=== PATIENT | female | born 1990 | race African-American/Black ===

== ENCOUNTER 2024-03-19 09:15 | Emergency (ER) | payer OTHER, SELFPAY ==
[2024-03-19 09:18] VITALS: BP 134/87; PULSE 76; TEMP 36.7; O2SAT 99; BMI 27.1
--- NOTE | 2024-03-19 11:12 | ED_ITS ---
HPI HPI - General Adult General Chief complaint: Head Injury Stated complaint: HEAD INJURY Time Seen by Provider: 03/19/24 10:30 Source: patient Mode of arrival: walk-in Limitations: no limitations History of Present Illness HPI narrative: Patient is a 33-year-old female who is presenting to the ER today with chief complaint of closed head injury last evening. Patient went to [facility] last evening for evaluation. There is CT scanner was not working appropriately, patient was medically cleared and discharged without evidence and education on close head injury. Patient takes no blood thinners. She currently has a lot of pressure to her forehead in the front of her face, no other headache. Patient does have a history of headache and migraines. Patient has no chest pain or marco antonio rtness of breath. No nausea or vomiting. No dizziness, vertigo. No vision or hearing changes. No other acute complaints. Patient does have some mild swelling to the middle of her forehead. Patient stated the swelling was much worse last evening. Patient has religiously been doing ice last evening 20 minutes on, 20 minutes off and also taking Motrin. She has not had any Motrin since 2 AM this morning. Patient does not use any Tylenol. 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 Patient drove the ER today. Patient is here for reevaluation and to see if she needs a CT of the brain or not. No other acute complaints. All systems are negative except as noted/marked. All systems reviewed and otherwise negative. Nurses note and vital signs reviewed and patient is not hypoxic. General: The patient appears well and in no apparent distress. Patient is resting comfortably on cart. Patient is not toxic, lethargic, or listless Skin: Warm, dry, no pallor noted. There is no rash noted. No petechiae, purpura. Head: Normocephalic, atraumatic, patient has mild soft swelling to the middle of her for forehead. Patient states that her forehead and swelling is significantly improved compared to last night. no hard palpable hematoma. Patient has no midline or paracervical tenderness palpation. Full range of motion of cervical spine with no difficulty. Eye: Normal conjunctiva, no drainage, EOMI. PERRL pupils are 4/2, equal, bilateral. No raccoon eyes. Ears, Nose, Mouth, and Throat: oral mucosa is moist. Nares patent. Mouth without vesicles. Cardiovascular: Regular Rate and Rhythm, no murmur, gallop, rub Respiratory: Patient is in no distress, no accessory muscle use, lungs are clear to auscultation, no wheezing, rales or rhonchi Back: non-tender, no CVA tenderness bilaterally to percussion. No CT LS midline pain GI: no tenderness to palpation, no masses appreciated. No rebound, guarding, or rigidity noted. No distention Musculoskeletal: Patient has full range of motion of all of the extremities, no motor, sensory, or focal neurological deficits Neurological: A&O x4, normal speech Psychiatric: Cooperative Related Data Previous Rx's ?Medication ?Instructions ?Recorded ebjjzyupia-lsydrdtflvsuy-dlewzzcb 1 cap PO Q8H PRN pain/headache #7 03/19/24 50 mg-300 mg-40 mg capsule caps (Fioricet) metoclopramide HCl 10 mg tablet 10 mg PO Q6H PRN nausea and 03/19/24 (Reglan) vomiting 3 days #7 tabs Allergies Allergy/AdvReac Type Severity Reaction Status Date / Time No Known Drug Allergies Allergy Verified 03/19/24 09:18 Opioid HPI Opioid Management Most Recent Opioid Data: No Data to Display Exam Constitutional Vital Signs, click to edit/add: Last Vital Signs Temp 98.0 F 03/19/24 09:18 Pulse 76 03/19/24 09:18 Resp 17 03/19/24 09:18 BP 134/87 03/19/24 09:18 Pulse Ox 99 03/19/24 09:18 O2 Del Method Room Air 03/19/24 09:18 Course Vital Signs Vital signs: Vital Signs Temperature 98.0 F 03/19/24 09:18 Pulse Rate 76 03/19/24 09:18 Respiratory Rate 17 03/19/24 09:18 Blood Pressure 134/87 03/19/24 09:18 Pulse Oximetry 99 03/19/24 09:18 Oxygen Delivery Method Room Air 03/19/24 09:18 Temperature 98.0 F 03/19/24 09:18 Pulse Rate 76 03/19/24 09:18 Respiratory Rate 17 03/19/24 09:18 Blood Pressure 134/87 03/19/24 09:18 Pulse Oximetry 99 03/19/24 09:18 Oxygen Delivery Method Room Air 03/19/24 09:18 Medical Decision Making MDM Narrative Medical decision making narrative: Patient is on no blood thinners. Patient's symptoms are pressure 2 or 4 in the front of her face. Patient has no significant signs or symptoms of severe headache, amnesia, intractable nausea vomiting, or any other significant signs of head injury. Education was done on benefit of performing a CT of the brain or not at this time. Shared decision making was done with the patient. Patient agrees that she does not want to have a CT of the brain at this time. Education on close head injury, postconcussion syndrome, and symptoms and what to look out for were discussed with patient at bedside and on discharge paperwork. Patient will alternate Tylenol Motrin. Patient was given a prescription for Fioricet and Reglan to use if needed. Patient was given a work note. Patient was getting signs and symptoms of water return back to the ER for reevaluation. Patient was offered to have a CT of the brain to be safe and for peace of mind, but patient stated that if is not clinically warranted with evidence-based medicine, then she is okay with not performing CT of the brain, she just did not have any education on how long her sinus symptoms would last for no education on close head injury and postconcussion syndrome last night from the ER per her words. Patient thankful for time at bedside. No question of discharge Discharge Plan Discharge Stand Alone Forms: Work/School Release, Portal Instructions Chief Complaint: Head Injury Clinical Impression: Closed head injury, Postconcussion syndrome Patient Disposition: Home, Self-Care Time of Disposition Decision: 10:31 Condition: Fair Prescriptions / Home Meds: New nzmqiwmmft-gfziktjmwflsq-tsmg [Fioricet] 50-300-40 mg capsule 1 cap PO Q8H PRN (Reason: pain/headache) Qty: 7 0RF metoclopramide HCl [Reglan] 10 mg tablet 10 mg PO Q6H PRN (Reason: nausea and vomiting) 3 Days Qty: 7 0RF Print Language: Mozambican Instructions: Head Injury (ED), Post Concussion Syndrome (ED) Additional Instructions: Alternate Tylenol and Motrin every 4 hours as discussed. Continue using ice 20 minutes on, 20 minutes off. Use Fioricet and Reglan if needed. Do not take Fioricet with Tylenol, you could actually take too much Tylenol at the same time. Use Reglan if needed for nausea, vomiting, and headache. Follow-up with PCP for further questions. Referrals: Physician,Non-Staff, MD [Primary Care Provider] - 1 week Discharge Date/Time: 03/19/24 10:50
== END 2024-03-19 10:50 | disposition home or self-care (01) ==
PROVIDERS: Emergency Provider Emergency Medicine
DX: S09.8XXA Other specified injuries of head, initial encounter (principal); F07.81 Postconcussional syndrome; W22.8XXA Striking against or struck by other objects, initial encounter
CPT/HCPCS: 99283

== ENCOUNTER 2024-04-09 12:10 | Outpatient (OUT) | payer OTHER, SELFPAY ==
[2024-04-10 06:11] LABS: HBsAg Screen Negative (Negative)
[2024-04-10 12:09] LABS: HIV Ab/p24 Ag Screen Non Reactive (Non Reactive)
[2024-04-10 13:08] LABS: Rapid Plasma Reagin, Quant Non Reactive titer (NonRea<1:1)
== END 2024-04-09 12:11 | disposition home or self-care (01) ==
LOC: LAB 12:11
PROVIDERS: Visit Provider Obstetrics & Gynecology
DX: Z20.2 Contact with and (suspected) exposure to infections with a predominantly sexual mode of transmission (principal)
CPT/HCPCS: 36415; 86592; 87340; 87389

== ENCOUNTER 2024-05-14 19:05 | Outpatient (REF) | payer OTHER, SELFPAY ==
--- OUTSIDE RECORDS SUMMARY | 2024-05-14 19:10 | XMS_ITS | CCD ---
Author Organization [facility] Care Team Providers Care Inspector Scales Name Role Phone Kaylyn Spring Attending Provider NO FAMILY, PHYSICIAN Primary Care Provider Unava ilMayuri Ulloa Unavailable NO FAMILY, PHYSICIAN Primary Care Provider Unava ilMURIEL Ulloa Attending Provider [facility] Primary Care Unavailable ABRAM ., DR PANIAGUA Attending Unavailable ABRAM ., DR PANIAGUA Consulting Unavailable ABRAM ., DR PANIAGUA Admitting Unavailable Vanesa Bullock CNP Primary Care Provider [phone] NO FAMILY, PHYSICIAN Primary Care Unavailable Mayuri Hanson Attending Unavailable Mayuri Hanson Admitting Unavailable Joel Zapata Attending Unavailab Joel Brambila Admitting Unavailab josselin NO FAMILY, PHYSICIAN Primary Care Unavailable VALENTIN PASCUAL Attending Unavailable ARCELIA VALVERDE Attending Unavailable VALENTIN PASCUAL Attending Unavailable ARCELIA VALVERDE Attending Unavailable SERVICES, [facility] Care Unava SUNNY Malin Attending Unavailable SERVICES, [facility] Primary Care Unava ilSUNNY Bailey Attending Unavailable SUNNY COOK [facility] Care Unava ilKAYYLN Ribeiro Attending Unavailable Allergies Allergy Classification Reported Allergen(s) Allergy Type Date of Onset Reaction(s) Facility (8 sources) Bee sting Allergy to substance 3 Hives / Urticaria [facility] Medications Current Medications Medication Drug Class(es) Dates Sig (Normalized) Sig (Original) busPIRone hydrochloride 5 mg oral tablet (4 sources) Start: 04-23-2024 busPIRone HCl 5 MG Oral Tablet 04/23/2024 Provider: Vanesa Bullock CNP cyclobenzaprine hydrochloride 10 mg oral tablet (6 sources) Muscle Relaxant Start: 05-07-2024 Cyclobenzaprine HCl 10 MG Oral Tablet 05/07/2024 Provider: Shelly Mei CNP Start: 02-14-2024 End: 04-23-2024 Cyclobenzaprine HCl 10 MG Or al Tablet 02/14/2024 - 04/23/2024 Provider: Vanesa Bullock CNP hydrOXYzine pamoate 25 mg oral capsule (2 sources) Antihistamine Start: 05-07-2024 hydrOXYzine Pa moate 25 MG Oral Capsule 05/07/2024 Provider: Shelly Mei CNP Start: 05-07-2024 hydrOXYzine Pa moate 25 MG Oral Capsule 05/07/2024 Provider: Shelly Mei CNP ibuprofen 800 mg oral tablet (6 sources) Nonsteroidal Anti-inflammatory Drug Start: 05-07-2024 Ibuprofen 800 MG Oral Tablet 05/07/2024 Provider: Shelly Mei CNP Start: 02-14-2024 End: 04-23-2024 Ibuprofen 800 MG Oral Tablet 02/14/2024 - 04/23/2024 Provider: Vanesa Bullock CNP levonorgestrel 0.735416 mg/hr intrauterine system (8 sources) Progestin, Progestin-containing Intrauterine Device Start: 05-23-2023 Mirena (52 MG) 20 MCG/DAY Intrauterine Intrauterine device 05/23/2023 Provider: pantoprazole 20 mg delayed release oral tablet (9 sources) Proton Pump Inhibitor Start: 05-07-2024 Pantopra zole Sodium 20 MG Oral Tablet Delayed Release 05/07/2024 Provider: Shelly Mei CNP Start: 05-07-2024 Pantoprazole S odium 20 MG Oral Tablet Delayed Release 05/07/2024 Provider: Shelly Mei CNP Start: 12-18-2023 End: 04-23-2024 Pantoprazole Sodium 40 MG Or al Tablet, enteric coated 12/18/2023 - 04/23/2024 Provider: Vanesa Bullock CNP Wrist Splint/Right XL - (1 source) Start: 01-02-2023 Wrist Splint/R ight XL - as directed Dec, Active Completed/Discontinued Medications Medication Drug Class(es) Dates Sig (Normalized) Sig (Original) 1 ml methylPREDNISolone acetate 80 mg/ml injection (4 sources) Corticosteroid Start: 04-23-2024 DEPO-Medrol 80 MG/ML IJ SUSP 04/23/2024 Vanesa Bullock CNP Comment on above: Patient tolerated th erapy well. No signs or symptoms of adverse reactions. Patient waited in clinic for 15 minutes after administration. predniSONE 20 mg oral tablet (5 sources) Start: 02-14-2024 End: 04-23-2024 predniSONE 20 MG Oral Tablet 02/14/2024 - 04/23/2024 Provider: Vanesa Bullock CNP sucralfate 1000 mg oral tablet (1 source) Aluminum Complex Start: 03-29-2021 take 1 tablet by mouth every eight hours Sucralfate 1 GM 1 tablet on an empty stomach Orally tid for 30 day(s) Mar, Not-Taking Problems Active Problems Problem Classification Problem Date Documented Da te Episodic/Chronic Abdominal pain (1 source) Abdominal pain; Translations: [Unspecified abdominal pain] 05-05-2021 Episodic Anxiety disorders (20 sources) Generalized anxiety disorder; Translations: [Generalized anxiety disorder] Onset: 4 12-18-2023 Chronic Esophageal disorders (12 sources) Gastroesophageal reflux disease without esophagitis; Translations: [Gastro-esophageal reflux disease without esophagitis] Onset: 4 12-19-2023 Chronic Gastritis and duodenitis (17 sources) Chronic gastritis; Translations: [Unspecified chronic gastritis with bleeding] Onset: 3 05-23-2023 Chronic Gastrointestinal hemorrhage (1 source) Hematochezia; Translations: [Melena] 05-05-2021 Episodic Immunizations and screening for infectious disease (5 sources) Encounter for screening for human immunodeficiency virus [HIV]; Translations: [Screening For Hiv] Onset: 4 Episodic Intracranial injury (1 source) Concussion with loss of consciousness of 30 minutes or less, initial encounter; Translations: [Concussion with loss of consciousness of 30 minutes or less, initial encounter] Onset: 4 Episodic Mood disorders (16 sources) Mild recurrent major depression; 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, recurrent, mild] Onset: 3 12-18-2023 Chronic Nonspecific chest pain (2 sources) Chest pain, unspecified; Translations: [Chest pain] Onset: 4 Episodic Other connective tissue disease (1 source) Pain in right thumb; Translations: [Pain in right finger(s)] Episodic Other connective tissue disease (1 source) Pain in right finger(s) Episodic Other gastrointestinal disorders (1 source) Diarrhea; Translations: [Diarrhea, unspecified] 05-05-2021 Episodic Other injuries and conditions due to external causes (1 source) Injury of head Onset: 4 Episodic Other nutritional; endocrine; and metabolic disorders (1 source) Weight loss; Translations: [Abnormal weight loss] 05-05-2021 Episodic Other nutritional; endocrine; and metabolic disorders (20 sources) Finding of body mass index; Translations: [Body mass index (observable entity)] Onset: 3 Episodic Other screening for suspected conditions (not mental disorders or infectious disease) (17 sources) Encounter for screening for malignant neoplasm of cervix; Translations: [Encounter for screening for diabetes mellitus] Onset: 3 Episodic Residual codes; unclassified (4 sources) Body mass index (BMI) pediatric, 5th percentile to less than 85th percentile for age; Translations: [Assessment of Bmi Percentile = 5% To < 85% For Age Z68.52] Onset: 4 Episodic Spondylosis; intervertebral disc disorders; other back problems (5 sources) Disorder of muscle; Translations: [Skeletal muscle structure of back (body structure)] Onset: 4 Episodic Sprains and strains (14 sources) Unspecified sprain of right thumb, initial encounter; Translations: [Low back strain] Onset: 4 Episodic Superficial injury; contusion (1 source) Contusion of other part of head, initial encounter; Translations: [Contusion of other part of head, initial encounter] Onset: 4 Episodic Unclassified (1 source) Pain in right finger(s); Translations: [Pain in right finger(s)] Onset: 3 Unclassified (1 source) Facial Numbness Onset: 4 Unclassified (1 source) Chest Pain; Facial Numbness Onset: 4 Past or Other Problems Problem Classification Problem Date Documented Da te Episodic/Chronic Gastritis and duodenitis (12 sources) Acute gastritis; Translations: [Acute gastritis without bleeding] Onset: 12-19-2023 12-19-2023 Episodic Results Test Name Value Interpretation Reference Range Facility BASIC METABOLIC PANLon 05-04 Anion gap [Moles/Vol] 9 mmol/L Normal 5-15 [facility] Comment on above: Performed By: #### C SUZANNE, BMP, 51112-7, 63141-4, 33539-5 #### [facility] ([id number]) [address] [place] [address] 99713 Calcium [Mass/Vol] 9.3 mg/dL Normal 8.5-10.5 [facility] Comment on above: Performed By: #### C SUZANNE, BMP, 11781-2, 91821-3, 83163-8 #### [facility] ([id number]) [address] [place] [address] 81161 Chloride [Moles/Vol] 105 mmol/L Normal 98-109 [facility] Comment on above: Performed By: #### C SUZANNE, BMP, 95953-0, 49040-0, 92695-7 #### [facility] ([id number]) [address] [place] [address] 13989 CO2 [Moles/Vol] 20 mmol/L Low 22-32 [facility] Comment on above: Performed By: #### C SUZANNE, BMP, 43394-3, 23670-6, 24765-4 #### [facility] ([id number]) [address] [place] [address] 96953 Creatinine [Mass/Vol] 0.76 mg/dL Normal 0.40-1.00 [facility] Comment on above: Result Comment: METH OD TRACEABLE TO IDMS STANDARD Performed By: #### C SUZANNE, BMP, 44343-0, 28109-0, 28005-4 #### [facility] ([id number]) [address] [place] [address] 94035 eGFR (CKD-EPI) NON-RACE DEPENDENT >90 Normal >59 [facility] Comment on above: Result Comment: Reported eGFR is based on the CKD-EPI 2020 equation that does not use a race coefficient. Performed By: #### C SUZANNE, BMP, 83975-8, 62397-7, 07891-7 #### [facility] ([id number]) [address] [place] [address] 50177 Glucose [Mass/Vol] 116 mg/dL High 65-99 [facility] Comment on above: Performed By: #### C SUZANNE, BMP, 86384-8, 04351-9, 99561-8 #### [facility] ([id number]) [address] [place] [address] 69832 Potassium [Moles/Vol] 3.9 mmol/L Normal 3.5-5.0 [facility] Comment on above: Performed By: #### C SUZANNE, BMP, 63390-3, 66322-1, 18093-2 #### [facility] ([id number]) [address] [place] [address] 95825 Sodium [Moles/Vol] 134 mmol/L Normal 134-146 [facility] Comment on above: Performed By: #### C SUZANNE, BMP, 70989-9, 02561-0, 19320-0 #### [facility] ([id number]) [address] [place] [address] 92388 Urea nitrogen [Mass/Vol] 15 mg/dL Normal 5-23 [facility] Comment on above: Performed By: #### C BCA, BMP, 63635-8, 10038-2, 23425-6 #### [facility] ([id number]) [address] [place] [address] 30046 CBC AND AUTO DIFFon 05-04-20 24 ABSOLUTE BASOPHIL 0.0 X10E9/L Normal 0.0-0.2 [facility] Comment on above: Performed By: #### C BCA, BMP, 43247-4, 41503-6, 34459-9 #### [facility] ([id number]) [address] [place] [address] 95621 ABSOLUTE NEUTROPHIL 5.3 X10E9/L Normal 1.5-6.6 [facility] Comment on above: Performed By: #### C SUZANNE, BMP, 45650-0, 91291-4, 92520-4 #### [facility] ([id number]) [address] [place] [address] 43069 Basophils/100 WBC (Bld) 0.3 % Normal [facility] Comment on above: Performed By: #### Cammie PALACIOS, BMP, 80140-8, 55688-7, 17626-9 #### [facility] ([id number]) [address] [place] [address] 11861 Eosinophils (Bld) [#/Vol] 0.1 10*3/uL Normal 0.0-0.4 [facility] Comment on above: Performed By: #### C SUZANNE, BMP, 36120-9, 78091-2, 10698-3 #### [facility] ([id number]) [address] [place] [address] 65626 Eosinophils/100 WBC (Bld) 1.3 % Normal [facility] Comment on above: Performed By: #### Cammie PALACIOS, BMP, 09406-2, 90098-1, 34174-9 #### [facility] ([id number]) [address] [place] [address] 40314 Erythrocyte distribution width (RBC) [Ratio] 13.3 % Normal 11.5-15.0 [facility] Comment on above: Performed By: #### Cammie PALACIOS, BMP, 72345-0, 39746-8, 59364-1 #### [facility] ([id number]) [address] [place] [address] 07896 Hematocrit (Bld) [Volume fraction] 41.6 % Normal 35-47 [facility] Comment on above: Performed By: #### C BCA, BMP, 41081-0, 47640-7, 81122-1 #### [facility] ([id number]) [address] [place] [address] 56282 Hemoglobin (Bld) [Mass/Vol] 13.5 g/dL Normal 11.7-15.5 [facility] Comment on above: Performed By: #### C BCA, BMP, 50388-3, 80111-3, 42833-4 #### [facility] ([id number]) [address] [place] [address] 08235 Lymphocytes (Bld) [#/Vol] 2.2 10*3/uL Normal 1.0-3.5 [facility] Comment on above: Performed By: #### C BCA, BMP, 58771-4, 37082-9, 18648-6 #### [facility] ([id number]) [address] [place] [address] 41915 Lymphocytes/100 WBC (Bld) 27.1 % Normal [facility] Comment on above: Performed By: #### C BCA, BMP, 85909-0, 47478-0, 87846-2 #### [facility] ([id number]) [address] [place] [address] 45869 MCH (RBC) [Entitic mass] 27.0 pg Normal 27-34 [facility] Comment on above: Performed By: #### C BCA, BMP, 53835-3, 32613-7, 11878-0 #### [facility] ([id number]) [address] [place] [address] 59810 MCHC (RBC) [Mass/Vol] 32.5 g/dL Normal 32-36 [facility] Comment on above: Performed By: #### C BCA, BMP, 18876-6, 59722-5, 04423-3 #### [facility] ([id number]) [address] [place] [address] 21260 MCV (RBC) [Entitic vol] 83 fL Normal 80-100 [facility] Comment on above: Performed By: #### C SUZANNE, PARAM, 03151-8, 36378-2, 31522-0 #### [facility] ([id number]) [address] [place] [address] 05108 Monocytes (Bld) [#/Vol] 0.5 10*3/uL Normal 0-0.9 [facility] Comment on above: Performed By: #### C SUZANNE, BMP, 43814-4, 11775-2, 89258-0 #### [facility] ([id number]) [address] [place] [address] 51481 Monocytes/100 WBC (Bld) 6.4 % Normal [facility] Comment on above: Performed By: #### Cammie PALACIOS, BMP, 48185-6, 73406-5, 65887-0 #### [facility] ([id number]) [address] [place] [address] 60393 Neutrophils/100 WBC (Bld) 64.9 % Normal [facility] Comment on above: Performed By: #### Cammie PALACIOS, PARAM, 41168-8, 13353-6, 65585-0 #### [facility] ([id number]) [address] [place] [address] 65846 Platelet mean volume (Bld) [Entitic vol] 8.7 fL Normal 7-12 [facility] Comment on above: Performed By: #### Cammie PALACIOS, BMP, 39426-2, 40933-8, 20406-5 #### [facility] ([id number]) [address] [place] [address] 23453 Platelets (Bld) [#/Vol] 237 10*3/uL Normal 150-450 [facility] Comment on above: Performed By: #### C SUZANNE, BMP, 62261-7, 36889-2, 13575-5 #### [facility] ([id number]) [address] [place] [address] 64903 RBC COUNT 5.00 X10E12/L Normal 3.80-5.20 [facility] Comment on above: Performed By: #### C SUZANNE, BMP, 90509-8, 74303-3, 98490-0 #### [facility] ([id number]) [address] [place] [address] 85201 WBC (Bld) [#/Vol] 8.1 10*3/uL Normal 4.0-11.0 [facility] Comment on above: Performed By: #### C SUZANNE, PARAM, 08952-9, 04198-1, 82408-1 #### [facility] ([id number]) [address] [place] [address] 04826 Fibrin D-dimer DDU (PPP) [Ma ss/Vol]on 05-04-2024 D DIMER <150 Normal <255 [facility] Comment on above: Result Comment: Results <255 ng/mL DDU: The presence of a VTE can safely be excluded with a negative D-Dimer result and Wells score. A negative result doesn't exclude the possibility of DIC. The test be repeated along with other diagnostic tests if the patient's symptoms persist or worsen. [email or web address] Performed By: #### C SUZANNE, BMP, 03095-6, 59235-2, 71283-1 #### [facility] ([id number]) [address] [place] [address] 43668 HCG ( test) Cm Vines (S)on 05-04-2024 SERUM Negative Normal NEG [facility] Comment on above: Performed By: #### C SUZANNE, BMP, 68366-5, 81994-0, 92055-4 #### [facility] ([id number]) [address] [place] [address] 15406 Troponin I.cardiac High sens itivity method [Mass/Vol]on 05-04-2024 TROPONIN I, HIGH SENSITIVITY 2 ng/L Normal <16 [facility] Comment on above: Performed By: #### C SUZANNE, BMP, 13785-9, 91338-6, 24472-7 #### [facility] ([id number]) [address] [place] [address] 11492 XR CHEST 1 VWon 05-04-2024 XR CHEST 1 VW XR CHEST 1 VW CLINICAL INFORMATION: Chest pain and shortness of breath COMPARISON: Chest radiograph dated 04/22/2021. VIEWS: 1. FINDINGS: Cardiac and mediastinal shadows are normal. No infiltrates. No effusions. No pneumothorax. No free air below the diaphragm. IMPRESSION: No acute cardiopulmonary disease. Finalized by Unique Figueroa MD on 05/04/2024 10:21 AM Normal [facility] PAP ACOG PANEL 2: 30 to 65on 02-15-2023 . . Normal [facility] Comment on above: Result Comment: Perf ormed at: WB Performed By: #### [id number] #### [facility] [address] [address] [address] Alli Galvin Age Gdln ACOG Testing 30-65 Normal [facility] Comment on above: Performed By: #### 4 [id number] #### [facility] [address] [address] [address] Alli Galvin DIAGNOSIS: Comment Normal [facility] Comment on above: Result Comment: NEGA TIVE FOR INTRAEPITHELIAL LESION OR MALIGNANCY. Performed at: WB Performed By: #### 4 [id number] #### [facility] [address] [address] [address] Alli Galvin HPV Aptima Negative Normal Negative [facility] Comment on above: Result Comment: This nucleic acid amplification test detects fourteen high-risk HPV types (16,18,31,33,35,39,45,51,52,56,58,59,66,68) without differentiation. Performed at: =G Performed By: #### 4 [id number] #### [facility] [address] [place] [address] Dr. Alli Galvin HPV Genotype Reflex Comment Normal [facility] Comment on above: Result Comment: Crit eria not met, HPV Genotype not performed. Performed at: WB Performed By: #### 4 [id number] #### [facility] [address] [place] [address] Dr. Alli Galvin Methodology: Comment Normal [facility] Comment on above: Result Comment: This liquid based ThinPrep(R) pap test was screened with the use of an image guided system. Performed at: WB Performed By: #### 4 [id number] #### [facility] [address] [place] [address] Dr. Alli Galvin Note: Comment Normal [facility] Comment on above: Result Comment: The Pap smear is a screening test designed to aid in the detection of premalignant and malignant conditions of the uterine cervix. It is not a diagnostic procedure and should not be used as the sole means of detecting cervical cancer. Both false-positive and false-negative reports do occur. . Performed at: WB Performed By: #### 4 [id number] #### [facility] [address] [place] [address] Dr. Alli Galvin Performed by: Comment Normal [facility] Comment on above: Result Comment: Duke Mendoza, [employer] (ASCP) Performed at: WB Performed By: #### 4 [id number] #### [facility] [address] [place] [address] Dr. Alli Galvin Specimen adequacy: Comment Normal [facility] Comment on above: Result Comment: Sati sfactory for evaluation. Endocervical and/or squamous metaplastic cells (endocervical component) are present. Performed at: WB Performed By: #### 4 [id number] #### [facility] [address] [place] [address] Dr. Alli Galvin XR hand RT min 3V*on 023 XR hand RT min 3V* [facility] [address] [place] [address] XRay Report Signed Patient: Mariola Etienne MR#: [id number] 517 : 1990 Acct:[id number] Age/Sex: 32 / F ADM Date: 01/02/23 Loc: XDUCLY Room: Type: [facility] Attending Dr: Mayuri LLAMAS Copies to: MURIEL Pineda Ordering Provider: MURIEL Pineda Date of Service: 01/02/23 XR/XR hand RT min 3V*: Pain of right thumb RIGHT HAND - 3 views REASON FOR EXAM: Pain and decreased range of motion of right hand. No known injury. COMPARISON: None FINDINGS: No focal soft tissue abnormality. No acute bony process is seen. No bony erosions. XR/XR hand RT min 3V* IMPRESSION: NO ACUTE BONY PROCESS. Impression dictated by: Moo Castaneda Jr., DMagdaOMagda01/02/2023 1:44 PM Dictation Location: [facility]--15 Transcribed By: [facility] 01/02/23 1344 Dictated By: Moo Castaneda Jr, DO 01/02/23 1342 Signed By: 01/02/23 1344 Normal [facility] XR hand RT min 3V* [facility] [employer] Other XR hand RT min 3V* [facility] [employer] Other XR hand RT min 3V* [address] [facility] [employer] Other XR hand RT min 3V* [place] [address] [facility] [employer] Other XR hand RT min 3V* XRay Report [facility] [employer] Other XR hand RT min 3V* Signed [facility] [employer] Other XR hand RT min 3V* Patient: Mariola Etienne MR#: [id number] [employer] Other XR hand RT min 3V* 517 [employer] Other XR hand RT min 3V* : 1990 Acct:[id number] [employer] Other XR hand RT min 3V* Age/Sex: 32 / F ADM Date: 01/02/23 [employer] Other XR hand RT min 3V* Loc: XDUCLY Room: Type: [facility] [employer] Other XR hand RT min 3V* Attending Dr: Mayuri LLAMAS [employer] Other XR hand RT min 3V* Copies to: MURIEL Pineda [employer] Other XR hand RT min 3V* Ordering Provider: MURIEL Pineda [employer] Other XR hand RT min 3V* Date of Service: 01/02/23 [employer] Other XR hand RT min 3V* XR/XR hand RT min 3V*: Pain of right thumb [employer] Other XR hand RT min 3V* RIGHT HAND - 3 views [employer] Other XR hand RT min 3V* REASON FOR EXAM: Donal n and decreased range of motion of right hand. No known injury. [employer] Other XR hand RT min 3V* COMPARISON: None [employer] Other XR hand RT min 3V* FINDINGS: [employer] Other XR hand RT min 3V* No focal soft tissue abnormality. No acute bony process is seen. No bony erosions. [employer] Other XR hand RT min 3V* XR/XR hand RT min 3V* [employer] Other XR hand RT min 3V* IMPRESSION: [employer] Other XR hand RT min 3V* NO ACUTE BONY PROCESS. [employer] Other XR hand RT min 3V* Impression dictated by: Moo Castaneda Jr., D.O.01/02/2023 1:44 PM [place] [employer] Other XR hand RT min 3V* Dictation Location: [facility] [place] [employer] Other XR hand RT min 3V* Transcribed By: [facility] 01/02/23 1344 [employer] Other XR hand RT min 3V* Dictated By: Moo Castaneda Jr, DO 01/02/23 1342 [employer] Other XR hand RT min 3V* Signed By: [employer] Other XR hand RT min 3V* 01/02/23 1344 [facility] [employer] Other COVID-19 Positive/Negativeon 04-05-2021 SARS-CoV-2 (COVID-19) N gene JAXON+probe Ql (Resp) Positive Negative [facility] Comment on above: Testing for SARS-CoV -2 by RT-PCRThis test was developed and its performance characteristics determined by [employer] and validated at the [facility]. This test has not been FDA cleared or approved. This test has been authorized by FDA under an Emergency Use Authorization (EUA). This test has been validated in accordance with the FDA's Guidance Document (Policy for Diagnostics Testing in Laboratories Certified to Perform High Complexity Testing under CLIA prior to Emergency Use Authorization for Coronavirus Disease-2019 during the Public Health Emergency) issued on January 09, 2020. This test is only authorized for the duration of time the declaration that circumstances exist justifying the authorization of the emergency use of in vitro diagnostic tests for detection of SARS-CoV-2 virus and/or diagnosis of COVID-19 infection under section 564(b)(1) of the Act, 21 U.S.C. 360bbb-3(b)(1), unless the authorization is terminated or revoked sooner. Vital Signs Date Time Vital Sign Value Performing Clinician Facility 05-07-2024 08:31-0400 Body height 170.18 cm Vanesa Bullock CNP Work Phone: [facility] Work Phone: 05-07-2024 08:31-0400 Body mass index (BMI) [Ratio] 27.5 kg/m2 Vanesa Bullock CNP Work Phone: [facility] Work Phone: 05-07-2024 08:31-0400 Body surface area Derived from formula 1.9 m2 Vanesa Bullock CNP Work Phone: [facility] Work Phone: 05-07-2024 08:31-0400 Body temperature 98.1 [degF] Vanesa Bullock CNP Work Phone: [facility] Work Phone: 05-07-2024 08:31-0400 Body weight 79.74 kg Vanesa Bullock CNP Work Phone: [facility] Work Phone: 05-07-2024 08:31-0400 Diastolic blood pressure 79 mm[Hg] Vanesa Bullock CNP Work Phone: [facility] Work Phone: 05-07-2024 08:31-0400 Heart rate 69 /min Vanesa Bullock CNP Work Phone: [facility] Work Phone: 05-07-2024 08:31-0400 SaO2% (BldA) [Mass fraction] 98 % Vanesa Bullock CNP Work Phone: [facility] Work Phone: 05-07-2024 08:31-0400 Systolic blood pressure 113 mm[Hg] Vanesa Bullock CNP Work Phone: [facility] Work Phone: 04-23-2024 11:09-0400 Body height 170.18 cm Vanesa Bullock CNP Work Phone: [facility] Work Phone: 04-23-2024 11:09-0400 Body mass index (BMI) [Ratio] 27.5 kg/m2 Vanesacharlie Bullock LAB RN Work Phone: [facility] Work Phone: 04-23-2024 11:09-0400 Body surface area Derived from formula 1.9 m2 Vanesa Kobe LAB RN Work Phone: [facility] Work Phone: 04-23-2024 11:09-0400 Body weight 79.65 kg Vanesa Kobe LAB RN Work Phone: [facility] Work Phone: 04-23-2024 11:09-0400 Diastolic blood pressure 74 mm[Hg] Vanesa Bullock LAB RN Work Phone: [facility] Work Phone: 04-23-2024 11:09-0400 Heart rate 73 /min Vanesa Bullock CNP Work Phone: [facility] Work Phone: 04-23-2024 11:09-0400 SaO2% (BldA) [Mass fraction] 95 % Vanesa Bullock LAB RN Work Phone: [facility] Work Phone: 04-23-2024 11:09-0400 Systolic blood pressure 111 mm[Hg] Vanesa Bullock LAB RN Work Phone: [facility] Work Phone: 02-14-2024 08:44-0400 Body height 170.18 cm Vanesa Bullock CNP Work Phone: [facility] Work Phone: 02-14-2024 08:44-0400 Body mass index (BMI) [Ratio] 26.1 kg/m2 Vanesa Bullock CNP Work Phone: [facility] Work Phone: 02-14-2024 08:44-0400 Body surface area Derived from formula 1.9 m2 Vanesa Bullock CNP Work Phone: [facility] Work Phone: 02-14-2024 08:44-0400 Body weight 75.57 kg Vanesa Bullock CNP Work Phone: [facility] Work Phone: 02-14-2024 08:44-0400 Diastolic blood pressure 77 mm[Hg] Vanesa Bullock CNP Work Phone: [facility] Work Phone: 02-14-2024 08:44-0400 Heart rate 77 /min Vanesa Bullock CNP Work Phone: [facility] Work Phone: 02-14-2024 08:44-0400 SaO2% (BldA) [Mass fraction] 97 % Vanesa Bullock CNP Work Phone: [facility] Work Phone: 02-14-2024 08:44-0400 Systolic blood pressure 112 mm[Hg] Vanesa Bullock CNP Work Phone: [facility] Work Phone: 12-18-2023 14:51-0400 Body height 170.18 cm Vaensa Bullock CNP Work Phone: [facility] Work Phone: 12-18-2023 14:51-0400 Body mass index (BMI) [Ratio] 26.2 kg/m2 Vanesa Bullock CNP Work Phone: [facility] Work Phone: 12-18-2023 14:51-0400 Body surface area Derived from formula 1.9 m2 Vanesa Bullock CNP Work Phone: [facility] Work Phone: 12-18-2023 14:51-0400 Body weight 75.93 kg Vanesa Bullock CNP Work Phone: [facility] Work Phone: 12-18-2023 14:51-0400 Diastolic blood pressure 85 mm[Hg] Vanesa Bullock CNP Work Phone: [facility] Work Phone: 12-18-2023 14:51-0400 Heart rate 71 /min Vanesa Bullock CNP Work Phone: [facility] Work Phone: 12-18-2023 14:51-0400 SaO2% (BldA) [Mass fraction] 98.9 % Vanesa Bullock CNP Work Phone: [facility] Work Phone: 12-18-2023 14:51-0400 Systolic blood pressure 132 mm[Hg] Vanesa Bullock CNP Work Phone: [facility] Work Phone: 05-23-2023 09:10-0400 Body height 170.18 cm Vanesa Bullock CNP Work Phone: [facility] Work Phone: 05-23-2023 09:10-0400 Body mass index (BMI) [Ratio] 25.2 kg/m2 Vanesa Bullock CNP Work Phone: [facility] Work Phone: 05-23-2023 09:10-0400 Body surface area Derived from formula 1.8 m2 Vanesa Bullock CNP Work Phone: [facility] Work Phone: 05-23-2023 09:10-0400 Body weight 73.03 kg Vanesa Bullock CNP Work Phone: [facility] Work Phone: 05-23-2023 09:10-0400 Diastolic blood pressure 71 mm[Hg] Vanesa Bullock CNP Work Phone: [facility] Work Phone: 05-23-2023 09:10-0400 Heart rate 66 /min Vanesa Bullock CNP Work Phone: [facility] Work Phone: 05-23-2023 09:10-0400 SaO2% (BldA) [Mass fraction] 98 % Vanesa Bullock CNP Work Phone: [facility] Work Phone: 05-23-2023 09:10-0400 Systolic blood pressure 110 mm[Hg] Vanesa Bullock CNP Work Phone: [facility] Work Phone: 01-02-2023 14:10-0400 Body height 170.18 cm Mayuri Margie Other [facility] Other 01-02-2023 14:10-0400 Body mass index (BMI) [Ratio] 26.03 kg/m2 Mayuri Margie Other [facility] Other 01-02-2023 14:10-0400 Body temperature 97.3 [degF] Mayuri Margie Other [facility] Other 01-02-2023 14:10-0400 Body weight 75.39 kg Mayuri Margie Other [facility] Other 01-02-2023 14:10-0400 Respiratory rate 18 /min Mayuri Margie Other [facility] Other 01-02-2023 14:10-7010 SaO2% (BldA) [Mass fraction] 99 % Mayuri Hanson Other [facility] Other Encounters Encounter Date Encounter Type Care Provider Facility Start: 05-07-2024 End: 05-07-2024 ambulatory Shelly Mei LAB RN Work Phone: [facility] Work Phone: Start: 05-07-2024 End: 05-07-2024 FQHC visit, estab pt Maira Munson [employer] SOFTWARE ENGINEER Work Phone: [facility] Work Phone: Start: 05-04-2024 End: 05-05-2024 Emergency department patient visit [facility] Start: 04-23-2024 End: 04-23-2024 FQHC visit, estab pt Maira Munson [employer] SOFTWARE ENGINEER Work Phone: [facility] Work Phone: Start: 04-23-2024 End: 04-23-2024 ambulatory Vanesa Bullock LAB RN Work Phone: [facility] Work Phone: Start: 04-09-2024 End: 04-09-2024 ambulatory ARCELIA ABRAM Not Available Start: 03-18-2024 End: 03-18-2024 Emergency department patient visit [facility] Start: 03-14-2024 End: 03-14-2024 ambulatory VALENTIN PASCUAL Not Available Start: 02-14-2024 End: 02-14-2024 ambulatory ARCELIA ABRAM Not Available Start: 02-14-2024 End: 02-14-2024 ambulatory Vanesa Bullock LAB RN Work Phone: [facility] Work Phone: Start: 01-11-2024 End: 01-11-2024 ambulatory VALENTIN SAMARA Not Available Start: 12-18-2023 End: 12-18-2023 FQHC visit, estab pt Vanesa Bullock LAB RN Work Phone: [facility] Work Phone: Start: 08-10-2023 End: 05-23-2023 General Vanesa Bullock LAB RN Work Phone: [facility] Work Phone: Start: 07-26-2023 ambulatory Joel Nguyen acility:[facility] Start: 05-23-2023 End: 05-23-2023 FQHC visit new patient Vanesa Bullock LAB RN Work Phone: [facility] Work Phone: Start: 02-08-2023 End: 02-08-2023 ambulatory [facility] Facility: Start: 01-02-2023 Office outpatient vi sit 15 minutes Mayuri Hanson [facility] Start: 01-02-2023 End: 01-02-2023 ambulatory PHYSICIAN NO [facility] Work Phone: Start: 01-02-2023 End: 01-02-2023 Patient encounter procedure PHYSICIAN NO [facility] Work Phone: Start: 04-05-2021 End: 04-05-2021 Patient encounter procedure Kaylyn Spring Work Phone: -Pre-Surgical Testing Procedures Date Procedure Procedure Detail Performing Clinician Start: 05-07-2024 Current tobacco non-user cad cap copd pv dm Maira Munson [employer] SOFTWARE ENGINE[employer] Work Phone: Start: 05-07-2024 Most recent diastolic blood pressure < 80 mm hg Shelly Mei LAB RN Work Phone: Start: 05-07-2024 Most recent systolic blood pressure <130 mm hg Shelly Mei LAB RN Work Phone: Start: 05-07-2024 Psychotherapy w/patient 30 minutes Maira Munson [employer] SOFTWARE ENGINE[employer] Work Phone: Start: 05-07-2024 Screening for disorder Visit For: Screening For Disorder Maira Munson [employer] Work Phone: Start: 04-23-2024 Behav assmt w/score & docd/stand instrument Maira Munson [employer] ENG[employer] Work Phone: Start: 04-23-2024 Body mass index documented Vanesa Boogiesolitario antonio LAB RN Work Phone: Start: 04-23-2024 Current tobacco non-user cad cap copd pv dm Vanesa Bullock LAB RN Work Phone: Start: 04-23-2024 Depression screening Visit For: Screening Exam Depression Maira Munson [facility] Work Phone: Start: 04-23-2024 Methylprednisolone 80 MG inj Vanesa zuluaga LAB RN Work Phone: Start: 04-23-2024 Most recent diastolic blood pressure < 80 mm hg Vanesa Bullock LAB RN Work Phone: Start: 04-23-2024 Most recent systolic blood pressure <130 mm hg Vanesa Bullock LAB RN Work Phone: Start: 04-23-2024 Screening for disorder Visit For: Screening For Disorder Maira Munson [facility] Work Phone: Start: 04-23-2024 Therapeutic prophylactic/dx injection subq/im Vanesa Bullock LAB RN Work Phone: Start: 02-14-2024 Body mass index documented Vanesa antonio LAB RN Work Phone: Start: 02-14-2024 Current tobacco non-user cad cap copd pv dm Vanesa Bullock LAB RN Work Phone: Start: 02-14-2024 Hepatitis c antibody Vanesa Bullock LAB RN Work Phone: Start: 02-14-2024 Most recent diastolic blood pressure < 80 mm hg Vanesa Bullock LAB RN Work Phone: Start: 02-14-2024 Most recent systolic blood pressure <130 mm hg Vanesa Bullock LAB RN Work Phone: Start: 12-18-2023 Current tobacco non-user cad cap copd pv dm Vanesa Bullock LAB RN Work Phone: Start: 12-18-2023 Most recent diastolic blood pressure 80-89 mm hg Vanesa Bullock LAB RN Work Phone: Start: 12-18-2023 Most recent systolic blood press 130-139mm hg Vanesa Bullock LAB RN Work Phone: Start: 12-18-2023 Psychotherapy w/patient 30 minutes Radha BRAYWS Work Phone: Start: 05-23-2023 Cholecystectomy Vanesa Bullock LAB RN Work Phone: Start: 05-23-2023 Hemoglobin glycosylated a1c Vanesa Alvarenga nce LAB RN Work Phone: Start: 05-23-2023 Laparoscopic cholecystectomy Vanesa Boogie ence LAB RN Work Phone: Start: 05-23-2023 Most recent diastolic blood pressure < 80 mm hg Vanesa Bullock LAB RN Work Phone: Start: 05-23-2023 Most recent hemoglobin a1c level < 7.0% Vanesa Bullock LAB RN Work Phone: Start: 05-23-2023 Most recent systolic blood pressure <130 mm hg Vanesa Bullock LAB RN Work Phone: Start: 05-23-2023 Pt-focused hlth risk assmt score doc stnd instrm Vanesa Bullock LAB RN Work Phone: Start: 01-02-2023 Plain X-ray of right hand PHYSICIAN RAYNA DIANE Plan of Treatment Date Care Activity Detail Author Start: 06-06-2024 [facility] Start: 05-27-2024 FQHC visit, estab pt Medical Daija matthews Patient [facility] Work Phone: Start: 05-07-2024 End: 05-07-2024 Patient education based on identified need [facility] Start: 04-23-2024 End: 04-23-2024 Patient education based on identified need [facility] Start: 03-01-2024 FQHC visit, estab pt He [facility] Work Phone: Start: 02-14-2024 End: 02-14-2024 Patient education based on identified need [facility] Start: 12-22-2023 FQHC visit, estab pt Medical Establi shed Patient Health [facility] Work Phone: Start: 12-18-2023 End: 12-18-2023 Patient education based on identified need [facility] Start: 05-23-2023 Gastroenterology [facility] Work Phone: Comment on above: Note: Please make a referral to: Start: 05-23-2023 End: 05-23-2023 Patient education based on identified need [facility] Immunizations Immunization Date Immunization Notes Care Provider Fa cilialbin 05-11-2021 hepatitis B vaccine, adult dosage Vanesa Kobe LAB RN Work Phone: Health [facility] 2020 hepatitis B vaccine, adult dosage Vanesa Kobe LAB RN Work Phone: [facility] 04-24-2020 hepatitis B vaccine, pediatric or pediatric/adolescent dosage Vanesa Kobe LAB RN Work Phone: [facility] 03-20-2000 measles, mumps and rubella virus vaccine Vanesa Kobe LAB RN Work Phone: Health [facility] 06-28-1994 diphtheria, tetanus toxoids and pertussis vaccine Vanesa Kobe LAB RN Work Phone: [facility] 06-28-1994 measles, mumps and rubella virus vaccine Vanesa Kobe LAB RN Work Phone: [facility] 06-28-1994 trivalent poliovirus vaccine, live, oral Vanesa Kobe LAB RN Work Phone: [facility] 1990 diphtheria, tetanus toxoids and pertussis vaccine Vanesa Kobe LAB RN Work Phone: [facility] 1990 diphtheria, tetanus toxoids and pertussis vaccine Vanesa Kobe LAB RN Work Phone: [facility] 1990 trivalent poliovirus vaccine, live, oral Vanesa Kobe LAB RN Work Phone: [facility] 1990 diphtheria, tetanus toxoids and pertussis vaccine Vanesa Kobe LAB RN Work Phone: [facility] 1990 trivalent poliovirus vaccine, live, oral Vanesa Bullock LAB RN Work Phone: [facility] Payers Date Payer Category Payer Self-pay [id number] 1990 Unknown [id number] 2.16.84 [id number] 1990 Unknown [id number] 2.16.84 [id number] 1990 Unknown [id number] 2.16.84 [id number] 1990 Unknown [id number] 2.16.84 [id number] 1990 Unknown [id number] 2.16.84 [id number] 1990 Unknown [id number] 2.16.8 [id number] 1990 Unknown [id number] 2.16.8 [id number] 1990 Unknown [id number] 2.16.8 [id number] 1959 Medicaid [id number] Unknown [id number] Unknown [employer] [id number] Unknown [id number] 2.16.8 [id number] Unknown [id number] 2.16.8 [id number] Social History Date Type Detail Facility Tobacco smoking status NHIS Unknown if ever smoked [facility] Start: 1990 Sex Assigned At Female [facility] Sex Assigned At Sex Assigned At [facility] Other Assertion Social drinker (finding) [facility] Assertion Sexually active (finding) [facility] Assertion [facility] Assertion Gender identity finding (finding) [facility] Assertion Finding of sexua l orientation (finding) [facility] Tobacco smoking status Unknown if ever smoked [facility] Work Phone: Assertion Lives alone (finding) [facility] Assertion Full-time employ ment (finding) [facility] Assertion Emotional stress (finding) [facility] Assertion Lives with famil y (finding) [facility] Assertion Patient has move d away (finding) [facility] NEGATED: Highlighted row Assertion Exposure to pollution (event) [facility] NEGATED: Highlighted row Assertion [facility] NEGATED: Highlighted row Assertion Current drinker of alcohol (finding) [facility] NEGATED: Highlighted row Assertion Misuses drugs (finding) [facility] NEGATED: Highlighted row Assertion Sexually active (finding) [facility] Mental Status Date Assessment Result Facility Cognitive function Oriented to t sandrine, place, and person Oriented to person, time and place (finding) [facility] Work Phone: Clinical Notes 06-09-2019 to 05-07-2024 Note Date & Type Note Facility 05-07-2024 Evaluation note Includes: Assessments for all patient encounters Findings Generalized anxiety disorder BH Establis hed Patient with Maira Munson [facility] 05/07/2024 Last Documented On 4 10:55AM ; Health [facility] Mild recurrent major depression BH Estab lished Patient with Maira Munson [facility] 05/07/2024 Last Documented On 4 10:55AM ; [facility] Visit for: screening for disorder BH Est ablished Patient with Maira Munson [facility] 05/07/2024 Last Documented On 4 10:55AM ; [facility] [Body mass index [BMI] 27.0- 27.9, adult] assessment of body mass index Open Access - Established with hSelly Mei [facility] 05/07/2024 Last Documented On 4 1:57PM ; [facility] Panic disorder without agoraphobia BH Es tablished Patient with Maira Munson [facility] 04/23/2024 Last Documented On 4 7:39PM ; [facility] Visit for: screening for depression BH E stablished Patient with Maira Munson [facility] 04/23/2024 Last Documented On 4 7:39PM ; [facility] Visit for: screening for disorder BH Est ablished Patient with Maira Munson [facility] 04/23/2024 Last Documented On 4 7:39PM ; [facility] [Z68.27 - Body mass index [B HI] 27.0-27.9, adult] assessment of body mass index Open Access - Established with Vanesa Bullock [facility] 04/23/2024 Last Documented On 4 8:19AM ; [facility] Assessment of BMI Percentile = 5% to < 85% for age Z68.52 Open Access - Established with Vanesa Bullock [facility] 04/23/2024 Last Documented On 4 8:19AM ; [facility] Generalized anxiety disorder Open Access - Established with Vanesa Bullock [facility] 04/23/2024 Last Documented On 4 8:19AM ; [facility] Lumbar sprain Open Access - Established with A cora Bullock [facility] 04/23/2024 Last Documented On 4 8:19AM ; [facility] Thoracic sprain Open Access - Established with A cora Bullock [facility] 04/23/2024 Last Documented On 4 8:19AM ; [facility] [Z68.26 - Body mass index [B HI] 26.0-26.9, adult] assessment of body mass index Open Access - Established with Vanesa Bullock [facility] 02/14/2024 Last Documented On 4 4:26PM ; [facility] Lower back sprain Open Access - Established with Vanesa Bullock LAB RN 02/14/2024 Last Documented On 4 4:26PM ; [facility] Muscle spasm of back Open Access - Established w ith Vanesa Bullock [facility] 02/14/2024 Last Documented On 4 4:26PM ; [facility] Screening for HIV Open Access - Established with Vanesa Bullock LAB RN 02/14/2024 Last Documented On 4 4:26PM ; [facility] Visit for: screening for dig estive system disorders Open Access - Established with Vanesa Bullock [facility] 02/14/2024 Last Documented On 4 4:26PM ; [facility] Generalized anxiety disorder BH Establis hed Patient with Radha Fan [facility] 12/18/2023 Last Documented On 4 4:35PM ; [facility] Mild recurrent major depress ion per patient reported history Established Patient with Radha aFn [facility] 12/18/2023 Last Documented On 4 4:35PM ; [facility] [Z68.26 - Body mass index [B HI] 26.0-26.9, adult] assessment of body mass index Medical Established Patient with Vanesa Bullock [facility] 12/18/2023 Last Documented On 4 12:19PM ; [facility] Acute gastritis without hemorrhage Medic al Established Patient with Vanesa Bullock [facility] 12/18/2023 Last Documented On 4 12:19PM ; [facility] Esophageal reflux without esophagitis Me dical Established Patient with Vanesa Bullock [facility] 12/18/2023 Last Documented On 4 12:19PM ; [facility] Generalized anxiety disorder Medical Est ablished Patient with Vanesa Bullock [facility] 12/18/2023 Last Documented On 4 12:19PM ; [facility] [Z68.25 - Body mass index [B HI] 25.0-25.9, adult] assessment of body mass index Medical New Patient with Vanesa Bullock LAB RN 05/23/2023 Last Documented On 3 8:59AM ; [facility] Chronic gastritis Medical New Patient with Brendan Bullock LAB RN 05/23/2023 Last Documented On 3 8:59AM ; [facility] Diabetes Risk Test Score was one score 05/23/2023 Medical New Patient with Vanesa Bullock LAB RN 05/23/2023 Last Documented On 3 8:59AM ; [facility] Work Phone: [phone]) 788-105207-30-2024 Instructions Includes: Instructions for all patient encounters Education and Decision Aids were provided during visit for: ~*[facility] offered active and sup portive listening, normalized emotions and feelings, and processed ~current stressors Last Documented On 4 10:55AM ; [facility] Discussed nutritional needs teach healthy choices including fruits and vegetables Last Documented On 4 8:41AM ; [facility] Patient education about a pr oper diet Last Documented On 4 8:41AM ; [facility] Discussed concerns about exe rcise : promote physical activity ~ ~Will start hydroxyzine for anxiety ~ ~Will refill ibuprofen and cyclobenzaprine for back pain ~ ~Due to cardiac symptoms will do cardiac testing ~ ~ ~Has a hisotry of GERD will restart pantoprazole ~ ~Follow up with PCP in 4 weeks Last Documented On 4 1:57PM ; [facility] Not requesting contraception Last Documented On 4 8:41AM ; [facility] ~*P offered active and sup portive listening, normalized emotions and feelings, and processed ~current stressors. ~*Utilize healthy coping skills and positive supports in patient's life. ~ Last Documented On 4 7:38PM ; [facility] Discussed nutritional needs teach healthy choices including fruits and vegetables Last Documented On 4 11:13AM ; [facility] Patient education about a pr oper diet Last Documented On 4 11:13AM ; [facility] Discussed concerns about exe rcise : promote physical activity Last Documented On 4 11:13AM ; [facility] Discussed nutritional needs teach healthy choices including fruits and vegetables Last Documented On 4 8:48AM ; [facility] Patient education about a pr oper diet Last Documented On 4 8:48AM ; [facility] Discussed concerns about exe rcise : promote physical activity Last Documented On 4 8:48AM ; [facility] offered active and suppo rtive listening, normalized emotions and feelings, processed current stressors and explored coping and stress reducing skills. ~P discussed coping skills to manage increased anxiety including mindfulnes, grounding and breathing techniques. ~P discussed options for finding in-person and telehealth providers for therapy. ~[facility] encouraged patient to continue to follow-up with addressing physical health concerns Last Documented On 4 4:35PM ; [facility] Discussed nutritional needs teach healthy choices including fruits and vegetables Last Documented On 4 2:55PM ; [facility] Patient education about a pr oper diet Last Documented On 4 2:55PM ; [facility] Discussed concerns about exe rcise : promote physical activity Last Documented On 4 2:55PM ; [facility] Discussed nutritional needs teach healthy choices including fruits and vegetables Last Documented On 3 9:14AM ; [facility] Patient education about a pr oper diet Last Documented On 3 9:14AM ; [facility] Discussed concerns about exe rcise : promote physical activity Last Documented On 3 9:14AM ; [facility] Work Phone: 1(109) 906-993607-30-2024 Progress note* Progress note Date Encounter Last Documented by 05/07/2024 [facility] Patient Last docu mented on 05/07/2024; 10:55 AM, Maira KRUEGER; [facility] Active Problems & Conditions - K21.9 - Esophageal Reflux Without Esophagitis - K29.00 - Gastritis Acute Without Hemorrhage - K29.51 - Gastritis Chronic - F41.1 - Generalized Anxiety Disorder - F33.0 - Major Depression Recurrent Mild Subjective [facility] met with patient to follow up on ER report. Patient was Dx with a panic attack. She wants to make sure it was not a stroke. Patient shared that strokes are common in her family and wanted to make sure she didnt have a stroke. Patient had been given buspar at last appointment for anxiety but stopped taking it because it made her stomach feel weird . Patient did report that in the last month she had to move in with her sisters family because the home she was renting was sold. Patient is having a difficult time adjusting and has been under more stress. Patient was willing to try a different medicaiton to help with anxiety. Chief Complaint The Chief Complaint is:: ER follow up for chest pains. History of Present Illness Mariola Etienne is a 33 year old female. - No Irritability. - Anxiety - Energy level is good - No depression Current Medication - busPIRone HCl 5 MG Oral Tablet Take 1 tablet by mouth 2 times per day, 30 days, 0 refills - hydrOXYzine Pamoate 25 MG Oral Capsule Take one tablet three times a day as needed for anxiety, 30 days, 0 refills - Mirena (52 MG) 20 MCG/DAY Intrauterine Intrauterine device 0 days, 0 refills - Pantoprazole Sodium 20 MG Oral Tablet Delayed Release Take one tablet daily, 30 days, 1 refills Past Medical/Surgical History Reported: No Safety Measures. Medical: No medical history or no significant history and no previous hospitalizations. : Not planning a in the next year. Surgical: - Cholecystectomy - Laparoscopic cholecystectomy Social History Environmental Exposure: No secondhand cigarette smoke exposure. Personal: Recent emotional stress recent relocation. Behavioral: Not a current tobacco user. Tobacco use: Not using electronic cigarettes/vaping. Alcohol: Not using alcohol. Drug Use: Using marijuana. Does not misuse drugs and not using drugs. Housing And Economic Circumstances: Lives with relatives and housing stress. 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 Sexual: Sexual orientation Straight (not lesbian or cardona) and gender identity Female. Allergies - Bee sting Reaction: Hives / Urticaria Family History No significant medical history Physical Findings General Appearance: - Normal Appearance. Neurological: - Cognitive Functions was Normal. - Estimated intelligence was normal. - Oriented to time, place, and person. - No hallucinations. - Judgement was not impaired. Speech: - Is Normal. - No articulation abnormalities. Psychiatric: - Mood was anxious. - Attitude Open. Appearance: - Normal. Demonstrated Behavior: - Motor Activity Normal Activity. - Eye Contact Appropriate. Affect: - Anxious. - Congruent with the mood. Thought Processes: - Not impaired. Thought Content: - Revealed no impairment. - Insight was intact. - No delusions. - No suicidal ideation. - No Passive thoughts of . - No suicidal plans. - No suicidal intent. - No homicidal ideations. - No homicidal plans. - No homicidal intent. Past Medical: - No repetitive self injurious behavior. Assessment - Visit for: screening for disorder [Z13.89 - Encounter for screening for other disorder] - Mild recurrent major depression [F33.0 - Major depressive disorder, recurrent, mild] - Generalized anxiety disorder [F41.1 - Generalized anxiety disorder] Therapy - Brief solution-focused. - Adherent with medications. - Visit 30 Minutes. - Plan - Generalized anxiety disorder hydrOXYzine Pamoate 25 MG capsule Take one tablet three times a day as needed for anxiety, 30 days, 0 refills and Collaborated with patient and provider: Counseling/Education *[facility] offered active and supportive listening, normalized emotions and feelings, and processed current stressors. Plan *Continue to take medication(s) as prescribed. *[facility] to follow-up with patient at next visit as scheduled. *Patient to follow up as needed/scheduled. Care Team - Vanesa Bullock CNP Health Reminders - Assess Tobacco Use satisfied 05/07/2024. [facility]07-16-2024 Evaluation note Includes: Assessments for all patient encounters Findings Encounter Date Panic disorder without agoraphobia BH Es tablished Patient with Maira Munson [facility] 04/23/2024 Last Documented On 4 7:39PM ; [facility] Visit for: screening for depression BH E stablished Patient with Maira Munson [facility] 04/23/2024 Last Documented On 4 7:39PM ; [facility] Visit for: screening for disorder BH Est ablished Patient with Maira Munson [facility] 04/23/2024 Last Documented On 4 7:39PM ; [facility] [Z68.27 - Body mass index [B HI] 27.0-27.9, adult] assessment of body mass index Open Access - Established with Vanesa Bullock CNP 04/23/2024 Last Documented On 4 1:03PM ; [facility] Assessment of BMI Percentile = 5% to < 85% for age Z68.52 Open Access - Established with Vanesa Bullock LAB RN 04/23/2024 Last Documented On 4 1:03PM ; [facility] Generalized anxiety disorder Open Access - Established with Vanesa Bullock LAB RN 04/23/2024 Last Documented On 4 1:03PM ; [facility] Lumbar sprain Open Access - Established with A cora Bullock LAB RN 04/23/2024 Last Documented On 4 1:03PM ; [facility] Thoracic sprain Open Access - Established with A cora Bullock [facility] 04/23/2024 Last Documented On 4 1:03PM ; [facility] [Z68.26 - Body mass index [B HI] 26.0-26.9, adult] assessment of body mass index Open Access - Established with Vanesa Bullock [facility] 02/14/2024 Last Documented On 4 4:26PM ; [facility] Lower back sprain Open Access - Established with Vanesa Bullock [facility] 02/14/2024 Last Documented On 4 4:26PM ; [facility] Muscle spasm of back Open Access - Established w ith Vanesa Bullock [facility] 02/14/2024 Last Documented On 4 4:26PM ; [facility] Screening for HIV Open Access - Established with Vanesa Bullock [facility] 02/14/2024 Last Documented On 4 4:26PM ; [facility] Visit for: screening for dig estive system disorders Open Access - Established with Vanesa Bullock LAB RN 02/14/2024 Last Documented On 4 4:26PM ; [facility] Generalized anxiety disorder BH Establis hed Patient with Radha Short [facility] 12/18/2023 Last Documented On 4 4:35PM ; [facility] Mild recurrent major depress ion per patient reported history Established Patient with Radha Short [facility] 12/18/2023 Last Documented On 4 4:35PM ; [facility] [Z68.26 - Body mass index [B HI] 26.0-26.9, adult] assessment of body mass index Medical Established Patient with Vanesa Bullock LAB RN 12/18/2023 Last Documented On 4 12:19PM ; [facility] Acute gastritis without hemorrhage Medic al Established Patient with Vanesa Bullock [facility] 12/18/2023 Last Documented On 4 12:19PM ; [facility] Esophageal reflux without esophagitis Me dical Established Patient with Vanesa Bullock LAB RN 12/18/2023 Last Documented On 4 12:19PM ; [facility] Generalized anxiety disorder Medical Est ablished Patient with Vanesa Bullock [facility] 12/18/2023 Last Documented On 4 12:19PM ; [facility] [Z68.25 - Body mass index [B HI] 25.0-25.9, adult] assessment of body mass index Medical New Patient with Vanesa Bullock [facility] 05/23/2023 Last Documented On 3 8:59AM ; [facility] Chronic gastritis Medical New Patient with Brendan Bullock [facility] 05/23/2023 Last Documented On 3 8:59AM ; [facility] Diabetes Risk Test Score was one score 05/23/2023 Medical New Patient with Vanesa Bullock [facility] 05/23/2023 Last Documented On 3 8:59AM ; [facility] Work Phone: 1(294) 166-234607-16-2024 Evaluation note Includes: Assessments for all patient encounters Findings Encounter Date Panic disorder without agoraphobia BH Es tablished Patient with Maira Munson [facility] 04/23/2024 Last Documented On 4 7:39PM ; [facility] Visit for: screening for depression BH E stablished Patient with Maira Munson [employer] 04/23/2024 Last Documented On 4 7:39PM ; [facility] Visit for: screening for disorder BH Est ablished Patient with Maira Munson [employer] 04/23/2024 Last Documented On 4 7:39PM ; [facility] [Z68.27 - Body mass index [B HI] 27.0-27.9, adult] assessment of body mass index Open Access - Established with Vanesa Bullock [facility] 04/23/2024 Last Documented On 4 8:19AM ; [facility] Assessment of BMI Percentile = 5% to < 85% for age Z68.52 Open Access - Established with Vanesacharlie Bullock CNP 04/23/2024 Last Documented On 4 8:19AM ; [facility] Generalized anxiety disorder Open Access - Established with Vanesa Bullock LAB RN 04/23/2024 Last Documented On 4 8:19AM ; [facility] Lumbar sprain Open Access - Established with A rachanamarija Kobe LAB RN 04/23/2024 Last Documented On 4 8:19AM ; [facility] Thoracic sprain Open Access - Established with A rachanamarija Kobe [facility] 04/23/2024 Last Documented On 4 8:19AM ; [facility] [Z68.26 - Body mass index [B HI] 26.0-26.9, adult] assessment of body mass index Open Access - Established with Vanesa Bullock LAB RN 02/14/2024 Last Documented On 4 4:26PM ; [facility] Lower back sprain Open Access - Established with Vanesa Bullock [facility] 02/14/2024 Last Documented On 4 4:26PM ; [facility] Muscle spasm of back Open Access - Established w ith Vanesa Bullock [facility] 02/14/2024 Last Documented On 4 4:26PM ; [facility] Screening for HIV Open Access - Established with Vanesa Bullock [facility] 02/14/2024 Last Documented On 4 4:26PM ; [facility] Visit for: screening for dig estive system disorders Open Access - Established with Vanesa Bullock [facility] 02/14/2024 Last Documented On 4 4:26PM ; [facility] Generalized anxiety disorder BH Establis hed Patient with Radha Short [facility] 12/18/2023 Last Documented On 4 4:35PM ; [facility] Mild recurrent major depress ion per patient reported history BH Established Patient with Radha Short [facility] 12/18/2023 Last Documented On 4 4:35PM ; [facility] [Z68.26 - Body mass index [B HI] 26.0-26.9, adult] assessment of body mass index Medical Established Patient with Vanesa Bullock LAB RN 12/18/2023 Last Documented On 4 12:19PM ; [facility] Acute gastritis without hemorrhage Medic al Established Patient with Vanesa Bullock LAB RN 12/18/2023 Last Documented On 4 12:19PM ; [facility] Esophageal reflux without esophagitis Me dical Established Patient with Vanesa Bullock LAB RN 12/18/2023 Last Documented On 4 12:19PM ; [facility] Generalized anxiety disorder Medical Est ablished Patient with Vanesa Bullock LAB RN 12/18/2023 Last Documented On 4 12:19PM ; [facility] [Z68.25 - Body mass index [B HI] 25.0-25.9, adult] assessment of body mass index Medical New Patient with Vanesa Bullock LAB RN 05/23/2023 Last Documented On 3 8:59AM ; [facility] Chronic gastritis Medical New Patient with Brendan Bullock LAB RN 05/23/2023 Last Documented On 3 8:59AM ; [facility] Diabetes Risk Test Score was one score 05/23/2023 Medical New Patient with Vanesa Bullock LAB RN 05/23/2023 Last Documented On 3 8:59AM ; [facility] Work Phone: 1(312) 741-939407-16-2024 History general Narrative - Reported Includes: Medical History in patient's chart Description Last Updated No Safety Measures 04/23/2024 Last Documented On 4 7:39PM ; [facility] No previous hospitalizations 02/14/2024 Last Documented On 4 4:26PM ; [facility] No medical history or no significant his tory 05/23/2023 Last Documented On 3 8:59AM ; [facility] Not planning to have a baby in the next 12 months 05/23/2023 Last Documented On 3 8:59AM ; [facility] Work Phone: 1([phone]) 658-393207-16-2024 History general Narrative - Reported Includes: Medical History in patient's chart Description Last Updated No Safety Measures 04/23/2024 Last Documented On 4 7:39PM ; [facility] No previous hospitalizations 02/14/2024 Last Documented On 4 4:26PM ; [facility] No medical history or no significant his tory 05/23/2023 Last Documented On 3 8:59AM ; [facility] Not planning to have a baby in the next 12 months 05/23/2023 Last Documented On 3 8:59AM ; [facility] Work Phone: 1([phone]) 389-383107-16-2024 History general Narrative - Reported Includes: Medical History in patient's chart Description Last Updated No Safety Measures 04/23/2024 Last Documented On 4 7:39PM ; [facility] No previous hospitalizations 02/14/2024 Last Documented On 4 4:26PM ; [facility] No medical history or no significant his tory 05/23/2023 Last Documented On 3 8:59AM ; [facility] Not planning to have a baby in the next 12 months 05/23/2023 Last Documented On 3 8:59AM ; [facility] Work Phone: [phone]) 390-257907-16-2024 History general Narrative - Reported Includes: Medical History in patient's chart Description Last Updated No Safety Measures 04/23/2024 Last Documented On 4 7:39PM ; [facility] No previous hospitalizations 02/14/2024 Last Documented On 4 4:26PM ; [facility] No medical history or no significant his tory 05/23/2023 Last Documented On 3 8:59AM ; [facility] Not planning to have a baby in the next 12 months 05/23/2023 Last Documented On 3 8:59AM ; [facility] Work Phone: [phone]) 677-147707-16-2024 Progress note* Progress note Date Encounter Last Documented by 04/23/2024 Established Patient Last docu mented on 04/23/2024; 7:39 PM, Maira YINW; [facility] Active Problems & Conditions - K21.9 - Esophageal Reflux Without Esophagitis - K29.00 - Gastritis Acute Without Hemorrhage - K29.51 - Gastritis Chronic - F41.1 - Generalized Anxiety Disorder - F33.0 - Major Depression Recurrent Mild Subjective [facility] met with patient in regards to GAD7 score of 11. Patient reports that she will experience panic attacks sometimes a couple times a week. She reports feeling anxious, sweaty, and cant breathe. Patient would like to try a medication to help with these attacks and anxiety. Patient has been hesitant in the passed in fear of getting addicted. Patient was open to buspar daily. Chief Complaint The Chief Complaint is:: Severe back pain. History of Present Illness Mariola Etienne is a 33 year old female. - Normal appetite - Irritability - Anxiety - Energy level is fair - No depression - No sleep disturbances Current Medication - busPIRone HCl 5 MG Oral Tablet Take 1 tablet by mouth 2 times per day, 30 days, 0 refills - Mirena (52 MG) 20 MCG/DAY Intrauterine Intrauterine device 0 days, 0 refills Past Medical/Surgical History Reported: No Safety Measures. Medical: No medical history or no significant history and no previous hospitalizations. : Not planning a in the next year. Surgical: - Cholecystectomy - Laparoscopic cholecystectomy Social History Environmental Exposure: No secondhand cigarette smoke exposure. Tobacco use: Not using electronic cigarettes/vaping. Alcohol: A social drinker. Drug Use: Using marijuana. Not using drugs. 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 Sexual: Sexual orientation Straight (not lesbian or cardona) and gender identity Female. Allergies - Bee sting Reaction: Hives / Urticaria Family History No significant medical history Physical Findings General Appearance: - Normal Appearance. Neurological: - Cognitive Functions was Normal. - Estimated intelligence was normal. - Oriented to time, place, and person. - No hallucinations. - Judgement was not impaired. Speech: - Is Normal. - No articulation abnormalities. Psychiatric: - Mood is Euthymic. - Attitude Open. Appearance: - Normal. Demonstrated Behavior: - Motor Activity Normal Activity. - Eye Contact Appropriate. Affect: - Congruent with the mood. Thought Processes: - Not impaired. Thought Content: - Revealed no impairment. - Insight was intact. - No delusions. - No suicidal ideation. - No Passive thoughts of . - No suicidal plans. - No suicidal intent. - No homicidal ideations. - No homicidal plans. - No homicidal intent. Past Medical: - No repetitive self injurious behavior. Assessment - Visit for: screening for depression [Z13.31 - Encounter for screening for depression] - Visit for: screening for disorder [Z13.89 - Encounter for screening for other disorder] - Panic disorder without agoraphobia [F41.0 - Panic disorder [episodic paroxysmal anxiety]] Therapy - Developmental/Behavioral Screening & Testing - PHQ9 and Developmental/Behavioral Screening & Testing - GAD7. - Brief solution-focused. - Adherent with medications. - Visit 30 Minutes. - Plan - Generalized anxiety disorder busPIRone HCl 5 MG tablet Take 1 tablet by mouth 2 times per day, 30 days, 0 refills and Collaborated with patient and provider: Counseling/Education *[facility] offered active and supportive listening, normalized emotions and feelings, and processed current stressors. *Utilize healthy coping skills and positive supports in patient's life. . Plan *Begin taking medication (s) as prescribed. Patient is agreeable *Utilize positive coping skills like discussed. *[facility] to follow-up with patient at next visit as scheduled. *Patient to follow up as needed/scheduled. . Care Team - Vanesa Bullock CNP Health Reminders - Assess Tobacco Use satisfied 04/23/2024. - MAITE-2 satisfied 04/23/2024. - PHQ9 / PHQA satisfied 04/23/2024. User Defined 1 MAITE-2 score was four 04/23/2024, MAITE-7 score was eleven [MAITE-7] Feeling nervous, anxious or on edge? + 1 pt : Several days, [MAITE-7] Feeling nervous, anxious or on edge? + 1 pt : Several days, [MAITE-7] Not being able to stop or control worrying? + 3 pt : Nearly every day, [MAITE-7] Not being able to stop or control worrying? + 3 pt : Nearly every day, [MAITE-7] Worrying too much about different things? + 3 pt : Nearly every day, [MAITE-7] Trouble relaxing? + 1 pt : Several days, [MAITE-7] Being so restless that it's hard to sit still? + 0 pt : Not at all, [MAITE-7] Becoming easily annoyed or irritable? + 3 pt : Nearly every day, [MAITE-7] Feeling afraid as if something awful might happen? + 0 pt : Not at all, Patient Health Questionnaire 9-Item total score was one 04/23/2024, [PHQ-9-1] Little interest or pleasure in doing things? + 0 pt : Not at all, [PHQ-9-2] Feeling down, depressed, or hopeless? + 1 pt : Several days, [PHQ-9-3] Trouble falling or staying asleep or sleeping too much? + 0 pt : Not at all, [PHQ-9-4] Feeling tired or having little energy? + 0 pt : Not at all, [PHQ-9-5] Poor appetite or overeating? + 0 pt : Not at all, [PHQ-9-6] Feeling bad about yourself-or that you are a failure + 0 pt : Not at all, [PHQ-9-7] Trouble concentrating on things such as reading the newspaper + 0 pt : Not at all, [PHQ-9-8] Moving or speaking so slowly that other people have noticed. + 0 pt : Not at all, and [PHQ-9-9] Thoughts that you would be better off or hurting yourself? + 0 pt : Not at all. [facility]07-16-2024 Progress note* Progress note Date Encounter Last Documented by 04/23/2024 Open Access - Established Last d ocumented on 04/24/2024; 8:19 AM, Vanesa Bullock CNP; [facility] Active Problems & Conditions - K21.9 - Esophageal Reflux Without Esophagitis - K29.00 - Gastritis Acute Without Hemorrhage - K29.51 - Gastritis Chronic - F41.1 - Generalized Anxiety Disorder - F33.0 - Major Depression Recurrent Mild Chief Complaint The Chief Complaint is: Patient here for severe back pain. When she breathes in it is sharp upper pain and when she is sitting it is lower pain. Feels like her back is on fire. Has been taking ibuprofen 800mg and states that her tolerance to the medication isn't helping the pain. Reason For Visit Visit for: back pain. Referred Here Not referred by urgent care clinic and not the emergency room. No prior encounters. - Data to be reviewed: no clinical lab tests History of Present Illness - Allergy list reviewed - Reviewed Medications - Medication list reviewed - test - would not like a test Patient reports she has been having increased back pain. Patient reports shooting pain with bending over to her lower/middle back, pain with inhalation to her upper back. Patient denies any recent illnesses. Patient denies any recent injury to her back. Patient has still been taking the ibuprofen and felt this was not longer helping so she stopped taking it. Patient reports last dose about a week or 2 ago. Patient has used heat for the pain as well as ice. Patient reports she has been using her seat warmers in her car to help relieve the back pain after working. Patient reports pain has been worse the past 3 days. Denies numbness or tingling to lower extremities, loss of bowel or bladder control, denies weakness to extremities Current Medication - Mirena (52 MG) 20 MCG/DAY Intrauterine Intrauterine device 0 days, 0 refills Past Medical/Surgical History Reported: Medical: No medical history or no significant history and no previous hospitalizations. : Not planning a in the next year. Surgical: - Cholecystectomy - Laparoscopic cholecystectomy Social History Environmental Exposure: No secondhand cigarette smoke exposure. Behavioral: Not a current tobacco user. Tobacco use: Not using electronic cigarettes/vaping. Alcohol: A social drinker. Drug Use: Using marijuana. Sexual: Sexually active, sexual orientation Straight (not lesbian or cardona), gender identity Female, and control is being practiced IUD. Allergies - Bee sting Reaction: Hives / Urticaria Family History No significant medical history Review Of Systems Systemic: No systemic symptoms. Head: No head symptoms. Otolaryngeal: No ear symptoms, no nasal symptoms, and no throat symptoms. Cardiovascular: No chest pain or discomfort. Pulmonary: Pulmonary symptoms see HPI. Gastrointestinal: No gastrointestinal symptoms. Genitourinary: No genitourinary symptoms. Musculoskeletal: Musculoskeletal symptoms see HPI. Neurological: No neurological symptoms. Psychological: No psychological symptoms. Skin: No skin symptoms. Physical Findings - Vitals taken 04/23/2024 11:09 am BP-Sitting R111/74 mmHg Pulse Rate-Dwzylgo53 bpm Jqqxgf99 in Qixgtj959 lbs 9.6 oz Body Mass Index27.5 kg/m2 Body Surface Area1.9 m2 Oxygen Bysvdvfavb97 % Vital Signs: - Systolic blood pressure < 130 mmHg. - Diastolic Blood Pressure < 80 mmHg. General Appearance: - Awake. - Alert. - In no acute distress. Eyes: General/bilateral: Pupils: - PERRLA. Lungs: - Respiration rhythm and depth was normal. - Clear to auscultation. Cardiovascular: Heart Rate And Rhythm: - Normal. Heart Sounds: - Normal. Abdomen: Auscultation: - Bowel sounds were normal. Musculoskeletal System: Cervical Spine: General/bilateral: - Cervical spine showed no abnormalities. Thoracic Spine: General/bilateral: - Thoracic spine showed abnormalities patient has increasing tenderness starting at the mid thorasic level and progressing to the lower lumbar. Tenderness was so severe this Provider was unable to preform more thorough exam. Thoracolumbar Spine: General/bilateral: - Thoracolumbar spine showed abnormalities. Lumbar / Lumbosacral Spine: General/bilateral: - Lumbar/lumbosacral spine exhibited abnormalities. Neurological: - Oriented to time, place, and person. Psychiatric: - Expression of emotions normal. Skin: - General appearance was normal. Tests Laboratory-based Chemistry: Other Laboratory Tests: Screening for sexually transmitted infections was not performed Recently had testing done 04/09/24. Assessment - Z68.27 - Body mass index [BMI] 27.0-27.9, adult - Z68.52 - Body mass index [BMI] pediatric, 5th percentile to less than 85th percentile for age - S23.8XXD - Sprain of other specified parts of thorax, subsequent encounter - S33.8XXD - Sprain of other parts of lumbar spine and pelvis, subsequent encounter - F41.1 - Generalized anxiety disorder Therapy - Other Administered 1 mL of DEPO-Medrol 80 MG/ML on 04/23/24 11:00a, Patient tolerated therapy well. No signs or symptoms of adverse reactions. Patient waited in clinic for 15 minutes after administration. Counseling/Education - Discussed nutritional needs teach healthy choices including fruits and vegetables - Patient education about a proper diet - Discussed concerns about exercise: promote physical activity Plan StartCited- Generalized anxiety disorder busPIRone HCl 5 MG tablet Take 1 tablet by mouth 2 times per day, 30 days, 0 refills EndCited StartCited- Sprain of oth parts of lumbar spine and pelvis, subs encntr In House Medications/Inject/Aerosol Codes: 32794 Therapeutic Prophy or Diag Injection, EACH In House Medications/Meds: Methylprednisolone Acetate 80mg/ml (depo-medrol) EndCited Patient is agreeable to Depomedrol injection to help with the severity of the pain. Patient advised to follow up with Ortho as soon as possible, will give her the number to call [facility]. Also discussed [facility] walk-in clinic as an option for her due to severity of symptoms. Patient to be off work for a few days to rest her back. Patient to start Buspar for the anxiety. Follow up in 2 weeks. Care Team - Vanesa Bullock CNP Health Reminders - Assess BMI satisfied 04/23/2024. - Assess Tobacco Use satisfied 04/23/2024. - Follow Up Plan BMI Management satisfied 04/23/2024. [facility]05-08-2024 Evaluation note Includes: Assessments for all patient encounters Findings Encounter Date [Z68.26 - Body mass index [B HI] 26.0-26.9, adult] assessment of body mass index Open Access - Established with Vanesa Bullock CNP 02/14/2024 Last Documented On 4 4:26PM ; [facility] Lower back sprain Open Access - Established with Vanesa Bullock CNP 02/14/2024 Last Documented On 4 4:26PM ; [facility] Muscle spasm of back Open Access - Established w kayla Bullock CNP 02/14/2024 Last Documented On 4 4:26PM ; [facility] Screening for HIV Open Access - Established with Vanesa Bullock CNP 02/14/2024 Last Documented On 4 4:26PM ; [facility] Visit for: screening for dig estive system disorders Open Access - Established with Vanesa Bullock CNP 02/14/2024 Last Documented On 4 4:26PM ; [facility] Generalized anxiety disorder BH Establis hed Patient with Radha Fan LISWS 12/18/2023 Last Documented On 4 4:35PM ; [facility] Mild recurrent major depress ion per patient reported history Established Patient with Radha Short LISWS 12/18/2023 Last Documented On 4 4:35PM ; [facility] [Z68.26 - Body mass index [B HI] 26.0-26.9, adult] assessment of body mass index Medical Established Patient with Vanesa Bullock LAB RN 12/18/2023 Last Documented On 4 12:19PM ; [facility] Acute gastritis without hemorrhage Medic al Established Patient with Vanesa Bullock LAB RN 12/18/2023 Last Documented On 4 12:19PM ; [facility] Esophageal reflux without esophagitis Me dical Established Patient with Vanesa Bullock LAB RN 12/18/2023 Last Documented On 4 12:19PM ; [facility] Generalized anxiety disorder Medical Est ablished Patient with Vanesa Bullock LAB RN 12/18/2023 Last Documented On 4 12:19PM ; [facility] [Z68.25 - Body mass index [B HI] 25.0-25.9, adult] assessment of body mass index Medical New Patient with Vanesa Bullock LAB RN 05/23/2023 Last Documented On 3 8:59AM ; [facility] Chronic gastritis Medical New Patient with Brendan Bullock LAB RN 05/23/2023 Last Documented On 3 8:59AM ; [facility] Diabetes Risk Test Score was one score 05/23/2023 Medical New Patient with Vanesa Bullock LAB RN 05/23/2023 Last Documented On 3 8:59AM ; [facility] Work Phone: 1(232) 541-658405-08-2024 History general Narrative - Reported Includes: Medical History in patient's chart Description Last Updated No previous hospitalizations 02/14/2024 Last Documented On 4 4:26PM ; [facility] No medical history or no significant his tory 05/23/2023 Last Documented On 3 8:59AM ; [facility] Not planning to have a baby in the next 12 months 05/23/2023 Last Documented On 3 8:59AM ; [facility] Work Phone: 1(115) 697-370105-08-2024 Progress note* Progress note Date Encounter Last Documented by 02/14/2024 Open Access - Established Last d ocumented on 02/15/2024; 4:26 PM, Vanesa Bullock LAB RN; [facility] Active Problems & Conditions - K21.9 - Esophageal Reflux Without Esophagitis - K29.00 - Gastritis Acute Without Hemorrhage - K29.51 - Gastritis Chronic - F41.1 - Generalized Anxiety Disorder - F33.0 - Major Depression Recurrent Mild Chief Complaint The Chief Complaint is: Patient here for possible inflammation in her lower back. When she places her hand on her back it feels warm. Has not had this happen before. Cannot get comfortable in any position. Thinks it may be a posture related issue from her work. Takes ibuprofen but does not help. Reason For Visit Visit for: back pain. Referred Here Not referred by urgent care clinic and not the emergency room. No prior encounters. - Data to be reviewed: no clinical lab tests History of Present Illness - Allergy list reviewed - Reviewed Medications - Medication list reviewed - test - would not like a test Patient reports she has been having lower back pain for the past month to month and a half that has been worsening over the past week. Patient reports she has increased pain when bending over. She reports she has been having difficulty picking items up off the floor. Patient has been having a hard time getting in a comfortable position when sitting or laying, she does get some relief with standing. 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 As a DA she is either in a bent over position or standing depending on the case she is working on. Patient has been using ibuprofen OTC, about 800mg but has not been using this consistently. She has also found some relief with applying heat to her lower back however reports pain returns when heat is removed. Denies pain radiation to legs or neuropathy to feet Current Medication - Mirena (52 MG) 20 MCG/DAY Intrauterine Intrauterine device 0 days, 0 refills - Pantoprazole Sodium 40 MG Oral Tablet, enteric coated Tablet Delayed Release Take 1 tablet by mouth daily on an empty stomach, 30 days, 0 refills Past Medical/Surgical History Reported: Medical: No medical history or no significant history and no previous hospitalizations. : Not planning a in the next year. Surgical: - Cholecystectomy - Laparoscopic cholecystectomy Social History Environmental Exposure: No secondhand cigarette smoke exposure. Behavioral: Not a current tobacco user. Tobacco use: Not using electronic cigarettes/vaping. Alcohol: Not using alcohol. Drug Use: Using marijuana. Sexual: Sexually active, sexual orientation Straight (not lesbian or cardona), and gender identity Female. Allergies - Bee sting Reaction: Hives / Urticaria Family History No significant medical history Review Of Systems Systemic: No systemic symptoms. Head: No head symptoms. Otolaryngeal: No ear symptoms, no nasal symptoms, and no throat symptoms. Cardiovascular: No cardiovascular symptoms. Pulmonary: No pulmonary symptoms. Gastrointestinal: No gastrointestinal symptoms. Genitourinary: No genitourinary symptoms. Musculoskeletal: Musculoskeletal symptoms see HPI. Neurological: No neurological symptoms. Psychological: No psychological symptoms. Skin: No skin symptoms. Physical Findings - Vitals taken 02/14/2024 08:44 am BP-Sitting R112/77 mmHg Pulse Rate-Dwzxrdr57 bpm Qctnxx47 in Phojnr731 lbs 9.6 oz Body Mass Index26.1 kg/m2 Body Surface Area1.9 m2 Oxygen Ewoajyvhim39 % Vital Signs: - Systolic blood pressure < 130 mmHg. - Diastolic Blood Pressure < 80 mmHg. General Appearance: - Awake. - Alert. - In no acute distress. Eyes: General/bilateral: Pupils: - PERRLA. Lungs: - Respiration rhythm and depth was normal. - Clear to auscultation. Cardiovascular: Heart Rate And Rhythm: - Normal. Heart Sounds: - Normal. Abdomen: Auscultation: - Bowel sounds were normal. Musculoskeletal System: Thoracolumbar Spine: General/bilateral: - Thoracolumbar spine showed abnormalities. - Thoracolumbar spine demonstrated tenderness on palpation. - Thoracolumbar spine demonstrated full range of motion. Lumbar / Lumbosacral Spine: General/bilateral: - Lumbar/lumbosacral spine exhibited abnormalities. - Lumbosacral spine exhibited muscle spasms. - Lumbosacral spine pain was elicited by motion. Neurological: - Oriented to time, place, and person. Psychiatric: - Expression of emotions finding was normal. Skin: - General appearance was normal. Tests Laboratory-based Chemistry: Immunology Studies: HIV test was negative. Other Laboratory Tests: Screening for sexually transmitted infections was not performed. Microbiology: Microbiology Antibody Identification: In House Screen Hep C was negative 02/14/2024. Assessment - Z11.4 - Encounter for screening for human immunodeficiency virus [HIV] - Z13.818 - Encounter for screening for other digestive system disorders - Z68.26 - Body mass index [BMI] 26.0-26.9, adult - S33.8XXA - Sprain of other parts of lumbar spine and pelvis, initial encounter - M62.830 - Muscle spasm of back Therapy - Patient refused flu vaccine. Discussed benefits of flu vaccine with Patient. Vaccinations - Did not receive dose of Reported: Patient has not received the Covid Vaccine Counseling/Education - Discussed nutritional needs teach healthy choices including fruits and vegetables - Patient education about a proper diet - Discussed concerns about exercise: promote physical activity Plan StartCited- Muscle spasm of back Cyclobenzaprine HCl 10 MG tablet Take 1 tablet by mouth as needed for muscle spasm., 10 days, 0 refills EndCited StartCited- Sprain of oth parts of lumbar spine and pelvis, init encntr predniSONE 20 MG tablet Take 1 tablet by mouth 2 times per day, 5 days, 0 refills Ibuprofen 800 MG tablet Take 1 tablet by mouth every 8 hours as needed for back pain, 10 days, 0 refills EndCited Take medications to help with inflammation and muscle spasm Will give note to be off of work for a few days to rest the back. Patient advised to stretch daily, increasing range of motion as she is able. Dsiscussed using seats with lumbar support when available and stretch at work when she can. Follow up in 2 weeks, may consider referal to chiropractor or physical therapy at time. Notes - Patient is not interested in the COVID-19 vaccination at this time. Care Team - Vanesa Bullock CNP Health Reminders - Assess BMI satisfied 02/14/2024. - Assess Tobacco Use satisfied 02/14/2024. - Follow Up Plan BMI Management satisfied 02/14/2024. - HIV Screen satisfied 02/14/2024. [facility]05-08-2024 Instructions Includes: Instructions for all patient encounters Education and Decision Aids were provided during visit for: Discussed nutritional needs teach healthy choices including fruits and vegetables Last Documented On 4 8:48AM ; [facility] Patient education about a pr oper diet Last Documented On 4 8:48AM ; [facility] Discussed concerns about exe rcise : promote physical activity Last Documented On 4 8:48AM ; [facility] offered active and suppo rtive listening, normalized emotions and feelings, processed current stressors and explored coping and stress reducing skills. [facility] discussed coping skills to manage increased anxiety including mindfulnes, grounding and breathing techniques. [facility] discussed options for finding in-person and telehealth providers for therapy. [facility] encouraged patient to continue to follow-up with addressing physical health concerns Last Documented On 4 4:35PM ; [facility] Discussed nutritional needs teach healthy choices including fruits and vegetables Last Documented On 4 2:55PM ; [facility] Patient education about a pr oper diet Last Documented On 4 2:55PM ; [facility] Discussed concerns about exe rcise : promote physical activity Last Documented On 4 2:55PM ; [facility] Discussed nutritional needs teach healthy choices including fruits and vegetables Last Documented On 3 9:14AM ; [facility] Patient education about a pr oper diet Last Documented On 3 9:14AM ; [facility] Discussed concerns about exe rcise : promote physical activity Last Documented On 3 9:14AM ; [facility] Work Phone: 1(146) 963-170403-11-2024 Evaluation note Includes: Assessments for all patient encounters Findings Encounter Date Generalized anxiety disorder Establis hed Patient with Radha Short LISWS 12/18/2023 Last Documented On 4 4:35PM ; [facility] Mild recurrent major depress ion per patient reported history BH Established Patient with Radha Short LISWS 12/18/2023 Last Documented On 4 4:35PM ; [facility] [Z68.26 - Body mass index [B HI] 26.0-26.9, adult] assessment of body mass index Medical Established Patient with Vanesa Bullock LAB RN 12/18/2023 Last Documented On 4 4:18PM ; [facility] Chronic gastritis Medical Established Patient wi th Vanesa Bullock LAB RN 12/18/2023 Last Documented On 4 4:18PM ; [facility] Generalized anxiety disorder Medical Est ablished Patient with Vanesa Bullock LAB RN 12/18/2023 Last Documented On 4 4:18PM ; [facility] [Z68.25 - Body mass index [B HI] 25.0-25.9, adult] assessment of body mass index Medical New Patient with Vanesa Bullock LAB RN 05/23/2023 Last Documented On 3 8:59AM ; [facility] Chronic gastritis Medical New Patient with Brendan Bullock LAB RN 05/23/2023 Last Documented On 3 8:59AM ; [facility] Diabetes Risk Test Score was one score 05/23/2023 Medical New Patient with Vanesa Bullock LAB RN 05/23/2023 Last Documented On 3 8:59AM ; [facility] Work Phone: 1(840) 686-178303-11-2024 Evaluation note Includes: Assessments for all patient encounters Findings Encounter Date Generalized anxiety disorder Establis hed Patient with Radha Short LISWS 12/18/2023 Last Documented On 4 4:35PM ; [facility] Mild recurrent major depress ion per patient reported history Established Patient with Radha Short LISWS 12/18/2023 Last Documented On 4 4:35PM ; [facility] [Z68.26 - Body mass index [B HI] 26.0-26.9, adult] assessment of body mass index Medical Established Patient with Vanesa Bullock LAB RN 12/18/2023 Last Documented On 4 12:19PM ; [facility] Acute gastritis without hemorrhage Medic al Established Patient with Vanesa Bullock LAB RN 12/18/2023 Last Documented On 4 12:19PM ; [facility] Esophageal reflux without esophagitis Me dical Established Patient with Vanesa Bullock LAB RN 12/18/2023 Last Documented On 4 12:19PM ; [facility] Generalized anxiety disorder Medical Est ablished Patient with Vanesa Bullock [facility] 12/18/2023 Last Documented On 4 12:19PM ; [facility] [Z68.25 - Body mass index [B HI] 25.0-25.9, adult] assessment of body mass index Medical New Patient with Vanesa Bullock LAB RN 05/23/2023 Last Documented On 3 8:59AM ; [facility] Chronic gastritis Medical New Patient with Brendan Bullock [facility] 05/23/2023 Last Documented On 3 8:59AM ; [facility] Diabetes Risk Test Score was one score 05/23/2023 Medical New Patient with Vanesa Bullock [facility] 05/23/2023 Last Documented On 3 8:59AM ; [facility] Work Phone: 1(522) 191-259303-11-2024 Progress note* Progress note Date Encounter Last Documented by 12/18/2023 Established Patient Last docu mented on 12/18/2023; 4:35 PM, Radha GAONA; [facility] Active Problems & Conditions - K29.51 - Gastritis Chronic - F41.1 - Generalized Anxiety Disorder - F33.0 - Major Depression Recurrent Mild Chief Complaint The Chief Complaint is: Shayla met with patient to follow-up regarding mood and PHQ score of 11 and MAITE score of 14. Patient reports that she was diagnosed with depression and anxiety last year and was being seen at [facility]. Patient reports that she was seeing a counselor but did not feel that she was getting a lot out of it and then got busy, so quit going. Patient reports that she continues to experience low moods, decrease energy, poor sleep and feeling like a failure. Patient reports anxiety daily and especially in social situations such as going to the grocery store or trying to spend time with friends in public. Patient reports that she did try medications in the past and when they did not help, stopped them. Patient reports increased stress due to her physical health. Patient denies thoughts of harm toward self or others. History of Present Illness Mariola Etienne is a 33 year old female. - Appetite not normal - Irritability - Anxiety with persistent worry - With anticipation of misfortune to self or others - About medical condition - Feelings of panic - Depression - Sleep disturbances - Loss of interest in activities - Energy level is poor - Fear of loss of control - Feeling guilty - Easily distracted - Racing thoughts - No social isolation - No impulsive behavior Current Medication - Mirena (52 MG) 20 MCG/DAY Intrauterine Intrauterine device 0 days, 0 refills - Pantoprazole Sodium 40 MG Oral Tablet, enteric coated Take 1 tablet by mouth daily on an empty stomach, 30 days, 0 refills Social History Environmental Exposure: No secondhand cigarette smoke exposure. Personal: Recent emotional stress. Behavioral: Not a current tobacco user. Alcohol: A social drinker. Drug Use: Using marijuana from a dispensary. Housing And Economic Circumstances: Lives alone. 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 Physical Findings General Appearance: - Normal Appearance. Neurological: - Estimated intelligence was normal. - Oriented to time, place, and person. - No hallucinations. - Judgement was not impaired. Speech: - Is Normal. Psychiatric: - Mood was anxious. - Mood was concerned. - Attitude Open. Demonstrated Behavior: - Motor Activity Normal Activity. - Eye Contact Appropriate. Affect: - Congruent with the mood. Thought Content: - Insight was intact. - No delusions. - No suicidal ideation. - No Passive thoughts of . - No suicidal plans. - No suicidal intent. - No homicidal ideations. - No homicidal plans. - No homicidal intent. Past Medical: - No repetitive self injurious behavior. Assessment - F33.0 - Major depressive disorder, recurrent, mild per patient reported history - F41.1 - Generalized anxiety disorder Therapy - Brief solution-focused therapy. - Plan - do not modify medication at this time as patient would like to try therapy first. Patient to contact the office should she wish to further discuss medication. Collaborated with patient and provider: Counseling/Education [facility] offered active and supportive listening, normalized emotions and feelings, processed current stressors and explored coping and stress reducing skills. [facility] discussed coping skills to manage increased anxiety including mindfulnes, grounding and breathing techniques. [facility] discussed options for finding in-person and telehealth providers for therapy. [facility] encouraged patient to continue to follow-up with addressing physical health concerns. Plan Patient to implement coping skills and positive supports as discussed. [facility] to follow-up with patient as needed. Health Reminders - Assess Tobacco Use satisfied 12/18/2023. - MAITE-2 satisfied 12/18/2023. - PHQ9 / PHQA satisfied 12/18/2023. User Defined 1 Not afraid of someone you have a relationship with No. Has lack of transportation kept patient from medical appointments or from getting medications: No and lack of transportation has kept patient from beneficial non-medical activities: No. Do you feel stress - tense, restless, nervous, or anxious, or unable to sleep at night because your mind is troubled all the time - these days? Somewhat and Does patient feel physically and emotionally safe where he/she lives: Yes. Is patient is worried about losing housing: No. What is the highest grade or level of school you have completed or the highest degree you have received? High school diploma or GED. In the past year, patient or family members in household were unable to get needed clothing: No, unable to get needed child care attendant school: No, unable to get other needs No, unable to get needed phone: No, unable to get needed utilities: No, unable to get needed Medicine or Health Care: No, and In the past year, patient or family members in household were unable to get needed food: No. How often does patient see or talk to people that that he/she cares about and feels close to: 5 or more times a week. MAITE-2 score was four 12/18/2023, MAITE-7 score was 14 [MAITE-7] Feeling nervous, anxious or on edge? + 3 pt : Nearly every day, [MAITE-7] Feeling nervous, anxious or on edge? + 3 pt : Nearly every day, [MAITE-7] Not being able to stop or control worrying? + 1 pt : Several days, [MAITE-7] Not being able to stop or control worrying? + 1 pt : Several days, [MAITE-7] Worrying too much about different things? + 2 pt : More than half the days, [MAITE-7] Trouble relaxing? + 2 pt : More than half the days, [MAITE-7] Being so restless that it's hard to sit still? + 1 pt : Several days, [MAITE-7] Becoming easily annoyed or irritable? + 3 pt : Nearly every day, [MAITE-7] Feeling afraid as if something awful might happen? + 2 pt : More than half the days, Patient Health Questionnaire 9-Item total score was eleven 12/18/2023 If you checked off problems, how difficult is it for you to do your work? + : Somewhat difficult, [PHQ-9-1] Little interest or pleasure in doing things? + 3 pt : Nearly every day, [PHQ-9-2] Feeling down, depressed, or hopeless? + 1 pt : Several days, [PHQ-9-3] Trouble falling or staying asleep or sleeping too much? + 2 pt : More than half the days, [PHQ-9-4] Feeling tired or having little energy? + 1 pt : Several days, [PHQ-9-5] Poor appetite or overeating? + 1 pt : Several days, [PHQ-9-6] Feeling bad about yourself-or that you are a failure + 2 pt : More than half the days, [PHQ-9-7] Trouble concentrating on things such as reading the newspaper + 1 pt : Several days, [PHQ-9-8] Moving or speaking so slowly that other people have noticed. + 0 pt : Not at all, [PHQ-9-9] Thoughts that you would be better off or hurting yourself? + 0 pt : Not at all, and MAITE If you checked off problems, how difficult is it for you to do your work, take care of things, or get along? Very difficult. [facility]03-11-2024 Progress note* Progress note Date Encounter Last Documented by 12/18/2023 Medical Established Patient Last documented on 12/19/2023; 12:19 PM, Vanesa Bullock LAB RN; [facility] Active Problems & Conditions - K21.9 - Esophageal Reflux Without Esophagitis - K29.00 - Gastritis Acute Without Hemorrhage - K29.51 - Gastritis Chronic - F41.1 - Generalized Anxiety Disorder - F33.0 - Major Depression Recurrent Mild Chief Complaint The Chief Complaint is: Patient here with complaints of not being able to eat. States she is hungry, but vomits with every bite. Also here for getting SOB during fit testing at work. Reason For Visit Visit for: unable to eat and shortness of breath. Referred Here No prior encounters. History of Present Illness - Allergy list reviewed - Reviewed Medications - Medication list reviewed Patient reports that she has not followed up with GI since she last had testing completed. Patient is unsure what testing was done, just that she was put to sleep and had biopsy completed. Reports she has not followed up with GI since then. Patient is currently reporting that she has been having increased nausea that is now making it difficult for her to be able to eat. Reports that her last full meal was . Patient reports her BM has been consistent since cholecystectomy, more loose than previously but consistent. Patient denies vomiting, states she stops eating before she gets that far. Patient is also concerned about recent FIT testing at work. The person doing the fitting reported noticing some shortness of breath when testing masks and advised the patient follow up with PCP. Patient denies history of asthma or COPD. Reports some anxiety to BH provider does not feel that she needs medications for this. Patient is very frustrated with continuing symptoms. Has not call GI to schedule follow up after testing. Would like to be tested for Crohn's Disease. Patient Denies diarrhea, excessive cramping, mucous or blood in her stool. Denies history of IBD in her family Current Medication - Mirena (52 MG) 20 MCG/DAY Intrauterine Intrauterine device 0 days, 0 refills Past Medical/Surgical History Reported: Medical: No medical history or no significant history. : Not planning a in the next year. Surgical: - Cholecystectomy - Laparoscopic cholecystectomy Social History Environmental Exposure: No secondhand cigarette smoke exposure. Behavioral: Not a current tobacco user. Tobacco use: Not using electronic cigarettes/vaping. Alcohol: A social drinker. Drug Use: Using marijuana. Sexual: Sexually active, sexual orientation Straight (not lesbian or cardona), and gender identity Female. Allergies - Bee sting Reaction: Hives / Urticaria Family History No significant medical history Review Of Systems Systemic: No systemic symptoms. Head: No head symptoms. Otolaryngeal: No ear symptoms, no nasal symptoms, and no throat symptoms. Cardiovascular: No chest pain or discomfort. Pulmonary: No pulmonary symptoms. Gastrointestinal: Appetite, change in amount of food/fluids consumed, and nausea. No vomiting, no bloating, no flatus, no pain when defecating, and no bright red blood per rectum. No rectal pain. Genitourinary: No genitourinary symptoms. Musculoskeletal: No musculoskeletal symptoms. Neurological: No neurological symptoms. Psychological: No psychological symptoms. Skin: No skin symptoms. Physical Findings - Vitals taken 12/18/2023 02:51 pm BP-Sitting L132/85 mmHg Pulse Rate-Wygaxvz23 bpm Hqylme19 in Npaizt627 lbs 6.4 oz Body Mass Index26.2 kg/m2 Body Surface Area1.9 m2 Oxygen Nysaqngrun71.9 % Vital Signs: - Systolic blood pressure 130 - 139 mmHg. - Diastolic blood pressure 80-89 mmHg. General Appearance: - Awake. - Alert. - In no acute distress. Eyes: General/bilateral: Pupils: - PERRLA. Pharynx: Oropharynx: - Normal. Lungs: - Respiration rhythm and depth was normal. - Clear to auscultation. Cardiovascular: Heart Rate And Rhythm: - Normal. Heart Sounds: - Normal. Abdomen: Auscultation: - Bowel sounds were normal. Palpation: - Abdominal non-tender. Musculoskeletal System: General/bilateral: - Normal movement of all extremities. Neurological: - Oriented to time, place, and person. Psychiatric: - Expression of emotions finding was normal. Skin: - General appearance was normal. Assessment - Z68.26 - Body mass index [BMI] 26.0-26.9, adult - K21.9 - Gastro-esophageal reflux disease without esophagitis - K29.00 - Acute gastritis without bleeding - F41.1 - Generalized anxiety disorder Therapy - Patient refused flu vaccine. Discussed benefits of flu vaccine with Patient. Vaccinations - Did not receive dose of Reported: Patient has not received the Covid Vaccine Counseling/Education - Discussed nutritional needs teach healthy choices including fruits and vegetables - Patient education about a proper diet - Discussed concerns about exercise: promote physical activity Plan StartCited- Unspecified chronic gastritis with bleeding Pantoprazole Sodium 40 MG tablet Take 1 tablet by mouth daily on an empty stomach, 30 days, 0 refills EndCited Will start the patient on Protonix for the symptoms while awaiting records request from GI. Patient advised to call and schedule follow up with GI, as she may need further testing. GI would also be the provider to better evaluate for diagnosis of Crohn's. Patient to schedule for [facility] to evaluate the shortness of breath. Advised that this provider would not be able to provide note to employer that would her exempt the patient from the need to wear appropriate PPE. Notes - Patient is not interested in the COVID-19 vaccination at this time. Health Reminders - Assess BMI satisfied 12/18/2023. - Assess Tobacco Use satisfied 12/18/2023. - Follow Up Plan BMI Management satisfied 12/18/2023. [facility]08-15-2023 Evaluation note Includes: Assessments for all patient encounters Findings Encounter Date [Z68.25 - Body mass index [B HI] 25.0-25.9, adult] assessment of body mass index Medical New Patient with Vanesa Bullock [facility] 05/23/2023 Last Documented On 3 8:59AM ; [facility] Chronic gastritis Medical New Patient with Brendan Bullock [facility] 05/23/2023 Last Documented On 3 8:59AM ; [facility] Diabetes Risk Test Score was one score 05/23/2023 Medical New Patient with Vanesa Bullock [facility] 05/23/2023 Last Documented On 3 8:59AM ; [facility] Work Phone: [phone]) 270-118008-15-2023 History general Narrative - Reported Includes: Medical History in patient's chart Description Last Updated No medical history or no significant his tory 05/23/2023 Last Documented On 3 8:59AM ; [facility] Not planning to have a baby in the next 12 months 05/23/2023 Last Documented On 3 8:59AM ; [facility] Work Phone: [phone]) 679-330808-15-2023 History general Narrative - Reported Includes: Medical History in patient's chart Description Last Updated No medical history or no significant his tory 05/23/2023 Last Documented On 3 8:59AM ; [facility] Not planning to have a baby in the next 12 months 05/23/2023 Last Documented On 3 8:59AM ; [facility] Work Phone: [phone]) 206-252108-15-2023 History general Narrative - Reported Includes: Medical History in patient's chart Description Last Updated No medical history or no significant his tory 05/23/2023 Last Documented On 3 8:59AM ; [facility] Not planning to have a baby in the next 12 months 05/23/2023 Last Documented On 3 8:59AM ; [facility] Work Phone: [phone]) 509-989708-15-2023 Progress note* Progress note Date Encounter Last Documented by 05/23/2023 Medical New Patient Last esther duenas on 05/24/2023; 8:59 AM, Vanesa Bullock CNP; [facility] Active Problems & Conditions - K29.51 - Gastritis Chronic Chief Complaint The Chief Complaint is: Pt here for chronic abd pain. Reason For Visit Visit for: to establish care. Referred Here No prior encounters. History of Present Illness - Allergy list reviewed - Reviewed Medications - Medication list reviewed Patient is here [facility] and for complaint of chronic abdominal pain. Patient reports that she had her Gallbladder removed in 2019. Shortly after the surgery she started to have abdominal pain after eating. Patient describes the pain as labor pains and reports that the pain is in the epigastric area. Reports that the pain leaves her doubled over and can come out of nowhere. States the pain is stabbing nature and lasts for about 2-3 minute increments for an hour or two. Patient reports that she has been to mutiple different providers and testing. Patient reports that he has been to GI who diagnosed her with chronic gastritis. Patient reports that she has been on multiple medications and states that nothing has been working for her. States that her weight goes up and down between 140 and 160. Patient reports that she has tried to suffer through the pain but this is becoming more difficult. Patient reports that she was seeing GI at [facility] in [place]. Patient has not been there in the past year- states that she stopped going due to frustration with the testing process and little relief. Patient reports that she was negative for Crohns, describes colonoscopy and EGD. Patient reports that she has tried just eating bland foods and looking up foods that would be good to eat after gallbaldder removal and reports that none of those diets have helped. Reports pain comes and goes, sometimes even when she has not eaten. Patient reports that BM has been normal and occur once every 2 days. Reports increased gas production. Denies distension. Patient reports that she does see mucous and occasionally dark red blood in her stool. Denies seeing anything that looks like coffee grounds. Patient is agreeable to see another GI provider Current Medication - Mirena (52 MG) 20 MCG/DAY Intrauterine Intrauterine device 0 days, 0 refills Past Medical/Surgical History Reported: Medical: No medical history or no significant history. : Not planning to have a baby in the next 12 months. Surgical: - Cholecystectomy - Laparoscopic cholecystectomy Social History Environmental Exposure: No secondhand cigarette smoke exposure. Behavioral: Not a current tobacco user. Alcohol: A social drinker. Drug Use: Using marijuana. Sexual: Sexually active, sexual orientation Straight (not lesbian or cardona), and gender identity Female. Allergies - Bee sting Reaction: Hives / Urticaria Family History No significant medical history Review Of Systems Systemic: No systemic symptoms. Head: No headache. Otolaryngeal: No ear symptoms, no nasal symptoms, and no throat symptoms. Cardiovascular: No cardiovascular symptoms. Pulmonary: No pulmonary symptoms. Gastrointestinal: No gastrointestinal symptoms. Genitourinary: No genitourinary symptoms. Musculoskeletal: No musculoskeletal symptoms. Neurological: No neurological symptoms. Psychological: No psychological symptoms. Skin: No skin symptoms. Physical Findings - Vitals taken 05/23/2023 09:10 am BP-Sitting R110/71 mmHg Pulse Rate-Ktuvksk05 bpm Axmyox35 in Eiowfn056 lbs Body Mass Index25.2 kg/m2 Body Surface Area1.8 m2 Oxygen Elkandkepu36 % Vital Signs: - Systolic blood pressure < 130 mmHg. - Diastolic Blood Pressure < 80 mmHg. General Appearance: - Awake. - Alert. - In no acute distress. Eyes: General/bilateral: Pupils: - PERRLA. Ears: General/bilateral: Tympanic Membrane: - Examined. - Not bulging. - No retraction of tympanic membrane. - Not erythematous. - Not opacified. Right Ear: - Examined. Left Ear: - Examined. Nose: General/bilateral: Discharge: - No nasal discharge. Pharynx: Oropharynx: - Normal. Lungs: - Respiration rhythm and depth was normal. - Clear to auscultation. Cardiovascular: Heart Rate And Rhythm: - Normal. Heart Sounds: - Normal. Abdomen: Auscultation: - Bowel sounds were normal. Musculoskeletal System: General/bilateral: - Normal movement of all extremities. Neurological: - Oriented to time, place, and person. Psychiatric: - Expression of emotions finding was normal. Skin: - General appearance was normal. Tests Blood Analysis: Hemoglobin Studies: ValueDate Blood hemoglobin A1c 5.3%05/23/2023 Hemoglobin A1c level < 7.0%. Assessment - Z68.25 - Body mass index [BMI] 25.0-25.9, adult - Z13.1 - Encounter for screening for diabetes mellitus - K29.51 - Unspecified chronic gastritis with bleeding Therapy - Patient refused flu vaccine. Discussed benefits of flu vaccine with Patient. - SBIRT Full Screen Neg. - Referral to mental health team. Vaccinations - DTP Dose #1 Status: Prev Hist Date: 1990 - DTP Dose #2 Status: Prev Hist Date: 1990 - DTP Dose #3 Status: Prev Hist Date: 1990 - DTP Dose #4 Status: Prev Hist Date: 06/28/1994 - Hep B, adolescent or pediatric (Engerix-B) Dose #1 Status: Prev Hist Date: 04/24/2020 - HEPB Adult (Engerix-B) Dose #1 Status: Prev Hist Date: 2020 - HEPB Adult (Engerix-B) Dose #2 Status: Prev Hist Date: 05/11/2021 - MMR (MMR-II) Dose #1 Status: Prev Hist Date: 06/28/1994 - MMR (MMR-II) Dose #2 Status: Prev Hist Date: 03/20/2000 - OPV Dose #1 Status: Prev Hist Date: 1990 - OPV Dose #2 Status: Prev Hist Date: 1990 - OPV Dose #3 Status: Prev Hist Date: 06/28/1994 - Did not receive dose of Reported: Patient has not received the Covid Vaccine Counseling/Education - Patient has declined HIV testing did not want to be poked again at this visit. Is willing to complete at next visit - Patient verbalizes/demonstrates understanding of informed discussion/counseling - Discussed nutritional needs teach healthy choices including fruits and vegetables - Patient education about a proper diet - Discussed concerns about exercise: promote physical activity Plan StartCited- Unspecified chronic gastritis with bleeding Referrals: Gastroenterology Instructions: Please make a referral to: EndCited Refer to GI- Will try [facility] provider if they round in [place], if no Provider there will send to Tesha James. Patient to follow up after following with GI or sooner if needed. Notes - Patient is not interested in the COVID-19 vaccination at this time. Health Reminders - Assess BMI satisfied 05/23/2023. - Assess Tobacco Use satisfied 05/23/2023. - Diabetes Risk Screening Needed satisfied 05/23/2023. - Follow Up Plan BMI Management satisfied 05/23/2023. - PHQ9 / PHQA satisfied 05/23/2023. - SBIRT satisfied 05/23/2023. User Defined 1 She has not had 4 or more drinks in a day within the past year. No (0 points) [Pre-DM]: Patient has not been diagnosed with gestational diabetes or given to a baby weighing 9 pounds or more, No (0 points) [Pre-DM]: No, mother, father, sister, or brother does not have DM, No (0 points) [Pre-DM]: No, patient has not been diagnosed with high blood pressure, and Yes (0 point) [Pre-DM]: Yes, physically active. No misuse of prescription only drugs. Woman (0 Points) [Pre-DM], Little interest or pleasure in doing things in the last 2 weeks? 0 pt Not at all, Feeling down, depressed, or hopeless in the last 2 weeks? 0 pt Not at all, and [PHQ-2] Patient Health Questionnaire 2 item total score: 0 pts (Scale: 0-6) PHQ2. PHQ-9: total score was ten 05/23/2023 If you checked off problems, how difficult is it for you to do your work? + : Not difficult at all, [PHQ-9-1] Little interest or pleasure in doing things? + 2 pt : More than half the days, [PHQ-9-2] Feeling down, depressed, or hopeless? + 0 pt : Not at all, [PHQ-9-3] Trouble falling or staying asleep or sleeping too much? + 2 pt : More than half the days, [PHQ-9-4] Feeling tired or having little energy? + 2 pt : More than half the days, [PHQ-9-5] Poor appetite or overeating? + 2 pt : More than half the days, [PHQ-9-6] Feeling bad about yourself-or that you are a failure + 0 pt : Not at all, [PHQ-9-7] Trouble concentrating on things such as reading the newspaper + 0 pt : Not at all, [PHQ-9-8] Moving or speaking so slowly that other people have noticed. + 2 pt : More than half the days, [PHQ-9-9] Thoughts that you would be better off or hurting yourself? + 0 pt : Not at all, and Less than 40 years (0 points) [Pre-DM]. [facility]08-15-2023 Reason for referral (narrative)* Date Encounter Description Provider Reason for Referral 05/23/23 Medical New Patient Vanesa Bullock NATHALIE hunter To Mental Health Team [facility] Work Phone: [phone]) 538-141808-15-2023 Reason for referral (narrative)* Date Encounter Description Provider Reason for Referral 05/07/24 Open Access - Established Shelly Mcguire External referral/Resources provided - Gave resources for housing/ provided contact info. ~ 05/23/23 Medical New Patient Vanesa Bullock LAB RN R kodial To Mental Health Team [facility] Work Phone: 1(754) 819-644008-15-2023 Instructions Includes: Instructions for all patient encounters Education and Decision Aids were provided during visit for: Discussed nutritional needs teach healthy choices including fruits and vegetables Last Documented On 3 9:14AM ; [facility] Patient education about a pr oper diet Last Documented On 3 9:14AM ; [facility] Discussed concerns about exe rcise : promote physical activity Last Documented On 3 9:14AM ; [facility] Work Phone: [phone]) [phone] Evaluation note* Encounter Date Diagnosis Assessment Notes Treatment Notes Treatment Clinical Notes Dec, Pain of right thumb (ICD-10 - M79.644) Dec, Sprain of right thumb, unspecified site of digit, initial encounter (ICD-10 - S63.601A) Finger sprain material was printed Drink plenty fluids, get plenty of rest. Take ibuprofen, 600 mg by mouth with food up to 3 times a day for pain and swelling. Wear the splint is much as possible for the next 5 to 7 days. Ice and elevate your hand 2-3 times a day. Follow-up with your family physician if no improvement in 5 to 7 days. [facility] 09-01-2019 History general Narrative - Reported* Type Description Date Surgical History cholecystectomy 06/2019 Hospitalization History childbirth x2 [facility] Other Evaluation noteNo assessment information available [facility] Includes: Assessments for all patient encounters Findings Encounter Date Generalized anxiety disorder BH Established Marga ent with Maira Munson [employer] 05/07/2024 Last Documented On 4 10:55AM ; [facility] Mild recurrent major depression BH Estab lished Patient with Mairasumeet Munson [employer] 05/07/2024 Last Documented On 4 10:55AM ; [facility] Visit for: screening for disorder BH Est ablished Patient with Mairasumeet Munson [employer] 05/07/2024 Last Documented On 4 10:55AM ; [facility] [Body mass index [BMI] 27.0- 27.9, adult] assessment of body mass index Open Access - Established with Shelly Mei [facility] 05/07/2024 Last Documented On 4 9:39AM ; [facility] Panic disorder without agoraphobia BH Es tablished Patient with Maira Munson [facility] 04/23/2024 Last Documented On 4 7:39PM ; [facility] Visit for: screening for depression BH E stablished Patient with Maira Munson [facility] 04/23/2024 Last Documented On 4 7:39PM ; [facility] Visit for: screening for disorder BH Est ablished Patient with Maira Munson [facility] 04/23/2024 Last Documented On 4 7:39PM ; [facility] [Z68.27 - Body mass index [B HI] 27.0-27.9, adult] assessment of body mass index Open Access - Established with Vanesa Bullock [facility] 04/23/2024 Last Documented On 4 8:19AM ; [facility] Assessment of BMI Percentile = 5% to < 85% for age Z68.52 Open Access - Established with Vanesa Bullock [facility] 04/23/2024 Last Documented On 4 8:19AM ; [facility] Generalized anxiety disorder Open Access - Established with Vanesa Bullock [facility] 04/23/2024 Last Documented On 4 8:19AM ; [facility] Lumbar sprain Open Access - Established with A cora Bullock [facility] 04/23/2024 Last Documented On 4 8:19AM ; [facility] Thoracic sprain Open Access - Established with A cora Bullock [facility] 04/23/2024 Last Documented On 4 8:19AM ; [facility] [Z68.26 - Body mass index [B HI] 26.0-26.9, adult] assessment of body mass index Open Access - Established with Vanesa Bullock [facility] 02/14/2024 Last Documented On 4 4:26PM ; [facility] Lower back sprain Open Access - Established with Vanesa Bullock [facility] 02/14/2024 Last Documented On 4 4:26PM ; [facility] Muscle spasm of back Open Access - Established w ith Vanesa Bullock [facility] 02/14/2024 Last Documented On 4 4:26PM ; [facility] Screening for HIV Open Access - Established with Vanesa Bullock [facility] 02/14/2024 Last Documented On 4 4:26PM ; [facility] Visit for: screening for dig estive system disorders Open Access - Established with Vanesa Bullock [facility] 02/14/2024 Last Documented On 4 4:26PM ; [facility] Generalized anxiety disorder BH Establis hed Patient with Radha Fan [facility] 12/18/2023 Last Documented On 4 4:35PM ; [facility] Mild recurrent major depress ion per patient reported history Established Patient with Radha Fan [facility] 12/18/2023 Last Documented On 4 4:35PM ; [facility] [Z68.26 - Body mass index [B HI] 26.0-26.9, adult] assessment of body mass index Medical Established Patient with Vanesa Bullock [facility] 12/18/2023 Last Documented On 4 12:19PM ; [facility] Acute gastritis without hemorrhage Medic al Established Patient with Vanesa Bullock [facility] 12/18/2023 Last Documented On 4 12:19PM ; [facility] Esophageal reflux without esophagitis Me dical Established Patient with Vanesa Bullock [facility] 12/18/2023 Last Documented On 4 12:19PM ; [facility] Generalized anxiety disorder Medical Est ablished Patient with Vanesa Bullock [facility] 12/18/2023 Last Documented On 4 12:19PM ; [facility] [Z68.25 - Body mass index [B HI] 25.0-25.9, adult] assessment of body mass index Medical New Patient with Vanesa Bullock LAB RN 05/23/2023 Last Documented On 3 8:59AM ; [facility] Chronic gastritis Medical New Patient with Brendan Bullock [facility] 05/23/2023 Last Documented On 3 8:59AM ; [facility] Diabetes Risk Test Score was one score 05/23/2023 Medical New Patient with Vanesa Bullock LAB RN 05/23/2023 Last Documented On 3 8:59AM ; [facility] Work Phone: History of Present illness Narrative History of Present Illness not supported for this document type No History of Present Illness RecordedHealth [facility] Work Phone: Instructions Includes: Instructions for all patient encounters Education and Decision Aids were provided during visit for: BHP offered active and suppo rtive listening, normalized emotions and feelings, processed current stressors and explored coping and stress reducing skills. ~BHP discussed coping skills to manage increased anxiety including mindfulnes, grounding and breathing techniques. ~P discussed options for finding in-person and telehealth providers for therapy. ~P encouraged patient to continue to follow-up with addressing physical health concerns Last Documented On 4 4:35PM ; [facility] Discussed nutritional needs teach healthy choices including fruits and vegetables Last Documented On 4 2:55PM ; [facility] Patient education about a pr oper diet Last Documented On 4 2:55PM ; [facility] Discussed concerns about exe rcise : promote physical activity Last Documented On 4 2:55PM ; [facility] Discussed nutritional needs teach healthy choices including fruits and vegetables Last Documented On 3 9:14AM ; [facility] Patient education about a pr oper diet Last Documented On 3 9:14AM ; [facility] Discussed concerns about exe rcise : promote physical activity Last Documented On 3 9:14AM ; [facility] Work Phone: Instructions Includes: Instructions for all patient encounters Education and Decision Aids were provided during visit for: BHP offered active and suppo rtive listening, normalized emotions and feelings, processed current stressors and explored coping and stress reducing skills. ~BHP discussed coping skills to manage increased anxiety including mindfulnes, grounding and breathing techniques. ~BHP discussed options for finding in-person and telehealth providers for therapy. ~BHP encouraged patient to continue to follow-up with addressing physical health concerns Last Documented On 4 4:35PM ; [facility] Discussed nutritional needs teach healthy choices including fruits and vegetables Last Documented On 4 2:55PM ; [facility] Patient education about a pr oper diet Last Documented On 4 2:55PM ; [facility] Discussed concerns about exe rcise : promote physical activity Last Documented On 4 2:55PM ; [facility] Discussed nutritional needs teach healthy choices including fruits and vegetables Last Documented On 3 9:14AM ; [facility] Patient education about a pr oper diet Last Documented On 3 9:14AM ; [facility] Discussed concerns about exe rcise : promote physical activity Last Documented On 3 9:14AM ; [facility] Work Phone: Instructions Includes: Instructions for all patient encounters Education and Decision Aids were provided during visit for: ~*BHP offered active and sup portive listening, normalized emotions and feelings, and processed ~current stressors. ~*Utilize healthy coping skills and positive supports in patient's life. ~ Last Documented On 4 7:38PM ; [facility] Discussed nutritional needs teach healthy choices including fruits and vegetables Last Documented On 4 11:13AM ; [facility] Patient education about a pr oper diet Last Documented On 4 11:13AM ; [facility] Discussed concerns about exe rcise : promote physical activity Last Documented On 4 11:13AM ; [facility] Discussed nutritional needs teach healthy choices including fruits and vegetables Last Documented On 4 8:48AM ; [facility] Patient education about a pr oper diet Last Documented On 4 8:48AM ; [facility] Discussed concerns about exe rcise : promote physical activity Last Documented On 4 8:48AM ; [facility] BHP offered active and suppo rtive listening, normalized emotions and feelings, processed current stressors and explored coping and stress reducing skills. ~BHP discussed coping skills to manage increased anxiety including mindfulnes, grounding and breathing techniques. ~[facility] discussed options for finding in-person and telehealth providers for therapy. ~[facility] encouraged patient to continue to follow-up with addressing physical health concerns Last Documented On 4 4:35PM ; [facility] Discussed nutritional needs teach healthy choices including fruits and vegetables Last Documented On 4 2:55PM ; [facility] Patient education about a pr oper diet Last Documented On 4 2:55PM ; [facility] Discussed concerns about exe rcise : promote physical activity Last Documented On 4 2:55PM ; [facility] Discussed nutritional needs teach healthy choices including fruits and vegetables Last Documented On 3 9:14AM ; [facility] Patient education about a pr oper diet Last Documented On 3 9:14AM ; [facility] Discussed concerns about exe rcise : promote physical activity Last Documented On 3 9:14AM ; [facility] Work Phone: Instructions Includes: Instructions for all patient encounters Education and Decision Aids were provided during visit for: ~*BHP offered active and sup portive listening, normalized emotions and feelings, and processed ~current stressors. ~*Utilize healthy coping skills and positive supports in patient's life. ~ Last Documented On 4 7:38PM ; [facility] Discussed nutritional needs teach healthy choices including fruits and vegetables Last Documented On 4 11:13AM ; [facility] Patient education about a pr oper diet Last Documented On 4 11:13AM ; [facility] Discussed concerns about exe rcise : promote physical activity Last Documented On 4 11:13AM ; [facility] Discussed nutritional needs teach healthy choices including fruits and vegetables Last Documented On 4 8:48AM ; [facility] Patient education about a pr oper diet Last Documented On 4 8:48AM ; [facility] Discussed concerns about exe rcise : promote physical activity Last Documented On 4 8:48AM ; [facility] and suppo rtive listening, normalized emotions and feelings, processed current stressors and explored coping and stress reducing skills. ~P discussed coping skills to manage increased anxiety including mindfulnes, grounding and breathing techniques. ~P discussed options for finding in-person and telehealth providers for therapy. ~[facility] encouraged patient to continue to follow-up with addressing physical health concerns Last Documented On 4 4:35PM ; [facility] Discussed nutritional needs teach healthy choices including fruits and vegetables Last Documented On 4 2:55PM ; [facility] Patient education about a pr oper diet Last Documented On 4 2:55PM ; [facility] Discussed concerns about exe rcise : promote physical activity Last Documented On 4 2:55PM ; [facility] Discussed nutritional needs teach healthy choices including fruits and vegetables Last Documented On 3 9:14AM ; [facility] Patient education about a pr oper diet Last Documented On 3 9:14AM ; [facility] Discussed concerns about exe rcise : promote physical activity Last Documented On 3 9:14AM ; [facility] Work Phone: Instructions Includes: Instructions for all patient encounters Education and Decision Aids were provided during visit for: ~*[facility] offered active and sup portive listening, normalized emotions and feelings, and processed ~current stressors Last Documented On 4 10:55AM ; [facility] Discussed nutritional needs teach healthy choices including fruits and vegetables Last Documented On 4 8:41AM ; [facility] Patient education about a pr oper diet Last Documented On 4 8:41AM ; [facility] Discussed concerns about exe rcise : promote physical activity Last Documented On 4 8:41AM ; [facility] Not requesting contraception Last Documented On 4 8:41AM ; [facility] ~*[facility] offered active and sup portive listening, normalized emotions and feelings, and processed ~current stressors. ~*Utilize healthy coping skills and positive supports in patient's life. ~ Last Documented On 4 7:38PM ; [facility] Discussed nutritional needs teach healthy choices including fruits and vegetables Last Documented On 4 11:13AM ; [facility] Patient education about a pr oper diet Last Documented On 4 11:13AM ; [facility] Discussed concerns about exe rcise : promote physical activity Last Documented On 4 11:13AM ; [facility] Discussed nutritional needs teach healthy choices including fruits and vegetables Last Documented On 4 8:48AM ; [facility] Patient education about a pr oper diet Last Documented On 4 8:48AM ; [facility] Discussed concerns about exe rcise : promote physical activity Last Documented On 4 8:48AM ; [facility] active and suppo rtive listening, normalized emotions and feelings, processed current stressors and explored coping and stress reducing skills. ~[facility] discussed coping skills to manage increased anxiety including mindfulnes, grounding and breathing techniques. ~[facility] discussed options for finding in-person and telehealth providers for therapy. ~[facility] encouraged patient to continue to follow-up with addressing physical health concerns Last Documented On 4 4:35PM ; [facility] Discussed nutritional needs teach healthy choices including fruits and vegetables Last Documented On 4 2:55PM ; [facility] Patient education about a pr oper diet Last Documented On 4 2:55PM ; [facility] Discussed concerns about exe rcise : promote physical activity Last Documented On 4 2:55PM ; [facility] Discussed nutritional needs teach healthy choices including fruits and vegetables Last Documented On 3 9:14AM ; [facility] Patient education about a pr oper diet Last Documented On 3 9:14AM ; [facility] Discussed concerns about exe rcise : promote physical activity Last Documented On 3 9:14AM ; [facility] Work Phone: Patient problem outcome Narrative Includes: Evaluations & Outcomes for active Goals No [facility] Work [facility]: Progress note* Progress note Date Encounter Last Documented by 05/07/2024 Open Access - Established Last d ocumented on 05/07/2024; 1:57 PM, Shelly Mei CNP; Health [facility] Active Problems & Conditions - K21.9 - Esophageal Reflux Without Esophagitis - K29.00 - Gastritis Acute Without Hemorrhage - K29.51 - Gastritis Chronic - F41.1 - Generalized Anxiety Disorder - F33.0 - Major Depression Recurrent Mild Chief Complaint The Chief Complaint is: Hospital f/u, current chest pains. Referred Here Not referred by urgent care clinic. Referred by emergency room. No prior encounters. - Data to be reviewed: clinical lab tests History of Present Illness Mariola Etienne is a 33 year old female. - Allergy list reviewed - Reviewed Medications no longer taking buspirone - Date of last menstruation 02/2024 2 months ago, spotting. Pt. has IUD - test - would not like a test Patient present for ER follow up Was diagnosed with a panic attack Patient is concerned with chest pressure and heart palpitations States that she could not tolerate buspirone due to GI upset Has tried to eat before taking buspirone and still did not tolerate it Does state that she recently moved in with her sister and has had some increase in stress Still experiencing back pain, is following up with [facility] Current Medication - busPIRone HCl 5 MG Oral Tablet Take 1 tablet by mouth 2 times per day, 30 days, 0 refills - Mirena (52 MG) 20 MCG/DAY Intrauterine Intrauterine device 0 days, 0 refills Past Medical/Surgical History Reported: No Safety Measures. Medical: No medical history or no significant history and no previous hospitalizations. : Not planning a in the next year. Surgical: - Cholecystectomy - Laparoscopic cholecystectomy Social History Environmental Exposure: No secondhand cigarette smoke exposure. Behavioral: Not a current tobacco user. Alcohol: Not using alcohol. Drug Use: Using marijuana. Sexual: Not sexually active. Sexual orientation Straight (not lesbian or cardona) and gender identity Female. Allergies - Bee sting Reaction: Hives / Urticaria Family History No significant medical history Review Of Systems Systemic: No systemic symptoms. Head: No head symptoms. Otolaryngeal: No ear symptoms, no nasal symptoms, and no throat symptoms. Cardiovascular: No chest pain or discomfort. Pulmonary: No pulmonary symptoms. Gastrointestinal: No gastrointestinal symptoms. Genitourinary: No genitourinary symptoms. Musculoskeletal: Musculoskeletal symptoms see HPI. Neurological: No neurological symptoms. Psychological: Psychological symptoms. Skin: No skin symptoms. Physical Findings - Vitals taken 05/07/2024 08:31 am BP-Sitting L113/79 mmHg BP Cuff SizeRegular Pulse Rate-Rkoabgh92 bpm Temp-Oral98.1 F Mrrptw36 in Qxjygp071 lbs 12.8 oz Body Mass Index27.5 kg/m2 Body Surface Area1.9 m2 Oxygen Harabjseak75 % Vital Signs: - Systolic blood pressure < 130 mmHg. - Diastolic Blood Pressure < 80 mmHg. General Appearance: - Awake. - Alert. - In no acute distress. Lungs: - Respiration rhythm and depth was normal. - Clear to auscultation. Cardiovascular: Heart Rate And Rhythm: - Normal. Heart Sounds: - Normal. Abdomen: Auscultation: - Bowel sounds were normal. Musculoskeletal System: Cervical Spine: General/bilateral: - Cervical spine showed no abnormalities. Neurological: - Oriented to time, place, and person. Psychiatric: - Expression of emotions normal. Skin: - General appearance was normal. Tests Laboratory-based Chemistry: Other Laboratory Tests: Screening for sexually transmitted infections was not performed. Laboratory Studies: Electrocardiogram: An ECG was performed and tracing given to provider. Assessment - Body mass index [Body mass index [BMI] 27.0-27.9, adult] Therapy - SBIRT Full Screen Neg. Counseling/Education - Would like to stop using current contraception pt. is getting IUD out 05/14/24 - Discussed nutritional needs teach healthy choices including fruits and vegetables - Patient education about a proper diet - Not requesting contraception - Discussed concerns about exercise: promote physical activity Will start hydroxyzine for anxiety Will refill ibuprofen and cyclobenzaprine for back pain Due to cardiac symptoms will do cardiac testing Has a hisotry of GERD will restart pantoprazole Follow up with PCP in 4 weeks Plan StartCited- Chest pain, unspecified Ibuprofen 800 MG tablet TAKE ONE TABLET EVERY 8 HOURS NEEDED FOR PAIN DO NOT MIX WITH ANY NSAIDS, 15 days, 0 refills Cyclobenzaprine HCl 10 MG tablet Take one tablet three times a day as needed for pain, 15 days, 0 refills EndCited StartCited- Generalized anxiety disorder hydrOXYzine Pamoate 25 MG capsule Take one tablet three times a day as needed for anxiety, 30 days, 0 refills EndCited StartCited- Palpitations Outside Diagn Tests: Other Diagnostic Test: Instructions: CARNATION AMBULATORY MONITOR 7 DAYS Outside Diagn Tests/Ultrasound: US Echo 2D (47325) EndCited StartCited- Unspecified chronic gastritis with bleeding Pantoprazole Sodium 20 MG tablet Take one tablet daily, 30 days, 1 refills EndCited - External referral/Resources provided Gave resources for housing/ provided contact info. Care Team - Vanesa Bullock CNP User Defined 1 Has not worked without getting the payment you thought you would, has not felt pressured to do something against will to keep job, have not felt threatened in a relationship, has not been put down, humilitated, or someone has tried to control them, has not been hit, kicked, punched, or sexually forced to do something, or hurt, and not afraid of someone you have a relationship with. Domestic Violence/ Human Trafficking Screening was completed. Not planning a in the next year. She has not had 4 or more drinks in a day within the past year., no misuse of prescription only drugs, and not illicit. [facility] - Reported Review of Systems not supported for this document type No Review of [facility] Work Phone: Chief Complaint and Reason for Visit Chief Complaint Abdominal Pain, Weig ht Loss, Diarrhea, Rectal Blee Chief Complaint M79.317 Advance Directives Includes: Current Advance Directives No Advance Directives Recorded Advance Directive Response Recorded Date/ Time Advance Directives No April 05 2:01pm Advance Directive Response Recorded Date/ Time Advance Directives No April 05 1:59pm Summary Purpose Family History Description Last Updated No significant medical history 3 Last Documented On 3 8:59AM ; [facility] No Family History Records Found Physical Exam Physical Exam not supported for this document type No Physical Exam Recorded Physical Exam not supported for this document type No Physical Exam Recorded Physical Exam not supported for this document type No Physical Exam Recorded Physical Exam not supported for this document type No Physical Exam Recorded Physical Exam not supported for this document type No Physical Exam Recorded Physical Exam not supported for this document type No Physical Exam Recorded Physical Exam not supported for this document type No Physical Exam Recorded Physical Exam not supported for this document type No Physical Exam Recorded Additional Source Comments Goals (unrecognized section and content) Goals may be documented in a n alternate sectionNo InformationGoals may be documented in an alternate section Includes: Active GoalsNo Active Goals Recorded Includes: Active GoalsNo Active Goals Recorded Includes: Active GoalsNo Active Goals Recorded Includes: Active GoalsNo Active Goals Recorded Includes: Active GoalsNo Active Goals Recorded Includes: Active GoalsNo Active Goals Recorded Includes: Active GoalsNo Active Goals Recorded Includes: Active GoalsNo Active Goals Recorded REASON FOR VISIT (unrecogniz ed section and content) RIGHT THUMB [employer]URT Care Teams (unrecognized sec tion and content) Team Status: Active Member Role Status Dates PHYSICIAN NO FAMILY Primary Care Provider Active Team Status: Inactive Member Role Status Dates 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 NO FAMILY Primary Care Provider Active MURIEL Rothman Attending Provider Active INFORMATION SOURCE (unrecogn ized section and content) DATE CREATED AUTHOR 02/15/2023 [facility] DATE CREATED AUTHOR AUTHOR'S ORGANIZ ATION 10/16/2023 [facility] DATE CREATED AUTHOR AUTHOR'S ORGANIZ ATION 04/10/2024 [facility] EPIC DATE CREATED AUTHOR AUTHOR'S ORGANIZ ATION 05/05/2024 [facility] FOR RECORDS PERTAINING TO PATIENTS WHO ARE OR HAVE BEEN ENROLLED IN A CHEMICAL DEPENDENCY/SUBSTANCEABUSE PROGRAM, SOME INFORMATION MAY BE OMITTED. This clinical summary was aggregated from multiple sources. Caution should be exercised in using it in the provision of clinical care. This summary normalizes information from multiple sources, and as a consequence, information in this document may materially change the coding, format and clinical context of patient data. In addition, data may be omitted in some cases. CLINICAL DECISIONS SHOULD BE BASED ON THE PRIMARY CLINICAL RECORDS. [employer]formedDNA [facility]. provides no warranty or guarantee of the accuracy or completeness of information in this document.
== END 2024-05-14 19:06 | disposition home or self-care (01) ==
LOC: LAB 19:05
PROVIDERS: Visit Provider Obstetrics & Gynecology
DX: Z01.419 Encounter for gynecological examination (general) (routine) without abnormal findings (principal)
CPT/HCPCS: 87624; 88175

== ENCOUNTER 2024-07-25 08:10 | Outpatient (OUT) | payer OTHER, SELFPAY ==
--- NOTE | 2024-07-25 08:11 | US_ITS ---
[address] [address] Patient Name: OSEI WASHINGTON MRN: [id number] date: 1990 Sex: F Assigned Patient Location: [facility] Current Patient Location: Accession/Order Number: [id number] Exam Date: 07/25/2024 08:12 Report Date: 07/29/2024 07:16 At the request of: ARCELIA VALVERDE Procedure: US pelvis transvaginal EXAMINATION: US pelvis transvaginal HISTORY: BLEEDING WITH MIRENA COMPARISON: No relevant comparison available. FINDINGS: Transvaginal images The uterus is normal in size, contour and echotexture measuring 7.9 x 4.0 x 5.6 cm. Linear hyperechogenicity within the endometrial cavity with acoustic shadowing, positioned IUD The endometrium measures 2 mm, thin The right ovary is normal measuring 2.7 x 1.8 x 2.6 cm. Normal color Doppler flow The left ovary is normal measuring 3.8 x 1.7 x 2.1 cm. Normal color Doppler flow No free fluid US/US pelvis transvaginal IMPRESSION: IUD in normal position Thin endometrium Electronically authenticated by: KAYLYN ESTRADA Date: 07/29/2024 07:16
--- OUTSIDE RECORDS SUMMARY | 2024-07-25 08:14 | XMS_ITS | CCD ---
Author Organization [facility] Care Team Providers Care Doctor Chiropractic Name Role Phone Clementine Kaylyn Soriano Attending Provider NO FAMILY, PHYSICIAN Primary Care Provider Unava ilable Mayuri Hanson Unavailable NO FAMILY, PHYSICIAN Primary Care Provider Unava ilMURIEL Ulloa Attending Provider [facility] Primary Care Unavailable ABRAM ., DR PANIAGUA Attending Unavailable ABRAM ., DR PANIAGUA Consulting Unavailable ABRAM ., DR PANIAGUA Admitting Unavailable Vanesa Bullock CNP Primary Care Provider NO FAMILY, PHYSICIAN Primary Care Unavailable Mayuri Hanson Attending Unavailable Mayuri Hanson Admitting Unavailable Joel Zapata Attending Unavailab Joel Brambila Admitting Unavailab josselin NO FAMILY, PHYSICIAN Primary Care Unavailable SERVICES, [facility] Primary Care Unava ilable SUNNY COOK Attending Unavailable SERVICES, [facility] Primary Care Unava ilable SUNNY COOK Attending Unavailable SUNNY COOK Referring Unavailable SERVICES, [facility] Primary Care Unava ilable KAYLYN GALVAN Attending Unavailable VALENTIN PASCUAL Attending Unavailable ARCELIA VALVERDE Attending Unavailable VALENTIN PASCUAL Attending Unavailable ARCELIA VALVERDE Attending Unavailable ARCELIA VALVERDE Attending Unavailable Allergies Allergy Classification Reported Allergen(s) Allergy Type Date of Onset Reaction(s) Facility (8 sources) Bee sting Allergy to substance 3 Hives / Urticaria [facility] Medications Current Medications Medication Drug Class(es) Dates [...] - 04/23/2024 Provider: Vanesa Bullock CNP levonorgestrel 0.447472 mg/hr intrauterine system (8 sources) Progestin, Progestin-containing [...] Anion gap [Moles/Vol] 9 mmol/L Normal 5-15 [facility] Comment on above: Performed By: #### C BCA, BMP, 87642-8, 36867-2, 27611-1 #### [facility] ([id number]) [address] [place] [address] 15142 Calcium [Mass/Vol] 9.3 mg/dL Normal 8.5-10.5 [facility] Comment on above: Performed By: #### C BCA, BMP, 86492-8, 77217-8, 97692-6 #### [facility] ([id number]) [address] [place] [address] 99411 Chloride [Moles/Vol] 105 mmol/L Normal 98-109 [facility] Comment on above: Performed By: #### C BCA, BMP, 42821-2, 28544-6, 31617-5 #### [facility] ([id number]) [address] [place] [address] 42211 CO2 [Moles/Vol] 20 mmol/L Low 22-32 [facility] Comment on above: Performed By: #### C BCA, BMP, 80788-6, 19734-5, 27729-6 #### [facility] ([id number]) [address] [place] [address] 29462 Creatinine [Mass/Vol] 0.76 mg/dL Normal 0.40-1.00 [facility] Comment on above: Result Comment: METH OD TRACEABLE TO IDMS STANDARD Performed By: #### C BCA, BMP, 66392-5, 62109-6, 07751-0 #### [facility] ([id number]) [address] [place] [address] 06581 eGFR (CKD-EPI) NON-RACE DEPENDENT >90 Normal >59 [facility] Comment on above: Result Comment: Reported eGFR is based on the CKD-EPI 2020 equation that does not use a race coefficient. Performed By: #### C SUZANNE, BMP, 20864-3, 45340-2, 22233-8 #### [facility] ([id number]) [address] [place] [address] 53630 Glucose [Mass/Vol] 116 mg/dL High 65-99 [facility] Comment on above: Performed By: #### C SUZANNE, BMP, 28906-9, 52974-4, 35105-9 #### [facility] ([id number]) [address] [place] [address] 55106 Potassium [Moles/Vol] 3.9 mmol/L Normal 3.5-5.0 [facility] Comment on above: Performed By: #### C SUZANNE, BMP, 32119-8, 75044-1, 92461-0 #### [facility] ([id number]) [address] [place] [address] 76169 Sodium [Moles/Vol] 134 mmol/L Normal 134-146 [facility] Comment on above: Performed By: #### C SUZANNE, BMP, 10309-6, 77752-7, 27774-9 #### [facility] ([id number]) [address] [place] [address] 29973 Urea nitrogen [Mass/Vol] 15 mg/dL Normal 5-23 [facility] Comment on above: Performed By: #### C SUZANNE, BMP, 56454-2, 59510-9, 72269-9 #### [facility] ([id number]) [address] [place] [address] 00416 CBC AND AUTO DIFFon 05-04-20 24 ABSOLUTE BASOPHIL 0.0 X10E9/L Normal 0.0-0.2 [facility] Comment on above: Performed By: #### C BCA, BMP, 40838-1, 24355-3, 16127-1 #### [facility] ([id number]) [address] [place] [address] 39742 ABSOLUTE NEUTROPHIL 5.3 X10E9/L Normal 1.5-6.6 [facility] Comment on above: Performed By: #### C BCA, BMP, 80749-9, 61916-7, 76688-3 #### [facility] ([id number]) [address] [place] [address] 08930 Basophils/100 WBC (Bld) 0.3 % Normal [facility] Comment on above: Performed By: #### C BCA, BMP, 40576-8, 14141-5, 49796-7 #### [facility] ([id number]) [address] [place] [address] 06527 Eosinophils (Bld) [#/Vol] 0.1 10*3/uL Normal 0.0-0.4 [facility] Comment on above: Performed By: #### C BCA, BMP, 10565-5, 34490-5, 31045-2 #### [facility] ([id number]) [address] [place] [address] 39314 Eosinophils/100 WBC (Bld) 1.3 % Normal [facility] Comment on above: Performed By: #### C BCA, BMP, 44131-5, 31035-9, 81472-1 #### [facility] ([id number]) [address] [place] [address] 90284 Erythrocyte distribution width (RBC) [Ratio] 13.3 % Normal 11.5-15.0 [facility] Comment on above: Performed By: #### C BCA, BMP, 31921-4, 11028-1, 09532-3 #### [facility] ([id number]) [address] [place] [address] 91681 Hematocrit (Bld) [Volume fraction] 41.6 % Normal 35-47 [facility] Comment on above: Performed By: #### C SUZANNE, BMP, 93415-2, 66493-1, 77975-5 #### [facility] ([id number]) [address] [place] [address] 06740 Hemoglobin (Bld) [Mass/Vol] 13.5 g/dL Normal 11.7-15.5 [facility] Comment on above: Performed By: #### C SUZANNE, BMP, 13760-3, 63221-0, 64468-8 #### [facility] ([id number]) [address] [place] [address] 96071 Lymphocytes (Bld) [#/Vol] 2.2 10*3/uL Normal 1.0-3.5 [facility] Comment on above: Performed By: #### C SUZANNE, BMP, 30727-1, 88058-8, 40246-4 #### [facility] ([id number]) [address] [place] [address] 40502 Lymphocytes/100 WBC (Bld) 27.1 % Normal [facility] Comment on above: Performed By: #### Cammie PALACIOS, BMP, 52940-4, 00927-0, 17556-3 #### [facility] ([id number]) [address] [place] [address] 15381 MCH (RBC) [Entitic mass] 27.0 pg Normal 27-34 [facility] Comment on above: Performed By: #### C SUZANNE, BMP, 23347-0, 57009-9, 55247-5 #### [facility] ([id number]) [address] [place] [address] 15604 MCHC (RBC) [Mass/Vol] 32.5 g/dL Normal 32-36 [facility] Comment on above: Performed By: #### C BCA, BMP, 36787-7, 30454-2, 81993-4 #### [facility] ([id number]) [address] [place] [address] 27529 MCV (RBC) [Entitic vol] 83 fL Normal 80-100 [facility] Comment on above: Performed By: #### C BCA, BMP, 51823-6, 56335-7, 34112-5 #### [facility] ([id number]) [address] [place] [address] 13866 Monocytes (Bld) [#/Vol] 0.5 10*3/uL Normal 0-0.9 [facility] Comment on above: Performed By: #### C BCA, BMP, 69491-2, 45839-9, 25313-3 #### [facility] ([id number]) [address] [place] [address] 57640 Monocytes/100 WBC (Bld) 6.4 % Normal [facility] Comment on above: Performed By: #### C SUZANNE, BMP, 81120-6, 92622-2, 15378-2 #### [facility] ([id number]) [address] [place] [address] 82299 Neutrophils/100 WBC (Bld) 64.9 % Normal [facility] Comment on above: Performed By: #### C BCA, BMP, 07093-8, 64392-7, 75093-3 #### [facility] ([id number]) [address] [place] [address] 14339 Platelet mean volume (Bld) [Entitic vol] 8.7 fL Normal 7-12 [facility] Comment on above: Performed By: #### C BCA, BMP, 09278-0, 05683-9, 71250-5 #### [facility] ([id number]) [address] [place] [address] 78705 Platelets (Bld) [#/Vol] 237 10*3/uL Normal 150-450 [facility] Comment on above: Performed By: #### C PARAM PALACIOS, 65216-9, 41631-8, 35743-9 #### [facility] ([id number]) [address] [place] [address] 20225 RBC COUNT 5.00 X10E12/L Normal 3.80-5.20 [facility] Comment on above: Performed By: #### C SUZANNE, PARAM, 48119-2, 39288-4, 46110-9 #### [facility] ([id number]) [address] [place] [address] 15724 WBC (Bld) [#/Vol] 8.1 10*3/uL Normal 4.0-11.0 [facility] Comment on above: Performed By: #### C PARAM PALACIOS, 25777-9, 23809-8, 72762-5 #### [facility] ([id number]) [address] [place] [address] 06205 Fibrin D-dimer DDU (PPP) [Ma ss/Vol]on 05-04-2024 D DIMER <150 Normal <255 [facility] Comment on above: Result Comment: Results <255 ng/mL DDU: The presence of a VTE can safely be excluded with a negative D-Dimer result and Wells score. A negative result doesn't exclude the possibility of DIC. The test be repeated along with other diagnostic tests if the patient's symptoms persist or worsen. [email or web address] Performed By: #### C SUZANNE, BMP, 39024-3, 41818-9, 70834-6 #### [facility] ([id number]) [address] [place] [address] 90218 HCG ( test) IA.rapi d Ql (S)on 05-04-2024 SERUM Negative Normal NEG [facility] Comment on above: Performed By: #### C BCA, BMP, 12368-2, 73215-2, 78075-8 #### [facility] ([id number]) [address] [place] [address] 13993 Troponin I.cardiac High sens itivity method [Mass/Vol]on 05-04-2024 TROPONIN I, HIGH SENSITIVITY 2 ng/L Normal <16 [facility] Comment on above: Performed By: #### C BCA, BMP, 71577-4, 03565-1, 64058-6 #### [facility] ([id number]) [address] [place] [address] 77297 XR CHEST 1 VWon 05-04-2024 XR CHEST 1 VW XR CHEST 1 VW CLINICAL INFORMATION: Chest pain and shortness of breath COMPARISON: Chest radiograph dated 04/22/2021. VIEWS: 1. FINDINGS: Cardiac and mediastinal shadows are normal. No infiltrates. No effusions. No pneumothorax. No free air below the diaphragm. IMPRESSION: No acute cardiopulmonary disease. Finalized by Unique Figueroa MD on 05/04/2024 10:21 AM Normal [facility] PAP ACOG PANEL 2: 30 to 65on 02-15-2023 . . Normal [facility] Comment on above: Result Comment: Perf ormed at: WB Performed By: #### [id number] #### [facility] [address] [place] [address] Dr. Alli Galvin Age Gdln ACOG Testing 30-65 Normal [facility] Comment on above: Performed By: #### 4 [id number] #### [facility] [address] [address] [address] Alli Galvin DIAGNOSIS: Comment Normal [facility] Comment on above: Result Comment: NEGA TIVE FOR INTRAEPITHELIAL LESION OR MALIGNANCY. Performed at: WB Performed By: #### 4 [id number] #### [facility] [address] [address] [address] Alli Galvin HPV Aptima Negative Normal Negative [facility] Comment on above: Result Comment: This nucleic acid amplification test detects fourteen high-risk HPV types (16,18,31,33,35,39,45,51,52,56,58,59,66,68) without differentiation. Performed at: =G Performed By: #### 4 [id number] #### [facility] [address] [place] [address] Dr. Alli Galvin HPV Genotype Reflex Comment Normal [facility] Comment on above: Result Comment: Crit eria not met, HPV Genotype not performed. Performed at: WB Performed By: #### 4 [id number] #### [facility] [address] [place] [address] Dr. Alli Galvin Methodology: Comment Normal [facility] Comment on above: Result Comment: This liquid based ThinPrep(R) pap test was screened with the use of an image guided system. Performed at: WB Performed By: #### 4 [id number] #### [facility] [address] [place] [address] Dr. Alli Galvin Note: Comment Normal [facility] Comment on above: Result Comment: The Pap smear is a screening test designed to aid in the detection of premalignant and malignant conditions of the uterine cervix. It is not a diagnostic procedure and should not be used as the sole means of detecting cervical cancer. Both false-positive and false-negative reports do occur. . Performed at: WB Performed By: #### 4 [id number] #### [facility] [address] [place] [address] Dr. Alli Galvin Performed by: Comment Normal [facility] Comment on above: Result Comment: Duke Mendoza, Software Technician (ASCP) Performed at: WB Performed By: #### 4 [id number] #### [facility] [address] [place] [address] Dr. Alli Galvin Specimen adequacy: Comment Normal [facility] Comment on above: Result Comment: Sati sfactory for evaluation. Endocervical and/or squamous metaplastic cells (endocervical component) are present. Performed at: WB Performed By: #### 4 [id number] #### [facility] [address] [address] [address] Alli Galvin XR hand RT min 3V*on 023 XR hand RT min 3V* [facility] [address] [id number] XRay Report Signed Patient: Mariola [place] MR#: [id number] : 1990 Acct:[id number] Age/Sex: 32 / F ADM Date: 01/02/23 Loc: XDUCLY Room: Type: [facility] Attending Dr: Mayuri LLAMAS Copies to: [...] Castaneda Jr., DMagdaOMagda01/02/2023 1:44 PM Dictation Location: [place] [address] Transcribed By: [facility] 01/02/23 1344 Dictated By: Moo Castaneda Jr, DO 01/02/23 1342 Signed By: 01/02/23 1344 Normal [facility] XR hand RT min 3V* [facility] [employer] Other XR hand RT min 3V* [facility] [employer] Other XR hand RT min 3V* [address] [place] [address] [employer] Other XR hand RT min 3V* [place] [id number] [facility] [employer] Other XR hand RT min 3V* XRay Report [facility] [employer] Other XR hand RT min 3V* Signed [employer] Other XR hand RT min 3V* Patient: Mariola [place] MR#: [id number] [employer] Other XR hand RT min 3V* 517 [employer] Other XR hand RT min 3V* : 1990 Acct:[id number] [employer] Other XR hand RT min 3V* Age/Sex: 32 / F ADM Date: 01/02/23 [employer] Other XR hand RT min 3V* Loc: XDUCLY Room: Type: [facility] [employer] Other XR hand RT min 3V* Attending Dr: Mayuri LLAMAS [employer] Other XR hand RT min 3V* Copies to: MURIEL Pineda [employer] Other XR hand RT min 3V* Ordering Provider: MURIEL Pineda [employer] Other XR hand RT min 3V* Date of Service: 01/02/23 [employer] Other XR hand RT min 3V* XR/XR hand RT min 3V*: Pain of right thumb [employer] Other XR hand RT min 3V* RIGHT HAND - 3 views [employer] Other XR hand RT min 3V* REASON FOR EXAM: Donal n and decreased range of motion of right hand. No known injury. [employer] Other XR hand RT min 3V* COMPARISON: None [employer] Other XR hand RT min 3V* FINDINGS: [employer] Other XR hand RT min 3V* No focal soft tissue abnormality. No acute bony process is seen. No bony erosions. [employer] Other XR hand RT min 3V* XR/XR hand RT min 3V* [employer] Other XR hand RT min 3V* IMPRESSION: [employer] Other XR hand RT min 3V* NO ACUTE BONY PROCESS. [employer] Other XR hand RT min 3V* Impression dictated by: Moo Castaneda Jr., DMagdaOMagda01/02/2023 1:44 PM [employer] Other XR hand RT min 3V* Dictation Location: [facility] [employer] Other XR hand RT min 3V* Transcribed By: PWS 01/02/23 [employer] Other XR hand RT min 3V* Dictated By: Moo Castaneda Jr, DO 01/02/23 [employer] [facility] Other XR hand RT min 3V* Signed By: [employer] Other XR hand RT min 3V* 01/02/[address] [place] [address] [facility] Other COVID-19 Positive/Negativeon 04-05-2021 SARS-CoV-2 (COVID-19) N gene JAXON+probe Ql (Resp) Positive Negative [facility] Comment on above: Testing for SARS-CoV -2 by RT-PCRThis test was developed and its performance characteristics determined by [employer] and validated at the [facility]. This test has not been FDA cleared [...] 170.18 cm Vanesa Bullock CNP Work Phone: [facility] Work Phone: 05-07-2024 08:31-0400 Body mass index (BMI) [Ratio] 27.5 kg/m2 Vanesa Bullock CNP Work Phone: [facility] Work Phone: 05-07-2024 08:31-0400 Body surface area Derived from formula 1.9 m2 Vanesa Bullock CNP Work Phone: [facility] Work Phone: 05-07-2024 08:31-0400 Body temperature 98.1 [degF] Vanesa Bullock CNP Work Phone: [facility] Work Phone: 05-07-2024 08:31-0400 Body weight 79.74 kg Vanesa Bullock CNP Work Phone: [facility] Work Phone: 05-07-2024 08:31-0400 Diastolic blood pressure 79 mm[Hg] Vanesa Bullock CNP Work Phone: [facility] Work Phone: 05-07-2024 08:31-0400 Heart rate 69 /min Vanesa Bullock CNP Work Phone: [facility] Work Phone: 05-07-2024 08:31-0400 SaO2% (BldA) [Mass fraction] 98 % Vanesa Bullock CNP Work Phone: [facility] Work Phone: 05-07-2024 08:31-0400 Systolic blood pressure 113 mm[Hg] Vanesa Bullock CNP Work Phone: [facility] Work Phone: 04-23-2024 11:09-0400 Body height 170.18 cm Vanesa Bullock CNP Work Phone: [facility] Work Phone: 04-23-2024 11:09-0400 Body mass index (BMI) [Ratio] 27.5 kg/m2 Vanesa Bullock CNP Work Phone: [facility] Work Phone: 04-23-2024 11:09-0400 Body surface area Derived from formula 1.9 m2 Vanesa Bullock CNP Work Phone: [facility] Work Phone: 04-23-2024 11:09-0400 Body weight 79.65 kg Vanesa Bullock CNP Work Phone: [facility] Work Phone: 04-23-2024 11:09-0400 Diastolic blood pressure 74 mm[Hg] Vanesa Bullock CNP Work Phone: [facility] Work Phone: 04-23-2024 11:09-0400 Heart rate 73 /min Vanesa Bullock CNP Work Phone: [facility] Work Phone: 04-23-2024 11:09-0400 SaO2% (BldA) [Mass fraction] 95 % Vanesa Bullock CNP Work Phone: [facility] Work Phone: 04-23-2024 11:09-0400 Systolic blood pressure 111 mm[Hg] Vanesa Bullock EMPLOYMENT LAW ATTORNEY Work Phone: [facility] Work Phone: 02-14-2024 08:44-0400 Body height 170.18 cm Vanesa Bullock CNP Work Phone: [facility] Work Phone: 02-14-2024 08:44-0400 Body mass index (BMI) [Ratio] 26.1 kg/m2 Vanesa Bullock [employer]PLOYMENT LAW ATTORNEY Work Phone: [facility] Work Phone: 02-14-2024 08:44-0400 Body surface area Derived from formula 1.9 m2 Vanesa Bullock CNP Work Phone: [facility] Work Phone: 02-14-2024 08:44-0400 Body weight 75.57 kg Vanesa Bullock CNP Work Phone: [facility] Work Phone: 02-14-2024 08:44-0400 Diastolic blood pressure 77 mm[Hg] Vanesa Blulock EMPLOYMENT LAW ATTORNEY Work Phone: [facility] Work Phone: 02-14-2024 08:44-0400 Heart rate 77 /min Vanesa Bullock CNP Work Phone: [facility] Work Phone: 02-14-2024 08:44-0400 SaO2% (BldA) [Mass fraction] 97 % Vanesa Bullock CNP Work Phone: [facility] Work Phone: 02-14-2024 08:44-0400 Systolic blood pressure 112 mm[Hg] Vanesa Bullock EMPLOYMENT LAW ATTORNEY Work Phone: [facility] Work Phone: 12-18-2023 14:51-0400 Body height 170.18 cm Vanesa Bullock EMPLOYMENT LAW ATTORNEY Work Phone: [facility] Work Phone: 12-18-2023 14:51-0400 Body mass index (BMI) [Ratio] 26.2 kg/m2 Vanesa Bullock CNP Work Phone: [facility] Work Phone: 12-18-2023 14:51-0400 Body surface area Derived from formula 1.9 m2 Vanesa Bullock CNP Work Phone: [facility] Work Phone: 12-18-2023 14:51-0400 Body weight 75.93 kg Vanesa Bullock CNP Work Phone: [facility] Work Phone: 12-18-2023 14:51-0400 Diastolic blood pressure 85 mm[Hg] Vanesa Bullock CNP Work Phone: [facility] Work Phone: 12-18-2023 14:51-0400 Heart rate 71 /min Vanesa Bullock CNP Work Phone: [facility] Work Phone: 12-18-2023 14:51-0400 SaO2% (BldA) [Mass fraction] 98.9 % Vanesa Bullock CNP Work Phone: [facility] Work Phone: 12-18-2023 14:51-0400 Systolic blood pressure 132 mm[Hg] Vanesa Bullock CNP Work Phone: [facility] Work Phone: 05-23-2023 09:10-0400 Body height 170.18 cm Vanesa Bullock CNP Work Phone: [facility] Work Phone: 05-23-2023 09:10-0400 Body mass index (BMI) [Ratio] 25.2 kg/m2 Vanesa Bullock CNP Work Phone: [facility] Work Phone: 05-23-2023 09:10-0400 Body surface area Derived from formula 1.8 m2 Vanesa Bullock CNP Work Phone: [facility] Work Phone: 05-23-2023 09:10-0400 Body weight 73.03 kg Vanesa Bullock EMPLOYMENT LAW ATTORNEY Work Phone: [facility] Work Phone: 05-23-2023 09:10-0400 Diastolic blood pressure 71 mm[Hg] Vanesa Bullock EMPLOYMENT LAW ATTORNEY Work Phone: [facility] Work Phone: 05-23-2023 09:10-0400 Heart rate 66 /min Vanesa Bullock EMPLOYMENT LAW ATTORNEY Work Phone: [facility] Work Phone: 05-23-2023 09:10-0400 SaO2% (BldA) [Mass fraction] 98 % Vanesa Bullock EMPLOYMENT LAW ATTORNEY Work Phone: [facility] Work Phone: 05-23-2023 09:10-0400 Systolic blood pressure 110 mm[Hg] Vanesa Bullock EMPLOYMENT LAW ATTORNEY Work Phone: [facility] Work Phone: 01-02-2023 14:10-0400 Body height 170.18 cm Mayuri Margie Other [employer] Other 01-02-2023 14:10-0400 Body mass index (BMI) [Ratio] 26.03 kg/m2 Mayuri Hanson Other [employer] Other 01-02-2023 14:10-0400 Body temperature 97.3 [degF] Mayuri Hanson Other [employer] Other 01-02-2023 14:10-0400 Body weight 75.39 kg Mayuri Hanson Other [employer] Other 01-02-2023 14:10-0400 Respiratory rate 18 /min Mayuri Magañamond Other [employer] Other 01-02-2023 14:10-0400 SaO2% (BldA) [Mass fraction] 99 % Mayuri Hanson Other [employer] Other Encounters Encounter Date Encounter Type Care Provider Facility Start: 05-14-2024 End: 05-14-2024 ambulatory ARCELIA ABRAM Not Available Start: 05-07-2024 End: 05-07-2024 ambulatory Shelly Mei [employer]PLOYMENT LAW ATTORNEY Work Phone: [facility] Work Phone: Start: 05-07-2024 End: 05-07-2024 [facility] visit, estab pt Maira Munson [employer] Work Phone: [facility] Work Phone: Start: 05-04-2024 End: 05-05-2024 Emergency department patient visit [facility] Start: 04-23-2024 End: 04-23-2024 [facility] visit, estab pt Maira Munson [employer] Work Phone: [facility] Work Phone: Start: 04-23-2024 End: 04-23-2024 ambulatory Vanesa Bullock [employer]PLOYMENT LAW ATTORNEY Work Phone: [facility] Work Phone: Start: 04-09-2024 End: 04-09-2024 ambulatory ARCELIA ABRAM Not Available Start: 03-18-2024 End: 03-18-2024 Emergency department patient visit [facility] Start: 03-14-2024 End: 03-14-2024 ambulatory VALENTIN PASCUAL Not Available Start: 02-14-2024 End: 02-14-2024 ambulatory ARCELIA ABRAM Not Available Start: 02-14-2024 End: 02-14-2024 ambulatory Vanesa Bullock [employer] Work Phone: [facility] Work Phone: Start: 01-11-2024 End: 01-11-2024 ambulatory VALENTIN PASCUAL Not Available Start: 12-18-2023 End: 12-18-2023 FQHC visit, estab pt Vanesa Bullock [employer] Work Phone: [facility] Work Phone: Start: 08-10-2023 End: 05-23-2023 General Vanesa Bullock [employer] Work Phone: [facility] Work Phone: Start: 07-26-2023 ambulatory Joel Nguyen acility:[facility] Start: 05-23-2023 End: 05-23-2023 FQ visit new patient Vanesa Bullock [employer] Work Phone: [facility] Work Phone: Start: 02-08-2023 End: 02-08-2023 ambulatory [facility] Facility: Start: 01-02-2023 Office outpatient vi sit 15 minutes Mayuri Hanson [facility] Start: 01-02-2023 End: 01-02-2023 ambulatory PHYSICIAN NO [facility] Work Phone: Start: 01-02-2023 End: 01-02-2023 Patient encounter procedure PHYSICIAN NO [facility] Work Phone: Start: 04-05-2021 End: 04-05-2021 Patient encounter procedure Kaylyn Spring Work Phone: -Pre-Surgical Testing Procedures Date Procedure Procedure Detail Performing Clinician Start: 05-07-2024 Current tobacco non-user cad cap copd pv dm Maira Munson [employer] Work Phone: Start: 05-07-2024 Most recent diastolic blood pressure < 80 mm hg Shelly Mei [employer] Work Phone: Start: 05-07-2024 Most recent systolic blood pressure <130 mm hg Shelly Mei [employer] Work Phone: Start: 05-07-2024 Psychotherapy w/patient 30 minutes Maira Munson [employer] Work Phone: Start: 05-07-2024 Screening for disorder Visit For: Screening For Disorder Maira Munson [employer] Work Phone: Start: 04-23-2024 Behav assmt w/score & docd/stand instrument Maira Munson [facility] Work Phone: Start: 04-23-2024 Body mass index documented Vanesa Bessy antonio [employer] Work Phone: Start: 04-23-2024 Current tobacco non-user cad cap copd pv dm Vanesa Bullock [employer] Work Phone: Start: 04-23-2024 Depression screening Visit For: Screening Exam Depression Maira Munson [employer] Work Phone: Start: 04-23-2024 Methylprednisolone 80 MG inj Vanesa zuluaga [employer] Work Phone: Start: 04-23-2024 Most recent diastolic blood pressure < 80 mm hg Vanesa Bullock [employer] Work Phone: Start: 04-23-2024 Most recent systolic blood pressure <130 mm hg Vanesa Bullock [employer] Work Phone: Start: 04-23-2024 Screening for disorder Visit For: Screening For Disorder Maira Munson [facility] Work Phone: Start: 04-23-2024 Therapeutic prophylactic/dx injection subq/im Vanesa Bullock [employer] Work Phone: Start: 02-14-2024 Body mass index documented Vanesa antonio [employer] Work Phone: Start: 02-14-2024 Current tobacco non-user cad cap copd pv dm Vanesa Bullock [employer] Work Phone: Start: 02-14-2024 Hepatitis c antibody Vanesa Bullock [employer] Work Phone: Start: 02-14-2024 Most recent diastolic blood pressure < 80 mm hg Vanesa Bullock [employer] Work Phone: Start: 02-14-2024 Most recent systolic blood pressure <130 mm hg Vanesa Bullock [employer] Work Phone: Start: 12-18-2023 Current tobacco non-user cad cap copd pv dm Vanesa Bullock [employer] Work Phone: Start: 12-18-2023 Most recent diastolic blood pressure 80-89 mm hg Vanesa Bullock [employer] Work Phone: Start: 12-18-2023 Most recent systolic blood press 130-139mm hg Vanesa Bullock [employer] Work Phone: Start: 12-18-2023 Psychotherapy w/patient 30 minutes Radha GAONA Work Phone: Start: 05-23-2023 Cholecystectomy Vanesa Bullock [employer] Work Phone: Start: 05-23-2023 Hemoglobin glycosylated a1c Vanesa Boogiefady nce [employer] Work Phone: Start: 05-23-2023 Laparoscopic cholecystectomy Vanesa Boogie thie [employer] Work Phone: Start: 05-23-2023 Most recent diastolic blood pressure < 80 mm hg Vanesa Bullock [employer] Work Phone: Start: 05-23-2023 Most recent hemoglobin a1c level < 7.0% Vanesa Bullock [employer] Work Phone: Start: 05-23-2023 Most recent systolic blood pressure <130 mm hg Vanesa Bullock [employer] Work Phone: Start: 05-23-2023 Pt-focused hlth risk assmt score doc stnd instrm Vanesa Bullock [employer] Work Phone: Start: 01-02-2023 Plain X-ray of right hand PHYSICIAN RAYNA DIANE Plan of Treatment Date Care Activity Detail Author Start: 06-06-2024 [facility] Start: 05-27-2024 FQHC visit, estab pt Medical Daija matthews Patient [facility] Work Phone: Start: 05-07-2024 End: 05-07-2024 Patient education based on identified need [facility] Start: 04-23-2024 End: 04-23-2024 Patient education based on identified need [facility] Start: 03-01-2024 FQHC visit, estab pt [facility] Work Phone: Start: 02-14-2024 End: 02-14-2024 Patient education based on identified need [facility] Start: 12-22-2023 FQHC visit, estab pt Medical Establi shed Patient [facility] Work Phone: Start: 12-18-2023 End: 12-18-2023 Patient education based on identified need [facility] Start: 05-23-2023 Gastroenterology [facility] Work Phone: Comment on above: Note: Please make a referral to: Start: 05-23-2023 End: 05-23-2023 Patient education based on identified need [facility] Immunizations Immunization Date Immunization Notes Care Provider Catherine mireles 05-11-2021 hepatitis B vaccine, adult dosage Vanesa Kobe [employer] Work Phone: [facility] 2020 hepatitis B vaccine, adult dosage Vanesa Kobe [employer] Work Phone: [facility] 04-24-2020 hepatitis B vaccine, pediatric or pediatric/adolescent dosage Vanesa Kobe [employer] Work Phone: [facility] 03-20-2000 measles, mumps and rubella virus vaccine Vanesa Kobe [employer] Work Phone: [facility] 06-28-1994 diphtheria, tetanus toxoids and pertussis vaccine Vanesa Kobe [employer] Work Phone: [facility] 06-28-1994 measles, mumps and rubella virus vaccine Vanesa Kobe [employer] Work Phone: [facility] 06-28-1994 trivalent poliovirus vaccine, live, oral Vanesa Kobe [employer] Work Phone: [facility] 1990 diphtheria, tetanus toxoids and pertussis vaccine Vanesa Kobe [employer] Work Phone: [facility] 1990 diphtheria, tetanus toxoids and pertussis vaccine Vanesa Kobe [employer] Work Phone: [facility] 1990 trivalent poliovirus vaccine, live, oral Vanesa Kobe [employer] Work Phone: [facility] 1990 diphtheria, tetanus toxoids and pertussis vaccine Vanesa Bullock [employer] Work Phone: [facility] 1990 trivalent poliovirus vaccine, live, oral Vanesa Bullock [employer] Work Phone: [facility] Payers Date Payer Category Payer Self-pay [id number] 1990 Unknown [id number] 2.16.84 [id number] 1990 Unknown [id number] 2.16.8 [id number] 1990 Unknown [id number] 2.16.8 [id number] 1990 Unknown [id number] 2.16.8 [id number] 1990 Unknown [id number] 2.16.84 [id number] 1990 Unknown [id number] 2.16.84 [id number] 1990 Unknown [id number] 2.16.84 [id number] 1990 Unknown [id number] 2.16.84 [id number] 1990 Unknown [id number] 2.16.84 [id number] 1959 Medicaid [id number] Unknown [id number] Unknown [id number] Unknown [employer] [id number] Unknown [id number] 2.16.8 [id number] Unknown [id number] 2.16.8 [id number] Social History Date Type Detail Facility Tobacco smoking status NHIS Unknown if ever smoked [facility] Start: 1990 Sex Assigned At Female [facility] Sex Assigned At Sex Assigned At [place] Other Assertion Social drinker (finding) [facility] Assertion Sexually active (finding) [facility] Assertion [facility] Assertion Gender identity finding (finding) [facility] Assertion Finding of sexua l orientation (finding) [facility] Tobacco smoking status Unknown if ever smoked [facility] Work Phone: Assertion Lives alone (finding) [facility] Assertion Full-time employ ment (finding) [facility] Assertion Emotional stress (finding) [facility] Assertion Lives with famil y (finding) [facility] Assertion Patient has move d away (finding) [facility] NEGATED: Highlighted row Assertion Exposure to pollution (event) [facility] NEGATED: Highlighted row Assertion [facility] NEGATED: Highlighted row Assertion Current drinker of alcohol (finding) [facility] NEGATED: Highlighted row Assertion Misuses drugs (finding) [facility] NEGATED: Highlighted row Assertion Sexually active (finding) [facility] Mental Status Date Assessment Result Facility Cognitive function Oriented to t sandrine, place, and person Oriented to person, time and place (finding) [facility] Work Phone: Clinical Notes 06-09-2019 to 05-07-2024 Note Date & Type Note Facility 05-07-2024 Evaluation note Includes: Assessments for all patient encounters Findings Generalized anxiety disorder BH Establis hed Patient with Maira KRUEGER 05/07/2024 Last Documented On 10:55AM ; [facility] Mild recurrent major depression BH Estab lished Patient with Maira Munson [employer] 05/07/2024 Last Documented On 4 10:55AM ; [facility] Visit for: screening for disorder BH Est ablished Patient with Maira Munson [employer] 05/07/2024 Last Documented On 4 10:55AM ; [facility] [Body mass index [BMI] 27.0- 27.9, adult] assessment of body mass index Open Access - Established with Shelly Mei [facility] 05/07/2024 Last Documented On 4 1:57PM ; [facility] Panic disorder without agoraphobia BH Es tablished Patient with Maira Munson [facility] 04/23/2024 Last Documented On 4 7:39PM ; [facility] Visit for: screening for depression BH E stablished Patient with Maira Munson [employer] 04/23/2024 Last Documented On 4 7:39PM ; [facility] Visit for: screening for disorder BH Est ablished Patient with Maira Munosn [employer] 04/23/2024 Last Documented On 4 7:39PM ; [facility] [Z68.27 - Body mass index [B MO] 27.0-27.9, adult] assessment of body mass index Open Access - Established with Vanesa Bullock [facility] 04/23/2024 Last Documented On 4 8:19AM ; [facility] Assessment of BMI Percentile = 5% to < 85% for age Z68.52 Open Access - Established with Vanesa Bullock [facility] 04/23/2024 Last Documented On 4 8:19AM ; [facility] Generalized anxiety disorder Open Access - Established with Vanesa Bullock [facility] 04/23/2024 Last Documented On 4 8:19AM ; [facility] Lumbar sprain Open Access - Established with A cora Bullock [employer] 04/23/2024 Last Documented On 4 8:19AM ; [facility] Thoracic sprain Open Access - Established with A cora Bullock [facility] 04/23/2024 Last Documented On 4 8:19AM ; [facility] [Z68.26 - Body mass index [B MO] 26.0-26.9, adult] assessment of body mass index Open Access - Established with Vanesa Bullock [facility] 02/14/2024 Last Documented On 4 4:26PM ; [facility] Lower back sprain Open Access - Established with Vanesa Kobe [facility] 02/14/2024 Last Documented On 4 4:26PM ; [facility] Muscle spasm of back Open Access - Established w ith Vanesa Kobe [facility] 02/14/2024 Last Documented On 4 4:26PM ; [facility] Screening for HIV Open Access - Established with Vanesa Kobe [facility] 02/14/2024 Last Documented On 4 4:26PM ; [facility] Visit for: screening for dig estive system disorders Open Access - Established with Vanesa Kobe [facility] 02/14/2024 Last Documented On 4 4:26PM ; [facility] Generalized anxiety disorder BH Establis hed Patient with Radha BRAY 12/18/2023 Last Documented On 4 4:35PM ; [facility] Mild recurrent major depress ion per patient reported history Established Patient with Radha Short LISWS 12/18/2023 Last Documented On 4 4:35PM ; [facility] [Z68.26 - Body mass index [B MO] 26.0-26.9, adult] assessment of body mass index Medical Established Patient with Vanesa Bullock [facility] 12/18/2023 Last Documented On 4 12:19PM ; [facility] Acute gastritis without hemorrhage Medic al Established Patient with Vanesa Bullock [facility] 12/18/2023 Last Documented On 4 12:19PM ; [facility] Esophageal reflux without esophagitis Me dical Established Patient with Vanesa Bullock [facility] 12/18/2023 Last Documented On 4 12:19PM ; [facility] Generalized anxiety disorder Medical Est ablished Patient with Vanesa Bullock [facility] 12/18/2023 Last Documented On 4 12:19PM ; [facility] [Z68.25 - Body mass index [B MO] 25.0-25.9, adult] assessment of body mass index Medical New Patient with Vanesa Bullock [employer] 05/23/2023 Last Documented On 3 8:59AM ; [facility] Chronic gastritis Medical New Patient with Brendan Bullock [employer] 05/23/2023 Last Documented On 3 8:59AM ; [facility] Diabetes Risk Test Score was one score 05/23/2023 Medical New Patient with Vanesa Bullock [employer] 05/23/2023 Last Documented On 3 8:59AM ; [facility] Work Phone: 1(616) 200-299707-30-2024 Instructions Includes: Instructions for all patient encounters Education and Decision Aids were provided during visit for: ~*P offered active and sup portive listening, normalized emotions and feelings, and processed ~current stressors Last Documented On 4 10:55AM ; [facility] Discussed nutritional needs teach healthy choices including fruits and vegetables Last Documented On 4 8:41AM ; [facility] Patient education about a pr oper diet Last Documented On 4 8:41AM ; [facility] Discussed concerns about exe rcise : promote physical activity ~ ~Will start hydroxyzine for anxiety ~ ~Will refill ibuprofen and cyclobenzaprine for back pain ~ ~Due to cardiac symptoms will do cardiac testing ~ ~ ~Has a hisotry of GERD will restart pantoprazole ~ ~Follow up with PCP in 4 weeks Last Documented On 4 1:57PM ; [facility] Not requesting contraception Last Documented On 4 8:41AM ; [facility] ~*P offered active and sup portive listening, normalized emotions and feelings, and processed ~current stressors. ~*Utilize healthy coping skills and positive supports in patient's life. ~ Last Documented On 4 7:38PM ; [facility] Discussed nutritional needs teach healthy choices including fruits and vegetables Last Documented On 4 11:13AM ; [facility] Patient education about a pr oper diet Last Documented On 4 11:13AM ; [facility] Discussed concerns about exe rcise : promote physical activity Last Documented On 4 11:13AM ; [facility] Discussed nutritional needs teach healthy choices including fruits and vegetables Last Documented On 4 8:48AM ; [facility] Patient education about a pr oper diet Last Documented On 4 8:48AM ; [facility] Discussed concerns about exe rcise : promote physical activity Last Documented On 4 8:48AM ; [facility] offered active and suppo rtive listening, normalized emotions and feelings, processed current stressors and explored coping and stress reducing skills. ~[facility] discussed coping skills to manage increased anxiety including mindfulnes, grounding and breathing techniques. ~[facility] discussed options for finding in-person and telehealth providers for therapy. ~[facility] encouraged patient to continue to follow-up with addressing physical health concerns Last Documented On 4 4:35PM ; [facility] Discussed nutritional needs teach healthy choices including fruits and vegetables Last Documented On 4 2:55PM ; [facility] Patient education about a pr oper diet Last Documented On 4 2:55PM ; [facility] Discussed concerns about exe rcise : promote physical activity Last Documented On 4 2:55PM ; [facility] Discussed nutritional needs teach healthy choices including fruits and vegetables Last Documented On 3 9:14AM ; [facility] Patient education about a pr oper diet Last Documented On 3 9:14AM ; [facility] Discussed concerns about exe rcise : promote physical activity Last Documented On 3 9:14AM ; [facility] Work Phone: 1(153) 685-690407-30-2024 Progress note* Progress note Date Encounter Last Documented by 05/07/2024 [facility] Patient Last docu mented on 05/07/2024; 10:55 AM, Maira KRUEGER; [facility] Active Problems & Conditions - K21.9 - Esophageal Reflux Without Esophagitis - K29.00 - Gastritis Acute Without Hemorrhage - K29.51 - Gastritis Chronic - F41.1 - Generalized Anxiety Disorder - F33.0 - Major Depression Recurrent Mild Subjective [facility] met with patient to follow [...] chest pains. History of Present Illness Mariola Washington is a 33 year old female. - [...] with relatives and housing stress. 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 Sexual: Sexual orientation Straight (not lesbian or [...] Reminders - Assess Tobacco Use satisfied 05/07/2024. [facility]07-16-2024 Evaluation note Includes: Assessments for all patient encounters Findings Encounter Date Panic disorder without agoraphobia BH Es tablished Patient with Maira Munson [facility] 04/23/2024 Last Documented On 4 7:39PM ; [facility] Visit for: screening for depression BH E stablished Patient with Maira Munson [facility] 04/23/2024 Last Documented On 4 7:39PM ; [facility] Visit for: screening for disorder BH Est ablished Patient with Maira Munson [facility] 04/23/2024 Last Documented On 4 7:39PM ; [facility] [Z68.27 - Body mass index [B MO] 27.0-27.9, adult] assessment of body mass index Open Access - Established with Vanesa Bullock [employer] 04/23/2024 Last Documented On 4 1:03PM ; [facility] Assessment of BMI Percentile = 5% to < 85% for age Z68.52 Open Access - Established with Vanesa Bullock [employer] 04/23/2024 Last Documented On 4 1:03PM ; [facility] Generalized anxiety disorder Open Access - Established with Vanesa Bullock [employer] 04/23/2024 Last Documented On 4 1:03PM ; [facility] Lumbar sprain Open Access - Established with A cora Bullock [facility] 04/23/2024 Last Documented On 4 1:03PM ; [facility] Thoracic sprain Open Access - Established with A cora Bullock [facility] 04/23/2024 Last Documented On 4 1:03PM ; [facility] [Z68.26 - Body mass index [B MO] 26.0-26.9, adult] assessment of body mass index Open Access - Established with Vanesa Bullock [facility] 02/14/2024 Last Documented On 4 4:26PM ; [facility] Lower back sprain Open Access - Established with Vanesa Bullock [facility] 02/14/2024 Last Documented On 4 4:26PM ; [facility] Muscle spasm of back Open Access - Established w ith Vanesa Bullock [facility] 02/14/2024 Last Documented On 4 4:26PM ; [facility] Screening for HIV Open Access - Established with Vanesa Bullock [employer] 02/14/2024 Last Documented On 4 4:26PM ; [facility] Visit for: screening for dig estive system disorders Open Access - Established with Vanesa Bullock [employer] 02/14/2024 Last Documented On 4 4:26PM ; [facility] Generalized anxiety disorder Establis hed Patient with Radha Short LIS[facility] 12/18/2023 Last Documented On 4 4:35PM ; [facility] Mild recurrent major depress ion per patient reported history BH Established Patient with Radha Fan [facility]IS[facility] 12/18/2023 Last Documented On 4 4:35PM ; [facility] [Z68.26 - Body mass index [B MO] 26.0-26.9, adult] assessment of body mass index Medical Established Patient with Vanesa Bullock [employer] 12/18/2023 Last Documented On 4 12:19PM ; [facility] Acute gastritis without hemorrhage Medic al Established Patient with Vanesa Bullock [facility] 12/18/2023 Last Documented On 4 12:19PM ; [facility] Esophageal reflux without esophagitis Me dical Established Patient with Vanesa Bullock [facility] 12/18/2023 Last Documented On 4 12:19PM ; [facility] Generalized anxiety disorder Medical Est ablished Patient with Vanesa Bullock [facility] 12/18/2023 Last Documented On 4 12:19PM ; [facility] [Z68.25 - Body mass index [B MO] 25.0-25.9, adult] assessment of body mass index Medical New Patient with Vanesa Bullock [facility] 05/23/2023 Last Documented On 3 8:59AM ; [facility] Chronic gastritis Medical New Patient with Brendan Bullock [facility] 05/23/2023 Last Documented On 3 8:59AM ; [facility] Diabetes Risk Test Score was one score 05/23/2023 Medical New Patient with Vanesa Bullock [facility] 05/23/2023 Last Documented On 3 8:59AM ; [facility] Work Phone: 1(601) 142-354307-16-2024 Evaluation note Includes: Assessments for all patient encounters Findings Encounter Date Panic disorder without agoraphobia BH Es tablished Patient with Maira Munson [facility] 04/23/2024 Last Documented On 4 7:39PM ; [facility] Visit for: screening for depression BH E stablished Patient with Maira Munson [employer] 04/23/2024 Last Documented On 4 7:39PM ; [facility] Visit for: screening for disorder BH Est ablished Patient with Maira Munson [employer] 04/23/2024 Last Documented On 4 7:39PM ; [facility] [Z68.27 - Body mass index [B MO] 27.0-27.9, adult] assessment of body mass index Open Access - Established with Vanesa Bullock CNP 04/23/2024 Last Documented On 4 8:19AM ; [facility] Assessment of BMI Percentile = 5% to < 85% for age Z68.52 Open Access - Established with Vanesa Bullock CNP 04/23/2024 Last Documented On 4 8:19AM ; [facility] Generalized anxiety disorder Open Access - Established with Vanesa Bullock CNP 04/23/2024 Last Documented On 4 8:19AM ; [facility] Lumbar sprain Open Access - Established with A cora Bullock CNP 04/23/2024 Last Documented On 4 8:19AM ; [facility] Thoracic sprain Open Access - Established with A cora Bullock CNP 04/23/2024 Last Documented On 4 8:19AM ; [facility] [Z68.26 - Body mass index [B MO] 26.0-26.9, adult] assessment of body mass index Open Access - Established with Vanesa Bullock CNP 02/14/2024 Last Documented On 4 4:26PM ; [facility] Lower back sprain Open Access - Established with Vanesa Bullock CNP 02/14/2024 Last Documented On 4 4:26PM ; [facility] Muscle spasm of back Open Access - Established w ith Vanesa Bullock [facility] 02/14/2024 Last Documented On 4 4:26PM ; [facility] Screening for HIV Open Access - Established with Vanesa Bullock CNP 02/14/2024 Last Documented On 4 4:26PM ; [facility] Visit for: screening for dig estive system disorders Open Access - Established with Vanesa Bullock CNP 02/14/2024 Last Documented On 4 4:26PM ; [facility] Generalized anxiety disorder Establis hed Patient with Radha GAONA 12/18/2023 Last Documented On 4 4:35PM ; [facility] Mild recurrent major depress ion per patient reported history BH Established Patient with Radha Fan LISWS 12/18/2023 Last Documented On 4 4:35PM ; [facility] [Z68.26 - Body mass index [B MO] 26.0-26.9, adult] assessment of body mass index Medical Established Patient with Vanesa Bullock [employer] 12/18/2023 Last Documented On 4 12:19PM ; [facility] Acute gastritis without hemorrhage Medic al Established Patient with Vanesa Bullock [employer] LAW ATTOR[employer] 12/18/2023 Last Documented On 4 12:19PM ; [facility] Esophageal reflux without esophagitis Me dical Established Patient with Vanesa Bullock [employer]OY[employer] LAW ATTORNEY 12/18/2023 Last Documented On 4 12:19PM ; [facility] Generalized anxiety disorder Medical Est ablished Patient with Vanesa Bullock [employer] LAW ATTOR[employer] 12/18/2023 Last Documented On 4 12:19PM ; [facility] [Z68.25 - Body mass index [B MO] 25.0-25.9, adult] assessment of body mass index Medical New Patient with Vanesa Bullock [employer] 05/23/2023 Last Documented On 3 8:59AM ; [facility] Chronic gastritis Medical New Patient with Brendan Bullock [employer]PLOY[employer] LAW [employer]OR[employer] 05/23/2023 Last Documented On 3 8:59AM ; [facility] Diabetes Risk Test Score was one score 05/23/2023 Medical New Patient with Vanesa Bullock [employer]OY[employer] LAW [employer] 05/23/2023 Last Documented On 3 8:59AM ; [facility] Work Phone: 1([phone]) 494-410607-16-2024 History general Narrative - Reported Includes: Medical History in patient's chart Description Last Updated No Safety Measures 04/23/2024 Last Documented On 4 7:39PM ; [facility] No previous hospitalizations 02/14/2024 Last Documented On 4 4:26PM ; [facility] No medical history or no significant his tory 05/23/2023 Last Documented On 3 8:59AM ; [facility] Not planning to have a baby in the next 12 months 05/23/2023 Last Documented On 3 8:59AM ; [facility] Work Phone: 1(325) 243-426707-16-2024 History general Narrative - Reported Includes: Medical History in patient's chart Description Last Updated No Safety Measures 04/23/2024 Last Documented On 4 7:39PM ; [facility] No previous hospitalizations 02/14/2024 Last Documented On 4 4:26PM ; [facility] No medical history or no significant his tory 05/23/2023 Last Documented On 3 8:59AM ; [facility] Not planning to have a baby in the next 12 months 05/23/2023 Last Documented On 3 8:59AM ; [facility] Work Phone: 1(211) 423-776707-16-2024 History general Narrative - Reported Includes: Medical History in patient's chart Description Last Updated No Safety Measures 04/23/2024 Last Documented On 4 7:39PM ; [facility] No previous hospitalizations 02/14/2024 Last Documented On 4 4:26PM ; [facility] No medical history or no significant his tory 05/23/2023 Last Documented On 3 8:59AM ; [facility] Not planning to have a baby in the next 12 months 05/23/2023 Last Documented On 3 8:59AM ; [facility] Work Phone: 1([phone] 154-272007-16-2024 History general Narrative - Reported Includes: Medical History in patient's chart Description Last Updated No Safety Measures 04/23/2024 Last Documented On 4 7:39PM ; [facility] No previous hospitalizations 02/14/2024 Last Documented On 4 4:26PM ; [facility] No medical history or no significant his tory 05/23/2023 Last Documented On 3 8:59AM ; [facility] Not planning to have a baby in the next 12 months 05/23/2023 Last Documented On 3 8:59AM ; [facility] Work Phone: [phone]) 677-320507-16-2024 Progress note* Progress note Date Encounter Last Documented by 04/23/2024 [facility] Patient Last docu mented on 04/23/2024; 7:39 PM, Maira YINW; [facility] Active Problems & Conditions - K21.9 - Esophageal Reflux Without Esophagitis - K29.00 - Gastritis Acute Without Hemorrhage - K29.51 - Gastritis Chronic - F41.1 - Generalized Anxiety Disorder - F33.0 - Major Depression Recurrent Mild Subjective [facility] met with patient in regards [...] of getting addicted. Patient was open to [employer] daily. Chief Complaint The Chief Complaint is:: Severe back pain. History of Present Illness Mariola Washington is a 33 year old female. - [...] Using marijuana. Not using drugs. 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 Sexual: Sexual orientation Straight (not lesbian or [...] + 3 pt : Nearly every day, [MIATE-7] Worrying too much about different things? + [...] + 0 pt : Not at all. [facility]07-16-2024 Progress note* Progress note Date Encounter Last Documented by 04/23/2024 Open Access - Established Last d ocumented on 04/24/2024; 8:19 AM, Vanesa Bullock CNP; [facility] Active Problems & Conditions - K21.9 [...] 04/23/2024 11:09 am BP-Sitting R111/74 mmHg Pulse Rate-Reugkdi43 bpm Uzwced90 in Zbdrpe092 lbs 9.6 oz Body Mass Index27.5 kg/m2 Body Surface Area1.9 m2 Oxygen Cncdjlijzp33 % Vital Signs: - Systolic blood pressure [...] pelvis, subs encntr In House Medications/Inject/Aerosol Codes: 67340 Therapeutic Prophy or Diag Injection, EACH In House Medications/Meds: Methylprednisolone Acetate 80mg/ml (depo-medrol) EndCited Patient is agreeable to Depomedrol injection to help with the severity of the pain. Patient advised to follow up with Ortho as soon as possible, will give her the number to call [facility]. Also discussed [facility] walk-in [facility] as an option for her [...] Follow Up Plan BMI Management satisfied 04/23/2024. [facility]05-08-2024 Evaluation note Includes: Assessments for all patient encounters Findings Encounter Date [Z68.26 - Body mass index [B MO] 26.0-26.9, adult] assessment of body mass index Open Access - Established with Vanesa Bullock CNP 02/14/2024 Last Documented On 4 4:26PM ; [facility] Lower back sprain Open Access - Established with Vanesa Bullock CNP 02/14/2024 Last Documented On 4 4:26PM ; [facility] Muscle spasm of back Open Access - Established w ith Vanesa Bullock [facility] 02/14/2024 Last Documented On 4 4:26PM ; [facility] Screening for HIV Open Access - Established with Vanesa Bullock [employer]OYMENT LAW [employer] 02/14/2024 Last Documented On 4 4:26PM ; [facility] Visit for: screening for dig estive system disorders Open Access - Established with Vanesa Bullock [employer]PLOYMENT LAW ATTORNEY 02/14/2024 Last Documented On 4 4:26PM ; [facility] Generalized anxiety disorder BH Establis hed Patient with Radha Fan LISWS 12/18/2023 Last Documented On 4 4:35PM ; [facility] Mild recurrent major depress ion per patient reported history Established Patient with Radha Short LISWS 12/18/2023 Last Documented On 4 4:35PM ; [facility] [Z68.26 - Body mass index [B MO] 26.0-26.9, adult] assessment of body mass index Medical Established Patient with Vanesa Bullock [employer] LAW [employer] 12/18/2023 Last Documented On 4 12:19PM ; [facility] Acute gastritis without hemorrhage Medic al Established Patient with Vanesa Bullock [employer]PLOY[employer] LAW [employer] 12/18/2023 Last Documented On 4 12:19PM ; [facility] Esophageal reflux without esophagitis Me dical Established Patient with Vanesa Bullock [employer]PL[employer] LAW [employer] 12/18/2023 Last Documented On 4 12:19PM ; [facility] Generalized anxiety disorder Medical Est ablished Patient with Vanesa Bullock [facility] 12/18/2023 Last Documented On 4 12:19PM ; [facility] [Z68.25 - Body mass index [B MO] 25.0-25.9, adult] assessment of body mass index Medical New Patient with Vanesa Bullock [employer] 05/23/2023 Last Documented On 3 8:59AM ; [facility] Chronic gastritis Medical New Patient with Brendan Bullock [employer]PLOYMENT LAW ATTOR[employer] 05/23/2023 Last Documented On 3 8:59AM ; [facility] Diabetes Risk Test Score was one score 05/23/2023 Medical New Patient with Vanesa Bullock [facility] 05/23/2023 Last Documented On 3 8:59AM ; [facility] Work Phone: 1([phone]) 821-343905-08-2024 History general Narrative - Reported Includes: Medical History in patient's chart Description Last Updated No previous hospitalizations 02/14/2024 Last Documented On 4 4:26PM ; [facility] No medical history or no significant his tory 05/23/2023 Last Documented On 3 8:59AM ; [facility] Not planning to have a baby in the next 12 months 05/23/2023 Last Documented On 3 8:59AM ; [facility] Work Phone: 1([phone]) 641-497305-08-2024 Progress note* Progress note Date Encounter Last Documented by 02/14/2024 Open Access - Established Last d ocumented on 02/15/2024; 4:26 PM, Vanesa Bullock CNP; [facility] Active Problems & Conditions - K21.9 [...] Patient reports 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 As a DA she [...] 02/14/2024 08:44 am BP-Sitting R112/77 mmHg Pulse Rate-Aqaunhc03 bpm Jbferm93 in Qtahpy895 lbs 9.6 oz Body Mass Index26.1 kg/m2 Body Surface Area1.9 m2 Oxygen Emtqkkjdzc75 % Vital Signs: - Systolic blood pressure [...] satisfied 02/14/2024. - HIV Screen satisfied 02/14/2024. [facility]05-08-2024 Instructions Includes: Instructions for all patient encounters Education and Decision Aids were provided during visit for: Discussed nutritional needs teach healthy choices including fruits and vegetables Last Documented On 4 8:48AM ; [facility] Patient education about a pr oper diet Last Documented On 4 8:48AM ; [facility] Discussed concerns about exe rcise : promote physical activity Last Documented On 4 8:48AM ; [facility] offered active and suppo rtive listening, normalized emotions and feelings, processed current stressors and explored coping and stress reducing skills. ~[facility] discussed coping skills to manage increased anxiety including mindfulnes, grounding and breathing techniques. ~[facility] discussed options for finding in-person and telehealth providers for therapy. ~[facility] encouraged patient to continue to follow-up with addressing physical health concerns Last Documented On 4 4:35PM ; [facility] Discussed nutritional needs teach healthy choices including fruits and vegetables Last Documented On 4 2:55PM ; [facility] Patient education about a pr oper diet Last Documented On 4 2:55PM ; [facility] Discussed concerns about exe rcise : promote physical activity Last Documented On 4 2:55PM ; [facility] Discussed nutritional needs teach healthy choices including fruits and vegetables Last Documented On 3 9:14AM ; [facility] Patient education about a pr oper diet Last Documented On 3 9:14AM ; [facility] Discussed concerns about exe rcise : promote physical activity Last Documented On 3 9:14AM ; [facility] Work Phone: 1(353) 650-462103-11-2024 Evaluation note Includes: Assessments for all patient encounters Findings Encounter Date Generalized anxiety disorder BH Establis hed Patient with Radha Short LISWS 12/18/2023 Last Documented On 4 4:35PM ; [facility] Mild recurrent major depress ion per patient reported history BH Established Patient with Radha Short LISWS 12/18/2023 Last Documented On 4 4:35PM ; [facility] [Z68.26 - Body mass index [B MO] 26.0-26.9, adult] assessment of body mass index Medical Established Patient with Vanesa Bullock [employer]OY[employer] LAW [employer] 12/18/2023 Last Documented On 4 4:18PM ; [facility] Chronic gastritis Medical Established Patient wi th Vanesa Bullock [employer]PLOYMENT LAW ATTORNEY 12/18/2023 Last Documented On 4 4:18PM ; [facility] Generalized anxiety disorder Medical Est ablished Patient with Vanesa Bullock [employer]PLOYMENT LAW ATTORNEY 12/18/2023 Last Documented On 4 4:18PM ; [facility] [Z68.25 - Body mass index [B MO] 25.0-25.9, adult] assessment of body mass index Medical New Patient with Vanesa Bullock [employer] LAW [employer] 05/23/2023 Last Documented On 3 8:59AM ; [facility] Chronic gastritis Medical New Patient with Brendan Bullock [employer]PLOYMENT LAW ATTOR[employer] 05/23/2023 Last Documented On 3 8:59AM ; [facility] Diabetes Risk Test Score was one score 05/23/2023 Medical New Patient with Vanesa Bullock [employer]PL[employer] LAW ATT[employer] 05/23/2023 Last Documented On 3 8:59AM ; [facility] Work Phone: [phone]) 887-407003-11-2024 Evaluation note Includes: Assessments for all patient encounters Findings Encounter Date Generalized anxiety disorder BH Establis hed Patient with Radha Short LISWS 12/18/2023 Last Documented On 4 4:35PM ; [facility] Mild recurrent major depress ion per patient reported history Established Patient with Radha Mita GAONA 12/18/2023 Last Documented On 4 4:35PM ; [facility] [Z68.26 - Body mass index [B MO] 26.0-26.9, adult] assessment of body mass index Medical Established Patient with Vanesa Bullock [employer] 12/18/2023 Last Documented On 4 12:19PM ; [facility] Acute gastritis without hemorrhage Medic al Established Patient with Vanesa Bullock [employer]PLOYMENT LAW ATT[employer] 12/18/2023 Last Documented On 4 12:19PM ; [facility] Esophageal reflux without esophagitis Me dical Established Patient with Vanesa Bullock [facility] 12/18/2023 Last Documented On 4 12:19PM ; [facility] Generalized anxiety disorder Medical Est ablished Patient with Vanesa Bullock [employer] LAW [employer] 12/18/2023 Last Documented On 4 12:19PM ; [facility] [Z68.25 - Body mass index [B MO] 25.0-25.9, adult] assessment of body mass index Medical New Patient with Vanesa Bullock [employer]PL[employer]MENT LAW ATT[employer] 05/23/2023 Last Documented On 3 8:59AM ; [facility] Chronic gastritis Medical New Patient with Brendan Bullock [employer]PL[employer]MENT LAW ATT[employer] 05/23/2023 Last Documented On 3 8:59AM ; [facility] Diabetes Risk Test Score was one score 05/23/2023 Medical New Patient with Vanesa Bullock [facility] 05/23/2023 Last Documented On 3 8:59AM ; [facility] Work Phone: 1(454) 861-763503-11-2024 Progress note* Progress note Date Encounter Last Documented by 12/18/2023 Established Patient Last docu mented on 12/18/2023; 4:35 PM, Radha GAONA; [facility] Active Problems & Conditions - K29.51 - Gastritis Chronic - F41.1 - Generalized Anxiety Disorder - F33.0 - Major Depression Recurrent Mild Chief Complaint The Chief Complaint is: [facility] met with patient to follow-up regarding mood and PHQ score of 11 and MAITE score of 14. Patient reports that she was diagnosed with depression and anxiety last year and was being seen at [facility]. Patient reports that she was seeing a [...] or others. History of Present Illness Mariola Washington is a 33 year old female. - [...] And Economic Circumstances: Lives alone. 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 Physical Findings General Appearance: - Normal Appearance. [...] anxiety including mindfulnes, grounding and breathing techniques. P discussed options for finding in-person and telehealth [...] needed clothing: No, unable to get needed exceptional children teacher assistant: No, unable to get other needs No, [...] of things, or get along? Very difficult. [facility]03-11-2024 Progress note* Progress note Date Encounter Last Documented by 12/18/2023 Medical Established Patient Last documented on 12/19/2023; 12:19 PM, Vanesa Bullock EMPLOYMENT LAW ATTORNEY; [facility] Active Problems & Conditions - K21.9 [...] 12/18/2023 02:51 pm BP-Sitting L132/85 mmHg Pulse Rate-Oxxfjft88 bpm Ukbrmw97 in Rauwjz029 lbs 6.4 oz Body Mass Index26.2 kg/m2 Body Surface Area1.9 m2 Oxygen Whyujrpjmm57.9 % Vital Signs: - Systolic blood pressure [...] Follow Up Plan BMI Management satisfied 12/18/2023. [facility]08-15-2023 Evaluation note Includes: Assessments for all patient encounters Findings Encounter Date [Z68.25 - Body mass index [B MO] 25.0-25.9, adult] assessment of body mass index Medical New Patient with Vanesa Bullock NATHALIE 05/23/2023 Last Documented On 3 8:59AM ; [facility] Chronic gastritis Medical New Patient with Brendan Bullock [employer]PLOYMENT LAW ATT[employer] 05/23/2023 Last Documented On 3 8:59AM ; [facility] Diabetes Risk Test Score was one score 05/23/2023 Medical New Patient with Vanesa Bullock [employer]PLOYMENT LAW ATTORNEY 05/23/2023 Last Documented On 3 8:59AM ; [facility] Work Phone: 1(212) 150-621108-15-2023 History general Narrative - Reported Includes: Medical History in patient's chart Description Last Updated No medical history or no significant his tory 05/23/2023 Last Documented On 3 8:59AM ; [facility] Not planning to have a baby in the next 12 months 05/23/2023 Last Documented On 3 8:59AM ; [facility] Work Phone: 1([phone]) 362-223908-15-2023 History general Narrative - Reported Includes: Medical History in patient's chart Description Last Updated No medical history or no significant his tory 05/23/2023 Last Documented On 3 8:59AM ; [facility] Not planning to have a baby in the next 12 months 05/23/2023 Last Documented On 3 8:59AM ; [facility] Work Phone: 1([phone]) 299-453208-15-2023 History general Narrative - Reported Includes: Medical History in patient's chart Description Last Updated No medical history or no significant his tory 05/23/2023 Last Documented On 3 8:59AM ; [facility] Not planning to have a baby in the next 12 months 05/23/2023 Last Documented On 3 8:59AM ; [facility] Work Phone: 1([phone]) 118-267308-15-2023 Progress note* Progress note Date Encounter Last Documented by 05/23/2023 Medical New Patient Last esther duenas on 05/24/2023; 8:59 AM, Vanesa Bullock CNP; [facility] Active Problems & Conditions - K29.51 - Gastritis Chronic Chief Complaint The Chief Complaint is: Pt here for chronic abd pain. Reason For Visit Visit for: to establish care. Referred Here No prior encounters. History of Present Illness - Allergy list reviewed - Reviewed Medications - Medication list reviewed [facility]. [...] reports that she was seeing GI at [facility] in [place]. Patient has not been there in the [...] 05/23/2023 09:10 am BP-Sitting R110/71 mmHg Pulse Rate-Hjiwiat61 bpm Tcjtxz08 in Lfyaqw026 lbs Body Mass Index25.2 kg/m2 Body Surface Area1.8 m2 Oxygen Rdcnftwvxc21 % Vital Signs: - Systolic blood pressure [...] try [facility] provider if they round in [place], if no Provider there will send to [...] Less than 40 years (0 points) [Pre-DM]. [facility]08-15-2023 Reason for referral (narrative)* Date Encounter Description Provider Reason for Referral 05/23/23 Medical New Patient Vanesa Bullock CNP R eferral To Mental Health Team [facility] Work Phone: 1([phone]) [phone] Reason for referral (narrative)* Date Encounter Description Provider Reason for Referral 05/07/24 Open Access - Established Shelly GARNETT P External referral/Resources provided - Gave resources for housing/ provided contact info. ~ 05/23/23 Medical New Patient Vanesa Bullock CNP R eferral To Mental Health Team [facility] Work Phone: 1(280) 270-211108-15-2023 Instructions Includes: Instructions for all patient encounters Education and Decision Aids were provided during visit for: Discussed nutritional needs teach healthy choices including fruits and vegetables Last Documented On 3 9:14AM ; [facility] Patient education about a pr oper diet Last Documented On 3 9:14AM ; [facility] Discussed concerns about exe rcise : promote physical activity Last Documented On 3 9:14AM ; [facility] Work Phone: 1(760) 983-710003-27-2023 Evaluation note* Encounter Date Diagnosis Assessment Notes [...] no improvement in 5 to 7 days. [facility] 09-01-2019 History general Narrative - Reported* Type Description Date Surgical History cholecystectomy 06/2019 Hospitalization History childbirth x2 [facility] Evaluation noteNo assessment information available [facility] In[facility]: Assessments for all patient encounters Findings Encounter Date Generalized anxiety disorder BH Established Marga ent with Maira KRUEGER 05/07/2024 Last Documented On 4 10:55AM ; [facility] Mild recurrent major depression BH Estab lished Patient with Maira Munson [employer] LATHE [employer]ER 05/07/2024 Last Documented On 4 10:55AM ; [facility] Visit for: screening for disorder BH Est ablished Patient with Maira Munson [employer] LATHE T[employer]ER 05/07/2024 Last Documented On 4 10:55AM ; [facility] [Body mass index [BMI] 27.0- 27.9, adult] assessment of body mass index Open Access - Established with Shelly Mei [facility] 05/07/2024 Last Documented On 4 9:39AM ; [facility] Panic disorder without agoraphobia BH Es tablished Patient with Maira Munson [employer] LATHE T[employer]ER 04/23/2024 Last Documented On 4 7:39PM ; [facility] Visit for: screening for depression BH E stablished Patient with Maira Munson [employer] LATHE T[employer]ER 04/23/2024 Last Documented On 4 7:39PM ; [facility] Visit for: screening for disorder BH Est ablished Patient with Maira Munson [employer] LAT[employer]ER 04/23/2024 Last Documented On 4 7:39PM ; [facility] [Z68.27 - Body mass index [B MO] 27.0-27.9, adult] assessment of body mass index Open Access - Established with Vanesa Bullock EMPLOYMENT LAW ATTORNEY 04/23/2024 Last Documented On 4 8:19AM ; [facility] Assessment of BMI Percentile = 5% to < 85% for age Z68.52 Open Access - Established with Vanesa Bullock [employer] 04/23/2024 Last Documented On 4 8:19AM ; [facility] Generalized anxiety disorder Open Access - Established with Vanesa Bullock [employer] 04/23/2024 Last Documented On 4 8:19AM ; [facility] Lumbar sprain Open Access - Established with A cora Bullock [employer] 04/23/2024 Last Documented On 4 8:19AM ; [facility] Thoracic sprain Open Access - Established with A cora Bullock [employer] 04/23/2024 Last Documented On 4 8:19AM ; [facility] [Z68.26 - Body mass index [B MO] 26.0-26.9, adult] assessment of body mass index Open Access - Established with Vanesa Kobe [facility] 02/14/2024 Last Documented On 4 4:26PM ; [facility] Lower back sprain Open Access - Established with Vanesa Bullock [facility] 02/14/2024 Last Documented On 4 4:26PM ; [facility] Muscle spasm of back Open Access - Established w ith Vanesacharlie Bullock [facility] 02/14/2024 Last Documented On 4 4:26PM ; [facility] Screening for HIV Open Access - Established with Vanesa Bullock [facility] 02/14/2024 Last Documented On 4 4:26PM ; [facility] Visit for: screening for dig estive system disorders Open Access - Established with Vanesacharlie Bullock [facility] 02/14/2024 Last Documented On 4 4:26PM ; [facility] Generalized anxiety disorder BH Establis hed Patient with Radha Fan ASA 12/18/2023 Last Documented On 4 4:35PM ; [facility] Mild recurrent major depress ion per patient reported history Established Patient with Radha Fan ASAWS 12/18/2023 Last Documented On 4 4:35PM ; [facility] [Z68.26 - Body mass index [B MO] 26.0-26.9, adult] assessment of body mass index Medical Established Patient with Vanesa Kobe [facility] 12/18/2023 Last Documented On 4 12:19PM ; [facility] Acute gastritis without hemorrhage Medic al Established Patient with Vanesa Kobe [facility] 12/18/2023 Last Documented On 4 12:19PM ; [facility] Esophageal reflux without esophagitis Me dical Established Patient with Vanesa Kobe [facility] 12/18/2023 Last Documented On 4 12:19PM ; [facility] Generalized anxiety disorder Medical Est ablished Patient with Vanesacharlie Bullock [facility] 12/18/2023 Last Documented On 4 12:19PM ; [facility] [Z68.25 - Body mass index [B MO] 25.0-25.9, adult] assessment of body mass index Medical New Patient with Vanesa Bullock [employer] 05/23/2023 Last Documented On 3 8:59AM ; [facility] Chronic gastritis Medical New Patient with Brendan Bullock [employer] 05/23/2023 Last Documented On 3 8:59AM ; [facility] Diabetes Risk Test Score was one score 05/23/2023 Medical New Patient with Vanesa Bullock [employer] 05/23/2023 Last Documented On 3 8:59AM ; [facility] Work Phone: History of Present illness Narrative History of Present Illness not supported for this document type No [facility] of [facility] Work Phone: Instructions Includes: Instructions for all patient encounters Education and Decision Aids were provided during visit for: [facility] offered active and suppo rtive listening, normalized emotions and feelings, processed current stressors and explored coping and stress reducing skills. ~P discussed coping skills to manage increased anxiety including mindfulnes, grounding and breathing techniques. ~[facility] discussed options for finding in-person and telehealth providers for therapy. ~[facility] encouraged patient to continue to follow-up with addressing physical health concerns Last Documented On 4 4:35PM ; [facility] Discussed nutritional needs teach healthy choices including fruits and vegetables Last Documented On 4 2:55PM ; [facility] Patient education about a pr oper diet Last Documented On 4 2:55PM ; [facility] Discussed concerns about exe rcise : promote physical activity Last Documented On 4 2:55PM ; [facility] Discussed nutritional needs teach healthy choices including fruits and vegetables Last Documented On 3 9:14AM ; [facility] Patient education about a pr oper diet Last Documented On 3 9:14AM ; [facility] Discussed concerns about exe rcise : promote physical activity Last Documented On 3 9:14AM ; [facility] Work Phone: Instructions Includes: Instructions for all [...] finding in-person and telehealth providers for therapy. ~[facility] encouraged patient to continue to follow-up with addressing physical health concerns Last Documented On 4 4:35PM ; [facility] Discussed nutritional needs teach healthy choices including fruits and vegetables Last Documented On 4 2:55PM ; [facility] Patient education about a pr oper diet Last Documented On 4 2:55PM ; [facility] Discussed concerns about exe rcise : promote physical activity Last Documented On 4 2:55PM ; [facility] Discussed nutritional needs teach healthy choices including fruits and vegetables Last Documented On 3 9:14AM ; [facility] Patient education about a pr oper diet Last Documented On 3 9:14AM ; [facility] Discussed concerns about exe rcise : promote physical activity Last Documented On 3 9:14AM ; [facility] Work Phone: Instructions Includes: Instructions for all patient encounters Education and Decision Aids were provided during visit for: ~*P offered active and sup portive listening, normalized emotions and feelings, and processed ~current stressors. ~*Utilize healthy coping skills and positive supports in patient's life. ~ Last Documented On 4 7:38PM ; [facility] Discussed nutritional needs teach healthy choices including fruits and vegetables Last Documented On 4 11:13AM ; [facility] Patient education about a pr oper diet Last Documented On 4 11:13AM ; [facility] Discussed concerns about exe rcise : promote physical activity Last Documented On 4 11:13AM ; [facility] Discussed nutritional needs teach healthy choices including fruits and vegetables Last Documented On 4 8:48AM ; [facility] Patient education about a pr oper diet Last Documented On 4 8:48AM ; [facility] Discussed concerns about exe rcise : promote physical activity Last Documented On 4 8:48AM ; [facility] offered active and suppo rtive listening, normalized emotions and feelings, processed current stressors and explored coping and stress reducing skills. ~[facility] discussed coping skills to manage increased anxiety including mindfulnes, grounding and breathing techniques. ~[facility] discussed options for finding in-person and telehealth providers for therapy. ~[facility] encouraged patient to continue to follow-up with addressing physical health concerns Last Documented On 4 4:35PM ; [facility] Discussed nutritional needs teach healthy choices including fruits and vegetables Last Documented On 4 2:55PM ; [facility] Patient education about a pr oper diet Last Documented On 4 2:55PM ; [facility] Discussed concerns about exe rcise : promote physical activity Last Documented On 4 2:55PM ; [facility] Discussed nutritional needs teach healthy choices including fruits and vegetables Last Documented On 3 9:14AM ; [facility] Patient education about a pr oper diet Last Documented On 3 9:14AM ; [facility] Discussed concerns about exe rcise : promote physical activity Last Documented On 3 9:14AM ; [facility] Work Phone: Instructions Includes: Instructions for all patient encounters Education and Decision Aids were provided during visit for: ~*P offered active and sup portive listening, normalized emotions and feelings, and processed ~current stressors. ~*Utilize healthy coping skills and positive supports in patient's life. ~ Last Documented On 4 7:38PM ; [facility] Discussed nutritional needs teach healthy choices including fruits and vegetables Last Documented On 4 11:13AM ; [facility] Patient education about a pr oper diet Last Documented On 4 11:13AM ; [facility] Discussed concerns about exe rcise : promote physical activity Last Documented On 4 11:13AM ; [facility] Discussed nutritional needs teach healthy choices including fruits and vegetables Last Documented On 4 8:48AM ; [facility] Patient education about a pr oper diet Last Documented On 4 8:48AM ; [facility] Discussed concerns about exe rcise : promote physical activity Last Documented On 4 8:48AM ; [facility] offered active and suppo rtive listening, normalized emotions and feelings, processed current stressors and explored coping and stress reducing skills. ~P discussed coping skills to manage increased anxiety including mindfulnes, grounding and breathing techniques. ~[facility] discussed options for finding in-person and telehealth providers for therapy. ~[facility] encouraged patient to continue to follow-up with addressing physical health concerns Last Documented On 4 4:35PM ; [facility] Discussed nutritional needs teach healthy choices including fruits and vegetables Last Documented On 4 2:55PM ; [facility] Patient education about a pr oper diet Last Documented On 4 2:55PM ; [facility] Discussed concerns about exe rcise : promote physical activity Last Documented On 4 2:55PM ; [facility] Discussed nutritional needs teach healthy choices including fruits and vegetables Last Documented On 3 9:14AM ; [facility] Patient education about a pr oper diet Last Documented On 3 9:14AM ; [facility] Discussed concerns about exe rcise : promote physical activity Last Documented On 3 9:14AM ; [facility] Work Phone: Instructions Includes: Instructions for all patient encounters Education and Decision Aids were provided during visit for: ~*[facility] offered active and sup portive listening, normalized emotions and feelings, and processed ~current stressors Last Documented On 4 10:55AM ; [facility] Discussed nutritional needs teach healthy choices including fruits and vegetables Last Documented On 4 8:41AM ; [facility] Patient education about a pr oper diet Last Documented On 4 8:41AM ; [facility] Discussed concerns about exe rcise : promote physical activity Last Documented On 4 8:41AM ; [facility] Not requesting contraception Last Documented On 4 8:41AM ; [facility] ~*P offered active and sup portive listening, normalized emotions and feelings, and processed ~current stressors. ~*Utilize healthy coping skills and positive supports in patient's life. ~ Last Documented On 4 7:38PM ; [facility] Discussed nutritional needs teach healthy choices including fruits and vegetables Last Documented On 4 11:13AM ; [facility] Patient education about a pr oper diet Last Documented On 4 11:13AM ; [facility] Discussed concerns about exe rcise : promote physical activity Last Documented On 4 11:13AM ; [facility] Discussed nutritional needs teach healthy choices including fruits and vegetables Last Documented On 4 8:48AM ; [facility] Patient education about a pr oper diet Last Documented On 4 8:48AM ; [facility] Discussed concerns about exe rcise : promote physical activity Last Documented On 4 8:48AM ; [facility] active and suppo rtive listening, normalized emotions and feelings, processed current stressors and explored coping and stress reducing skills. ~P discussed coping skills to manage increased anxiety including mindfulnes, grounding and breathing techniques. ~P discussed options for finding in-person and telehealth providers for therapy. ~[facility] encouraged patient to continue to follow-up with addressing physical health concerns Last Documented On 4 4:35PM ; [facility] Discussed nutritional needs teach healthy choices including fruits and vegetables Last Documented On 4 2:55PM ; [facility] Patient education about a pr oper diet Last Documented On 4 2:55PM ; [facility] Discussed concerns about exe rcise : promote physical activity Last Documented On 4 2:55PM ; [facility] Discussed nutritional needs teach healthy choices including fruits and vegetables Last Documented On 3 9:14AM ; [facility] Patient education about a pr oper diet Last Documented On 3 9:14AM ; [facility] Discussed concerns about exe rcise : promote physical activity Last Documented On 3 9:14AM ; [facility] Work Phone: Patient problem outcome Narrative Includes: Evaluations & Outcomes for active Goals No [facility]ed[facility] Work Phone: Progress note* Progress note Date Encounter Last Documented by 05/07/2024 Open Access - Established Last d ocumented on 05/07/2024; 1:57 PM, Shelly Mei CNP; [facility] Active Problems & Conditions - K21.9 [...] lab tests History of Present Illness Mariola Washington is a 33 year old female. - [...] BP-Sitting L113/79 mmHg BP Cuff SizeRegular Pulse Rate-Clksgzv08 bpm Temp-Oral98.1 F Xsxxfq91 in Bbkhnu142 lbs 12.8 oz Body Mass Index27.5 kg/m2 Body Surface Area1.9 m2 Oxygen Fuwjzpebrm17 % Vital Signs: - Systolic blood pressure [...] DAYS Outside Diagn Tests/Ultrasound: US Echo 2D (09470) EndCited StartCited- Unspecified chronic gastritis with bleeding [...] of prescription only drugs, and not illicit. [facility] N[facility]ative - Reported Review of Systems not supported for this document type No Review of Systems RecordedHealth [facility] Work Phone: Chief Complaint and Reason for Visit Chief Complaint Abdominal Pain, Weig ht Loss, Diarrhea, Rectal Blee Chief Complaint M79.644 Advance Directives No Advanced Directives Records Found Advance Directive Response Recorded Date/ Time Advance Directives No April 05 2:01pm Advance Directive Response Recorded Date/ Time Advance Directives No April 05 1:59pm Summary Purpose Family History Description Last Updated No significant medical history 3 Last Documented On 3 8:59AM ; [facility] No Family History Records Found Physical Exam [...] and content) DATE CREATED AUTHOR 02/15/2023 [facility] DATE CREATED AUTHOR AUTHOR'S ORGANIZ ATION 10/16/2023 [facility] DATE CREATED AUTHOR AUTHOR'S ORGANIZ ATION 05/05/2024 [facility] DATE CREATED AUTHOR AUTHOR'S ORGANIZ ATION 05/16/2024 [facility] EPIC FOR RECORDS PERTAINING TO PATIENTS WHO ARE [...] BE BASED ON THE PRIMARY CLINICAL RECORDS. [facility] [employer] [facility] provides no warranty or guarantee of the accuracy or completeness of information in this document.
== END 2024-07-25 08:11 | disposition home or self-care (01) ==
LOC: NOMS 08:10
PROVIDERS: Visit Provider Obstetrics & Gynecology
DX: N92.1 Excessive and frequent menstruation with irregular cycle (principal); Z97.5 Presence of (intrauterine) contraceptive device
CPT/HCPCS: 76830

== ENCOUNTER 2025-07-20 11:51 | Emergency (ER) | payer OTHER, SELFPAY ==
--- OUTSIDE RECORDS SUMMARY | 2024-04-30 10:00 | XMS_ITS ---
Author Organization [facility] Address [address] [place] [address] Care Team Providers Care Flight Deck Officer Name Role Phone Zelalem Vargas [phone] REASON FOR VISIT LUMBAR PAIN Encounters Encounter Location Date Provider Diagnosis [facility] Office [address] [place] [address] [place] [address], [place] [id number] 04/30/2024 Zelalem Vargas Plan Of Treatment No Information Progress Notes * HAMZAH WASHINGTONADOB:[birth year] (35 yo F)Acc No.[id number]:04/30/2024 Patient: OSEI CHAPMAN Provider: Shayla Vargas MD :1990 A ge:33 Y S ex:Female Date:04/30/2024 Address:[address], [id number] Subjective: * Chief Complaints: * 1 . LUMBAR PAIN. * Medical History: Objective: * Vitals: Assessment: Plan: * Treatment: Forms: * Images: * Electronic signature of Mo Vargas MD on 07/20/2025 at 12:41 PM EDT Sign off status: Pending * Provider: Shayla Vargas MD Date: 0 04/30/2024 Generated for Marge reich/Iram/Shobhaitting on: 1 12:41 PM EDT
--- OUTSIDE RECORDS SUMMARY | 2024-05-09 05:00 | XMS_ITS ---
Author Organization [facility] Address [address] [place] [address] Care Team Providers Care Mobile Pet Groomer Name Role Phone Mo Vargasmanjeet Macedo [phone] Results Component Value Reference Range Notes [facility] LUMBAR [id number] Reviewed date:05/17/2024 09:01:14 AM Interpretation: Performing Lab: Notes/Report: REASON FOR VISIT Lumbar pain NO FILMS Encounters Encounter Location Date Provider Diagnosis [facility] Office [address] [facility] [address] [address] 05/09/2024 Zelalem Vargas Plan Of Treatment No Information Progress Notes * HAMZAH WASHINGTONADOB:[birth year] (35 yo F)Acc No.[id number]:05/09/2024 Patient: OSEI CHAPMAN Provider: Shayla Vargas MD :1990 A ge:33 Y S ex:Female Date:05/09/2024 Address: [address], [id number] Subjective: * Chief Complaints: * 1 . Lumbar pain NO FILMS. * Medical History: Objective: * Vitals: Assessment: Plan: * Treatment: * Procedure Codes: 7 2100 X-ray Lumbar Spine, 2 view Forms: * Images: * Electronic signature of Mo Vargas MD on 07/20/2025 at 12:42 PM EDT Sign off status: Pending * Provider: Shayla Vargas MD Date: 0 05/09/2024 Generated for Printi ng/Faxing/eTransmitting on: 1 12:42 PM EDT
[2025-07-20] VITALS (14 sets, daily range): BP systolic 117–145; BP diastolic 74–105; PULSE 77–98; TEMP 36.4; O2SAT 98–99; BMI 27.1
--- NOTE | 2025-07-20 12:12 | CT_ITS ---
[facility] [place] [id number] Patient Name: OSEI WASHINGTON MRN: [id number] date: 1990 Sex: F Assigned Patient Location: ER Current Patient Location: ER Accession/Order Number: [id number] Exam Date: 07/20/2025 12:45 Report Date: 07/20/2025 13:31 At the request of: MARLENA OGDEN MD Procedure: CT abdomen pelvis w con CT ABDOMEN AND PELVIS WITH INTRAVENOUS CONTRAST: CLINICAL HISTORY: Upper abdominal pain COMPARISON: None TECHNIQUE: Spiral images were obtained through the abdomen and pelvis following the administration of intravenous contrast. This CT exam was performed using one or more following dose reduction techniques: Automated exposure control, adjustment of the mA and/or kV according to patient size, or use of iterative reconstruction technique. FINDINGS: Lung Bases: [Lung bases are clear.] Organs:Liver, spleen, adrenals, kidneys, ureters or upper gallbladder is absent.[ GI: Mild retained stool throughout the colon. No bowel obstruction. Appendix unremarkable. Mural thickening of the colon could relate to under distention[ Pelvis:[IUD within the uterus. Adnexal follicles. No suspicious adnexal mass. Bladder wall thickening likely related to under distention.] Peritoneum/Retroperitoneum:No free air or free fluid. No adenopathy.[ Abd wall/Bones:No suspicious osseous lesion.[ CT/CT abdomen pelvis w con IMPRESSION: No definite acute inflammatory process or bowel obstruction. Wall thickening of the colon favor under distention, colitis could have a similar appearance appropriate clinical setting. Impression dictated by: Steven Rankin M.D. 07/20/2025 1:31 PM Dictation Location: [place] [id number] Electronically authenticated by: [id number] Y Date: 07/20/2025 13:31
[2025-07-20 12:18] LABS: Glucose Urine UA NEGATIVE (NEGATIVE)
[2025-07-20 12:18] LABS: Hematocrit 41.8 % (36.0-48.0); Hemoglobin 13.5 g/dL (12.0-16.0); Immature Granulocytes Abs Auto 0.02 10^3/uL (0.00-0.03); Immature Granulocytes Pct Auto 0.3 % (0.0-0.5); Lymphocytes Absolute Auto 1.1 10^3/uL (1.2-3.8); Mean Corpuscular HGB Conc 32.3 g/dL (29.9-35.2); Mean Corpuscular Hemoglobin 27.1 pg (26.7-34.0); Mean Corpuscular Volume 83.9 fL (81.0-99.0); Platelet Count 223 10^3/uL (150-450); Red Blood Count 4.98 10^6/uL (4.20-5.40); White Blood Count 7.9 10^3/uL (4.0-11.0)
[2025-07-20 12:25] LABS: Crystals Seen? None Seen #/HPF (None Seen)
[2025-07-20 12:26] LABS: Cast Seen? NONE SEEN #/LPF (NONE SEEN)
--- NOTE | 2025-07-20 12:30 | ED_ITS ---
HPI HPI - General Adult General Chief complaint: Abdominal Pain Stated complaint: ABDOMINAL PAIN Time Seen by Provider: 07/20/25 11:53 Source: patient Mode of arrival: ambulance History of Present Illness HPI narrative: 35-year-old female presenting for abdominal pain. It is been across her upper abdomen. Began this morning about the time she woke several hours ago and it became severe and she started to have a panic attack. It is much better now, and essentially gone. She has been having issues like this for a few years. About 5 years ago she had her gallbladder taken out thinking that these pain to go away but they did not. She has had extensive workup including endoscopy and biopsies and no cause was found. No trauma or fever or hematemesis. Related Data Home Medications ?Medication ?Instructions ?Recorded ?Confirmed No Known Home Medications 07/20/2507/09 Allergies Allergy/AdvReac Type Severity Reaction Status Date / Time No Known Drug Allergies Allergy Verified 03/19/24 09:18 Review of Systems ROS Narrative A ten point review of systems is negative except as noted above. PFSH PFSH Social History Little interest or pleasure in doing things: not at all Feeling down, depressed, or hopeless: not at all Exam Narrative Exam Narrative: Nurses note and vital signs reviewed and patient is not hypoxic. General:The patient appears in no acute distress. Skin:Warm, dry, no pallor noted.There is no rash noted. Head:Normocephalic, atraumatic Eye: Normal conjunctiva, no drainage Ears, Nose, Mouth, and Throat: oral mucosa is moist. Nares patent. Cardiovascular:Regular Rate and Rhythm Respiratory:Patient is in no distress, no accessory muscle use, lungs are clear to auscultation, no wheezing, rales or rhonchi Back:non-tender GI: Soft and nontender. No masses or distention. Musculoskeletal: The patient has no evidence of calf tenderness, no pitting edema, symmetrical pulses noted bilaterally Neurological:A&O, normal speech Psychiatric:Cooperative Constitutional Vital Signs, click to edit/add: Last Vital Signs Temp 97.6 F 07/20/25 11:54 Pulse 95 H 07/20/25 12:57 Resp 14 07/20/25 12:57 BP 145/86 H 07/20/25 12:57 Pulse Ox 99 07/20/25 11:57 O2 Del Method Room Air 07/20/25 11:54 Course Vital Signs Vital signs: Vital Signs Temperature 97.6 F 07/20/25 11:54 Pulse Rate 81 07/20/25 11:54 Respiratory Rate 18 07/20/25 11:54 Blood Pressure 129/105 H 07/20/25 11:54 Pulse Oximetry 98 07/20/25 11:54 Oxygen Delivery Method Room Air 07/20/25 11:54 Temperature 97.6 F 07/20/25 11:54 Pulse Rate 95 H 07/20/25 12:57 Respiratory Rate 14 07/20/25 12:57 Blood Pressure 145/86 H 07/20/25 12:57 Pulse Oximetry 99 07/20/25 11:57 Oxygen Delivery Method Room Air 07/20/25 11:54 Medical Decision Making MDM Narrative Medical decision making narrative: Her workup including CT of the abdomen is negative and her symptoms have not recurred. Should be discharged home and is requesting follow-up with [facility]. Treatment diagnosis and follow-up were discussed with the patient. Differential Diagnosis Differential Diagnosis: Nonspecific abdominal pain, constipation, pancreatitis, hepatitis Lab Data Lab results reviewed: Yes I reviewed the patient's lab results Labs: Lab Results 07/20/25 07/20/25 Range/Units 12:00 12:05 WBC 7.9 (4.0-11.0) 10^3/uL RBC 4.98 (4.20-5.40) 10^6/uL Hgb 13.5 (12.0-16.0) g/dL Hct 41.8 (36.0-48.0) % MCV 83.9 (81.0-99.0) fL MCH 27.1 (26.7-34.0) pg MCHC 32.3 (29.9-35.2) g/dL RDW 13.3 (11.0-15.0) % Plt Count 223 (150-450) 10^3/uL MPV 10.9 (9.5-13.5) fL Neut % (Auto) 80.5 H (43.0-75.0) % Lymph % (Auto) 13.3 L (20.5-60.0) % [place] % (Auto) 4.4 (1.7-12.0) % Eos % (Auto) 0.9 (0.9-7.0) % Baso % (Auto) 0.6 (0.2-2.0) % Neut # (Auto) 6.4 (1.4-6.5) 10^3/uL Lymph # (Auto) 1.1 L (1.2-3.8) 10^3/uL B[place] # (Auto) 0.4 (0.3-0.8) 10^3/uL Eos # (Auto) 0.1 (0.0-0.7) 10^3/uL Baso # (Auto) 0.1 (0.0-0.1) 10^3/uL Abs Immat Gran (auto) 0.02 (0.00-0.03) 10^3/uL Imm/Tot Granulo (auto) 0.3 (0.0-0.5) % Sodium 143 (136-145) mmol/L Potassium 3.9 (3.5-5.1) mmol/L Chloride 106 (98-107) mmol/L Carbon Dioxide 27.0 (21.0-32.0) mmol/L Anion Gap 13.9 BUN 7.0 (7.0-18.0) mg/dL Creatinine 0.62 (0.55-1.02) mg/dL Est GFR ( Amer) >60 (>=60 mL/min/1.73m^2) Est GFR (Non-Af Amer) >60 (>=60 mL/min/1.73m^2) BUN/Creatinine Ratio 11.3 Glucose 98 (74-106) mg/dL Calcium 9.0 (8.5-10.1) mg/dL Total Bilirubin 0.9 (0.2-1.0) mg/dL Direct Bilirubin 0.2 (0.0-0.2) mg/dL AST 16 (15-37) U/L ALT 16 (14-59) U/L Alkaline Phosphatase 93 (46-116) U/L Total Protein 7.7 (6.4-8.2) g/dL Albumin 3.9 (3.4-5.0) g/dL Globulin 3.8 g/dL Albumin/Globulin Ratio 1.0 Amylase 48 (25-115) U/L Lipase 20.0 (16.0-77.0) U/L Serum HCG, Qual Negative (NEGATIVE) Urine Color Lt. yellow (YELLOW) Urine Clarity Clear (CLEAR) Urine pH 8.5 (5.0-9.0) Ur Specific [place] 1.015 (1.005-1.025) Urine Protein Negative (NEG/TRACE) mg/dL Urine Glucose (UA) Negative (NEGATIVE) mg/dL Urine Ketones Negative (NEGATIVE) mg/dL Urine Occult Blood Negative (NEGATIVE) Urine Nitrite Negative (NEGATIVE) Urine Bilirubin Negative (NEGATIVE) Urine Urobilinogen 0.2 (0.2-1.0) EU/dL Ur Leukocyte Esterase Negative (NEGATIVE) Urine RBC 0-2 (0-2) #/HPF Urine WBC 0-2 A (NONE SEEN) #/HPF Ur Squamous Epith Cells Few A (NONE/RARE) #/LPF Urine Crystals None seen (None Seen) #/HPF Urine Bacteria Trace A (NONE SEEN) #/HPF Urine Casts None seen (NONE SEEN) #/LPF Urine Mucus None seen (NONE SEEN) Imaging Data CT scan - abdomen: Radiologist's impression: ITS Impressions Abdomen/Pelvis CT 07/20/25 12:12 IMPRESSION: No definite acute inflammatory process or bowel obstruction. Wall thickening of the colon favor under distention, colitis could have a similar appearance appropriate clinical setting. Impression dictated by: Steven Rankin M.D. 07/20/2025 1:31 PM Dictation Location[facility] Electronically authenticated by: [id number] Y Date: 07/20/2025 13:31 ECG Data Attestation: I personally reviewed and interpreted this ECG as follows: (EKG on my interpretation shows sinus rhythm with a rate of 103 and no acute change.) Discharge Plan Discharge Chief Complaint: Abdominal Pain Clinical Impression: Abdominal pain Patient Disposition: Home, Self-Care Time of Disposition Decision: 13:39 Condition: Good Mode of Transportation: Private Vehicle Prescriptions / Home Meds: No Action No Known Home Medications Print Language: Romansh Instructions: Abdominal Pain (ED) Referrals: CHADD MOHAMUD [Physician, Gastroenterology] - 1 week Physician,Non-Staff, MD [Primary Care Provider] - 1 week
--- NOTE | 2025-07-20 12:31 | ECG_ITS ---
[facility] Test Date: 2025-07-20 Pat Name: OSEI WASHINGTON Department: Room: - Gender: Female [employer]: : 1990 Requested By: [id number] Order Number: [id number] Reading MD: KYLE EDMOND M.D. Measurements Intervals [place] Rate: 103 P: 103 PA: 190 QRS: 82 QRSD: 82 T: 150 QT: 320 QTc: 379 Interpretive Statements 1120 Sinus tachycardia 4068 Nonspecific [place] abnormality abnormal ECG No previous ECG available for comparison Electronically Signed On 07-20-2025 14:30:03 EDT by KYLE EDMOND M.D.
[2025-07-20 12:32] LABS: Alanine Aminotransferase 16 U/L (14-59); Albumin Globulin Ratio 1.0; Albumin Level 3.9 g/dL (3.4-5.0); Alkaline Phosphatase 93 U/L (46-116); Amylase 48 U/L (25-115); Anion Gap 13.9; Aspartate Amino Transferase 16 U/L (15-37); Blood Urea Nitrogen 7.0 mg/dL (7.0-18.0); Calcium 9.0 mg/dL (8.5-10.1); Carbon Dioxide 27.0 mmol/L (21.0-32.0); Chloride 106 mmol/L (98-107); Estimated GFR (African America >60 (>=60 mL/min/1.73m^2); Estimated GFR (Non-African Ame >60 (>=60 mL/min/1.73m^2); Globulin 3.8 g/dL; Glucose 98 mg/dL (74-106); Lipase 20.0 U/L (16.0-77.0); Potassium 3.9 mmol/L (3.5-5.1); Sodium 143 mmol/L (136-145); Total Protein 7.7 g/dL (6.4-8.2)
--- OUTSIDE RECORDS SUMMARY | 2025-07-20 12:41 | XMS_ITS | CCD ---
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 Name Role Phone Kaylyn Spring Attending Provider NO FAMILY, PHYSICIAN Primary Care Provider Unava ilable Mayuri Hanson Unavailable NO FAMILY, PHYSICIAN Primary Care Provider Unava MURIEL Johnson Attending Provider [facility] Primary Care Unavailable REED ., DR PANIAGUA Attending Unavailable REED ., DR PANIAGUA Consulting Unavailable REED ., DR PANIAGUA Admitting Unavailable Vanesa Bullock CNP Primary Care Provider NO FAMILY, PHYSICIAN Primary Care Unavailable Mayuri Hanson Attending Unavailable Mayuri Hanson Admitting Unavailable Joel Zapata Attending Unavailab Joel Brambila Admitting Unavailab josselin NO FAMILY, PHYSICIAN Primary Care Unavailable SERVICES, [facility] Primary Care Unava ilSUNNY Bailey Attending Unavailable SERVICES, [facility] Primary Care Unava ilable SUNNY COOK Attending Unavailable SUNNY COOK Referring Unavailable SERVICES, [facility] Primary Care Unava ilable KAYLYN GALVAN Attending Unavailable Kobe ZELAYA Vanesa Unavailable Arcelia Mcbride DO Unavailable Vanesa Bullock CNP Unavailable [phone] Shelly Mei CNP Unavailable ARCELIA MCBRIDE Attending Unavailable CALLIE PASCUAL Attending Unavailable ARCELIA MCBRIDE Attending Unavailable CALLIE PASCUAL Attending Unavailable Allergies Allergy Classification Reported Allergen(s) Allergy Type Date of Onset Reaction(s) Facility (16 sources) Bee sting Allergy to substance 3 Hives / Urticaria [facility] Medications Current Medications Medication Drug Class(es) Dates Sig (Normalized) Sig (Original) fluconazole 150 mg oral tablet (4 sources) Azole Antifungal Start: 04-21-2025 End: 04-21-2025 take 1 tablet by mouth once, then take 1 tablet by mouth once fluconazole (Diflucan) 150 MG tablet Indications: Yeast infection Take 1 tablet (150 mg) by mouth 1 (one) time for 1 dose This is a 1 time dose, take single tablet by mouth. 1 tablet 1 04/21/2025 04/21/2025 Active Start: 04-16-2025 End: 04-25-2025 Diflucan 150 MG Oral Tablet 04/16/2025 - 04/25/2025 Provider: Shelly Mei CNP levonorgestrel 0.251720 mg/hr intrauterine system (19 sources) Progestin, Progestin-containing Intrauterine Device Start: 05-23-2023 Mirena (52 MG) 20 MCG/DAY Intrauterine Intrauterine device 05/23/2023 Provider: Levonorgestrel ( Mirena, 52 MG,) 20 MCG/DAY intrauterine device 52 mg by Intrauterine route Daily Active metroNIDAZOLE 500 mg oral tablet (12 sources) Nitroimidazole Antimicrobial Start: 04-21-2025 End: 04-28-2025 take 1 tablet by mouth in the morning metroNIDAZOLE (Flagyl) 500 MG tablet Indications: Vaginal dryness Take 1 tablet (500 mg) by mouth in the morning and 1 tablet (500 mg) before bedtime. Do all this for 7 days. Do not drink alcohol while taking this medication. 14 tablet 04/21/2025 04/28/2025 Active Start: 04-14-2025 End: 04-25-2025 metroNIDAZOLE 0.75% Vaginal Gel 04/14/2025 - 04/25/2025 Provider: Shelly Mei CNP Start: 04-09-2025 End: 04-21-2025 metroNIDAZOLE (Nuvessa) 1.3 % gel Indications: Vaginal dryness Insert 1 Insert into the vagina 1 time for 1 dose 5 g 04/14/2025 04/21/2025 Discontinued terbinafine 250 mg oral tablet (1 source) Allylamine Antifungal Start: 04-25-2025 Terbinaf ine HCl 250 MG Oral Tablet 04/25/2025 Provider: Shelly Mei CNP Wrist Splint/Right XL - (1 source) Start: 01-02-2023 Wrist Splint/R ight XL - as directed Dec, Active Completed/Discontinued Medications Medication Drug Class(es) Dates Sig (Normalized) Sig (Original) amoxicillin 500 mg oral tablet (7 sources) Penicillin-class Antibacterial Start: 09-12-2024 End: 04-14-2025 Amoxicillin 500 MG Oral Tablet 09/12/2024 - 04/14/2025 Provider: Shelly Mei CNP busPIRone hydrochloride 5 mg oral tablet (12 sources) Start: 04-23-2024 End: 09-12-2024 busPIRone HCl 5 MG Oral Tablet 04/23/2024 - 09/12/2024 Provider: Vanesa Bullock CNP cyclobenzaprine hydrochloride 10 mg oral tablet (20 sources) Muscle Relaxant Start: 05-07-2024 End: 09-12-2024 Cyclobenzaprine HCl 10 MG Oral Tablet 05/07/2024 - 09/12/2024 Provider: Shelly Mei CNP Start: 02-14-2024 End: 04-23-2024 Cyclobenzaprine HCl 10 MG Or al Tablet 02/14/2024 - 04/23/2024 Provider: Vanesa Bullock CNP hydrOXYzine pamoate 25 mg oral capsule (12 sources) Antihistamine Start: 05-07-2024 End: 09-12-2024 hydrOXYzine Pamoate 25 MG Oral Capsule 05/07/2024 - 09/12/2024 Provider: Shelly Mei CNP ibuprofen 800 mg oral tablet (20 sources) Nonsteroidal Anti-inflammatory Drug Start: 02-14-2024 End: 04-14-2025 Ibuprofen 800 MG Oral Tablet 05/07/2024 - 09/12/2024 Provider: Shelly Mei CNP 1 ml methylPREDNISolone acetate 80 mg/ml injection (12 sources) Corticosteroid Start: 04-23-2024 DEPO-Medrol 80 MG/ML IJ SUSP 04/23/2024 Vanesa Bullock CNP Comment on above: Patient tolerated th erapy well. No signs or symptoms of adverse reactions. Patient waited in clinic for 15 minutes after administration. pantoprazole 20 mg delayed release oral tablet (20 sources) Proton Pump Inhibitor Start: 05-07-2024 End: 09-12-2024 Pantoprazole Sodium 20 MG Oral Tablet Delayed Release 05/07/2024 - 09/12/2024 Provider: Shelly Mei CNP Start: 12-18-2023 End: 04-23-2024 Pantoprazole Sodium 40 MG Or al Tablet, enteric coated 12/18/2023 - 04/23/2024 Provider: Vanesa Bullock CNP predniSONE 20 mg oral tablet (20 sources) Start: 09-12-2024 End: 04-14-2025 predniSONE 20 MG Oral Tablet 09/12/2024 - 04/14/2025 Provider: Shelly Mei CNP Start: 02-14-2024 End: 04-23-2024 predniSONE 20 MG [...] [Generalized anxiety disorder] Onset: 4 12-18-2023 Chronic Contraceptive and procreative management (2 sources) Intrauterine contraceptive device in situ; Translations: [Encounter for routine checking of intrauterine contraceptive device] 07-24-2024 Episodic Esophageal disorders (20 sources) Gastroesophageal reflux disease without esophagitis; Translations: [Gastro-esophageal reflux disease without esophagitis] Onset: 4 12-19-2023 Chronic Gastritis and duodenitis (20 sources) Chronic gastritis; Translations: [Unspecified chronic gastritis with bleeding] Onset: 3 05-23-2023 Chronic Gastrointestinal hemorrhage (1 source) Hematochezia; Translations: [Melena] 05-05-2021 Episodic Inflammatory diseases of female pelvic organs (4 sources) Vaginitis; Translations: [Vaginitis and vulvovaginitis, unspecified] Onset: 5 Episodic Intracranial injury (1 source) Concussion with loss of consciousness of 30 minutes or less, initial encounter; Translations: [Concussion with loss of consciousness of 30 minutes or less, initial encounter] Onset: 4 Episodic Menstrual disorders (2 sources) Break-through bleeding; Translations: [Excessive and frequent menstruation with irregular cycle] 07-24-2024 Chronic Mood disorders (20 sources) Mild recurrent major depression; 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, recurrent, mild] Onset: 3 12-18-2023 Chronic Mycoses (3 sources) Mycosis; Translations: [Candidiasis, unspecified] Onset: 5 04-21-2025 Episodic Nonspecific chest pain (2 sources) Chest pain, unspecified; Translations: [Chest pain] Onset: 4 Episodic Other connective tissue disease (1 source) Pain in right thumb; Translations: [Pain in right finger(s)] Episodic Other connective tissue disease (1 source) Pain in right finger(s) Episodic Other female genital disorders (4 sources) Vaginal dryness; Translations: [Other specified noninflammatory disorders of vagina] 03-18-2025 Episodic Other gastrointestinal disorders (1 source) Diarrhea; [...] conditions (not mental disorders or infectious disease) (20 sources) Encounter for screening for malignant neoplasm of cervix; Translations: [Encounter for screening for diabetes mellitus] Onset: 3 Episodic Superficial injury; contusion (1 source) Contusion [...] Other Problems Problem Classification Problem Date Documented Date Episodic/Chronic Gastritis and duodenitis (20 sources) Acute gastritis; Translations: [Acute gastritis without bleeding] Onset: 12-19-2023 12-19-2023 Episodic Immunizations and screening for infectious disease (9 sources) Encounter for screening for human immunodeficiency virus [HIV]; Translations: [Screening For Hiv] Onset: 02-14-2024 Episodic Other upper respiratory infections (10 sources) Acute sinusitis; Translations: [Acute sinusitis, unspecified] Onset: 09-12-2024 09-12-2024 Episodic Residual codes; unclassified (11 sources) Body mass index (BMI) pediatric, 5th percentile to less than 85th percentile for age; Translations: [Assessment of Bmi Percentile = 5% To < 85% For Age Z68.52] Onset: 04-23-2024 Episodic Spondylosis; intervertebral disc disorders; other back problems (9 sources) Disorder of muscle; Translations: [Skeletal muscle structure of back (body structure)] Onset: 02-14-2024 Episodic Sprains and strains (20 sources) Unspecified sprain of right thumb, initial encounter; Translations: [Low back strain] Onset: 02-14-2024 Episodic Results Test Name Value Interpretation Reference Range Facility Laboratory - Microbiology an d Antimicrobial susceptibilityon 04-14-2025 A. vaginae DNA JAXON+probe Ql (Vag fld) Low - 0 Score [facility] Bacteria identified Cx Nom (U) Final report [facility] Bacteria identified Cx Nom (U) Comment [facility] Comment on above: Note: Mixed urogenit al flora10,000-25,000 colony forming units per mL Bacterial vaginosis associated bacterium 2 DNA JAXON+probe Ql (Vag fld) Low - 0 Score [facility] C. albicans DNA JAXON+probe Ql (Vag fld) Positive Abnormal (Negative ) [facility] C. glabrata DNA JAXON+probe Ql (Vag fld) Negative (Negative ) [facility] C. trachomatis DNA JAXON+probe Ql (Vag fld) Negative (Negative ) [facility] Megasphaera sp type 1 DNA JAXON+probe Ql (Vag fld) Low - 0 Score [facility] Comment on above: Note: .Calculate tot al score by adding the 3 individual bacterialvaginosis (BV) marker scores together. Total score isinterpreted as follows:Total score 0-1: Indicates the absence of BV.Total score 2: Indeterminate for BV. Additional clinical data should be evaluated to establish a diagnosis.Total score 3-6: Indicates the presence of BV. N. gonorrhoeae DNA JAXON+probe Ql (Vag fld) Negative (Negative ) [facility] T. vaginalis DNA JAXON+probe Ql (Vag fld) Negative (Negative ) [facility] No Panel Informationon 04-14 Reported Physicians See Note [facility] Comment on above: Note: Reported Physi cians:Ordering: Shelly Mei RECURRENT VAGINITIS (HTRX)on 03-20-2025 ATOPOBIUM VAGINAE 19.489 Abnormal [facility] ATOPOBIUM VAGINAE Detected Abnormal Loc[facility] within [facility] althcare BVAB 2,3 (BACTERIAL VAGINOSIS ASSOCIATED BACTERIA 2, 3); MOBILUNCUS SPP 0 [facility] BVAB 2,3 (BACTERIAL VAGINOSIS ASSOCIATED BACTERIA 2, 3); MOBILUNCUS SPP Not detected [facility] JENNIFER ALBICANS, PARAPSILOSIS, TROPICALIS 0 [facility] JENNIFER ALBICANS, PARAPSILOSIS, TROPICALIS Not detected [facility] JENNIFER GLABRATA 0 [facility] JENNIFER GLABRATA Not detected [facility] ealthcare JENNIFER KRUSEI [address] [facility] hcare JENNIFER KRUSEI Not detected [facility] CHLAMYDIA TRACHOMATIS 0 [facility] CHLAMYDIA TRACHOMATIS Not detected [facility] ERMB, C; MEFA 18.714 Abnormal [facility] care ERMB, C; MEFA Detected Abnormal [facility] care GARDNERELLA VAGINALIS 19.155 Abnormal [facility] GARDNERELLA VAGINALIS Detected Abnormal [facility] Interpretation and review of laboratory results Abnormal [facility] MEGASPHAERA (TYPES 1, 2) 17.215 Abnormal [facility] MEGASPHAERA (TYPES 1, 2) Detected Abnormal [facility] MYCOPLASMA GENITALIUM 0 [facility] MYCOPLASMA GENITALIUM Not detected [facility] NEISSERIA GONORRHOEAE 0 [facility] NEISSERIA GONORRHOEAE Not detected [facility] TET B, TET M 15.83 [facility]normal [facility] TET B, TET M Detected Abnormal [facility] are TRICHOMONAS VAGINALIS 0 [facility] TRICHOMONAS VAGINALIS Not detected [facility] Urinalysis macro (dipstick) panel (U)on 03-18-2025 Bilirubin, UA Negative Negative - 4(70) +++ mg/dL [facility] Blood, UA Negative Negative - 50 Reynaldo/mcL [facility] Clarity, UA Clear [facility] re Color, UA Yellow [facility] Glucose, UA Negative Negative - 1999(110) ++++ mg/dL [facility] Interpretation and review of laboratory results Abnormal [facility] Ketones, UA Positive Negative - 160(16) ++++ mg/dL [facility] Leukocytes, UA Negative Negative - 500+++ Melody/mcL [facility] Nitrite, UA Negative Negative - Positive [facility] pH, UA 7.5 5 - 9 [facility] e Protein, UA Trace Negative - 1999(20) ++++ mg/dL [facility] Spec Grav, UA 1.025 1 - 1.03 [facility] Urobilinogen, UA 0.2 0.2 - 12 mg/dL [facility] Cytology Cervical or vaginal smear or scraping studyOrdered By: Sue Mcfarlane on 05-14-2024 [facility] BASIC METABOLIC PANLon 05-04 Anion gap [Moles/Vol] 9 mmol/L Normal 5-15 [facility] Comment on above: Performed By: #### C SUZANNE, BMP, 05373-0, 40373-7, 55409-9 #### [facility] ([id number]) [address] [place] [address] 79139 Calcium [Mass/Vol] 9.3 mg/dL Normal 8.5-10.5 [facility] Comment on above: Performed By: #### C BCA, BMP, 16790-6, 68111-4, 09916-6 #### [facility] ([id number]) [address] [place] [address] 34184 Chloride [Moles/Vol] 105 mmol/L Normal 98-109 [facility] Comment on above: Performed By: #### C BCA, BMP, 03677-8, 46636-0, 20760-8 #### [facility] ([id number]) [address] [place] [address] [place] [address] CO2 [Moles/Vol] 20 mmol/L Low 22-32 [facility] Comment on above: Performed By: #### C SUZANNE, PARAM, 39843-9, 37350-3, 79555-4 #### [facility] ([id number]) [address] [place] [address] 33336 Creatinine [Mass/Vol] 0.76 mg/dL Normal 0.40-1.00 [facility] Comment on above: Result Comment: METH OD TRACEABLE TO IDMS STANDARD Performed By: #### C PARAM PALACIOS, 83657-2, 64319-6, 83249-4 #### [facility] ([id number]) [address] [place] [address] 05234 eGFR (CKD-EPI) NON-RACE DEPENDENT >90 Normal >59 [facility] Comment on above: Result Comment: Reported eGFR is based on the CKD-EPI 2020 equation that does not use a race coefficient. Performed By: #### C SUZANNE, PARAM, 24300-6, 58451-2, 59078-9 #### [facility] ([id number]) [address] [place] [address] 82542 Glucose [Mass/Vol] 116 mg/dL High 65-99 [facility] Comment on above: Performed By: #### C SUZANNE, PARAM, 75778-2, 96567-4, 15024-4 #### [facility] ([id number]) [address] [place] [address] 67207 Potassium [Moles/Vol] 3.9 mmol/L Normal 3.5-5.0 [facility] Comment on above: Performed By: #### C SUZANNE, BMP, 83200-5, 41248-6, 36066-5 #### [facility] ([id number]) [address] [place] [address] 81431 Sodium [Moles/Vol] 134 mmol/L Normal 134-146 [facility] Comment on above: Performed By: #### C BCA, BMP, 89980-2, 12559-5, 76197-6 #### [facility] ([id number]) [address] [place] [address] 88690 Urea nitrogen [Mass/Vol] 15 mg/dL Normal 5-23 [facility] Comment on above: Performed By: #### C BCA, BMP, 58421-1, 23945-8, 14559-2 #### [facility] ([id number]) [address] [place] [address] 11343 CBC AND AUTO DIFFon 05-04-20 24 ABSOLUTE BASOPHIL 0.0 X10E9/L Normal 0.0-0.2 [facility] Comment on above: Performed By: #### C BCA, BMP, 98164-5, 09114-8, 45675-4 #### [facility] ([id number]) [address] [place] [address] 55810 ABSOLUTE NEUTROPHIL 5.3 X10E9/L Normal 1.5-6.6 [facility] Comment on above: Performed By: #### C SUZANNE, BMP, 23406-6, 24369-6, 25633-3 #### [facility] ([id number]) [address] [place] [address] 65693 Basophils/100 WBC (Bld) 0.3 % Normal [facility] Comment on above: Performed By: #### C BCA, BMP, 82079-0, 56541-0, 26241-9 #### [facility] ([id number]) [address] [place] [address] 16935 Eosinophils (Bld) [#/Vol] 0.1 10*3/uL Normal 0.0-0.4 [facility] Comment on above: Performed By: #### C BCA, BMP, 32436-6, 48003-3, 69014-7 #### [facility] ([id number]) [address] [place] [address] 98743 Eosinophils/100 WBC (Bld) 1.3 % Normal [facility] Comment on above: Performed By: #### C SUZANNE, PARAM, 61996-5, 21268-0, 28728-8 #### [facility] ([id number]) [address] [place] [address] 08766 Erythrocyte distribution width (RBC) [Ratio] 13.3 % Normal 11.5-15.0 [facility] Comment on above: Performed By: #### C SUZANNE, PARAM, 26266-5, 28263-1, 04459-5 #### [facility] ([id number]) [address] [place] [address] 66564 Hematocrit (Bld) [Volume fraction] 41.6 % Normal 35-47 [facility] Comment on above: Performed By: #### C SUZANNE, PARAM, 41375-6, 28717-5, 64424-7 #### [facility] ([id number]) [address] [place] [address] 05394 Hemoglobin (Bld) [Mass/Vol] 13.5 g/dL Normal 11.7-15.5 [facility] Comment on above: Performed By: #### C SUZANNE, PARAM, 17104-4, 79333-1, 79607-5 #### [facility] ([id number]) [address] [place] [address] 47488 Lymphocytes (Bld) [#/Vol] 2.2 10*3/uL Normal 1.0-3.5 [facility] Comment on above: Performed By: #### C SUZANNE, BMP, 99628-3, 40617-1, 58285-3 #### [facility] ([id number]) [address] [place] [address] Lymphocytes/100 WBC (Bld) 27.1 % Normal [facility] Comment on above: Performed By: #### C SUZANNE, BMP, 48530-7, 08545-1, 88915-7 #### [facility] ([id number]) [address] [place] [address] 55807 MCH (RBC) [Entitic mass] 27.0 pg Normal 27-34 [facility] Comment on above: Performed By: #### C BCA, BMP, 39594-8, 96878-6, 24624-6 #### [facility] ([id number]) [address] [place] [address] 34859 MCHC (RBC) [Mass/Vol] 32.5 g/dL Normal 32-36 [facility] Comment on above: Performed By: #### Cammie PALACIOS, BMP, 79778-2, 40940-9, 63778-0 #### [facility] ([id number]) [address] [place] [address] 11946 MCV (RBC) [Entitic vol] 83 fL Normal 80-100 [facility] Comment on above: Performed By: #### C SUZANNE, BMP, 50377-4, 02660-6, 06320-4 #### [facility] ([id number]) [address] [place] [address] 51186 Monocytes (Bld) [#/Vol] 0.5 10*3/uL Normal 0-0.9 [facility] Comment on above: Performed By: #### C BCA, BMP, 49176-5, 34901-0, 52328-1 #### [facility] ([id number]) [address] [place] [address] 17289 Monocytes/100 WBC (Bld) 6.4 % Normal [facility] Comment on above: Performed By: #### Cammie BCA, BMP, 74525-6, 99366-0, 28121-7 #### [facility] ([id number]) [address] [place] [address] 42589 Neutrophils/100 WBC (Bld) 64.9 % Normal [facility] Comment on above: Performed By: #### C SUZANNE, BMP, 70602-9, 99601-1, 05293-0 #### [facility] ([id number]) [address] [place] [address] 72164 Platelet mean volume (Bld) [Entitic vol] 8.7 fL Normal 7-12 [facility] Comment on above: Performed By: #### C SUZANNE, BMP, 17206-8, 04231-3, 34350-4 #### [facility] ([id number]) [address] [place] [address] 70100 Platelets (Bld) [#/Vol] 237 10*3/uL Normal 150-450 [facility] Comment on above: Performed By: #### C SUZANNE, BMP, 48266-9, 06593-1, 32570-2 #### [facility] ([id number]) [address] [place] [address] 34095 RBC COUNT 5.00 X10E12/L Normal 3.80-5.20 [facility] Comment on above: Performed By: #### C SUZANNE, BMP, 92230-7, 60208-4, 61056-0 #### [facility] ([id number]) [address] [place] [address] 01020 WBC (Bld) [#/Vol] 8.1 10*3/uL Normal 4.0-11.0 [facility] Comment on above: Performed By: #### C SUZANNE, BMP, 82410-5, 29379-1, 87863-6 #### [facility] ([id number]) [address] [place] [address] 06583 Fibrin D-dimer DDU (PPP) [Ma ss/Vol]on 05-04-2024 D DIMER <150 Normal <255 [facility] Comment on above: Result Comment: Results <255 ng/mL DDU: The presence of a VTE can safely be excluded with a negative D-Dimer result and Wells score. A negative result doesn't exclude the possibility of DIC. The test be repeated along with other diagnostic tests if the patient's symptoms persist or worsen. [email or web address] Performed By: #### C BCA, BMP, 56802-7, 41998-5, 42526-5 #### [facility] ([id number]) [address] [place] [address] 63051 HCG ( test) IA.rapi d Ql (S)on 05-04-2024 SERUM Negative Normal NEG [facility] Comment on above: Performed By: #### C BCA, BMP, 29137-7, 39133-6, 41020-8 #### [facility] ([id number]) [address] [place] [address] 55577 Troponin I.cardiac High sens itivity method [Mass/Vol]on 05-04-2024 TROPONIN I, HIGH SENSITIVITY 2 ng/L Normal <16 [facility] Comment on above: Performed By: #### C BCA, BMP, 86341-3, 66334-5, 32012-4 #### [facility] ([id number]) [address] [place] [address] 70132 XR CHEST 1 VWon 05-04-2024 XR CHEST 1 VW XR CHEST 1 VW CLINICAL INFORMATION: Chest pain and shortness of breath COMPARISON: Chest radiograph dated 04/22/2021. VIEWS: 1. FINDINGS: Cardiac and mediastinal shadows are normal. No infiltrates. No effusions. No pneumothorax. No free air below the diaphragm. IMPRESSION: No acute cardiopulmonary disease. Finalized by Unique Figueroa MD on 05/04/2024 10:21 AM Normal [facility] PAP ACOG PANEL 2: 30 to 65on 02-15-2023 . . Normal [facility] Comment on above: Result Comment: Perf ormed at: WB Performed By: #### [id number] #### Laboratory [address] [address] [address] Alli Galvin Age Gdln ACOG Testing 30-65 Normal [facility] Comment on above: Performed By: #### [id number] #### Laboratory [address] [address] [address] Alli Galvin DIAGNOSIS: Comment Normal [facility] Comment on above: Result Comment: NEGA TIVE FOR INTRAEPITHELIAL LESION OR MALIGNANCY. Performed at: WB Performed By: #### [id number] #### Laboratory [address] [address] [address] Alli Galvin HPV Aptima Negative Normal Negative [facility] Comment on above: Result Comment: This nucleic acid amplification test detects fourteen high-risk HPV types (16,18,31,33,35,39,45,51,52,56,58,59,66,68) without differentiation. Performed at: =G Performed By: #### [id number] #### Laboratory [address] [address] [address] Alli Galvin HPV Genotype Reflex Comment Normal [facility] Comment on above: Result Comment: Crit eria not met, HPV Genotype not performed. Performed at: WB Performed By: #### [id number] #### Laboratory [address] [address] [address] Alli Galvin Methodology: Comment Normal [facility] Comment on above: Result Comment: This liquid based ThinPrep(R) pap test was screened with the use of an image guided system. Performed at: [facility] Performed By: #### [id number] #### Laboratory [address] [place] [address] Dr. Alli Galvin Note: Comment Normal [facility] Comment on above: Result Comment: The Pap smear is a screening test designed to aid in the detection of premalignant and malignant conditions of the uterine cervix. It is not a diagnostic procedure and should not be used as the sole means of detecting cervical cancer. Both false-positive and false-negative reports do occur. . Performed at: [facility] Performed By: #### [id number] #### Laboratory [address] [address] [address] Alli Galvin Performed by: Comment Normal [facility] Comment on above: Result Comment: Duke Mendoza, Industrial Gas Fitter (ASCP) Performed at: [facility] Performed By: #### [id number] #### Laboratory [address] [address] [address] Alli Galvin Specimen adequacy: Comment Normal [facility] Comment on above: Result Comment: Sati sfactory for evaluation. Endocervical and/or squamous metaplastic cells (endocervical component) are present. Performed at: [facility] Performed By: #### [id number] #### Laboratory [address] [place] [address] Dr. Alli Galvin XR hand RT min 3V*on 023 XR hand RT min 3V* [facility] [address] [place] [address] XRay Report Signed Patient: Mariola Etienne MR#: [id number] : 1990 Acct:[id number] Age/Sex: 32 / F ADM Date: 01/02/23 Loc: [facility] Room: Type: [facility] Attending Dr: Mayuri LLAMAS Copies to: [...] PROCESS. Impression dictated by: Moo Castaneda Jr., D.OMagda01/02/2023 1:44 PM Dictation Location: RADIO-PC-15 Transcribed By: JORGE 01/02/23 1344 Dictated By: Moo Castaneda Jr, 01/02/23 1342 Signed By: 01/02/23 1344 Normal [facility] XR hand RT min 3V* [facility] [employer] Other XR hand RT min 3V* [facility] Other XR hand RT min 3V* [address] [facility] Other XR hand RT min 3V* [place] [address] [facility] Other XR hand RT min 3V* XRay Report [facility] Other XR hand RT min 3V* Signed [facility] Other XR hand RT min 3V* Patient: Mairola Etienne MR#: [id number] [facility] Other XR hand RT min 3V* 517 [facility] Other XR hand RT min 3V* : 1990 Acct:[id number] [facility] Other XR hand RT min 3V* Age/Sex: 32 / F ADM Date: 01/02/23 [facility] Other XR hand RT min 3V* Loc: [facility] Room: Type: REG CLI [facility] Other XR hand RT min 3V* Attending Dr: Mayuri LLAMAS [facility] Other XR hand RT min 3V* Copies to: MURIEL Pineda [facility] Other XR hand RT min 3V* Ordering Provider: MURIEL Pineda [facility] Other XR hand RT min 3V* Date of Service: 01/02/23 [facility] Other XR hand RT min 3V* XR/XR hand RT min 3V*: Pain of right thumb [facility] Other XR hand RT min 3V* RIGHT HAND - 3 views [facility] Other XR hand RT min 3V* REASON FOR EXAM: Donal n and decreased range of motion of right hand. No known injury. [facility] Other XR hand RT min 3V* COMPARISON: None [facility] Other XR hand RT min 3V* FINDINGS: [facility] Other XR hand RT min 3V* No focal soft tissue abnormality. No acute bony process is seen. No bony erosions. [facility] Other XR hand RT min 3V* XR/XR hand RT min 3V* [facility] Other XR hand RT min 3V* IMPRESSION: [facility] Other XR hand RT min 3V* NO ACUTE BONY PROCESS. [facility] Other XR hand RT min 3V* Impression dictated by: Moo Castaneda Jr., D.O.01/02/2023 1:44 PM [facility] Other XR hand RT min 3V* Dictation Location: [facility]--15 [facility] Other XR hand RT min 3V* Transcribed By: PWS 01/02/23 1344 [facility] Other XR hand RT min 3V* Dictated By: Moo Castaneda Jr, DO 01/02/23 1342 [facility] Other XR hand RT min 3V* Signed By: [facility] Other XR hand RT min 3V* 01/02/23 1344 Nor [facility] Other COVID-19 Positive/Negativeon 04-05-2021 SARS-CoV-2 (COVID-19) N gene JAXON+probe Ql (Resp) Positive Negative [facility] Comment on above: Testing for SARS-CoV -2 by RT-PCRThis test was developed and its performance characteristics determined by [employer] and validated at the [facility]. This test has not been FDA [...] Time Vital Sign Value Performing Clinician Facility 04-25-2025 09:08-0400 Body height 170.18 cm Vanesa Bullock [facility] Work Phone: [facility] Work Phone: 04-25-2025 09:08-0400 Body mass index (BMI) [Ratio] 26.9 kg/m2 Vanesa Bullock [facility] Work Phone: [facility] Work Phone: 04-25-2025 09:08-0400 Body surface area Derived from formula 1.9 m2 Vanesa Bullock [facility] Work Phone: [facility] Work Phone: 04-25-2025 09:08-0400 Body temperature 98.3 [degF] Vanesa Bullock [facility] Work Phone: [facility] Work Phone: 04-25-2025 09:08-0400 Body weight 78.02 kg Vanesa Bullock [employer]URING EXEC[employer] Work Phone: [facility] Work Phone: 04-25-2025 09:08-0400 Diastolic blood pressure 77 mm[Hg] Vanesa Bullock MANUFACTURING EXECUTIVE Work Phone: [facility] Work Phone: 04-25-2025 09:08-0400 Heart rate 58 /min Vanesa Bullock [employer]UFACTURING EXECUTIVE Work Phone: [facility] Work Phone: 04-25-2025 09:08-0400 Respiratory rate 18 /min Vanesa Bullock MANUFACTURING EXECUTIVE Work Phone: [facility] Work Phone: 04-25-2025 09:08-0400 SaO2% (BldA) [Mass fraction] 98 % Vanesa Bullock MANUFACTURING EXECUTIVE Work Phone: [facility] Work Phone: 04-25-2025 09:08-0400 Systolic blood pressure 122 mm[Hg] Vanesa Bullock MANUFACTURING EXECUTIVE Work Phone: [facility] Work Phone: 04-21-2025 15:52-0400 Body height 170.2 cm Arcelia Reed DO Work Phone: [facility] 04-21-2025 15:52-0400 Body mass index (BMI) [Ratio] 26.98 kg/m2 Arcelia Reed DO Work Phone: [facility] 04-21-2025 15:52-0400 Body weight 78.13 kg Arcelia Reed DO Work Phone: [facility] 04-21-2025 15:52-0400 Diastolic blood pressure 80 mm[Hg] Arcelia Reed DO Work Phone: [facility] 04-21-2025 15:52-0400 Systolic blood pressure 112 mm[Hg] Arcelia Reed DO Work Phone: [facility] 04-14-2025 08:52-0400 Body height 170.18 cm Vanesa Bullock CNP Work Phone: [facility] Work Phone: 04-14-2025 08:52-0400 Body mass index (BMI) [Ratio] 26.8 kg/m2 Vanesa Bullock MANUFACTURING EXECUTIVE Work Phone: [facility] Work Phone: 04-14-2025 08:52-0400 Body surface area Derived from formula 1.9 m2 Vanesa Kobe MANUFACTURING EXECUTIVE Work Phone: [facility] Work Phone: 04-14-2025 08:52-0400 Body temperature 98 [degF] Vanesa Bullock CNP Work Phone: [facility] Work Phone: 04-14-2025 08:52-0400 Body weight 77.75 kg Vanesa Bullock CNP Work Phone: [facility] Work Phone: 04-14-2025 08:52-0400 Diastolic blood pressure 76 mm[Hg] Vanesa Bullock CNP Work Phone: [facility] Work Phone: 04-14-2025 08:52-0400 Heart rate 78 /min Vanesa Kobe MANUFACTURING EXECUTIVE Work Phone: [facility] Work Phone: 04-14-2025 08:52-0400 Inhaled oxygen concentration 21 % Vanesa Bullock MANUFACTURING EXECUTIVE Work Phone: [facility] Work Phone: 04-14-2025 08:52-0400 Inhaled oxygen flow rate 0 L/min Vanesa Bullock MANUFACTURING EXECUTIVE Work Phone: [facility] Work Phone: 04-14-2025 08:52-0400 Respiratory rate 18 /min Vanesa Bullock CNP Work Phone: [facility] Work Phone: 04-14-2025 08:52-0400 SaO2% (BldA) [Mass fraction] 97 % Vanesa Bullock CNP Work Phone: [facility] Work Phone: 04-14-2025 08:52-0400 Systolic blood pressure 113 mm[Hg] Vanesa Bullock MANUFACTURING EXECUTIVE Work Phone: [facility] Work Phone: 09-12-2024 15:32-0500 Diastolic blood pressure 80 mm[Hg] Vanesa Bullock CNP Work Phone: [facility] Work Phone: 09-12-2024 15:32-0500 Systolic blood pressure 128 mm[Hg] Vanesa Bullock CNP Work Phone: [facility] Work Phone: 09-12-2024 15:29-0500 Body height 170.18 cm Vanesa Bullock CNP Work Phone: [facility] Work Phone: 09-12-2024 15:29-0500 Body mass index (BMI) [Ratio] 27.2 kg/m2 Vanesa Bullock CNP Work Phone: [facility] Work Phone: 09-12-2024 15:29-0500 Body surface area Derived from formula 1.9 m2 Vanesa Bullock CNP Work Phone: [facility] Work Phone: 09-12-2024 15:29-0500 Body temperature 97.8 [degF] Vanesa Bullock CNP Work Phone: [facility] Work Phone: 09-12-2024 15:29-0500 Body weight 78.65 kg Vanesa Bullock CNP Work Phone: [facility] Work Phone: 09-12-2024 15:29-0500 Diastolic blood pressure 82 mm[Hg] Vanesa Bullock MANUFACTURING EXECUTIVE Work Phone: [facility] Work Phone: 09-12-2024 15:29-0500 Heart rate 89 /min Vanesa Bullock MANUFACTURING EXECUTIVE Work Phone: [facility] Work Phone: 09-12-2024 15:29-0500 Respiratory rate 18 /min Vanesa Bullock MANUFACTURING EXECUTIVE Work Phone: [facility] Work Phone: 09-12-2024 15:29-0500 SaO2% (BldA) [Mass fraction] 98 % Vanesa Bullock MANUFACTURING EXECUTIVE Work Phone: [facility] Work Phone: 09-12-2024 15:29-0500 Systolic blood pressure 136 mm[Hg] Vanesa Bullock MANUFACTURING EXECUTIVE Work Phone: [facility] Work Phone: 07-24-2024 15:07-0400 Body mass index (BMI) [Ratio] 26.44 kg/m2 Callie SNELL Work Phone: [facility] 07-24-2024 15:07-0400 Body weight 76.57 kg Callie SNELL Work Phone: [facility] 07-24-2024 15:07-0400 Diastolic blood pressure 70 mm[Hg] Callie SNELL Work Phone: [facility] 07-24-2024 15:07-0400 Systolic blood pressure 110 mm[Hg] Callie SNELL Work Phone: [facility] 05-07-2024 08:31-0400 Body height 170.18 cm Vanesa Bullock MANUFACTURING EXECUTIVE Work Phone: [facility] Work Phone: 05-07-2024 08:31-0400 Body mass index (BMI) [Ratio] 27.5 kg/m2 Vanesa Bullock CNP Work Phone: [facility] Work Phone: 05-07-2024 08:31-0400 Body surface area Derived from formula 1.9 m2 Vanesa Bullock CNP Work Phone: [facility] Work Phone: 05-07-2024 08:31-0400 Body temperature 98.1 [degF] Vanesa Bullock CNP Work Phone: [facility] Work Phone: 05-07-2024 08:31-0400 Body weight 79.74 kg Vanesa Bullock CNP Work Phone: [facility] Work Phone: 05-07-2024 08:31-0400 Diastolic blood pressure 79 mm[Hg] Vanesa Bullock CNP Work Phone: [facility] Work Phone: 05-07-2024 08:31-0400 Heart rate 69 /min Vanesa Bullock CNP Work Phone: [facility] Work Phone: 05-07-2024 08:31-0400 SaO2% (BldA) [Mass fraction] 98 % Vanesa Bullock CNP Work Phone: [facility] Work Phone: 05-07-2024 08:31-0400 Systolic blood pressure 113 mm[Hg] Vanesa Bullock CNP Work Phone: [facility] Work Phone: 04-23-2024 11:09-0400 Body height 170.18 cm Vanesa Bullock CNP Work Phone: [facility] Work Phone: 04-23-2024 11:09-0400 Body mass index (BMI) [Ratio] 27.5 kg/m2 Vanesa Bullock CNP Work Phone: [facility] Work Phone: 04-23-2024 11:09-0400 Body surface area Derived from formula 1.9 m2 Vanesa Bullock CNP Work Phone: [facility] Work Phone: 04-23-2024 11:09-0400 Body weight 79.65 kg Vanesa Bullock CNP Work Phone: [facility] Work Phone: 04-23-2024 11:09-0400 Diastolic blood pressure 74 mm[Hg] Vanesa Bullock CNP Work Phone: [facility] Work Phone: 04-23-2024 11:09-0400 Heart rate 73 /min Vanesa Bullock CNP Work Phone: [facility] Work Phone: 04-23-2024 11:09-0400 SaO2% (BldA) [Mass fraction] 95 % Vanesa Bullock CNP Work Phone: [facility] Work Phone: 04-23-2024 11:09-0400 Systolic blood pressure 111 mm[Hg] Vanesa Bullock CNP Work Phone: [facility] Work Phone: 02-14-2024 08:44-0400 Body height 170.18 cm Vanesa Bullock CNP Work Phone: [facility] Work Phone: 02-14-2024 08:44-0400 Body mass index (BMI) [Ratio] 26.1 kg/m2 Vanesa Bullock CNP Work Phone: [facility] Work Phone: 02-14-2024 08:44-0400 Body surface area Derived from formula 1.9 m2 Vanesa Bullock CNP Work Phone: [facility] Work Phone: 02-14-2024 08:44-0400 Body weight 75.57 kg Vanesa Bullock CNP Work Phone: [facility] Work Phone: 02-14-2024 08:44-0400 Diastolic blood pressure 77 mm[Hg] Vanesa Bullock CNP Work Phone: [facility] Work Phone: 02-14-2024 08:44-0400 Heart rate 77 /min Vanesa Bullock CNP Work Phone: [facility] Work Phone: 02-14-2024 08:44-0400 SaO2% (BldA) [Mass fraction] 97 % Vanesa Bullock CNP Work Phone: [facility] Work Phone: 02-14-2024 08:44-0400 Systolic blood pressure 112 mm[Hg] Vanesa Bullock CNP Work Phone: [facility] Work Phone: 12-18-2023 14:51-0400 Body height 170.18 cm Vanesa Bullock CNP Work Phone: [facility] Work Phone: 12-18-2023 14:51-0400 Body mass index (BMI) [Ratio] 26.2 kg/m2 Vanesa Bullock CNP Work Phone: [facility] Work Phone: 12-18-2023 14:51-0400 Body surface area Derived from formula 1.9 m2 Vanesa Bullock CNP Work Phone: [facility] Work Phone: 12-18-2023 14:51-0400 Body weight 75.93 kg Vanesa Bullock CNP Work Phone: [facility] Work Phone: 12-18-2023 14:51-0400 Diastolic blood pressure 85 mm[Hg] Vanesa Bullock MANUFACTURING EXECUTIVE Work Phone: [facility] Work Phone: 12-18-2023 14:51-0400 Heart rate 71 /min Vanesa Bullock CNP Work Phone: [facility] Work Phone: 12-18-2023 14:51-0400 SaO2% (BldA) [Mass fraction] 98.9 % Vanesa Bullock MANUFACTURING EXECUTIVE Work Phone: [facility] Work Phone: 12-18-2023 14:51-0400 Systolic blood pressure 132 mm[Hg] Vanesa uBllock MANUFACTURING EXECUTIVE Work Phone: [facility] Work Phone: 05-23-2023 09:10-0400 Body height 170.18 cm Vanesa Bullock CNP Work Phone: [facility] Work Phone: 05-23-2023 09:10-0400 Body mass index (BMI) [Ratio] 25.2 kg/m2 Vanesa Bullock CNP Work Phone: [facility] Work Phone: 05-23-2023 09:10-0400 Body surface area Derived from formula 1.8 m2 Vanesa Bullock CNP Work Phone: [facility] Work Phone: 05-23-2023 09:10-0400 Body weight 73.03 kg Vanesa Bullock CNP Work Phone: [facility] Work Phone: 05-23-2023 09:10-0400 Diastolic blood pressure 71 mm[Hg] Vanesa Bullock MANUFACTURING EXECUTIVE Work Phone: [facility] Work Phone: 05-23-2023 09:10-0400 Heart rate 66 /min Vanesa Bullock CNP Work Phone: [facility] Work Phone: 05-23-2023 09:10-0400 SaO2% (BldA) [Mass fraction] 98 % Vanesa Bullock CNP Work Phone: [facility] Work Phone: 05-23-2023 09:10-0400 Systolic blood pressure 110 mm[Hg] Vanesa Bullock CNP Work Phone: [facility] Work Phone: 01-02-2023 14:10-0400 Body height 170.18 cm Mayuri Margie Other [facility] Other 01-02-2023 14:10-0400 Body mass index (BMI) [Ratio] 26.03 kg/m2 Mayuri Margie Other [facility] Other 01-02-2023 14:10-0400 Body temperature 97.3 [degF] Mayuri Margie Other [facility] Other 01-02-2023 14:10-0400 Body weight 75.39 kg Mayuri Margie Other [facility] Other 01-02-2023 14:10-0400 Respiratory rate 18 /min Mayuri Margie Other [facility] Other 01-02-2023 14:10-0400 SaO2% (BldA) [Mass fraction] 99 % Mayuri Margie Other [facility] Other Encounters Encounter Date Encounter Type Care Provider Facility Start: 04-25-2025 End: 04-25-2025 ambulatory Shelly Mei MANUFACTURING EXECUTIVE Work Phone: [facility] Work Phone: Start: 04-21-2025 End: 04-21-2025 Office outpatient visit 15 minutes Arcelia Reed DO Work Phone: [facility] Comment on above: Yeast infection (Bernie cardona Dx); Vaginal dryness Start: 04-21-2025 End: 04-21-2025 ambulatory ARCELIA REED Not Available Start: 04-21-2025 End: 04-21-2025 Bamboo flowsheet Arcelia Reed DO Work Phone: [facility] Start: 04-21-2025 End: 04-21-2025 Bamboo flowsheet Arcelia Reed DO Work Phone: [facility] Start: 04-14-2025 End: 04-14-2025 [facility] visit, estab pt Maira Munson NURSING TECH Work Phone: [facility] Work Phone: Start: 04-14-2025 End: 04-14-2025 Patient encounter procedure Shelly Guzmaner MANUFACTURING EXECUTIVE Work Phone: [facility] Work Phone: Start: 04-14-2025 End: 04-14-2025 [facility] visit, estab pt Maira Munson NURSING TECH Work Phone: [facility] Work Phone: Start: 03-18-2025 End: 03-18-2025 Bamboo flowsheet Callie SNELL Work Phone: [facility] Start: 03-18-2025 End: 03-20-2025 Bamboo flowsheet Callie SNELL Work Phone: [facility] Start: 03-18-2025 End: 03-20-2025 External Result Encounter Callie SNELL Work Phone: [facility] External Department Unsolicited Start: 03-18-2025 End: 03-18-2025 Office outpatient visit 15 minutes Callie SNELL Work Phone: [facility] Comment on above: Vaginal dryness Start: 03-18-2025 End: 03-18-2025 ambulatory CALLIE PASCUAL Not Available Start: 09-12-2024 End: 09-12-2024 [facility] visit, estab pt Maira Munson NURSING TECH Work Phone: [facility] Work Phone: Start: 09-12-2024 End: 05-07-2024 [facility] visit, estab pt Maira Munson NURSING TECH Work Phone: [facility] Work Phone: Start: 09-12-2024 End: 09-12-2024 ambulatory Shelly Mei MANUFACTURING EXECUTIVE Work Phone: [facility] Work Phone: Start: 07-24-2024 End: 07-24-2024 Office outpatient visit 15 minutes Callie SNELL Work Phone: [facility] Comment on above: Encounter for routin e checking of intrauterine contraceptive device (IUD); Breakthrough bleeding with IUD Start: 07-24-2024 End: 07-24-2024 ambulatory CALLIE PASCUAL Not Available Start: 05-14-2024 End: 05-14-2024 ambulatory ARCELIA MCBRIDE Not Available Start: 05-07-2024 End: 05-07-2024 ambulatory Shelly Mei MANUFACTURING EXECUTIVE Work Phone: [facility] Work Phone: Start: 05-07-2024 End: 05-07-2024 [facility]QHC visit, estab pt Maira Munson NURSING TECH Work Phone: [facility] Work Phone: Start: 05-04-2024 End: 05-05-2024 Emergency department patient visit [facility] Start: 04-23-2024 End: 04-23-2024 FQ visit, estab pt Maira Munson NURSING TECH Work Phone: [facility] Work Phone: Start: 04-23-2024 End: 04-23-2024 ambulatory Vanesa Bullokc MANUFACTURING EXECUTIVE Work Phone: [facility] Work Phone: Start: 03-18-2024 End: 03-18-2024 Emergency department patient visit [facility] Start: 02-14-2024 End: 02-14-2024 ambulatory Vanesa Bullock MANUFACTURING EXECUTIVE Work Phone: [facility] Work Phone: Start: 12-18-2023 End: 12-18-2023 [facility]QHC visit, estab pt Vanesa Bullock MANUFACTURING EXECUTIVE Work Phone: [facility] Work Phone: Start: 08-10-2023 End: 05-23-2023 General Vanesa Bullock MANUFACTURING EXECUTIVE Work Phone: [facility] Work Phone: Start: 07-26-2023 ambulatory Joel Nguyen acility:[facility] Start: 05-23-2023 End: 05-23-2023 [facility] visit new patient Vanesa Bullock MANUFACTURING EXECUTIVE Work Phone: [facility] Work Phone: Start: 02-08-2023 End: 02-08-2023 ambulatory [facility] Facility: Start: 01-02-2023 Office outpatient vi sit 15 minutes Mayuri Hanson [facility] Start: 01-02-2023 End: 01-02-2023 ambulatory PHYSICIAN NO [facility] Work Phone: Start: 01-02-2023 End: 01-02-2023 Patient encounter procedure PHYSICIAN NO [facility] Work Phone: Start: 04-05-2021 End: 04-05-2021 Patient encounter procedure Kaylyn Spring Work Phone: -Pre-Surgical Testing Procedures Date Procedure Procedure Detail Performing Clinician Start: 04-25-2025 Current tobacco non-user cad cap copd pv dm Shelly Mei CNP Work Phone: Start: 04-25-2025 Most recent diastolic blood pressure < 80 mm hg Shelly Mei CNP Work Phone: Start: 04-25-2025 Most recent systolic blood pressure <130 mm hg Shelly Mei CNP Work Phone: Start: 04-14-2025 Current tobacco non-user cad cap copd pv dm Shelly Mei CNP Work Phone: Start: 04-14-2025 Hemoglobin glycosylated a1c Shelly Mei CNP Work Phone: Start: 04-14-2025 Most recent diastolic blood pressure < 80 mm hg Shelly Mei CNP Work Phone: Start: 04-14-2025 Most recent hemoglobin a1c level < 7.0% Shelly Mei CNP Work Phone: Start: 04-14-2025 Most recent systolic blood pressure <130 mm hg Shelly Mei CNP Work Phone: Start: 04-14-2025 Psychotherapy w/patient 30 minutes Maira Munson NURSING TECH Work Phone: Start: 04-14-2025 Screening for disorder Visit For: Screening For Disorder Maira YINW Work Phone: Start: 03-18-2025 RECURRENT VAGINITIS (HTRX) Callie SNELL Work Phone: Start: 03-18-2025 Urnls dip stick/tablet rgnt non-auto w/o micrscp Callie SNELL Work Phone: Start: 09-12-2024 Behav assmt w/score & docd/stand instrument Maira YINW Work Phone: Start: 09-12-2024 Current tobacco non-user cad cap copd pv dm Shelly Mei CNP Work Phone: Start: 09-12-2024 Most recent diastolic blood pressure 80-89 mm hg Shelly Mei CNP Work Phone: Start: 09-12-2024 Most recent systolic blood press 130-139mm hg Shelly Mei MANUFACTURING EXECUTIVE Work Phone: Start: 09-12-2024 Screening for disorder Visit For: Screening For Disorder Maira Munson [facility] Work Phone: Start: 05-14-2024 Microscopic observation [Identifier] in Cervix by Cyto stain Arceliaalma Mcbride Work Phone: Start: 05-14-2024 Cytp cerv/vag auto thin layer prep mnl screen Callie SNELL Work Phone: Start: 05-07-2024 Current tobacco non-user cad cap copd pv dm Maira Munson NURSING TECH Work Phone: Start: 05-07-2024 Most recent diastolic blood pressure < 80 mm hg Shlely Mei MANUFACTURING EXECUTIVE Work Phone: Start: 05-07-2024 Most recent systolic blood pressure <130 mm hg Shelly Mei MANUFACTURING EXECUTIVE Work Phone: Start: 05-07-2024 Psychotherapy w/patient 30 minutes Maira Munson NURSING TECH Work Phone: Start: 05-07-2024 Screening for disorder Visit For: Screening For Disorder Maira Munson [facility] Work Phone: Start: 04-23-2024 Behav assmt w/score & docd/stand instrument Maira Munson [facility] Work Phone: Start: 04-23-2024 Body mass index documented Vanesa antonio MANUFACTURING EXECUTIVE Work Phone: Start: 04-23-2024 Current tobacco non-user cad cap copd pv dm Vanesa Bullock MANUFACTURING EXECUTIVE Work Phone: Start: 04-23-2024 Depression screening Visit For: Screening Exam Depression Maira Munson NURSING TECH Work Phone: Start: 04-23-2024 Methylprednisolone 80 MG inj Vanesa zuluaga MANUFACTURING EXECUTIVE Work Phone: Start: 04-23-2024 Most recent diastolic blood pressure < 80 mm hg Vanesa Bullock MANUFACTURING EXECUTIVE Work Phone: Start: 04-23-2024 Most recent systolic blood pressure <130 mm hg Vanesa Bullock MANUFACTURING EXECUTIVE Work Phone: Start: 04-23-2024 Screening for disorder Visit For: Screening For Disorder Maira YINW Work Phone: Start: 04-23-2024 Therapeutic prophylactic/dx injection subq/im Vanesa Bullock [employer]UFA[employer]URING EXECUTIVE Work Phone: Start: 02-14-2024 Body mass index documented Vanesa antonio MANUFACTURING EXECUTIVE Work Phone: Start: 02-14-2024 Current tobacco non-user cad cap copd pv dm Vanesa Bullock MANUFACTURING EXECUTIVE Work Phone: Start: 02-14-2024 Hepatitis c antibody Vanesa Bullock MANUFACTURING EXECUTIVE Work Phone: Start: 02-14-2024 Most recent diastolic blood pressure < 80 mm hg Vanesa Bullock MANUFACTURING EXECUTIVE Work Phone: Start: 02-14-2024 Most recent systolic blood pressure <130 mm hg Vanesa Bullock MANUFACTURING EXECUTIVE Work Phone: Start: 12-18-2023 Current tobacco non-user cad cap copd pv dm Vanesa Bullock MANUFACTURING EXECUTIVE Work Phone: Start: 12-18-2023 Most recent diastolic blood pressure 80-89 mm hg Vanesa Bullock MANUFACTURING EXECUTIVE Work Phone: Start: 12-18-2023 Most recent systolic blood press 130-139mm hg Vanesa Bullock MANUFACTURING EXECUTIVE Work Phone: Start: 12-18-2023 Psychotherapy w/patient 30 minutes Radha GAONA Work Phone: Start: 05-23-2023 Cholecystectomy Vanesa Bullock MANUFACTURING EXECUTIVE Work Phone: Start: 05-23-2023 Hemoglobin glycosylated a1c Vanesa Alvarenga nce MANUFACTURING EXECUTIVE Work Phone: Start: 05-23-2023 Laparoscopic cholecystectomy Vanesa zuluaga MANUFACTURING EXECUTIVE Work Phone: Start: 05-23-2023 Most recent diastolic blood pressure < 80 mm hg Vanesa Bullock MANUFACTURING EXECUTIVE Work Phone: Start: 05-23-2023 Most recent hemoglobin a1c level < 7.0% Vanesa Bullock MANUFACTURING EXECUTIVE Work Phone: Start: 05-23-2023 Most recent systolic blood pressure <130 mm hg Vanesa Bullock MANUFACTURING EXECUTIVE Work Phone: Start: 05-23-2023 Pt-focused hlth risk assmt score doc stnd instrm Vanesa Bullock MANUFACTURING EXECUTIVE Work Phone: Start: 02-08-2023 Microscopic observation [Identifier] in Cervix by Cyto stain Callie SNELL Work Phone: Start: 01-02-2023 Plain X-ray of right hand PHYSICIAN RAYNA DIANE Plan of Treatment Date Care Activity Detail Author Start: 05-14-2029 Screening for malignant neoplasm of cervix [facility] Start: 02-08-2026 Screening for malignant neoplasm of cervix [facility] Start: 06-09-2025 Influenza vaccination [facility] Start: 05-21-2025 End: 05-21-2025 Patient encounter procedure 05/21/2025 4:00 PM EDT Office Visit [facility] [address] [place] [id number] Arcelia Mcbride, DO [address] [place], [place] [id number] [facility] Start: 04-25-2025 CBC W Auto Differential panel - Blood [facility] Start: 04-25-2025 End: 04-25-2025 Patient education based on identified need [facility] Start: 04-21-2025 End: 04-21-2025 Patient encounter procedure 04/21/2025 3:50 PM EDT Office Visit [facility] [address] [place] [phone] Arcelia Mcbride, [address] [place], [place] [id number] Vaginal dryness [facility] Comment on above: Vaginal dryness Start: 04-14-2025 Bacteria identified in Urine by Culture [facility] Start: 04-14-2025 End: 04-14-2025 Patient education based on identified need [facility] Start: 03-18-2025 End: 03-18-2025 Patient encounter procedure 03/18/2025 11:20 AM EDT Office Visit [facility] [address] [place] [phone] Callie Pascual PA [address] [facility] [place] [address] Arrived [facility] Comment on above: Arrived Start: 09-12-2024 End: 09-12-2024 Patient education based on identified need [facility] Start: 07-24-2024 End: 07-24-2025 US Pelvis transvaginal US pelvis transvaginal Imaging Routine Breakthrough bleeding with IUD Expected: 07/24/2024 (Approximate), Expires: 07/24/2025 [facility] Work Phone: Comment on above: Expected: 07/24/2024 (Approximate), Expires: 07/24/2025 Start: 06-09-2024 Influenza vaccination Influenza Vacc ine (#1) [facility] Start: 06-06-2024 [facility] Start: 05-27-2024 FQHC visit, estab pt Medical E stablished Patient [facility] Work Phone: Start: 05-07-2024 End: 05-07-2024 Patient education based on identified need [facility] Start: 04-23-2024 End: 04-23-2024 Patient education based on identified need [facility] Start: 03-01-2024 FQHC visit, estab pt He alth [facility] Work Phone: Start: 02-14-2024 End: 02-14-2024 Patient education based on identified need [facility] Start: 12-22-2023 FQHC visit, estab pt Medical E stablished Patient [facility] Work Phone: Start: 12-18-2023 End: 12-18-2023 Patient education based on identified need [facility] Start: 05-23-2023 Gastroenterology [facility] Work Phone: Comment on above: Note: Please make a referral to: Start: 05-23-2023 End: 05-23-2023 Patient education based on identified need [facility] Start: 2020 Screening for malignant neoplasm of cervix HPV/Cotest [facility] CHLAMYDIA TRACHOMATI S (GENITO/STI) CHLAMYDIA TRACHOMATIS (GENITO/STI) Lab Routine Vaginal dryness Ordered: 03/18/2025 [facility] Comment on above: Ordered: 03/18/2025 Neisseria gonorrhoea e DNA [Presence] in Unspecified specimen by JAXON with probe detection Neisseria gonorrhea DNA probe, direct Lab Routine Vaginal dryness Ordered: 03/18/2025 [facility] Comment on above: Ordered: 03/18/2025 SURESWAB(R) ADVANCED VAGINITIS PLUS, TMA SURESWAB(R) ADVANCED VAGINITIS PLUS, TMA Pathology and Cytology Routine Vaginal dryness Ordered: 03/18/2025 [facility] Work Phone: Comment on above: Ordered: 03/18/2025 Immunizations Immunization Date Immunization Notes Care Provider Catherine [facility] 05-11-2021 hepatitis B vaccine, adult dosage Vanesa Bullock MANUFACTURING EXECUTIVE Work Phone: [facility] 2020 hepatitis B vaccine, adult dosage Vanesa Bullock MANUFACTURING EXECUTIVE Work Phone: [facility] 04-24-2020 hepatitis B vaccine, pediatric or pediatric/adolescent dosage Vanesa Bullock MANUFACTURING EXECUTIVE Work Phone: [facility] 03-20-2000 measles, mumps and rubella virus vaccine Vanesa Bullock MANUFACTURING EXECUTIVE Work Phone: [facility] 06-28-1994 diphtheria, tetanus toxoids and pertussis vaccine Vanesa Bullock MANUFACTURING EXECUTIVE Work Phone: [facility] 06-28-1994 measles, mumps and rubella virus vaccine Vanesa Bullock MANUFACTURING EXECUTIVE Work Phone: [facility] 06-28-1994 trivalent poliovirus vaccine, live, oral Vanesa Bullock MANUFACTURING EXECUTIVE Work Phone: [facility] 1990 diphtheria, tetanus toxoids and pertussis vaccine Vanesa Bullock MANUFACTURING EXECUTIVE Work Phone: [facility] 1990 diphtheria, tetanus toxoids and pertussis vaccine Vanesa Bullock MANUFACTURING EXECUTIVE Work Phone: [facility] 1990 trivalent poliovirus vaccine, live, oral Vanesa Bullock MANUFACTURING EXECUTIVE Work Phone: [facility] 1990 diphtheria, tetanus toxoids and pertussis vaccine Vanesa Bullock MANUFACTURING EXECUTIVE Work Phone: [facility] 1990 trivalent poliovirus vaccine, live, oral Vanesa Bullock MANUFACTURING EXECUTIVE Work Phone: [facility] Payers Date Payer Category Payer Private Health Insurance [facility] [employer] [id number] 2023 Self-pay [id number] 1990 Unknown [id number] 1990 Unknown [id number] 1286 1990 Unknown [id number] 1990 Unknown [id number] 1286 1990 Unknown [id number] 1259 1990 Unknown [id number] 1259 1990 Unknown [id number] 1259 1990 Unknown [id number] 1259 1959 Medicaid [id number] Unknown [id number] Unknown [id number] Unknown [employer] [id number] Unknown [id number] Unknown [id number] Social History Date Type Detail Facility Tobacco smoking status NHIS Unknown if ever smoked [facility] Start: 1990 Sex Assigned At Female [facility] Start: 05-14-2024 Sex Assigned At [facility] [employer] Other Assertion Social drinker (finding) [facility] Assertion Sexually active (finding) [facility] Assertion [facility] Assertion Gender identity finding (finding) [facility] [place] Finding of sexua l orientation (finding) [facility] Tobacco smoking status Unknown if ever smoked [facility] Work Phone: Assertion Lives alone (finding) [facility] Assertion Full-time employ ment (finding) [facility] Assertion Emotional stress (finding) [facility] Assertion Lives with famil y (finding) [facility] Assertion Patient has move d away (finding) [facility] Start: 05-14-2024 Tobacco smoking status NHIS Never smoked tobacco [facility] Start: 05-14-2024 Tobacco use and exposure Smokeless tobacco non-user [facility] Start: 07-24-2024 Alcoholic beverage intake Lifetime non-drinker (finding) [facility] Start: 05-14-2024 History of Social function [facility] Start: 1990 Sex assigned at Not on file [facility] NEGATED: Highlighted row Assertion Exposure to pollution (event) [facility] NEGATED: Highlighted row Assertion [facility] NEGATED: Highlighted row Assertion Current drinker of alcohol (finding) [facility] NEGATED: Highlighted row Assertion Misuses drugs (finding) [facility] NEGATED: Highlighted row Assertion Sexually active (finding) [facility] NEGATED: Highlighted row Assertion Finding relating to drug misuse behavior (finding) [facility] NEGATED: Highlighted row Assertion Emotional stress (finding) [facility] Mental Status Date Assessment Result Facility Cognitive function Oriented to t sandrine, place, and person Oriented to person, time and place (finding) [facility] Work Phone: Clinical Notes 06-09-2019 to 04-25-2025 Note Date & Type Note Facility 04-25-2025 Evaluation note Includes: Assessments for all patient encounters Findings [Body mass index [BMI] 26.0-26.9, adult] assessment of body mass index [facility] with Shelly Mei MANUFACTURING EXECUTIVE 04/25/2025 Last Documented On 5 2:12PM ; [facility] Generalized anxiety disorder BH Established Marga ent with Maira Munson [facility] 04/14/2025 Last Documented On 5 3:32PM ; [facility] Mild recurrent major depression BH Estab lished Patient with Maira Munson [facility] 04/14/2025 Last Documented On 5 3:32PM ; [facility] Visit for: screening for disorder BH Est ablished Patient with Maira Munson [facility] 04/14/2025 Last Documented On 5 3:32PM ; [facility] [Acute vaginitis] vaginitis Medical Esta blished Patient with Shelly Mei MANUFACTURING EXECUTIVE 04/14/2025 Last Documented On 5 12:19PM ; [facility] [Body mass index [BMI] 26.0- 26.9, adult] assessment of body mass index Medical Established Patient with Shelly Hamida MANUFACTURING EXECUTIVE 04/14/2025 Last Documented On 5 12:19PM ; [facility] Diabetes Risk Test Score was two score 04/14/2025 Medical Established Patient with Shelly Hamida MANUFACTURING EXECUTIVE 04/14/2025 Last Documented On 5 12:19PM ; [facility] Generalized anxiety disorder BH Established Marga ent with Maira Munson NURSING TECH 09/12/2024 Last Documented On 4 9:15AM ; [facility] Mild recurrent major depression BH Estab lished Patient with Maira Munson NURSING TECH 09/12/2024 Last Documented On 4 9:15AM ; [facility] Visit for: screening for disorder BH Est ablished Patient with Maira Munson NURSING TECH 09/12/2024 Last Documented On 4 9:15AM ; [facility] [Body mass index [BMI] 27.0- 27.9, adult] assessment of body mass index Open Access - Established with Shelly Hamida MANUFACTURING EXECUTIVE 09/12/2024 Last Documented On 4 3:50PM ; [facility] Acute sinusitis Open Access - Established with Cammie Mei MANUFACTURING EXECUTIVE 09/12/2024 Last Documented On 4 3:50PM ; [facility] Generalized anxiety disorder BH Established Marga ent with Maira Munson NURSING TECH 05/07/2024 Last Documented On 4 10:55AM ; [facility] Mild recurrent major depression BH Estab lished Patient with Maira Munson NURSING TECH 05/07/2024 Last Documented On 4 10:55AM ; [facility] Visit for: screening for disorder BH Est ablished Patient with Maira Munson NURSING TECH 05/07/2024 Last Documented On 4 10:55AM ; [facility] [Body mass index [BMI] 27.0- 27.9, adult] assessment of body mass index Open Access - Established with Shelly Hamida MANUFACTURING EXECUTIVE 05/07/2024 Last Documented On 4 1:57PM ; [facility] Panic disorder without agoraphobia BH Es tablished Patient with Maira Munson NURSING TECH 04/23/2024 Last Documented On 4 7:39PM ; [facility] Visit for: screening for depression BH E stablished Patient with Maira Munson NURSING TECH 04/23/2024 Last Documented On 4 7:39PM ; [facility] Visit for: screening for disorder BH Est ablished Patient with Maira Munson NURSING TECH 04/23/2024 Last Documented On 4 7:39PM ; [facility] [Z68.27 - Body mass index [B NH] 27.0-27.9, adult] assessment of body mass index Open Access - Established with Vanesa Bullock MANUFACTURING EXECUTIVE 04/23/2024 Last Documented On 4 8:19AM ; [facility] Assessment of BMI Percentile = 5% to < 85% for age Z68.52 Open Access - Established with Vanesa Bullock MANUFACTURING EXECUTIVE 04/23/2024 Last Documented On 4 8:19AM ; [facility] Generalized anxiety disorder Open Access - Established with Vanesa Bullock [facility] 04/23/2024 Last Documented On 4 8:19AM ; [facility] Lumbar sprain Open Access - Established with A cora Bullock MANUFACTURING EXECUTIVE 04/23/2024 Last Documented On 4 8:19AM ; [facility] Thoracic sprain Open Access - Established with A cora Bullock MANUFACTURING EXECUTIVE 04/23/2024 Last Documented On 4 8:19AM ; [facility] [Z68.26 - Body mass index [B NH] 26.0-26.9, adult] assessment of body mass index Open Access - Established with Vanesa Bullock MANUFACTURING EXECUTIVE 02/14/2024 Last Documented On 4 4:26PM ; [facility] Lower back sprain Open Access - Established with Vanesa Bullock CNP 02/14/2024 Last Documented On 4 4:26PM ; [facility] Muscle spasm of back Open Access - Established w ith Vanesa Bullock MANUFACTURING EXECUTIVE 02/14/2024 Last Documented On 4 4:26PM ; [facility] Screening for HIV Open Access - Established with Vanesa Bullock MANUFACTURING EXECUTIVE 02/14/2024 Last Documented On 4 4:26PM ; [facility] Visit for: screening for dig estive system disorders Open Access - Established with Vanesa Bullock MANUFACTURING EXECUTIVE 02/14/2024 Last Documented On 4 4:26PM ; [facility] Generalized anxiety disorder BH Establis hed Patient with Ardha Short 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 12/18/2023 Last Documented On 4 4:35PM ; [facility] Mild recurrent major depress ion per patient reported history BH Established Patient with Radha Short [employer]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[employer] 12/18/2023 Last Documented On 4 4:35PM ; [facility] [Z68.26 - Body mass index [B NH] 26.0-26.9, adult] assessment of body mass index Medical Established Patient with Vanesa Bullock MANUFACTURING EXECUTIVE 12/18/2023 Last Documented On 4 12:19PM ; [facility] Acute gastritis without hemorrhage Medic al Established Patient with aVnesa Bullock MANUFACTURING EXECUTIVE 12/18/2023 Last Documented On 4 12:19PM ; [facility] Esophageal reflux without esophagitis Me dical Established Patient with Vanesa Bullock MANUFACTURING EXECUTIVE 12/18/2023 Last Documented On 4 12:19PM ; [facility] Generalized anxiety disorder Medical Est ablished Patient with Vanesa Bullock [facility] 12/18/2023 Last Documented On 4 12:19PM ; [facility] [Z68.25 - Body mass index [B NH] 25.0-25.9, adult] assessment of body mass index Medical New Patient with Vanesa Bullock MANUFACTURING EXECUTIVE 05/23/2023 Last Documented On 3 8:59AM ; [facility] Chronic gastritis Medical New Patient with Brendan Bullock MANUFACTURING EXECUTIVE 05/23/2023 Last Documented On 3 8:59AM ; [facility] Diabetes Risk Test Score was one score 05/23/2023 Medical New Patient with Vanesa Bullock MANUFACTURING EXECUTIVE 05/23/2023 Last Documented On 3 8:59AM ; [facility] Work Phone: [phone]) 816-853007-18-2025 Progress note* Progress note Date Encounter Last Documented by 04/25/2025 [facility] Last documented on 04/25/2025; 2:12 PM, Shelly Mei CNP; [facility] Active Problems & Conditions - B35.1 - Dermatophytosis Onychomycosis Toenails - K21.9 - Esophageal Reflux Without Esophagitis - K29.00 - Gastritis Acute Without Hemorrhage - K29.51 - Gastritis Chronic - F41.1 - Generalized Anxiety Disorder - F33.0 - Major Depression Recurrent Mild Chief Complaint The Chief Complaint is: Pt here for toenail fungus bilateral. Pt just saw SENIOR MECHANICAL TECHNICIAN, Dr. Reed [place], seeing him again on 05/06. Referred Here No prior encounters. - Data to be reviewed: no clinical lab tests History of Present Illness Mariola Etienne is a 34 year old female. - Allergy list reviewed - Reviewed Medications - test - would not like a test Patient presents for follow up Reports that vaginal symptoms are getting better and she seen OBGYN Would like treatment for toenail fungus Current Medication - Mirena (52 MG) 20 MCG/DAY Intrauterine Intrauterine device 0 days, 0 refills Past Medical/Surgical History Reported: No Safety Measures. Medical: No medical history or no significant history, no previous hospitalizations, and no Previous hospitalizations or recent ER visits. : Not planning a in the next year. Surgical: - Cholecystectomy - Laparoscopic cholecystectomy Social History Environmental Exposure: No secondhand cigarette smoke exposure. Behavioral: Not a current tobacco/nicotine user. Alcohol: A social drinker. Drug Use: Using marijuana. Sexual: Sexually active. Allergies - Bee sting Reaction: Hives / Urticaria - NO KNOWN DRUG ALLERGIES - NO KNOWN FOOD ALLERGIES Family History No significant medical history Review Of Systems Head: No head symptoms. Otolaryngeal: No nose and sinus finding. Cardiovascular: No cardiovascular symptoms. Gastrointestinal: No gastrointestinal symptoms. Genitourinary: No genitourinary symptoms. Musculoskeletal: No musculoskeletal symptoms. Neurological: No neurological symptoms. Psychological: No psychological symptoms. Skin: No skin symptoms. Physical Findings - Vitals taken 04/25/2025 09:08 am BP-Sitting L122/77 mmHg BP Cuff SizeRegular Pulse Rate-Dnarqpy68 bpm Respiration Rate18 per min Temp-Oral98.3 F Kgdwbb74 in Yxzwzt547 lbs Body Mass Index26.9 kg/m2 Body Surface Area1.9 m2 Oxygen Ijbueggouz55 % Vital Signs: - Systolic blood pressure < 130 mmHg. - Diastolic Blood Pressure < 80 mmHg. General Appearance: - Awake. - Alert. - Well developed. Lungs: - Respiration rhythm and depth was normal. Musculoskeletal System: General/bilateral: - Normal movement of all extremities. Neurological: - Oriented to time, place, and person. Psychiatric: - Expression of emotions normal. Nails: - Normal thickened yellowish bilateral toe nails. Tests Laboratory-based Chemistry: Other Laboratory Tests: Screening for sexually transmitted infections was not performed. Assessment - Body mass index [Body mass index [BMI] 26.0-26.9, adult] Therapy - Patient refused flu vaccine. Discussed benefits of flu vaccine with Patient. Counseling/Education - Discussed nutritional needs teach healthy choices including fruits and vegetables - Patient education about a proper diet - Discussed concerns about exercise: promote physical activity Plan StartCited- Encounter for general adult medical exam w abnormal findings Lab: CBC With Differential/Platelet Lab: TSH+Free T4 Lab: Lipid Panel With LDL/HDL Ratio Lab: Comp. Metabolic Panel (14) EndCited StartCited- Tinea unguium Terbinafine HCl 250 MG tablet Take one tablet daily, 30 days, 2 refills EndCited Care Team - Vanesa Bullock CNP User Defined 1 Not planning a in the next year. [facility]07-18-2025 Instructions Includes: Instructions for all patient encounters Education and Decision Aids were provided during visit for: Discussed nutritional needs teach healthy choices including fruits and vegetables Last Documented On 5 9:12AM ; [facility] Patient education about a pr oper diet Last Documented On 5 9:12AM ; [facility] Discussed concerns about exe rcise : promote physical activity Last Documented On 5 9:12AM ; [facility] ~*[facility] offered active and sup portive listening, normalized emotions and feelings, and processed ~current stressors. ~*Discussed healthy coping skills and positive supports in patient's life Last Documented On 5 3:32PM ; [facility] Discussed nutritional needs teach healthy choices including fruits and vegetables Last Documented On 5 8:57AM ; [facility] Patient education about a pr oper diet Last Documented On 5 8:57AM ; [facility] Discussed concerns about exe rcise : promote physical activity ~ ~Follow up next week for exam if symptoms still present after treatment Last Documented On 5 12:18PM ; [facility] Referred Patient to a Diabet es Self-Management Program Last Documented On 5 9:20AM ; [facility] ~*[facility] offered active and sup portive listening, normalized emotions and feelings, and processed ~current stressors. ~*Educated patient on the benefit of counseling and provided patient with a list of resources Last Documented On 4 12:14PM ; [facility] Discussed nutritional needs teach healthy choices including fruits and vegetables Last Documented On 4 3:32PM ; [facility] Patient education about a pr oper diet Last Documented On 4 3:32PM ; [facility] Discussed concerns about exe rcise : promote physical activity ~ ~Increase fluids and rest Last Documented On 4 3:50PM ; [facility] Not requesting contraception Last Documented On 4 3:32PM ; [facility] ~*[facility] offered active and sup portive listening, normalized emotions and feelings, and processed ~current stressors Last Documented On 4 10:55AM ; [facility] Discussed nutritional needs teach healthy choices including fruits and vegetables Last Documented On 4 8:41AM ; [facility] Patient education about a pr oper diet Last Documented On 4 8:41AM ; [facility] Discussed concerns about exe rcise : promote physical activity ~ ~Will start hydroxyzine for anxiety ~ ~Will refill ibuprofen and cyclobenzaprine for back pain ~ ~Due to cardiac symptoms will do cardiac testing ~ ~ ~Has a hisotry of GERD will restart pantoprazole ~ ~Follow up with PCP in 4 weeks Last Documented On 4 1:57PM ; [facility] Not requesting contraception Last Documented On 4 8:41AM ; [facility] ~*[facility] offered active and sup portive listening, normalized emotions and feelings, and processed ~current stressors. ~*Utilize healthy coping skills and positive supports in patient's life. ~ Last Documented On 4 7:38PM ; [facility] Discussed nutritional needs teach healthy choices including fruits and vegetables Last Documented On 4 11:13AM ; [facility] Patient education about a pr oper diet Last Documented On 4 11:13AM ; [facility] Discussed concerns about exe rcise : promote physical activity Last Documented On 4 11:13AM ; [facility] Discussed nutritional needs teach healthy choices including fruits and vegetables Last Documented On 4 8:48AM ; [facility] Patient education about a pr oper diet Last Documented On 4 8:48AM ; [facility] Discussed concerns about exe rcise : promote physical activity Last Documented On 4 8:48AM ; [facility] offered active and suppo rtive listening, normalized emotions and feelings, processed current stressors and explored coping and stress reducing skills. ~P discussed coping skills to manage increased anxiety including mindfulnes, grounding and breathing techniques. ~P discussed options for finding in-person and telehealth providers for therapy. ~[facility] encouraged patient to continue to follow-up with addressing physical health concerns Last Documented On 4 4:35PM ; [facility] Discussed nutritional needs teach healthy choices including fruits and vegetables Last Documented On 4 2:55PM ; [facility] Patient education about a pr oper diet Last Documented On 4 2:55PM ; [facility] Discussed concerns about exe rcise : promote physical activity Last Documented On 4 2:55PM ; [facility] Discussed nutritional needs teach healthy choices including fruits and vegetables Last Documented On 3 9:14AM ; [facility] Patient education about a pr oper diet Last Documented On 3 9:14AM ; [facility] Discussed concerns about exe rcise : promote physical activity Last Documented On 3 9:14AM ; [facility] Work Phone: 1(762) 116-816307-14-2025 History of Present illness Narrative* ALIS Gorman - 04/21/2025 3:50 PM EDT Reason for Appointment: Patient ID: Mariola Etienne is a 34 y.o. female who presents for Vaginal Dryness Patient presents today for Acute Visit. MEDICATIONS Current Outpatient Medications Medication Instructions fluconazole (DIFLUCAN) 150 mg, Oral, Once, This is a 1 time dose, take single tablet by mouth. metroNIDAZOLE (FLAGYL) 500 mg, Oral, 2 times daily, Do not drink alcohol while taking this medication Mirena (52 MG) 52 mg, Daily ALLERGIES No Known Allergies PROBLEMS Active Ambulatory Problems Diagnosis Date Noted No Active Ambulatory Problems Resolved Ambulatory Problems Diagnosis Date Noted No Resolved Ambulatory Problems Past Medical History: Diagnosis Date Bacterial vaginosis 01/11/24 Chlamydia 01/11/24 HISTORY PAST MEDICAL HISTORY SOCIAL HISTORY Past Medical History: Diagnosis Date Bacterial vaginosis 01/11/24 Chlamydia 01/11/24 Social History Tobacco Use Smoking status: Never Smokeless tobacco: Never Substance Use Topics Alcohol use: Never Drug use: Never FAMILY HISTORY No family history on file. SURGICAL HISTORY Past Surgical History: Procedure Laterality Date CHOLECYSTECTOMY 2019 REVIEW OF SYSTEMS Review of Systems: Review of Systems Constitutional: Negative. HENT: Negative. Eyes: Negative. Respiratory: Negative. Cardiovascular: Negative. Gastrointestinal: Negative. Genitourinary: Negative. Musculoskeletal: Negative. Skin: Negative. Neurological: Negative. All other systems reviewed and are negative. Hematological: Negative. Endocrine: Negative. Allergic/Immunologic: Negative. OBJECTIVE Objective: Physical Exam Constitutional: Appearance: Normal appearance. She is normal weight. HENT: Head: Normocephalic. Cardiovascular: Rate and Rhythm: Normal rate. Pulses: Normal pulses. Pulmonary: Effort: Pulmonary effort is normal. Breath sounds: Normal breath sounds. Abdominal: Palpations: Abdomen is soft. Musculoskeletal: General: Normal range of motion. Neurological: General: No focal deficit present. Mental Status: She is alert and oriented to person, place, and time. Psychiatric: Mood and Affect: Mood normal. Behavior: Behavior normal. Thought Content: Thought content normal. Judgment: Judgment normal. Vitals and nursing note reviewed. Vitals: Estimated body mass index is 26.98 kg/m as calculated from the following: Height as of this encounter: 5' 7 . Weight as of this encounter: 172 lb 4 oz. BP: 112/80 No LMP recorded. (Menstrual status: IUD). ASSESSMENT & PLAN ICD-10-CM 1. Yeast infection B37.9 fluconazole (Diflucan) 150 MG tablet 2. Vaginal dryness N89.8 metroNIDAZOLE (Flagyl) 500 MG tablet DISCONTINUED: metroNIDAZOLE (Nuvessa) 1.3 % gel Patient presents to discuss repeat BV infection. Patient placed on metrogel but caused yeast infection and she stopped after 2 days. We will send in diflucan and metrodonizole for one week. Patient will follow up in 2 weeks Documented by ALIS Gorman on behalf of: Arcelia Mcbride DO documented in this encounterUniversity Health Lakewood Medical [id number] Progress note* Progress note Date Encounter Last Documented by 04/16/2025 [Patient Encounter] Last docwilton duenas on 04/16/2025; 11:53 AM, Shelly Mei CNP; [facility] Active Problems & Conditions - K21.9 - Esophageal Reflux Without Esophagitis - K29.00 - Gastritis Acute Without Hemorrhage - K29.51 - Gastritis Chronic - F41.1 - Generalized Anxiety Disorder - F33.0 - Major Depression Recurrent Mild Current Medication - metroNIDAZOLE 0.75% Vaginal Gel 1 applicatorful into vagina every night for 5 days, 5 days, 0 refills - Mirena (52 MG) 20 MCG/DAY Intrauterine Intrauterine device 0 days, 0 refills Past Medical/Surgical History Reported: No Safety Measures. Medical: No medical history or no significant history, no previous hospitalizations, and no Previous hospitalizations or recent ER visits. : Not planning a in the next year. Surgical: - Cholecystectomy - Laparoscopic cholecystectomy Allergies - Bee sting Reaction: Hives / Urticaria - NO KNOWN DRUG ALLERGIES - NO KNOWN FOOD ALLERGIES Family History No significant medical history Plan StartCited- Acute vaginitis Diflucan 150 MG tablet Take one tablet every 72 hours x 2 doses, 2 days, 0 refills EndCited Care Team - Vanesa Bullock CNP [facility]07-07-2025 Evaluation note Includes: Assessments for all patient encounters Findings Encounter Date Generalized anxiety disorder BH Established Marga ent with Maira Munson NURSING TECH 04/14/2025 Last Documented On 5 3:32PM ; [facility] Mild recurrent major depression BH Estab lished Patient with Maira Munson NURSING TECH 04/14/2025 Last Documented On 5 3:32PM ; [facility] Visit for: screening for disorder BH Est ablished Patient with Maira Munson NURSING TECH 04/14/2025 Last Documented On 5 3:32PM ; [facility] [Acute vaginitis] vaginitis Medical Esta blished Patient with Shelly Mei MANUFACTURING EXECUTIVE 04/14/2025 Last Documented On 5 12:19PM ; [facility] [Body mass index [BMI] 26.0- 26.9, adult] assessment of body mass index Medical Established Patient with Shelly Mei MANUFACTURING EXECUTIVE 04/14/2025 Last Documented On 5 12:19PM ; [facility] Diabetes Risk Test Score was two score 04/14/2025 Medical Established Patient with Shelly Hamida MANUFACTURING EXECUTIVE 04/14/2025 Last Documented On 5 12:19PM ; [facility] Generalized anxiety disorder BH Established Marga ent with Maira Munson NURSING TECH 09/12/2024 Last Documented On 4 9:15AM ; [facility] Mild recurrent major depression BH Estab lished Patient with Maira Munson NURSING TECH 09/12/2024 Last Documented On 4 9:15AM ; [facility] Visit for: screening for disorder BH Est ablished Patient with Maira Munson NURSING TECH 09/12/2024 Last Documented On 4 9:15AM ; [facility] [Body mass index [BMI] 27.0- 27.9, adult] assessment of body mass index Open Access - Established with Shelly Mei MANUFACTURING EXECUTIVE 09/12/2024 Last Documented On 4 3:50PM ; [facility] Acute sinusitis Open Access - Established with Cammie Mei MANUFACTURING EXECUTIVE 09/12/2024 Last Documented On 4 3:50PM ; [facility] Generalized anxiety disorder BH Established Marga ent with Maira Munson NURSING TECH 05/07/2024 Last Documented On 4 10:55AM ; [facility] Mild recurrent major depression BH Estab lished Patient with Maira Munson NURSING TECH 05/07/2024 Last Documented On 4 10:55AM ; [facility] Visit for: screening for disorder BH Est ablished Patient with Maira Munson NURSING TECH 05/07/2024 Last Documented On 4 10:55AM ; [facility] [Body mass index [BMI] 27.0- 27.9, adult] assessment of body mass index Open Access - Established with Shelly Mei MANUFACTURING EXECUTIVE 05/07/2024 Last Documented On 4 1:57PM ; [facility] Panic disorder without agoraphobia BH Es tablished Patient with Mairasumeet Munson NURSING TECH 04/23/2024 Last Documented On 4 7:39PM ; [facility] Visit for: screening for depression BH E stablished Patient with Maira Munson NURSING TECH 04/23/2024 Last Documented On 4 7:39PM ; [facility] Visit for: screening for disorder BH Est ablished Patient with Mairasumeet Munson NURSING TECH 04/23/2024 Last Documented On 4 7:39PM ; [facility] [Z68.27 - Body mass index [B NH] 27.0-27.9, adult] assessment of body mass index Open Access - Established with Vanesa Bullock [facility] 04/23/2024 Last Documented On 4 8:19AM ; [facility] Assessment of BMI Percentile = 5% to < 85% for age Z68.52 Open Access - Established with Vanesa Bullock MANUFACTURING EXECUTIVE 04/23/2024 Last Documented On 4 8:19AM ; [facility] Generalized anxiety disorder Open Access - Established with Vanesa Bullock MANUFACTURING EXECUTIVE 04/23/2024 Last Documented On 4 8:19AM ; [facility] Lumbar sprain Open Access - Established with A cora Bullock CNP 04/23/2024 Last Documented On 4 8:19AM ; [facility] Thoracic sprain Open Access - Established with A cora Bullock MANUFACTURING EXECUTIVE 04/23/2024 Last Documented On 4 8:19AM ; [facility] [Z68.26 - Body mass index [B NH] 26.0-26.9, adult] assessment of body mass index Open Access - Established with Vanesa Bullock MANUFACTURING EXECUTIVE 02/14/2024 Last Documented On 4 4:26PM ; [facility] Lower back sprain Open Access - Established with Vanesa Bullock MANUFACTURING EXECUTIVE 02/14/2024 Last Documented On 4 4:26PM ; [facility] Muscle spasm of back Open Access - Established w ith Vanesa Bullock [facility] 02/14/2024 Last Documented On 4 4:26PM ; [facility] Screening for HIV Open Access - Established with Vanesa Bullock [facility] 02/14/2024 Last Documented On 4 4:26PM ; [facility] Visit for: screening for dig estive system disorders Open Access - Established with Vanesa Bullock MANUFACTURING EXECUTIVE 02/14/2024 Last Documented On 4 4:26PM ; [facility] Generalized anxiety disorder Establis hed Patient with Radha Short K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S 12/18/2023 Last Documented On 4 4:35PM ; [facility] Mild recurrent major depress ion per patient reported history Established Patient with Radha Short K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S 12/18/2023 Last Documented On 4 4:35PM ; [facility] [Z68.26 - Body mass index [B NH] 26.0-26.9, adult] assessment of body mass index Medical Established Patient with Vanesa Bullock MANUFACTURING EXECUTIVE 12/18/2023 Last Documented On 4 12:19PM ; [facility] Acute gastritis without hemorrhage Medic al Established Patient with Vanesa Bullock CNP 12/18/2023 Last Documented On 4 12:19PM ; [facility] Esophageal reflux without esophagitis Me dical Established Patient with Vanesa Bullock [facility] 12/18/2023 Last Documented On 4 12:19PM ; [facility] Generalized anxiety disorder Medical Est ablished Patient with Vanesa Bullock MANUFACTURING EXECUTIVE 12/18/2023 Last Documented On 4 12:19PM ; [facility] [Z68.25 - Body mass index [B NH] 25.0-25.9, adult] assessment of body mass index Medical New Patient with Vanesa Bullock MANUFACTURING EXECUTIVE 05/23/2023 Last Documented On 3 8:59AM ; [facility] Chronic gastritis Medical New Patient with Brendan Bullock [facility] 05/23/2023 Last Documented On 3 8:59AM ; [facility] Diabetes Risk Test Score was one score 05/23/2023 Medical New Patient with Vanesa Bullock [facility] 05/23/2023 Last Documented On 3 8:59AM ; [facility] Work Phone: [phone]) [phone] Evaluation note Includes: Assessments for all patient encounters Findings Encounter Date Generalized anxiety disorder BH Established Marga ent with Mairasumeet Munson [facility] 04/14/2025 Last Documented On 5 3:32PM ; [facility] Mild recurrent major depression BH Estab lished Patient with Maira Munson [facility] 04/14/2025 Last Documented On 5 3:32PM ; [facility] Visit for: screening for disorder BH Est ablished Patient with Maira Munson [facility] 04/14/2025 Last Documented On 5 3:32PM ; [facility] [Acute vaginitis] vaginitis Medical Esta blished Patient with Shelly Mei [facility] 04/14/2025 Last Documented On 5 12:19PM ; [facility] [Body mass index [BMI] 26.0- 26.9, adult] assessment of body mass index Medical Established Patient with Shelly Hamida MANUFACTURING EXECUTIVE 04/14/2025 Last Documented On 5 12:19PM ; [facility] Diabetes Risk Test Score was two score 04/14/2025 Medical Established Patient with Shelly Hamida MANUFACTURING EXECUTIVE 04/14/2025 Last Documented On 5 12:19PM ; [facility] Generalized anxiety disorder BH Established Marga ent with Maira Munson NURSING TECH 09/12/2024 Last Documented On 4 9:15AM ; [facility] Mild recurrent major depression BH Estab lished Patient with Maira Munson NURSING TECH 09/12/2024 Last Documented On 4 9:15AM ; [facility] Visit for: screening for disorder BH Est ablished Patient with Maira Munson NURSING TECH 09/12/2024 Last Documented On 4 9:15AM ; [facility] [Body mass index [BMI] 27.0- 27.9, adult] assessment of body mass index Open Access - Established with Shelly Mei CNP 09/12/2024 Last Documented On 4 3:50PM ; [facility] Acute sinusitis Open Access - Established with Cammie Mei MANUFACTURING EXECUTIVE 09/12/2024 Last Documented On 4 3:50PM ; [facility] Generalized anxiety disorder BH Established Marga ent with Maira Munson NURSING TECH 05/07/2024 Last Documented On 4 10:55AM ; [facility] Mild recurrent major depression BH Estab lished Patient with Maira Munson NURSING TECH 05/07/2024 Last Documented On 4 10:55AM ; [facility] Visit for: screening for disorder BH Est ablished Patient with Maira Munson NURSING TECH 05/07/2024 Last Documented On 4 10:55AM ; [facility] [Body mass index [BMI] 27.0- 27.9, adult] assessment of body mass index Open Access - Established with Shelly Mei MANUFACTURING EXECUTIVE 05/07/2024 Last Documented On 4 1:57PM ; [facility] Panic disorder without agoraphobia BH Es tablished Patient with Maira Munson NURSING TECH 04/23/2024 Last Documented On 4 7:39PM ; [facility] Visit for: screening for depression BH E stablished Patient with Maira Munson NURSING TECH 04/23/2024 Last Documented On 4 7:39PM ; [facility] Visit for: screening for disorder BH Est ablished Patient with Maira Munson NURSING TECH 04/23/2024 Last Documented On 4 7:39PM ; [facility] [Z68.27 - Body mass index [B NH] 27.0-27.9, adult] assessment of body mass index Open Access - Established with Vanesa Bullock CNP 04/23/2024 Last Documented On 4 8:19AM ; [facility] Assessment of BMI Percentile = 5% to < 85% for age Z68.52 Open Access - Established with Vanesa Bullock CNP 04/23/2024 Last Documented On 4 8:19AM ; [facility] Generalized anxiety disorder Open Access - Established with Vanesa Bullock CNP 04/23/2024 Last Documented On 4 8:19AM ; [facility] Lumbar sprain Open Access - Established with A cora Bullock CNP 04/23/2024 Last Documented On 4 8:19AM ; [facility] Thoracic sprain Open Access - Established with A cora Bullock CNP 04/23/2024 Last Documented On 4 8:19AM ; [facility] [Z68.26 - Body mass index [B NH] 26.0-26.9, adult] assessment of body mass index Open Access - Established with Vanesa Bullock CNP 02/14/2024 Last Documented On 4 4:26PM ; [facility] Lower back sprain Open Access - Established with Vanesa Bullock CNP 02/14/2024 Last Documented On 4 4:26PM ; [facility] Muscle spasm of back Open Access - Established w ith Vanesa Bullock MANUFACTURING EXECUTIVE 02/14/2024 Last Documented On 4 4:26PM ; [facility] Screening for HIV Open Access - Established with Vanesa Bullock CNP 02/14/2024 Last Documented On 4 4:26PM ; [facility] Visit for: screening for dig estive system disorders Open Access - Established with Vanesa Bullock CNP 02/14/2024 Last Documented On 4 4:26PM ; [facility] Generalized anxiety disorder BH Establis hed Patient with Radha BRAYW-S 12/18/2023 Last Documented On 4 4:35PM ; [facility] Mild recurrent major depress ion per patient reported history BH Established Patient with Radha Short K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S 12/18/2023 Last Documented On 4 4:35PM ; [facility] [Z68.26 - Body mass index [B NH] 26.0-26.9, adult] assessment of body mass index Medical Established Patient with Vanesa Bullock [facility] 12/18/2023 Last Documented On 4 12:19PM ; [facility] Acute gastritis without hemorrhage Medic al Established Patient with Vanesa Bullock MANUFACTURING EXECUTIVE 12/18/2023 Last Documented On 4 12:19PM ; [facility] Esophageal reflux without esophagitis Me dical Established Patient with Vanesa Bullock [facility] 12/18/2023 Last Documented On 4 12:19PM ; [facility] Generalized anxiety disorder Medical Est ablished Patient with Vanesa Bullock [facility] 12/18/2023 Last Documented On 4 12:19PM ; [facility] [Z68.25 - Body mass index [B NH] 25.0-25.9, adult] assessment of body mass index Medical New Patient with Vanesa Bullock MANUFACTURING EXECUTIVE 05/23/2023 Last Documented On 3 8:59AM ; [facility] Chronic gastritis Medical New Patient with Brendan Bullock MANUFACTURING EXECUTIVE 05/23/2023 Last Documented On 3 8:59AM ; [facility] Diabetes Risk Test Score was one score 05/23/2023 Medical New Patient with Vanesa Bullock [facility] 05/23/2023 Last Documented On 3 8:59AM ; [facility] Work Phone: 1([phone]) 380-158107-07-2025 History general Narrative - Reported Includes: Medical History in patient's chart Description Last Updated No Safety Measures 04/14/2025 Last Documented On 5 3:32PM ; [facility] No Previous hospitalizations or recent E R visits 04/14/2025 Last Documented On 5 12:19PM ; [facility] No previous hospitalizations 02/14/2024 Last Documented On 4 4:26PM ; [facility] No medical history or no significant his tory 05/23/2023 Last Documented On 3 8:59AM ; [facility] Not planning to have a baby in the next 12 months 05/23/2023 Last Documented On 3 8:59AM ; [facility] Work Phone: 1([phone]) 130-314207-07-2025 History general Narrative - Reported Includes: Medical History in patient's chart Description Last Updated No Safety Measures 04/14/2025 Last Documented On 5 3:32PM ; [facility] No Previous hospitalizations or recent E R visits 04/14/2025 Last Documented On 5 12:19PM ; [facility] No previous hospitalizations 02/14/2024 Last Documented On 4 4:26PM ; [facility] No medical history or no significant his tory 05/23/2023 Last Documented On 3 8:59AM ; [facility] Not planning to have a baby in the next 12 months 05/23/2023 Last Documented On 3 8:59AM ; [facility] Work Phone: [phone]) 967-714207-07-2025 History general Narrative - Reported Includes: Medical History in patient's chart Description Last Updated No Safety Measures 04/14/2025 Last Documented On 5 3:32PM ; [facility] No Previous hospitalizations or recent E R visits 04/14/2025 Last Documented On 5 12:19PM ; [facility] No previous hospitalizations 02/14/2024 Last Documented On 4 4:26PM ; [facility] No medical history or no significant his tory 05/23/2023 Last Documented On 3 8:59AM ; [facility] Not planning to have a baby in the next 12 months 05/23/2023 Last Documented On 3 8:59AM ; [facility] Work Phone: [phone]) 189-336007-07-2025 Progress note* Progress note Date Encounter Last Documented by 04/14/2025 Medical Established Patient Last documented on 04/14/2025; 12:19 PM, Shelly Mei CNP; [facility] Active Problems & Conditions - K21.9 - Esophageal Reflux Without Esophagitis - K29.00 - Gastritis Acute Without Hemorrhage - K29.51 - Gastritis Chronic - F41.1 - Generalized Anxiety Disorder - F33.0 - Major Depression Recurrent Mild Chief Complaint The Chief Complaint is: Vaginal dryness. Referred Here Prior encounters OBGYN- [facility]. - Data to be reviewed: no clinical lab tests History of Present Illness Mariola Etienne is a 34 year old female. - Allergy list reviewed - Reviewed Medications - Date of last menstruation 03/31/2025 Patient presents for vaginal dryness and is concerned Was having the same symptoms in March when she went to her OBGYN and was diagnosed with BV Agrees to testing but would like treatment Does not have time for a vaginal exam today, will schedule one next week if symptoms still present Denies rashes or lesions in or around vagina Current Medication - Mirena (52 MG) 20 MCG/DAY Intrauterine Intrauterine device 0 days, 0 refills Past Medical/Surgical History Reported: No Safety Measures. Medical: No medical history or no significant history, no previous hospitalizations, and no Previous hospitalizations or recent ER visits. : Not planning a in the next year. Surgical: - Cholecystectomy - Laparoscopic cholecystectomy Social History Environmental Exposure: No secondhand cigarette smoke exposure. Behavioral: Not a current tobacco/nicotine user. Alcohol: A social drinker. Drug Use: Not using drugs denied by patient. Using marijuana. Sexual: Sexually active and control is being practiced IUD. Allergies - Bee sting Reaction: Hives / Urticaria - NO KNOWN DRUG ALLERGIES - NO KNOWN FOOD ALLERGIES Family History No significant medical history Review Of Systems Head: No head symptoms. Otolaryngeal: No nose and sinus finding. Cardiovascular: No cardiovascular symptoms. Gastrointestinal: No gastrointestinal symptoms. Genitourinary: Genitourinary symptoms. Musculoskeletal: No musculoskeletal symptoms. Neurological: No neurological symptoms. Psychological: No psychological symptoms. Skin: No skin symptoms. Physical Findings - Vitals taken 04/14/2025 08:52 am BP-Sitting R113/76 mmHg BP Cuff SizeRegular Pulse Rate-Slxbylx32 bpm Respiration Rate18 per min Temp-Oral98 F Cnpnxr57 in Ghvvik307 lbs 6.4 oz Body Mass Index26.8 kg/m2 Body Surface Area1.9 m2 Oxygen [id number] % O2 DeviceNone (Room Air) [id number] % Vital Signs: - Systolic blood pressure < 130 mmHg. - Diastolic Blood Pressure < 80 mmHg. General Appearance: - Awake. - Alert. - Well developed. Lungs: - Respiration rhythm and depth was normal. Musculoskeletal System: General/bilateral: - Normal movement of all extremities. Neurological: - Oriented to time, place, and person. Psychiatric: - Expression of emotions normal. Tests Blood Analysis: Hemoglobin Studies: ValueDate Blood hemoglobin A1c 5.4%04/14/2025 Hemoglobin A1c level < 7.0%. Laboratory-based Chemistry: Other Laboratory Tests: Screening for sexually transmitted infections was performed. Assessment - Body mass index [Body mass index [BMI] 26.0-26.9, adult] - Diabetes Risk Test Score was two score 04/14/2025 [Encounter for screening for diabetes mellitus] - Vaginitis [Acute vaginitis] Therapy - Patient refused flu vaccine. Discussed benefits of flu vaccine with Patient. Counseling/Education - Discussed nutritional needs teach healthy choices including fruits and vegetables - Patient education about a proper diet - Referred Patient to a Diabetes Self-Management Program - Discussed concerns about exercise: promote physical activity Follow up next week for exam if symptoms still present after treatment Plan StartCited- Acute vaginitis Lab: Urine Culture, Routine Lab: NuSwab Vaginitis Plus (VG+) metroNIDAZOLE 0.75% gram 1 applicatorful into vagina every night for 5 days, 5 days, 0 refills EndCited Care Team - Vanesa Bullock CNP User Defined 1 Not planning a in the next year. No (0 points) [Pre-DM]: No, patient has not been diagnosed with high blood pressure, No (0 points) [Pre-DM]: No, mother, father, sister, or brother does not have DM, No (0 points) [Pre-DM]: Patient has not been diagnosed with gestational diabetes or given to a baby weighing 9 pounds or more, Yes (0 point) [Pre-DM]: Yes, physically active, and Woman (0 Points) [Pre-DM]. Less than 40 years (0 points) [Pre-DM]. [facility]07-07-2025 Progress note* Progress note Date Encounter Last Documented by 04/14/2025 Established Patient Last docu mented on 04/14/2025; 3:32 PM, Maira KRUEGER; [facility] Active Problems & Conditions - K21.9 - Esophageal Reflux Without Esophagitis - K29.00 - Gastritis Acute Without Hemorrhage - K29.51 - Gastritis Chronic - F41.1 - Generalized Anxiety Disorder - F33.0 - Major Depression Recurrent Mild Chief Complaint The Chief Complaint is:: Vaginal dryness. [facility] to follow up on screens. Subjective [facility] met with patient to follow up on PHQ9 score 5 and MAITE score 7 Patient was adament that she did not want any medications. She stated that medication does not work and she just pushes through. She feels that using coping skills is helpful and if she has support then they will go along with her on high anxiety situations. Patient does not have any cocnerns regarding her mental health. History of Present Illness Mariola Etienne is a 34 year old female. - Normal appetite - Irritability - Anxiety - Sleep disturbances - Energy level is good - No depression Current Medication - metroNIDAZOLE 0.75% Vaginal Gel 1 applicatorful into vagina every night for 5 days, 5 days, 0 refills - Mirena (52 MG) 20 MCG/DAY Intrauterine Intrauterine device 0 days, 0 refills Past Medical/Surgical History Reported: No Safety Measures. Social History Environmental Exposure: No secondhand cigarette smoke exposure. Personal: No recent emotional stress. Behavioral: Not a current tobacco/nicotine user. Alcohol: A social drinker. Drug Use: Using marijuana. Not using drugs. Housing And Economic Circumstances: Lives alone. Physical Findings General Appearance: - Normal Appearance. Neurological: - Cognitive Functions was Normal. - Oriented to time, place, and person. [...] [F41.1 - Generalized anxiety disorder] Therapy - SBIRT Full Screen Neg. - Brief solution-focused. - Adherent with medications. - Visit 30 Minutes. - Referral to mental health team. - Plan - do not modify medication. Collaborated with patient and provider: Counseling/Education *P offered active and supportive listening, normalized emotions and feelings, and processed current stressors. *Discussed healthy coping skills and positive supports in patient's life. Plan - External referral/Resources provided Community resources given for [facility] *P to follow-up with patient at next visit as scheduled. *Patient to follow up as needed/scheduled. Care Team - Vanesa Bullock CNP Health Reminders - MAITE-2 satisfied 04/14/2025. - PHQ9 / PHQA satisfied 04/14/2025. - SBIRT satisfied 04/14/2025. User Defined 1 Has not worked without getting the payment you thought you would, has not felt pressured to do something against will to keep job, have not felt threatened in a relationship, has not been put down, humilitated, or someone has tried to control them, has not been hit, kicked, punched, or sexually forced to do something, or hurt, not afraid of someone you have a relationship with, and not afraid of someone you have a relationship with No. Domestic Violence/ Human Trafficking Screening was completed. Has lack of transportation kept patient from medical appointments or from getting medications: No and lack of transportation has kept patient from beneficial non-medical activities: No. She has not had 4 or more drinks in a day within the past year. Do you feel stress - tense, restless, nervous, or anxious, or unable to sleep at night because your mind is troubled all the time - these days? Quite a bit. No misuse of prescription only drugs and not illicit. Does patient feel physically and emotionally safe where he/she lives: Yes, worried about losing housing: Yes, and What is the highest grade or level of school you have completed or the highest degree you have received? High school diploma or GED. In the past year, patient or family members in household were unable to get needed food: No. In the past year, patient or family members in household were unable to get needed clothing: No, unable to get needed children's counselor: No, unable to get other needs No, unable to get needed phone: No, unable to get needed utilities: No, and unable to get needed Medicine or Health Care: No. How often does patient see or talk to people that that he/she cares about and feels close to: Less than once a week. MAITE-2 score was four 04/14/2025, MAITE-7 score was seven [MAITE-7] Feeling nervous, anxious or on edge? + 2 pt : More than half the days, [MAITE-7] Feeling nervous, anxious or on edge? + 2 pt : More than half the days, [MAITE-7] Not being able to stop or control worrying? + 2 pt : More than half the days, [MAITE-7] Not being able to stop or control worrying? + 2 pt : More than half the days, [MAITE-7] Worrying too much about different things? + 1 pt : Several days, [MAITE-7] Trouble relaxing? + 0 pt : Not at all, [MAITE-7] Being so restless that it's hard to sit still? + 1 pt : Several days, [MAITE-7] Becoming easily annoyed or irritable? + 1 pt : Several days, [MAITE-7] Feeling afraid as if something awful might happen? + 0 pt : Not at all, Patient Health Questionnaire 9-Item total score was five 04/14/2025 If you checked off problems, how difficult is it for you to do your work? + : Not difficult at all, [PHQ-9-1] Little interest or pleasure in doing things? + 1 pt : Several days, [PHQ-9-2] Feeling down, depressed, or hopeless? + 2 pt : More than half the days, [PHQ-9-3] Trouble falling or staying asleep or sleeping too much? + 1 pt : Several days, [PHQ-9-4] Feeling tired or having little energy? + 0 pt : Not at all, [PHQ-9-5] Poor appetite or overeating? + 1 [...] take care of things, or get along? Somewhat difficult. [facility]07-07-2025 Reason for referral (narrative)* Date Encounter Description Provider Reason for Referral 04/14/25 Established Patient Maira Arpit marieeal To Mental Health Team; External referral/Resources provided - [facility] resources given for [facility] 09/12/24 Established Patient Maira Arpit Huerta efdallasal To Mental Health Team 05/07/24 Open Access - Established Shelly GARNETT P External referral/Resources provided - Gave resources for housing/ provided contact info. ~ 05/23/23 Medical New Patient Vanesa hunter To Mental Health Team [facility] Work Phone: 1(910) 820-812807-07-2025 Instructions Includes: Instructions for all patient encounters Education and Decision Aids were provided during visit for: Discussed nutritional needs teach healthy choices including fruits and vegetables Last Documented On 5 8:57AM ; [facility] Patient education about a pr oper diet Last Documented On 5 8:57AM ; [facility] Discussed concerns about exe rcise : promote physical activity ~ ~Follow up next week for exam if symptoms still present after treatment Last Documented On 5 12:18PM ; [facility] Referred Patient to a Diabet es Self-Management Program Last Documented On 5 9:20AM ; [facility] ~*[facility] offered active and sup portive listening, normalized emotions and feelings, and processed ~current stressors. ~*Educated patient on the benefit of counseling and provided patient with a list of resources Last Documented On 4 12:14PM ; [facility] Discussed nutritional needs teach healthy choices including fruits and vegetables Last Documented On 4 3:32PM ; [facility] Patient education about a pr oper diet Last Documented On 4 3:32PM ; [facility] Discussed concerns about exe rcise : promote physical activity ~ ~Increase fluids and rest Last Documented On 4 3:50PM ; [facility] Not requesting contraception Last Documented On 4 3:32PM ; [facility] ~*[facility] offered active and sup portive listening, normalized emotions and feelings, and processed ~current stressors Last Documented On 4 10:55AM ; [facility] Discussed nutritional needs teach healthy choices including fruits and vegetables Last Documented On 4 8:41AM ; [facility] Patient education about a pr oper diet Last Documented On 4 8:41AM ; [facility] Discussed concerns about exe rcise : promote physical activity ~ ~Will start hydroxyzine for anxiety ~ ~Will refill ibuprofen and cyclobenzaprine for back pain ~ ~Due to cardiac symptoms will do cardiac testing ~ ~ ~Has a hisotry of GERD will restart pantoprazole ~ ~Follow up with PCP in 4 weeks Last Documented On 4 1:57PM ; [facility] Not requesting contraception Last Documented On 4 8:41AM ; [facility] ~*[facility] offered active and sup portive listening, normalized emotions and feelings, and processed ~current stressors. ~*Utilize healthy coping skills and positive supports in patient's life. ~ Last Documented On 4 7:38PM ; [facility] Discussed nutritional needs teach healthy choices including fruits and vegetables Last Documented On 4 11:13AM ; [facility] Patient education about a pr oper diet Last Documented On 4 11:13AM ; [facility] Discussed concerns about exe rcise : promote physical activity Last Documented On 4 11:13AM ; [facility] Discussed nutritional needs teach healthy choices including fruits and vegetables Last Documented On 4 8:48AM ; [facility] Patient education about a pr oper diet Last Documented On 4 8:48AM ; [facility] Discussed concerns about exe rcise : promote physical activity Last Documented On 4 8:48AM ; [facility] offered active and suppo rtive listening, normalized emotions and feelings, processed current stressors and explored coping and stress reducing skills. ~[facility] discussed coping skills to manage increased anxiety including mindfulnes, grounding and breathing techniques. ~[facility] discussed options for finding in-person and telehealth providers for therapy. ~[facility] encouraged patient to continue to follow-up with addressing physical health concerns Last Documented On 4 4:35PM ; [facility] Discussed nutritional needs teach healthy choices including fruits and vegetables Last Documented On 4 2:55PM ; [facility] Patient education about a pr oper diet Last Documented On 4 2:55PM ; [facility] Discussed concerns about exe rcise : promote physical activity Last Documented On 4 2:55PM ; [facility] Discussed nutritional needs teach healthy choices including fruits and vegetables Last Documented On 3 9:14AM ; [facility] Patient education about a pr oper diet Last Documented On 3 9:14AM ; [facility] Discussed concerns about exe rcise : promote physical activity Last Documented On 3 9:14AM ; [facility] Work Phone: [phone]) 976-979606-10-2025 History of Present illness Narrative* ALIS Gorman - 03/18/2025 11:20 AM EDT Reason for Appointment: Patient ID: Mariola Etienne is a 34 y.o. female who presents for vaginal dryness Patient presents today for Acute Visit. MEDICATIONS Current Outpatient Medications Medication Instructions ibuprofen 800 MG tablet TAKE 1 TABLET BY MOUTH EVERY 8 HOURS NEEDED FOR BACK PAIN ALLERGIES No Known Allergies PROBLEMS Active Ambulatory Problems Diagnosis Date Noted No Active Ambulatory Problems Resolved Ambulatory Problems Diagnosis Date Noted No Resolved Ambulatory Problems Past Medical History: Diagnosis Date Bacterial vaginosis 01/11/24 Chlamydia 01/11/24 HISTORY PAST MEDICAL HISTORY SOCIAL HISTORY Past Medical History: Diagnosis Date Bacterial vaginosis 01/11/24 Chlamydia 01/11/24 Social History Tobacco Use Smoking status: Never Smokeless tobacco: Never Substance Use Topics Alcohol use: Never Drug use: Never FAMILY HISTORY No family history on file. SURGICAL HISTORY Past Surgical History: Procedure Laterality Date CHOLECYSTECTOMY 2019 REVIEW OF SYSTEMS Review of Systems: Review of Systems Constitutional: Negative. HENT: Negative. Eyes: Negative. Respiratory: Negative. Cardiovascular: Negative. Gastrointestinal: Negative. Genitourinary: Negative. Musculoskeletal: Negative. Skin: Negative. Neurological: Negative. All other systems reviewed and are negative. Hematological: Negative. Endocrine: Negative. Allergic/Immunologic: Negative. OBJECTIVE Objective: Physical Exam Constitutional: Appearance: Normal appearance. She is normal weight. HENT: Head: Normocephalic. Cardiovascular: Rate and Rhythm: Normal rate. Pulses: Normal pulses. Pulmonary: Effort: Pulmonary effort is normal. Breath sounds: Normal breath sounds. Abdominal: Palpations: Abdomen is soft. Musculoskeletal: General: Normal range of motion. Neurological: General: No focal deficit present. Mental Status: She is alert and oriented to person, place, and time. Psychiatric: Mood and Affect: Mood normal. Behavior: Behavior normal. Thought Content: Thought content normal. Judgment: Judgment normal. Vitals and nursing note reviewed. Vitals: Estimated body mass index is 26.44 kg/m as calculated from the following: Height as of 05/14/24: 5' 7 . Weight as of 07/24/24: 168 lb 12.8 oz. BP: No LMP recorded. Patient has had an implant. ASSESSMENT & PLAN ICD-10-CM 1. Vaginal dryness N89.8 SURESWAB(R) ADVANCED VAGINITIS PLUS, TMA CHLAMYDIA TRACHOMATIS (GENITO/STI) Neisseria gonorrhea DNA probe, direct POCT urinalysis dipstick manually resulted States she has noted vaginal dryness with irritation recently. She presents and wishes to have cultures obtained. Obtained without difficulty and follow up with results Documented by ALIS Gorman on behalf of: ALIS Gorman documented in this encounterUniversity Health Lakewood Medical [id number] History general Narrative - Reported Includes: Medical History in patient's chart Description Last Updated No Safety Measures 09/13/2024 Last Documented On 4 9:15AM ; [facility] No previous hospitalizations 02/14/2024 Last Documented On 4 4:26PM ; [facility] No medical history or no significant his tory 05/23/2023 Last Documented On 3 8:59AM ; [facility] Not planning to have a baby in the next 12 months 05/23/2023 Last Documented On 3 8:59AM ; [facility] Work Phone: [phone]) 753-689512-05-2024 Evaluation note Includes: Assessments for all patient encounters Findings Encounter Date [Body mass index [BMI] 27.0- 27.9, adult] assessment of body mass index Open Access - Established with Shelly Mei CNP 09/12/2024 Last Documented On 4 3:50PM ; [facility] Acute sinusitis Open Access - Established with Cammie Mei CNP 09/12/2024 Last Documented On 4 3:50PM ; [facility] Generalized anxiety disorder BH Established Marga ent with Maira Munson [facility] 05/07/2024 Last Documented On 4 10:55AM ; [facility] Mild recurrent major depression BH Estab lished Patient with Maira Munson NURSING TECH 05/07/2024 Last Documented On 4 10:55AM ; [facility] Visit for: screening for disorder BH Est ablished Patient with Maira Munson NURSING TECH 05/07/2024 Last Documented On 4 10:55AM ; [facility] [Body mass index [BMI] 27.0- 27.9, adult] assessment of body mass index Open Access - Established with Shelly Mei [facility] 05/07/2024 Last Documented On 4 1:57PM ; [facility] Panic disorder without agoraphobia BH Es tablished Patient with Maira Munson NURSING TECH 04/23/2024 Last Documented On 4 7:39PM ; [facility] Visit for: screening for depression BH E stablished Patient with Maira Munson NURSING TECH 04/23/2024 Last Documented On 4 7:39PM ; [facility] Visit for: screening for disorder BH Est ablished Patient with Maira Munson [facility] 04/23/2024 Last Documented On 4 7:39PM ; [facility] [Z68.27 - Body mass index [B NH] 27.0-27.9, adult] assessment of body mass index Open Access - Established with Vanesa Bullock [facility] 04/23/2024 Last Documented On 4 8:19AM ; [facility] Assessment of BMI Percentile = 5% to < 85% for age Z68.52 Open Access - Established with Vanesa Bullock [facility] 04/23/2024 Last Documented On 4 8:19AM ; [facility] Generalized anxiety disorder Open Access - Established with Vanesa Bullock [facility] 04/23/2024 Last Documented On 4 8:19AM ; [facility] Lumbar sprain Open Access - Established with A cora Bullock [facility] 04/23/2024 Last Documented On 4 8:19AM ; [facility] Thoracic sprain Open Access - Established with A cora Bullock [facility] 04/23/2024 Last Documented On 4 8:19AM ; [facility] [Z68.26 - Body mass index [B NH] 26.0-26.9, adult] assessment of body mass index Open Access - Established with Vanesa Bullock [facility] 02/14/2024 Last Documented On 4 4:26PM ; [facility] Lower back sprain Open Access - Established with Vanesa Bullock [facility] 02/14/2024 Last Documented On 4 4:26PM ; [facility] Muscle spasm of back Open Access - Established w ith Vanesa Bullock [facility] 02/14/2024 Last Documented On 4 4:26PM ; [facility] Screening for HIV Open Access - Established with Vanesa Bullock [employer]URING EXECUT[employer] 02/14/2024 Last Documented On 4 4:26PM ; [facility] Visit for: screening for dig estive system disorders Open Access - Established with Vanesa Bullock [facility] 02/14/2024 Last Documented On 4 4:26PM ; [facility] Generalized anxiety disorder BH Establis hed Patient with Radha Fan LISWS 12/18/2023 Last Documented On 4 4:35PM ; [facility] Mild recurrent major depress ion per patient reported history Established Patient with Radha Fan LISWS 12/18/2023 Last Documented On 4 4:35PM ; [facility] [Z68.26 - Body mass index [B NH] 26.0-26.9, adult] assessment of body mass index Medical Established Patient with Vanesa Bullock [facility] 12/18/2023 Last Documented On 4 12:19PM ; [facility] Acute gastritis without hemorrhage Medic al Established Patient with Vanesa Bullock [facility] 12/18/2023 Last Documented On 4 12:19PM ; [facility] Esophageal reflux without esophagitis Me dical Established Patient with Vanesa Bullock [facility] 12/18/2023 Last Documented On 4 12:19PM ; [facility] Generalized anxiety disorder Medical Est ablished Patient with Vanesa Bullock [facility] 12/18/2023 Last Documented On 4 12:19PM ; [facility] [Z68.25 - Body mass index [B NH] 25.0-25.9, adult] assessment of body mass index Medical New Patient with Vanesa Bullock [employer]ING EXECUT[employer] 05/23/2023 Last Documented On 3 8:59AM ; [facility] Chronic gastritis Medical New Patient with Brendan Bullock [employer]EC[employer] 05/23/2023 Last Documented On 3 8:59AM ; [facility] Diabetes Risk Test Score was one score 05/23/2023 Medical New Patient with Vanesa Bullock [employer]ING EXECUT[employer] 05/23/2023 Last Documented On 3 8:59AM ; [facility] Work Phone: [phone]) 976-669912-05-2024 Evaluation note Includes: Assessments for all patient encounters Findings Encounter Date Generalized anxiety disorder BH Established Marga ent with Maira Munson NURSING TECH 09/12/2024 Last Documented On 4 12:14PM ; [facility] Mild recurrent major depression BH Estab lished Patient with Maira Munson NURSING TECH 09/12/2024 Last Documented On 4 12:14PM ; [facility] Visit for: screening for disorder BH Est ablished Patient with Maira Munson NURSING TECH 09/12/2024 Last Documented On 4 12:14PM ; [facility] [Body mass index [BMI] 27.0- 27.9, adult] assessment of body mass index Open Access - Established with Shelly Mei [employer]UFA[employer]URING EXECUTIVE 09/12/2024 Last Documented On 4 3:50PM ; [facility] Acute sinusitis Open Access - Established with Cammie Mei [employer]UFA[employer]URING EXECUTIVE 09/12/2024 Last Documented On 4 3:50PM ; [facility] Generalized anxiety disorder BH Established Marga ent with Maira Munson NURSING TECH 05/07/2024 Last Documented On 4 10:55AM ; [facility] Mild recurrent major depression BH Estab lished Patient with Maira Munson NURSING TECH 05/07/2024 Last Documented On 4 10:55AM ; [facility] Visit for: screening for disorder BH Est ablished Patient with Maira Munson NURSING TECH 05/07/2024 Last Documented On 4 10:55AM ; [facility] [Body mass index [BMI] 27.0- 27.9, adult] assessment of body mass index Open Access - Established with Shelly Mei MANUFACTURING EXECUTIVE 05/07/2024 Last Documented On 4 1:57PM ; [facility] Panic disorder without agoraphobia BH Es tablished Patient with Maira Munson NURSING TECH 04/23/2024 Last Documented On 4 7:39PM ; [facility] Visit for: screening for depression BH E stablished Patient with Maira Munson NURSING TECH 04/23/2024 Last Documented On 4 7:39PM ; [facility] Visit for: screening for disorder BH Est ablished Patient with Maira Munson NURSING TECH 04/23/2024 Last Documented On 4 7:39PM ; [facility] [Z68.27 - Body mass index [B NH] 27.0-27.9, adult] assessment of body mass index Open Access - Established with Vanesa Bullock MANUFACTURING EXECUTIVE 04/23/2024 Last Documented On 4 8:19AM ; [facility] Assessment of BMI Percentile = 5% to < 85% for age Z68.52 Open Access - Established with Vanesa Bullock CNP 04/23/2024 Last Documented On 4 8:19AM ; [facility] Generalized anxiety disorder Open Access - Established with Vanesa Bullock CNP 04/23/2024 Last Documented On 4 8:19AM ; [facility] Lumbar sprain Open Access - Established with A cora Bullock MANUFACTURING EXECUTIVE 04/23/2024 Last Documented On 4 8:19AM ; [facility] Thoracic sprain Open Access - Established with A cora Bullock MANUFACTURING EXECUTIVE 04/23/2024 Last Documented On 4 8:19AM ; [facility] [Z68.26 - Body mass index [B NH] 26.0-26.9, adult] assessment of body mass index Open Access - Established with Vanesa Bullock CNP 02/14/2024 Last Documented On 4 4:26PM ; [facility] Lower back sprain Open Access - Established with Vanesa Bullock CNP 02/14/2024 Last Documented On 4 4:26PM ; [facility] Muscle spasm of back Open Access - Established w ith Vanesa Bullock MANUFACTURING EXECUTIVE 02/14/2024 Last Documented On 4 4:26PM ; [facility] Screening for HIV Open Access - Established with Vanesa Bullock CNP 02/14/2024 Last Documented On 4 4:26PM ; [facility] Visit for: screening for dig estive system disorders Open Access - Established with Vanesa Bullock MANUFACTURING EXECUTIVE 02/14/2024 Last Documented On 4 4:26PM ; [facility] Generalized anxiety disorder Establis hed Patient with Radha Short LISWS 12/18/2023 Last Documented On 4 4:35PM ; [facility] Mild recurrent major depress ion per patient reported history Established Patient with Radha Short LISWS 12/18/2023 Last Documented On 4 4:35PM ; [facility] [Z68.26 - Body mass index [B NH] 26.0-26.9, adult] assessment of body mass index Medical Established Patient with Vanesa Bullock MANUFACTURING EXECUTIVE 12/18/2023 Last Documented On 4 12:19PM ; [facility] Acute gastritis without hemorrhage Medic al Established Patient with Vanesa Bullock MANUFACTURING EXECUTIVE 12/18/2023 Last Documented On 4 12:19PM ; [facility] Esophageal reflux without esophagitis Me dical Established Patient with Vanesa Bullock MANUFACTURING EXECUTIVE 12/18/2023 Last Documented On 4 12:19PM ; [facility] Generalized anxiety disorder Medical Est ablished Patient with Vanesa Bullock MANUFACTURING EXECUTIVE 12/18/2023 Last Documented On 4 12:19PM ; [facility] [Z68.25 - Body mass index [B NH] 25.0-25.9, adult] assessment of body mass index Medical New Patient with Vanesa Bullock MANUFACTURING EXECUTIVE 05/23/2023 Last Documented On 3 8:59AM ; [facility] Chronic gastritis Medical New Patient with Brendan Bullock [facility] 05/23/2023 Last Documented On 3 8:59AM ; [facility] Diabetes Risk Test Score was one score 05/23/2023 Medical New Patient with Vanesa Bullock MANUFACTURING EXECUTIVE 05/23/2023 Last Documented On 3 8:59AM ; [facility] Work Phone: 1(334) 398-929712-05-2024 Evaluation note Includes: Assessments for all patient encounters Findings Encounter Date Generalized anxiety disorder Established Marga ent with Maira KRUEGER 09/12/2024 Last Documented On 4 9:15AM ; [facility] Mild recurrent major depression BH Estab lished Patient with Maira Munson NURSING TECH 09/12/2024 Last Documented On 4 9:15AM ; [facility] Visit for: screening for disorder BH Est ablished Patient with Maira Munson NURSING TECH 09/12/2024 Last Documented On 4 9:15AM ; [facility] [Body mass index [BMI] 27.0- 27.9, adult] assessment of body mass index Open Access - Established with Shelly Mei MANUFACTURING EXECUTIVE 09/12/2024 Last Documented On 4 3:50PM ; [facility] Acute sinusitis Open Access - Established with Cammie Mei MANUFACTURING EXECUTIVE 09/12/2024 Last Documented On 4 3:50PM ; [facility] Generalized anxiety disorder BH Established Marga ent with Maira Munson NURSING TECH 05/07/2024 Last Documented On 4 10:55AM ; [facility] Mild recurrent major depression BH Estab lished Patient with Maira Munson NURSING TECH 05/07/2024 Last Documented On 4 10:55AM ; [facility] Visit for: screening for disorder BH Est ablished Patient with Maira Munson NURSING TECH 05/07/2024 Last Documented On 4 10:55AM ; [facility] [Body mass index [BMI] 27.0- 27.9, adult] assessment of body mass index Open Access - Established with Shelly Mei MANUFACTURING EXECUTIVE 05/07/2024 Last Documented On 4 1:57PM ; [facility] Panic disorder without agoraphobia BH Es tablished Patient with Maira Munson NURSING TECH 04/23/2024 Last Documented On 4 7:39PM ; [facility] Visit for: screening for depression BH E stablished Patient with Maira Munson NURSING TECH 04/23/2024 Last Documented On 4 7:39PM ; [facility] Visit for: screening for disorder BH Est ablished Patient with Maira Munson NURSING TECH 04/23/2024 Last Documented On 4 7:39PM ; [facility] [Z68.27 - Body mass index [B NH] 27.0-27.9, adult] assessment of body mass index Open Access - Established with Vanesa Bullock CNP 04/23/2024 Last Documented On 4 8:19AM ; [facility] Assessment of BMI Percentile = 5% to < 85% for age Z68.52 Open Access - Established with Vanesa Bullock CNP 04/23/2024 Last Documented On 4 8:19AM ; [facility] Generalized anxiety disorder Open Access - Established with Vanesa Bullock CNP 04/23/2024 Last Documented On 4 8:19AM ; [facility] Lumbar sprain Open Access - Established with A cora Bullock MANUFACTURING EXECUTIVE 04/23/2024 Last Documented On 4 8:19AM ; [facility] Thoracic sprain Open Access - Established with A cora Bullock MANUFACTURING EXECUTIVE 04/23/2024 Last Documented On 4 8:19AM ; [facility] [Z68.26 - Body mass index [B NH] 26.0-26.9, adult] assessment of body mass index Open Access - Established with Vanesa Bullock MANUFACTURING EXECUTIVE 02/14/2024 Last Documented On 4 4:26PM ; [facility] Lower back sprain Open Access - Established with Vanesa Bullock MANUFACTURING EXECUTIVE 02/14/2024 Last Documented On 4 4:26PM ; [facility] Muscle spasm of back Open Access - Established w ith Vanesa Bullock [facility] 02/14/2024 Last Documented On 4 4:26PM ; [facility] Screening for HIV Open Access - Established with Vanesa Bullock [facility] 02/14/2024 Last Documented On 4 4:26PM ; [facility] Visit for: screening for dig estive system disorders Open Access - Established with Vanesa Bullock MANUFACTURING EXECUTIVE 02/14/2024 Last Documented On 4 4:26PM ; [facility] Generalized anxiety disorder BH Establis hed Patient with Radha Short L[facility] 12/18/2023 Last Documented On 4 4:35PM ; [facility] Mild recurrent major depress ion per patient reported history Established Patient with Radha Short [facility] 12/18/2023 Last Documented On 4 4:35PM ; [facility] [Z68.26 - Body mass index [B NH] 26.0-26.9, adult] assessment of body mass index Medical Established Patient with Vanesa Bullock MANUFACTURING EXECUTIVE 12/18/2023 Last Documented On 4 12:19PM ; [facility] Acute gastritis without hemorrhage Medic al Established Patient with Vanesa Bullock MANUFACTURING EXECUTIVE 12/18/2023 Last Documented On 4 12:19PM ; [facility] Esophageal reflux without esophagitis Me dical Established Patient with Vanesa Bullock MANUFACTURING EXECUTIVE 12/18/2023 Last Documented On 4 12:19PM ; [facility] Generalized anxiety disorder Medical Est ablished Patient with Vanesa Bullock MANUFACTURING EXECUTIVE 12/18/2023 Last Documented On 4 12:19PM ; [facility] [Z68.25 - Body mass index [B NH] 25.0-25.9, adult] assessment of body mass index Medical New Patient with Vanesa Bullock MANUFACTURING EXECUTIVE 05/23/2023 Last Documented On 3 8:59AM ; [facility] Chronic gastritis Medical New Patient with Brendan Bullock MANUFACTURING EXECUTIVE 05/23/2023 Last Documented On 3 8:59AM ; [facility] Diabetes Risk Test Score was one score 05/23/2023 Medical New Patient with Vanesa Bullock MANUFACTURING EXECUTIVE 05/23/2023 Last Documented On 3 8:59AM ; [facility] Work Phone: [phone]) 258-331712-05-2024 Progress note* Progress note Date Encounter Last Documented by 09/12/2024 Open Access - Established Last d ocumented on 09/12/2024; 3:50 PM, Shelly eMi CNP; [facility] Active Problems & Conditions - K21.9 - Esophageal Reflux Without Esophagitis - K29.00 - Gastritis Acute Without Hemorrhage - K29.51 - Gastritis Chronic - F41.1 - Generalized Anxiety Disorder - F33.0 - Major Depression Recurrent Mild - J01.90 - Sinusitis Acute Chief Complaint The Chief Complaint is: Woke up with no voice just started today / wants referral to ENT. Referred Here Not referred by urgent care clinic and not the emergency room. No prior encounters. - Data to be reviewed: no clinical lab tests History of Present Illness Mariola Etienne is a 34 year old female. - Allergy list reviewed - Reviewed Medications Patient presents for sore throat and losss of voice Has been progressing and getting worse Last year reports that I got so sick when this happened last year Current Medication - Mirena (52 MG) 20 [...] cigarettes/vaping. Alcohol: A social drinker. Drug Use: Not using drugs denied by patient. Using marijuana. Sexual: Sexually active, sexual orientation Straight (not lesbian or cardona), gender identity Female, and control is being practiced Other. Allergies - Bee sting Reaction: Hives / Urticaria - NO KNOWN DRUG ALLERGIES - NO KNOWN FOOD ALLERGIES Family History No significant medical history Review Of Systems Systemic: No systemic symptoms. Head: No head symptoms. Otolaryngeal: Ear symptoms. No nasal symptoms. Throat symptoms. Cardiovascular: No chest pain or discomfort. Pulmonary: No pulmonary symptoms. Gastrointestinal: No gastrointestinal symptoms. Genitourinary: No genitourinary symptoms. Musculoskeletal: No musculoskeletal symptoms. Neurological: No neurological symptoms. Psychological: Psychological symptoms. Skin: No skin symptoms. Physical Findings - Vitals taken 09/12/2024 03:29 pm BP-Sitting R136/82 mmHg BP Cuff SizeRegular Pulse Rate-Vuewgtd07 bpm Respiration Rate18 per min Temp-Oral97.8 F Yqnpfv43 in Wvbfjr585 lbs 6.4 oz Body Mass Index27.2 kg/m2 Body Surface Area1.9 m2 Oxygen Yiqtzzovkz82 % - Vitals taken 09/12/2024 03:32 pm BP-Sitting R128/80 mmHg Vital Signs: - Systolic blood pressure 130 - 139 mmHg. - Diastolic blood pressure 80-89 mmHg. General Appearance: - Awake. - Alert. - In no acute distress. Ears: General/bilateral: Tympanic Membrane: - Erythematous. Right Ear: - Examined. Left Ear: - Examined. Nose: General/bilateral: Nasal Edema: - Noted. Sinus Tenderness: - Tenderness of sinuses. Pharynx: Mucosal: - Pharyngeal mucosa. - Pharynx was erythematous. - Pharynx was tender. Lungs: - Respiration rhythm and depth was normal. - Clear to auscultation. Cardiovascular: Heart Rate And Rhythm: - Normal. Heart Sounds: - Normal. Abdomen: Auscultation: - Bowel sounds were normal. Musculoskeletal System: Cervical Spine: General/bilateral: - Cervical spine showed no abnormalities. Neurological: - Oriented to time, place, and person. Psychiatric: - Expression of emotions normal. Skin: - General appearance of skin normal. Tests Laboratory-based Chemistry: Other Laboratory Tests: Screening for sexually transmitted infections was not performed. Assessment - Body mass index [Body mass index [BMI] 27.0-27.9, adult] - Acute sinusitis [Acute sinusitis, unspecified] Therapy - Patient refused flu vaccine. Discussed benefits of flu vaccine with Patient. Counseling/Education - Discussed nutritional needs teach healthy choices including fruits and vegetables - Patient education about a proper diet - Not requesting contraception - Discussed concerns about exercise: promote physical activity Increase fluids and rest Plan StartCited- Acute sinusitis, unspecified Amoxicillin 500 MG tablet Take one tablet three times a day for 10 days, 10 days, 0 refills predniSONE 20 MG tablet Take one tablet two times a day for 5 days, 5 days, 0 refills EndCited Care Team - Vanesa Bullock CNP User Defined 1 Not planning a in the next year. [facility]12-05-2024 Progress note* Progress note Date Encounter Last Documented by 09/12/2024 Established Patient Last docu mented on 09/13/2024; 12:14 PM, Maira KRUEGER; [facility] Active Problems & Conditions - K21.9 - Esophageal Reflux Without Esophagitis - K29.00 - Gastritis Acute Without Hemorrhage - K29.51 - Gastritis Chronic - F41.1 - Generalized Anxiety Disorder - F33.0 - Major Depression Recurrent Mild - J01.90 - Sinusitis Acute Chief Complaint The Chief Complaint is:: Lost voice thinks she needs her tonsils out. Subjective [facility] met with patient for PHQ9 score of 6 and MAITE score of 7 Patient denies any depression and feels that the anxiety is manageable. Patient stopped taking the medication of buspar and hydroxozine stating that they made her feel sick. Patient does not want to be on any medication at this time. SHe would like to look into counseling. Provided Pt with resources. History of Present Illness Mariola Etienne is a 34 year old female. - Anxiety - Depression - Energy level is good - No sleep disturbances Current Medication - Amoxicillin 500 MG Oral Tablet Take one tablet three times a day for 10 days, 10 days, 0 refills - Mirena (52 MG) 20 MCG/DAY Intrauterine Intrauterine device 0 days, 0 refills - predniSONE 20 MG Oral Tablet Take one tablet two times a day for 5 days, 5 days, 0 refills Past Medical/Surgical History Reported: No Safety Measures. Social History Environmental Exposure: No secondhand cigarette smoke exposure. Personal: No recent emotional stress. Behavioral: Not a current tobacco user. Tobacco use: Not using electronic cigarettes/vaping. Alcohol: A social drinker. Drug Use: Using marijuana. Not using drugs. 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 Sexual: Sexual orientation Straight (not lesbian or cardona) and gender identity Female. Physical Findings General Appearance: - Normal Appearance. Neurological: - Cognitive Functions was Normal. - Oriented to time, place, and person. [...] [F41.1 - Generalized anxiety disorder] Therapy - Developmental/Behavioral Screening & Testing - PHQ9. - Brief solution-focused. - Adherent with medications. - Visit 30 Minutes. - Referral to mental health team. - Plan - do not modify medication. Collaborated with patient and provider: Counseling/Education *BHP offered active and supportive listening, normalized emotions and feelings, and processed current stressors. *Educated patient on the benefit of counseling and provided patient with a list of resources. Plan *BHP to follow-up with patient at next visit as scheduled. *Patient to follow up as needed/scheduled. *Begin looking into counseling options from the list provided today. Care Team - Vanesa Bullock CNP Health Reminders - Assess Tobacco Use satisfied 09/12/2024. - MAITE-2 satisfied 09/12/2024. - PHQ9 / PHQA satisfied 09/12/2024. User Defined 1 MAITE-2 score was one 09/12/2024, MAITE-7 score [MAITE-7] Feeling nervous, anxious or on edge? + 0 pt : Not at all, [MAITE-7] Not being able to stop or control worrying? + 1 pt : Several days, Patient Health Questionnaire 9-Item total score was six, [PHQ-9-1] Little interest or pleasure in doing things? + 1 pt : Several days, [PHQ-9-2] Feeling down, depressed, or hopeless? + 1 pt : Several days, [PHQ-9-3] Trouble falling or staying asleep or sleeping too much? + 0 pt : Not at all, [PHQ-9-4] Feeling tired or having little energy? + 0 pt : Not at all, [PHQ-9-5] Poor appetite or overeating? + 3 pt : Nearly every day, [PHQ-9-6] Feeling bad about yourself-or that you are a failure + 1 pt : Several days, [PHQ-9-7] Trouble concentrating on things such as reading the newspaper + 0 pt : Not at all, [PHQ-9-8] Moving or speaking so slowly that other people have noticed. + 0 pt : Not at all, and [PHQ-9-9] Thoughts that you would be better off or hurting yourself? + 0 pt : Not at all. [facility]12-05-2024 Progress note* Progress note Date Encounter Last Documented by 09/12/2024 [facility] Patient Last docu mented on 09/16/2024; 9:15 AM, Maira KRUEGER; [facility] Active Problems & Conditions - K21.9 - Esophageal Reflux Without Esophagitis - K29.00 - Gastritis Acute Without Hemorrhage - K29.51 - Gastritis Chronic - F41.1 - Generalized Anxiety Disorder - F33.0 - Major Depression Recurrent Mild - J01.90 - Sinusitis Acute Chief Complaint The Chief Complaint is:: Lost voice thinks she needs her tonsils out. Subjective [facility] met with patient for PHQ9 score of 6 and MAITE score of 7 Patient denies any depression and feels that the anxiety is manageable. Patient stopped taking the medication of buspar and hydroxozine stating that they made her feel sick. Patient does not want to be on any medication at this time. SHe would like to look into counseling. Provided Pt with resources. History of Present Illness Mariola Etienne is a 34 year old female. - Anxiety - Depression - Energy level is good - No sleep disturbances Current Medication - Amoxicillin 500 MG Oral Tablet Take one tablet three times a day for 10 days, 10 days, 0 refills - Mirena (52 MG) 20 MCG/DAY Intrauterine Intrauterine device 0 days, 0 refills - predniSONE 20 MG Oral Tablet Take one tablet two times a day for 5 days, 5 days, 0 refills Past Medical/Surgical History Reported: No Safety Measures. Social History Environmental Exposure: No secondhand cigarette smoke exposure. Personal: No recent emotional stress. Behavioral: Not a current tobacco user. Tobacco use: Not using electronic cigarettes/vaping. Alcohol: A social drinker. Drug Use: Using marijuana. Not using drugs. 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 Sexual: Sexual orientation Straight (not lesbian or cardona) and gender identity Female. Physical Findings General Appearance: - Normal Appearance. Neurological: - Cognitive Functions was Normal. - Oriented to time, place, and person. [...] [F41.1 - Generalized anxiety disorder] Therapy - Developmental/Behavioral Screening & Testing - PHQ9. - Brief solution-focused. - Adherent with medications. - Visit 30 Minutes. - Referral to mental health team. - Plan - do not modify medication. Collaborated with patient and provider: Counseling/Education *BHP offered active and supportive listening, normalized emotions and feelings, and processed current stressors. *Educated patient on the benefit of counseling and provided patient with a list of resources. Plan *BHP to follow-up with patient at next visit as scheduled. *Patient to follow up as needed/scheduled. *Begin looking into counseling options from the list provided today. Care Team - Vanesa Bullock CNP Health Reminders - Assess Tobacco Use satisfied 09/12/2024. - MAITE-2 satisfied 09/12/2024. - PHQ9 / PHQA satisfied 09/12/2024. User Defined 1 MAITE-2 score was one 09/12/2024, MAITE-7 score [MAITE-7] Feeling nervous, anxious or on edge? + 0 pt : Not at all, [MAITE-7] Not being able to stop or control worrying? + 1 pt : Several days, Patient Health Questionnaire 9-Item total score was six, [PHQ-9-1] Little interest or pleasure in doing things? + 1 pt : Several days, [PHQ-9-2] Feeling down, depressed, or hopeless? + 1 pt : Several days, [PHQ-9-3] Trouble falling or staying asleep or sleeping too much? + 0 pt : Not at all, [PHQ-9-4] Feeling tired or having little energy? + 0 pt : Not at all, [PHQ-9-5] Poor appetite or overeating? + 3 pt : Nearly every day, [PHQ-9-6] Feeling bad about yourself-or that you are a failure + 1 pt : Several days, [PHQ-9-7] Trouble concentrating on things such as reading the newspaper + 0 pt : Not at all, [PHQ-9-8] Moving or speaking so slowly that other people have noticed. + 0 pt : Not at all, and [PHQ-9-9] Thoughts that you would be better off or hurting yourself? + 0 pt : Not at all. [facility]12-05-2024 Reason for referral (narrative)* Date Encounter Description Provider Reason for Referral 09/12/24 Established Patient Maira Munson PATI R eferral To Mental Health Team 05/07/24 Open Access - Established Shelly Mcguire External referral/Resources provided - Gave resources for housing/ provided contact info. ~ 05/23/23 Medical New Patient Vanesa Bullock NATHALIE R eferral To Mental Health Team [facility] Work Phone: 1(440) 128-737712-05-2024 Reason for referral (narrative)* Date Encounter Description Provider Reason for Referral 04/14/25 Established Patient Maira Munson PATI R eferral To Mental Health Team; External referral/Resources provided - Community resources given for [facility] 09/12/24 Established Patient Maira Munson PATI R eferral To Mental Health Team 05/07/24 Open Access - Established Shelly Mcguire External referral/Resources provided - Gave resources for housing/ provided contact info. ~ 05/23/23 Medical New Patient Vanesa Bullock NATHALIE R eferral To Mental Health Team [facility] Work Phone: 1(281) 165-288410-17-2024 Progress note* Progress note Date Encounter Last Documented by 07/25/2024 Chart Update Last documented on 07/25/2024; 2:19 PM, Vanesa Bullock CNP; [facility] Active Problems & Conditions - K21.9 - Esophageal Reflux Without Esophagitis - K29.00 - Gastritis Acute Without Hemorrhage - K29.51 - Gastritis Chronic - F41.1 - Generalized Anxiety Disorder - F33.0 - Major Depression Recurrent Mild Current Medication - busPIRone HCl 5 MG Oral Tablet Take 1 tablet by mouth 2 times per day, 30 days, 0 refills - Cyclobenzaprine HCl 10 MG Oral Tablet Take one tablet three times a day as needed for pain, 15 days, 0 refills - hydrOXYzine Pamoate 25 MG Oral Capsule Take one tablet three times a day as needed for anxiety, 30 days, 0 refills - Ibuprofen 800 MG Oral Tablet TAKE ONE TABLET EVERY 8 HOURS NEEDED FOR PAIN DO NOT MIX WITH ANY NSAIDS, 15 days, 0 refills - Mirena (52 MG) [...] year. Surgical: - Cholecystectomy - Laparoscopic cholecystectomy Allergies - Bee sting Reaction: Hives / Urticaria Family History No significant medical history Previous Tests Pathology: Cytology: Cervical Pap smear 02/09/2024. Microbiology: Microbiology - Cervical: Cervical smear for human papilloma virus was negative. Care Team - Vanesa Bullock CNP Health Reminders - PAP satisfied 02/09/2024. [facility]10-16-2024 History of Present illness Narrative* ALIS Gorman - 07/24/2024 3:00 PM EDT Reason for Appointment: Patient ID: Mariola Etienne is a 34 y.o. female who presents for Contraception (IUD placement) Patient presents today for Acute Visit. MEDICATIONS Current Outpatient Medications Medication Instructions ibuprofen 800 MG tablet TAKE 1 TABLET BY MOUTH EVERY 8 HOURS NEEDED FOR BACK PAIN ALLERGIES No Known Allergies PROBLEMS Active Ambulatory Problems Diagnosis Date Noted No Active Ambulatory Problems Resolved Ambulatory Problems Diagnosis Date Noted No Resolved Ambulatory Problems Past Medical History: Diagnosis Date Bacterial vaginosis 01/11/24 Chlamydia 01/11/24 HISTORY PAST MEDICAL HISTORY SOCIAL HISTORY Past Medical History: Diagnosis Date Bacterial vaginosis 01/11/24 Chlamydia 01/11/24 Social History Tobacco Use Smoking status: Never Smokeless tobacco: Never Substance Use Topics Alcohol use: Never Drug use: Never FAMILY HISTORY No family history on file. SURGICAL HISTORY Past Surgical History: Procedure Laterality Date CHOLECYSTECTOMY 2019 REVIEW OF SYSTEMS Review of Systems: Review of Systems Constitutional: Negative. HENT: Negative. Eyes: Negative. Respiratory: Negative. Cardiovascular: Negative. Gastrointestinal: Negative. Genitourinary: Negative. Musculoskeletal: Negative. Skin: Negative. Neurological: Negative. All other systems reviewed and are negative. Hematological: Negative. Endocrine: Negative. Allergic/Immunologic: Negative. OBJECTIVE Objective: Physical Exam Constitutional: Appearance: Normal appearance. She is normal weight. Genitourinary: Right Adnexa: not tender and no mass present. Left Adnexa: not tender and no mass present. No cervical discharge. IUD strings visualized. Breasts: Breasts are soft. Right: Normal. Left: Normal. HENT: Head: Normocephalic. Nose: Nose normal. Mouth/Throat: Mouth: Mucous membranes are moist. Cardiovascular: Rate and Rhythm: Normal rate. Pulses: Normal pulses. Pulmonary: Effort: Pulmonary effort is normal. Breath sounds: Normal breath sounds. Abdominal: General: Bowel sounds are normal. Palpations: Abdomen is soft. Musculoskeletal: General: Normal range of motion. Cervical back: Normal range of motion. Neurological: General: No focal deficit present. Mental Status: She is alert and oriented to person, place, and time. Skin: General: Skin is warm and dry. Psychiatric: Mood and Affect: Mood normal. Behavior: Behavior normal. Thought Content: Thought content normal. Judgment: Judgment normal. Vitals and nursing note reviewed. Exam conducted with a trains service conductor present. Vitals: Estimated body mass index is 26.44 kg/m as calculated from the following: Height as of 05/14/24: 5' 7 . Weight as of this encounter: 168 lb 12.8 oz. BP: 110/70 No LMP recorded. Patient has had an implant. ASSESSMENT & PLAN ICD-10-CM 1. Encounter for routine checking of intrauterine contraceptive device (IUD) Z30.431 2. Breakthrough bleeding with IUD N92.1 US pelvis transvaginal Z97.5 Pt presents to office concerned that part of iud had displaced. String noted on exam, pt brought picture in and object did not appear to look like a mirena. We will order US to confirm placement Documented by Nicki Arizmendi LPN on behalf of: ALIS Gorman documented in this encounterUniversity Health Lakewood Medical [id number] Evaluation note Includes: Assessments for all patient encounters Findings Encounter Date Generalized anxiety disorder BH Established Marga ent with Maira Munson [facility] 05/07/2024 Last Documented On 4 10:55AM ; [facility] Mild recurrent major depression BH Estab lished Patient with Maira Munson [facility] 05/07/2024 Last Documented On 4 10:55AM ; [facility] Visit for: screening for disorder BH Est ablished Patient with Maira Munson [facility] 05/07/2024 Last Documented On 4 10:55AM ; [facility] [Body mass index [BMI] 27.0- 27.9, adult] assessment of body mass index Open Access - Established with Shelly Mei CNP 05/07/2024 Last Documented On 4 1:57PM ; [facility] Panic disorder without agoraphobia BH Es tablished Patient with Maira Munson [facility] 04/23/2024 Last Documented On 4 7:39PM ; [facility] Visit for: screening for depression BH E stablished Patient with Maira Munson [facility] 04/23/2024 Last Documented On 4 7:39PM ; [facility] Visit for: screening for disorder BH Est ablished Patient with Maira Munson [facility] 04/23/2024 Last Documented On 4 7:39PM ; [facility] [Z68.27 - Body mass index [B NH] 27.0-27.9, adult] assessment of body mass index Open Access - Established with Vanesa Bullock CNP 04/23/2024 Last Documented On 4 8:19AM ; [facility] Assessment of BMI Percentile = 5% to < 85% for age Z68.52 Open Access - Established with Vanesa Bullock CNP 04/23/2024 Last Documented On 4 8:19AM ; [facility] Generalized anxiety disorder Open Access - Established with Vanesa Bullock MANUFACTURING EXECUTIVE 04/23/2024 Last Documented On 4 8:19AM ; [facility] Lumbar sprain Open Access - Established with A cora Bullock MANUFACTURING EXECUTIVE 04/23/2024 Last Documented On 4 8:19AM ; [facility] Thoracic sprain Open Access - Established with A cora Bullock MANUFACTURING EXECUTIVE 04/23/2024 Last Documented On 4 8:19AM ; [facility] [Z68.26 - Body mass index [B NH] 26.0-26.9, adult] assessment of body mass index Open Access - Established with Vanesa Bullock MANUFACTURING EXECUTIVE 02/14/2024 Last Documented On 4 4:26PM ; [facility] Lower back sprain Open Access - Established with Vanesa Bullock [facility] 02/14/2024 Last Documented On 4 4:26PM ; [facility] Muscle spasm of back Open Access - Established w ith Vanesa Bullock [facility] 02/14/2024 Last Documented On 4 4:26PM ; [facility] Screening for HIV Open Access - Established with Vanesa Bullock MANUFACTURING EXECUTIVE 02/14/2024 Last Documented On 4 4:26PM ; [facility] Visit for: screening for dig estive system disorders Open Access - Established with Vanesa Bullock [facility] 02/14/2024 Last Documented On 4 4:26PM ; [facility] Generalized anxiety disorder BH Establis hed Patient with Radha Short [facility] 12/18/2023 Last Documented On 4 4:35PM ; [facility] Mild recurrent major depress ion per patient reported history Established Patient with Radha Short [facility] 12/18/2023 Last Documented On 4 4:35PM ; [facility] [Z68.26 - Body mass index [B NH] 26.0-26.9, adult] assessment of body mass index Medical Established Patient with Vanesa Bullock MANUFACTURING EXECUTIVE 12/18/2023 Last Documented On 4 12:19PM ; [facility] Acute gastritis without hemorrhage Medic al Established Patient with Vanesa Bullock MANUFACTURING EXECUTIVE 12/18/2023 Last Documented On 4 12:19PM ; [facility] Esophageal reflux without esophagitis Me dical Established Patient with Vanesa Bullock MANUFACTURING EXECUTIVE 12/18/2023 Last Documented On 4 12:19PM ; [facility] Generalized anxiety disorder Medical Est ablished Patient with Vanesa Bullock MANUFACTURING EXECUTIVE 12/18/2023 Last Documented On 4 12:19PM ; [facility] [Z68.25 - Body mass index [B NH] 25.0-25.9, adult] assessment of body mass index Medical New Patient with Vanesa Bullock MANUFACTURING EXECUTIVE 05/23/2023 Last Documented On 3 8:59AM ; [facility] Chronic gastritis Medical New Patient with Brendan Bullock MANUFACTURING EXECUTIVE 05/23/2023 Last Documented On 3 8:59AM ; [facility] Diabetes Risk Test Score was one score 05/23/2023 Medical New Patient with Vanesa Bullock [facility] 05/23/2023 Last Documented On 3 8:59AM ; [facility] Work Phone: 1(126) 568-916307-30-2024 Progress note* Progress note Date Encounter Last Documented by 05/07/2024 Open Access - Established Last d ocumented on 05/07/2024; 1:57 PM, Shelly Mei CNP; [facility] Active Problems & Conditions - K21.9 [...] BP-Sitting L113/79 mmHg BP Cuff SizeRegular Pulse Rate-Yjhpmyi93 bpm Temp-Oral98.1 F Wozfhv28 in Xksmcb394 lbs 12.8 oz Body Mass Index27.5 kg/m2 Body Surface Area1.9 m2 Oxygen Jjimwsprqi18 % Vital Signs: - Systolic blood pressure [...] DAYS Outside Diagn Tests/Ultrasound: US Echo 2D ([id number]) EndCited StartCited- Unspecified chronic gastritis with bleeding [...] of prescription only drugs, and not illicit. [facility]07-30-2024 Reason for referral (narrative)* Date Encounter Description Provider Reason for Referral 05/07/24 Open Access - Established Shelly GARNETT P External referral/Resources provided - Gave resources for housing/ provided contact info. ~ 05/23/23 Medical New Patient Vanesa Kobe ZELAYA R eferral To Mental Health Team [facility] Work Phone: 1(808) 340-372507-30-2024 Evaluation note Includes: Assessments for all patient encounters Findings Encounter Date Generalized anxiety disorder BH Established Marga ent with Maira Munson NURSING TECH 05/07/2024 Last Documented On 4 10:55AM ; [facility] Mild recurrent major depression BH Estab lished Patient with Maira Munson NURSING TECH 05/07/2024 Last Documented On 4 10:55AM ; [facility] Visit for: screening for disorder BH Est ablished Patient with Maira Munson NURSING TECH 05/07/2024 Last Documented On 4 10:55AM ; [facility] [Body mass index [BMI] 27.0- 27.9, adult] assessment of body mass index Open Access - Established with Shelly Mei CNP 05/07/2024 Last Documented On 4 1:57PM ; [facility] Panic disorder without agoraphobia BH Es tablished Patient with Maira Munson NURSING TECH 04/23/2024 Last Documented On 4 7:39PM ; [facility] Visit for: screening for depression BH E stablished Patient with Maira Munson NURSING TECH 04/23/2024 Last Documented On 4 7:39PM ; [facility] Visit for: screening for disorder BH Est ablished Patient with Maira YINW 04/23/2024 Last Documented On 4 7:39PM ; [facility] [Z68.27 - Body mass index [B NH] 27.0-27.9, adult] assessment of body mass index Open Access - Established with Vanesa Bullock CNP 04/23/2024 Last Documented On 4 8:19AM ; [facility] Assessment of BMI Percentile = 5% to < 85% for age Z68.52 Open Access - Established with Vanesa Bullock CNP 04/23/2024 Last Documented On 4 8:19AM ; [facility] Generalized anxiety disorder Open Access - Established with Vanesa Bullock CNP 04/23/2024 Last Documented On 4 8:19AM ; [facility] Lumbar sprain Open Access - Established with A cora Bullock MANUFACTURING EXECUTIVE 04/23/2024 Last Documented On 4 8:19AM ; [facility] Thoracic sprain Open Access - Established with A cora Bullock MANUFACTURING EXECUTIVE 04/23/2024 Last Documented On 4 8:19AM ; [facility] [Z68.26 - Body mass index [B NH] 26.0-26.9, adult] assessment of body mass index Open Access - Established with Vanesa Bullock MANUFACTURING EXECUTIVE 02/14/2024 Last Documented On 4 4:26PM ; [facility] Lower back sprain Open Access - Established with Vanesa Bullock CNP 02/14/2024 Last Documented On 4 4:26PM ; [facility] Muscle spasm of back Open Access - Established w ith Vanesa Bullock MANUFACTURING EXECUTIVE 02/14/2024 Last Documented On 4 4:26PM ; [facility] Screening for HIV Open Access - Established with Vanesa Bullock CNP 02/14/2024 Last Documented On 4 4:26PM ; [facility] Visit for: screening for dig estive system disorders Open Access - Established with Vanesa Bullock CNP 02/14/2024 Last Documented On 4 4:26PM ; [facility] Generalized anxiety disorder BH Establis hed Patient with Rahda Fan [facility] 12/18/2023 Last Documented On 4 4:35PM ; [facility] Mild recurrent major depress ion per patient reported history BH Established Patient with Radha Fan [facility] 12/18/2023 Last Documented On 4 4:35PM ; [facility] [Z68.26 - Body mass index [B NH] 26.0-26.9, adult] assessment of body mass index Medical Established Patient with Vanesa Bullock MANUFACTURING EXECUTIVE 12/18/2023 Last Documented On 4 12:19PM ; [facility] Acute gastritis without hemorrhage Medic al Established Patient with Vanesa Bullock MANUFACTURING EXECUTIVE 12/18/2023 Last Documented On 4 12:19PM ; [facility] Esophageal reflux without esophagitis Me dical Established Patient with Vanesa Bullock MANUFACTURING EXECUTIVE 12/18/2023 Last Documented On 4 12:19PM ; [facility] Generalized anxiety disorder Medical Est ablished Patient with Vanesa Bullock [facility] 12/18/2023 Last Documented On 4 12:19PM ; [facility] [Z68.25 - Body mass index [B NH] 25.0-25.9, adult] assessment of body mass index Medical New Patient with Vanesa Bullock MANUFACTURING EXECUTIVE 05/23/2023 Last Documented On 3 8:59AM ; [facility] Chronic gastritis Medical New Patient with Brendan Bullock MANUFACTURING EXECUTIVE 05/23/2023 Last Documented On 3 8:59AM ; [facility] Diabetes Risk Test Score was one score 05/23/2023 Medical New Patient with Vanesa Bullock [facility] 05/23/2023 Last Documented On 3 8:59AM ; [facility] Work Phone: 1(162) 424-347307-30-2024 Instructions Includes: Instructions for all patient encounters Education and Decision Aids were provided during visit for: ~*[facility] offered active and sup portive listening, normalized emotions and feelings, and processed ~current stressors Last Documented On 4 10:55AM ; [facility] Discussed nutritional needs teach healthy choices including fruits and vegetables Last Documented On 4 8:41AM ; [facility] Patient education about a pr oper diet Last Documented On 4 8:41AM ; [facility] Discussed concerns about exe rcise : promote physical activity ~ ~Will start hydroxyzine for anxiety ~ ~Will refill ibuprofen and cyclobenzaprine for back pain ~ ~Due to cardiac symptoms will do cardiac testing ~ ~ ~Has a hisotry of GERD will restart pantoprazole ~ ~Follow up with PCP in 4 weeks Last Documented On 4 1:57PM ; [facility] Not requesting contraception Last Documented On 4 8:41AM ; [facility] ~*P offered active and sup portive listening, normalized emotions and feelings, and processed ~current stressors. ~*Utilize healthy coping skills and positive supports in patient's life. ~ Last Documented On 4 7:38PM ; [facility] Discussed nutritional needs teach healthy choices including fruits and vegetables Last Documented On 4 11:13AM ; [facility] Patient education about a pr oper diet Last Documented On 4 11:13AM ; [facility] Discussed concerns about exe rcise : promote physical activity Last Documented On 4 11:13AM ; [facility] Discussed nutritional needs teach healthy choices including fruits and vegetables Last Documented On 4 8:48AM ; [facility] Patient education about a pr oper diet Last Documented On 4 8:48AM ; [facility] Discussed concerns about exe rcise : promote physical activity Last Documented On 4 8:48AM ; [facility] offered active and suppo rtive listening, normalized emotions and feelings, processed current stressors and explored coping and stress reducing skills. ~P discussed coping skills to manage increased anxiety including mindfulnes, grounding and breathing techniques. ~[facility] discussed options for finding in-person and telehealth providers for therapy. ~P encouraged patient to continue to follow-up with addressing physical health concerns Last Documented On 4 4:35PM ; [facility] Discussed nutritional needs teach healthy choices including fruits and vegetables Last Documented On 4 2:55PM ; [facility] Patient education about a pr oper diet Last Documented On 4 2:55PM ; [facility] Discussed concerns about exe rcise : promote physical activity Last Documented On 4 2:55PM ; [facility] Discussed nutritional needs teach healthy choices including fruits and vegetables Last Documented On 3 9:14AM ; [facility] Patient education about a pr oper diet Last Documented On 3 9:14AM ; [facility] Discussed concerns about exe rcise : promote physical activity Last Documented On 3 9:14AM ; [facility] Work Phone: 1(490) 209-565007-30-2024 Instructions Includes: Instructions for all patient encounters Education and Decision Aids were provided during visit for: ~*[facility] offered active and sup portive listening, normalized emotions and feelings, and processed ~current stressors Last Documented On 4 10:55AM ; [facility] Discussed nutritional needs teach healthy choices including fruits and vegetables Last Documented On 4 8:41AM ; [facility] Patient education about a pr oper diet Last Documented On 4 8:41AM ; [facility] Discussed concerns about exe rcise : promote physical activity ~ ~Will start hydroxyzine for anxiety ~ ~Will refill ibuprofen and cyclobenzaprine for back pain ~ ~Due to cardiac symptoms will do cardiac testing ~ ~ ~Has a hisotry of GERD will restart pantoprazole ~ ~Follow up with PCP in 4 weeks Last Documented On 4 1:57PM ; [facility] Not requesting contraception Last Documented On 4 8:41AM ; [facility] ~*[facility] offered active and sup portive listening, normalized emotions and feelings, and processed ~current stressors. ~*Utilize healthy coping skills and positive supports in patient's life. ~ Last Documented On 4 7:38PM ; [facility] Discussed nutritional needs teach healthy choices including fruits and vegetables Last Documented On 4 11:13AM ; [facility] Patient education about a pr oper diet Last Documented On 4 11:13AM ; [facility] Discussed concerns about exe rcise : promote physical activity Last Documented On 4 11:13AM ; [facility] Discussed nutritional needs teach healthy choices including fruits and vegetables Last Documented On 4 8:48AM ; [facility] Patient education about a pr oper diet Last Documented On 4 8:48AM ; [facility] Discussed concerns about exe rcise : promote physical activity Last Documented On 4 8:48AM ; [facility] offered active and suppo rtive listening, normalized emotions and feelings, processed current stressors and explored coping and stress reducing skills. ~[facility] discussed coping skills to manage increased anxiety including mindfulnes, grounding and breathing techniques. ~[facility] discussed options for finding in-person and telehealth providers for therapy. ~[facility] encouraged patient to continue to follow-up with addressing physical health concerns Last Documented On 4 4:35PM ; [facility] Discussed nutritional needs teach healthy choices including fruits and vegetables Last Documented On 4 2:55PM ; [facility] Patient education about a pr oper diet Last Documented On 4 2:55PM ; [facility] Discussed concerns about exe rcise : promote physical activity Last Documented On 4 2:55PM ; [facility] Discussed nutritional needs teach healthy choices including fruits and vegetables Last Documented On 3 9:14AM ; [facility] Patient education about a pr oper diet Last Documented On 3 9:14AM ; [facility] Discussed concerns about exe rcise : promote physical activity Last Documented On 3 9:14AM ; [facility] Work Phone: 1(902) 484-805607-30-2024 Progress note* Progress note Date Encounter Last Documented by 05/07/2024 [facility] Patient Last docu mented on 05/07/2024; 10:55 AM, Maira KRUEGER; [facility] Active Problems & Conditions - K21.9 - Esophageal Reflux Without Esophagitis - K29.00 - Gastritis Acute Without Hemorrhage - K29.51 - Gastritis Chronic - F41.1 - Generalized Anxiety Disorder - F33.0 - Major Depression Recurrent Mild Subjective [facility] met with patient to follow [...] with relatives and housing stress. 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 Sexual: Sexual orientation Straight (not lesbian or [...] Reminders - Assess Tobacco Use satisfied 05/07/2024. [facility]07-16-2024 Evaluation note Includes: Assessments for all patient encounters Findings Encounter Date Panic disorder without agoraphobia BH Es tablished Patient with Maira Munson [facility] 04/23/2024 Last Documented On 4 7:39PM ; [facility] Visit for: screening for depression BH E stablished Patient with Maira Munson [facility] 04/23/2024 Last Documented On 4 7:39PM ; [facility] Visit for: screening for disorder BH Est ablished Patient with aMira Munson [facility] 04/23/2024 Last Documented On 4 7:39PM ; [facility] [Z68.27 - Body mass index [B NH] 27.0-27.9, adult] assessment of body mass index Open Access - Established with Vanesa Bullock CNP 04/23/2024 Last Documented On 4 1:03PM ; [facility] Assessment of BMI Percentile = 5% to < 85% for age Z68.52 Open Access - Established with Vanesa Bullock CNP 04/23/2024 Last Documented On 4 1:03PM ; [facility] Generalized anxiety disorder Open Access - Established with Vanesa Bullock CNP 04/23/2024 Last Documented On 4 1:03PM ; [facility] Lumbar sprain Open Access - Established with Charlie Bullock CNP 04/23/2024 Last Documented On 4 1:03PM ; [facility] Thoracic sprain Open Access - Established with A cora Bullock CNP 04/23/2024 Last Documented On 4 1:03PM ; [facility] [Z68.26 - Body mass index [B NH] 26.0-26.9, adult] assessment of body mass index Open Access - Established with Vanesa Bullock CNP 02/14/2024 Last Documented On 4 4:26PM ; [facility] Lower back sprain Open Access - Established with Vanesa Bullock CNP 02/14/2024 Last Documented On 4 4:26PM ; [facility] Muscle spasm of back Open Access - Established w ith Vanesa Bullock MANUFACTURING EXECUTIVE 02/14/2024 Last Documented On 4 4:26PM ; [facility] Screening for HIV Open Access - Established with Vanesa Bullock CNP 02/14/2024 Last Documented On 4 4:26PM ; [facility] Visit for: screening for dig estive system disorders Open Access - Established with Vanesa Bullock CNP 02/14/2024 Last Documented On 4 4:26PM ; [facility] Generalized anxiety disorder BH Establis hed Patient with Radha GAONA 12/18/2023 Last Documented On 4 4:35PM ; [facility] Mild recurrent major depress ion per patient reported history BH Established Patient with Radha Fan [facility] 12/18/2023 Last Documented On 4 4:35PM ; [facility] [Z68.26 - Body mass index [B NH] 26.0-26.9, adult] assessment of body mass index Medical Established Patient with Vanesa Bullock MANUFACTURING EXECUTIVE 12/18/2023 Last Documented On 4 12:19PM ; [facility] Acute gastritis without hemorrhage Medic al Established Patient with Vanesa Bullock MANUFACTURING EXECUTIVE 12/18/2023 Last Documented On 4 12:19PM ; [facility] Esophageal reflux without esophagitis Me dical Established Patient with Vanesa Bullock [facility] 12/18/2023 Last Documented On 4 12:19PM ; [facility] Generalized anxiety disorder Medical Est ablished Patient with Vanesa Bullock MANUFACTURING EXECUTIVE 12/18/2023 Last Documented On 4 12:19PM ; [facility] [Z68.25 - Body mass index [B NH] 25.0-25.9, adult] assessment of body mass index Medical New Patient with Vanesa Bullock MANUFACTURING EXECUTIVE 05/23/2023 Last Documented On 3 8:59AM ; [facility] Chronic gastritis Medical New Patient with Brendan Bullock MANUFACTURING EXECUTIVE 05/23/2023 Last Documented On 3 8:59AM ; [facility] Diabetes Risk Test Score was one score 05/23/2023 Medical New Patient with Vanesa Bullock [facility] 05/23/2023 Last Documented On 3 8:59AM ; [facility] Work Phone: 1(735) 511-654807-16-2024 Evaluation note Includes: Assessments for all patient encounters Findings Encounter Date Panic disorder without agoraphobia BH Es tablished Patient with Maira Munson NURSING TECH 04/23/2024 Last Documented On 4 7:39PM ; [facility] Visit for: screening for depression BH E stablished Patient with Maira Munson NURSING TECH 04/23/2024 Last Documented On 4 7:39PM ; [facility] Visit for: screening for disorder BH Est ablished Patient with Maira YINW 04/23/2024 Last Documented On 4 7:39PM ; [facility] [Z68.27 - Body mass index [B NH] 27.0-27.9, adult] assessment of body mass index Open Access - Established with Vanesa Bullock CNP 04/23/2024 Last Documented On 4 8:19AM ; [facility] Assessment of BMI Percentile = 5% to < 85% for age Z68.52 Open Access - Established with Vanesa Bullock CNP 04/23/2024 Last Documented On 4 8:19AM ; [facility] Generalized anxiety disorder Open Access - Established with Vanesa Bullock CNP 04/23/2024 Last Documented On 4 8:19AM ; [facility] Lumbar sprain Open Access - Established with A cora Bullock MANUFACTURING EXECUTIVE 04/23/2024 Last Documented On 4 8:19AM ; [facility] Thoracic sprain Open Access - Established with A cora Bullock [facility] 04/23/2024 Last Documented On 4 8:19AM ; [facility] [Z68.26 - Body mass index [B NH] 26.0-26.9, adult] assessment of body mass index Open Access - Established with Vanesa Bullock CNP 02/14/2024 Last Documented On 4 4:26PM ; [facility] Lower back sprain Open Access - Established with Vanesa Bullock CNP 02/14/2024 Last Documented On 4 4:26PM ; [facility] Muscle spasm of back Open Access - Established w ith Vanesa Bullock MANUFACTURING EXECUTIVE 02/14/2024 Last Documented On 4 4:26PM ; [facility] Screening for HIV Open Access - Established with Vanesa Bullock CNP 02/14/2024 Last Documented On 4 4:26PM ; [facility] Visit for: screening for dig estive system disorders Open Access - Established with Vanesa Bullock CNP 02/14/2024 Last Documented On 4 4:26PM ; [facility] Generalized anxiety disorder BH Establis hed Patient with Radha GAONA 12/18/2023 Last Documented On 4 4:35PM ; [facility] Mild recurrent major depress ion per patient reported history BH Established Patient with Radha Fan [facility] 12/18/2023 Last Documented On 4 4:35PM ; [facility] [Z68.26 - Body mass index [B NH] 26.0-26.9, adult] assessment of body mass index Medical Established Patient with Vanesa Bullock MANUFACTURING EXECUTIVE 12/18/2023 Last Documented On 4 12:19PM ; [facility] Acute gastritis without hemorrhage Medic al Established Patient with Vanesa Bullock MANUFACTURING EXECUTIVE 12/18/2023 Last Documented On 4 12:19PM ; [facility] Esophageal reflux without esophagitis Me dical Established Patient with Vanesa Blulock [facility] 12/18/2023 Last Documented On 4 12:19PM ; [facility] Generalized anxiety disorder Medical Est ablished Patient with Vanesa Bullock [facility] 12/18/2023 Last Documented On 4 12:19PM ; [facility] [Z68.25 - Body mass index [B NH] 25.0-25.9, adult] assessment of body mass index Medical New Patient with Vanesa Bullock MANUFACTURING EXECUTIVE 05/23/2023 Last Documented On 3 8:59AM ; [facility] Chronic gastritis Medical New Patient with Brendan Bullock MANUFACTURING EXECUTIVE 05/23/2023 Last Documented On 3 8:59AM ; [facility] Diabetes Risk Test Score was one score 05/23/2023 Medical New Patient with Vanesa Bullock [facility] 05/23/2023 Last Documented On 3 8:59AM ; [facility] Work Phone: 1([phone] 770-623307-16-2024 History general Narrative - Reported Includes: Medical History in patient's chart Description Last Updated No Safety Measures 04/23/2024 Last Documented On 4 7:39PM ; [facility] No previous hospitalizations 02/14/2024 Last Documented On 4 4:26PM ; [facility] No medical history or no significant his tory 05/23/2023 Last Documented On 3 8:59AM ; [facility] Not planning to have a baby in the next 12 months 05/23/2023 Last Documented On 3 8:59AM ; [facility] Work Phone: [phone] 475-267007-16-2024 History general Narrative - Reported Includes: Medical History in patient's chart Description Last Updated No Safety Measures 04/23/2024 Last Documented On 4 7:39PM ; [facility] No previous hospitalizations 02/14/2024 Last Documented On 4 4:26PM ; [facility] No medical history or no significant his tory 05/23/2023 Last Documented On 3 8:59AM ; [facility] Not planning to have a baby in the next 12 months 05/23/2023 Last Documented On 3 8:59AM ; [facility] Work Phone: [phone] 414-290807-16-2024 History general Narrative - Reported Includes: Medical History in patient's chart Description Last Updated No Safety Measures 04/23/2024 Last Documented On 4 7:39PM ; [facility] No previous hospitalizations 02/14/2024 Last Documented On 4 4:26PM ; [facility] No medical history or no significant his tory 05/23/2023 Last Documented On 3 8:59AM ; [facility] Not planning to have a baby in the next 12 months 05/23/2023 Last Documented On 3 8:59AM ; [facility] Work Phone: [phone] History general Narrative - Reported Includes: Medical History in patient's chart Description Last Updated No Safety Measures 04/23/2024 Last Documented On 4 7:39PM ; [facility] No previous hospitalizations 02/14/2024 Last Documented On 4 4:26PM ; [facility] No medical history or no significant his tory 05/23/2023 Last Documented On 3 8:59AM ; [facility] Not planning to have a baby in the next 12 months 05/23/2023 Last Documented On 3 8:59AM ; [facility] Work Phone: [phone] 619-740207-16-2024 History general Narrative - Reported Includes: Medical History in patient's chart Description Last Updated No Safety Measures 04/23/2024 Last Documented On 4 7:39PM ; [facility] No previous hospitalizations 02/14/2024 Last Documented On 4 4:26PM ; [facility] No medical history or no significant his tory 05/23/2023 Last Documented On 3 8:59AM ; [facility] Not planning to have a baby in the next 12 months 05/23/2023 Last Documented On 3 8:59AM ; [facility] Work Phone: [phone] 976-920807-16-2024 History general Narrative - Reported Includes: Medical History in patient's chart Description Last Updated No Safety Measures 04/23/2024 Last Documented On 4 7:39PM ; [facility] No previous hospitalizations 02/14/2024 Last Documented On 4 4:26PM ; [facility] No medical history or no significant his tory 05/23/2023 Last Documented On 3 8:59AM ; [facility] Not planning to have a baby in the next 12 months 05/23/2023 Last Documented On 3 8:59AM ; [facility] Work Phone: [phone] 638-359007-16-2024 Progress note* Progress note Date Encounter Last Documented by 04/23/2024 Established Patient Last docu mented on 04/23/2024; 7:39 PM, Maira KRUEGER; [facility] Active Problems & Conditions - K21.9 - Esophageal Reflux Without Esophagitis - K29.00 - Gastritis Acute Without Hemorrhage - K29.51 - Gastritis Chronic - F41.1 - Generalized Anxiety Disorder - F33.0 - Major Depression Recurrent Mild Subjective P met with patient in regards to GAD7 [...] Using marijuana. Not using drugs. 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 Sexual: Sexual orientation Straight (not lesbian or [...] + 0 pt : Not at all. [facility]07-16-2024 Progress note* Progress note Date Encounter Last Documented by 04/23/2024 Open Access - Established Last d ocumented on 04/24/2024; 8:19 AM, Vanesa Bullock MANUFACTURING EXECUTIVE; [facility] Active Problems & Conditions - K21.9 [...] 04/23/2024 11:09 am BP-Sitting R111/74 mmHg Pulse Rate-Znjibcq55 bpm Zjvzug55 in Afvefd957 lbs 9.6 oz Body Mass Index27.5 kg/m2 Body Surface Area1.9 m2 Oxygen Akgcmexydn22 % Vital Signs: - Systolic blood pressure [...] pelvis, subs encntr In House Medications/Inject/Aerosol Codes: 58915 Therapeutic Prophy or Diag Injection, EACH In [...] Follow Up Plan BMI Management satisfied 04/23/2024. [facility]05-08-2024 Evaluation note Includes: Assessments for all patient encounters Findings Encounter Date [Z68.26 - Body mass index [B NH] 26.0-26.9, adult] assessment of body mass index Open Access - Established with Vanesa Bullock CNP 02/14/2024 Last Documented On 4 4:26PM ; [facility] Lower back sprain Open Access - Established with Vanesa Bullock CNP 02/14/2024 Last Documented On 4 4:26PM ; [facility] Muscle spasm of back Open Access - Established w kayla Bullock CNP 02/14/2024 Last Documented On 4 4:26PM ; [facility] Screening for HIV Open Access - Established with Vanesa Bullock CNP 02/14/2024 Last Documented On 4 4:26PM ; [facility] Visit for: screening for dig estive system disorders Open Access - Established with Vanesa Bullock CNP 02/14/2024 Last Documented On 4 4:26PM ; [facility] Generalized anxiety disorder BH Establis hed Patient with Radha GAONA 12/18/2023 Last Documented On 4 4:35PM ; [facility] Mild recurrent major depress ion per patient reported history BH Established Patient with Radha Fan LISWS 12/18/2023 Last Documented On 4 4:35PM ; [facility] [Z68.26 - Body mass index [B NH] 26.0-26.9, adult] assessment of body mass index Medical Established Patient with Vanesa Bullock MANUFACTURING EXECUTIVE 12/18/2023 Last Documented On 4 12:19PM ; [facility] Acute gastritis without hemorrhage Medic al Established Patient with Vanesa Bullock MANUFACTURING EXECUTIVE 12/18/2023 Last Documented On 4 12:19PM ; [facility] Esophageal reflux without esophagitis Me dical Established Patient with Vanesa Bullock MANUFACTURING EXECUTIVE 12/18/2023 Last Documented On 4 12:19PM ; [facility] Generalized anxiety disorder Medical Est ablished Patient with Vanesa Bullock MANUFACTURING EXECUTIVE 12/18/2023 Last Documented On 4 12:19PM ; [facility] [Z68.25 - Body mass index [B NH] 25.0-25.9, adult] assessment of body mass index Medical New Patient with Vanesa Bullock MANUFACTURING EXECUTIVE 05/23/2023 Last Documented On 3 8:59AM ; [facility] Chronic gastritis Medical New Patient with Brendan Bullock MANUFACTURING EXECUTIVE 05/23/2023 Last Documented On 3 8:59AM ; [facility] Diabetes Risk Test Score was one score 05/23/2023 Medical New Patient with Vanesa Bullock MANUFACTURING EXECUTIVE 05/23/2023 Last Documented On 3 8:59AM ; [facility] Work Phone: [phone] 893-281905-08-2024 History general Narrative - Reported Includes: Medical History in patient's chart Description Last Updated No previous hospitalizations 02/14/2024 Last Documented On 4 4:26PM ; [facility] No medical history or no significant his tory 05/23/2023 Last Documented On 3 8:59AM ; [facility] Not planning to have a baby in the next 12 months 05/23/2023 Last Documented On 3 8:59AM ; [facility] Work Phone: 1(635) 675-695805-08-2024 Progress note* Progress note Date Encounter Last Documented by 02/14/2024 Open Access - Established Last d ocumented on 02/15/2024; 4:26 PM, Vanesa Bullock MANUFACTURING EXECUTIVE; [facility] Active Problems & Conditions - K21.9 [...] 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 - HIV Screen satisfied 02/14/2024. [facility]05-08-2024 Instructions Includes: Instructions for all patient encounters Education and Decision Aids were provided during visit for: Discussed nutritional needs teach healthy choices including fruits and vegetables Last Documented On 4 8:48AM ; [facility] Patient education about a pr oper diet Last Documented On 4 8:48AM ; [facility] Discussed concerns about exe rcise : promote physical activity Last Documented On 4 8:48AM ; [facility] offered active and suppo rtive listening, normalized emotions and feelings, processed current stressors and explored coping and stress reducing skills. ~[facility] discussed coping skills to manage increased anxiety including mindfulnes, grounding and breathing techniques. ~[facility] discussed options for finding in-person and telehealth providers for therapy. ~[facility] encouraged patient to continue to follow-up with addressing physical health concerns Last Documented On 4 4:35PM ; [facility] Discussed nutritional needs teach healthy choices including fruits and vegetables Last Documented On 4 2:55PM ; [facility] Patient education about a pr oper diet Last Documented On 4 2:55PM ; [facility] Discussed concerns about exe rcise : promote physical activity Last Documented On 4 2:55PM ; [facility] Discussed nutritional needs teach healthy choices including fruits and vegetables Last Documented On 3 9:14AM ; [facility] Patient education about a pr oper diet Last Documented On 3 9:14AM ; [facility] Discussed concerns about exe rcise : promote physical activity Last Documented On 3 9:14AM ; [facility] Work Phone: 1(294) 505-438003-11-2024 Evaluation note Includes: Assessments for all patient encounters Findings Encounter Date Generalized anxiety disorder Establis hed Patient with Radha Short LISWS 12/18/2023 Last Documented On 4 4:35PM ; [facility] Mild recurrent major depress ion per patient reported history Established Patient with Radha Short LISWS 12/18/2023 Last Documented On 4 4:35PM ; [facility] [Z68.26 - Body mass index [B NH] 26.0-26.9, adult] assessment of body mass index Medical Established Patient with Vanesa Bullock MANUFACTURING EXECUTIVE 12/18/2023 Last Documented On 4 4:18PM ; [facility] Chronic gastritis Medical Established Patient wi th Vanesa Bullock MANUFACTURING EXECUTIVE 12/18/2023 Last Documented On 4 4:18PM ; [facility] Generalized anxiety disorder Medical Est ablished Patient with Vanesa Bullock MANUFACTURING EXECUTIVE 12/18/2023 Last Documented On 4 4:18PM ; [facility] [Z68.25 - Body mass index [B NH] 25.0-25.9, adult] assessment of body mass index Medical New Patient with Vanesa Bullock MANUFACTURING EXECUTIVE 05/23/2023 Last Documented On 3 8:59AM ; [facility] Chronic gastritis Medical New Patient with Brendan Bullock MANUFACTURING EXECUTIVE 05/23/2023 Last Documented On 3 8:59AM ; [facility] Diabetes Risk Test Score was one score 05/23/2023 Medical New Patient with Vanesa Bullock MANUFACTURING EXECUTIVE 05/23/2023 Last Documented On 3 8:59AM ; [facility] Work Phone: 1([phone]) 173-981803-11-2024 Evaluation note Includes: Assessments for all patient encounters Findings Encounter Date Generalized anxiety disorder BH Establis hed [facility]23 Last Documented On 4 4:35PM ; [facility] Mild recurrent major depress ion per patient reported history Established Patient with Radha Fan LISWS 12/18/2023 Last Documented On 4 4:35PM ; [facility] [Z68.26 - Body mass index [B NH] 26.0-26.9, adult] assessment of body mass index Medical Established Patient with Vanesa Bullock MANUFACTURING EXECUTIVE 12/18/2023 Last Documented On 4 12:19PM ; [facility] Acute gastritis without hemorrhage Medic al Established Patient with Vanesa Bullock MANUFACTURING EXECUTIVE 12/18/2023 Last Documented On 4 12:19PM ; [facility] Esophageal reflux without esophagitis Me dical Established Patient with Vanesa Bullock MANUFACTURING EXECUTIVE 12/18/2023 Last Documented On 4 12:19PM ; [facility] Generalized anxiety disorder Medical Est ablished Patient with Vanesa Bullock MANUFACTURING EXECUTIVE 12/18/2023 Last Documented On 4 12:19PM ; [facility] [Z68.25 - Body mass index [B NH] 25.0-25.9, adult] assessment of body mass index Medical New Patient with Vanesa Bullock MANUFACTURING EXECUTIVE 05/23/2023 Last Documented On 3 8:59AM ; [facility] Chronic gastritis Medical New Patient with Brendan Bullock [facility] 05/23/2023 Last Documented On 3 8:59AM ; [facility] Diabetes Risk Test Score was one score 05/23/2023 Medical New Patient with Vanesa Bullock [facility] 05/23/2023 Last Documented On 3 8:59AM ; [facility] Work Phone: 1(390) 507-686703-11-2024 Progress note* Progress note Date Encounter Last Documented by 12/18/2023 Established Patient Last docu mented on 12/18/2023; 4:35 PM, Radha GAONA; [facility] Active Problems & Conditions - K29.51 - Gastritis Chronic - F41.1 - Generalized Anxiety Disorder - F33.0 - Major Depression Recurrent Mild Chief Complaint The Chief Complaint is: [facility] met with patient to follow-up regarding mood and PHQ score of 11 and MAITE score of 14. Patient reports that she was diagnosed with depression and anxiety last year and was being seen at [facility]. Patient reports that she was seeing a [...] And Economic Circumstances: Lives alone. 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 Physical Findings General Appearance: - Normal Appearance. [...] needed clothing: No, unable to get needed children's counselor: No, unable to get other needs No, [...] of things, or get along? Very difficult. 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 [facility]08-15-2023 Evaluation note Includes: Assessments for all patient encounters Findings Encounter Date [Z68.25 - Body mass index [B NH] 25.0-25.9, adult] assessment of body mass index Medical New Patient with Vanesa Bullock [facility] 05/23/2023 Last Documented On 3 8:59AM ; [facility] Chronic gastritis Medical New Patient with Brendan Bulolck [facility] 05/23/2023 Last Documented On 3 8:59AM ; [facility] Diabetes Risk Test Score was one score 05/23/2023 Medical New Patient with Vanesa Bullock [facility] 05/23/2023 Last Documented On 3 8:59AM ; [facility] Work Phone: 1([phone]) 356-820808-15-2023 History general Narrative - Reported Includes: Medical History in patient's chart Description Last Updated No medical history or no significant his tory 05/23/2023 Last Documented On 3 8:59AM ; [facility] Not planning to have a baby in the next 12 months 05/23/2023 Last Documented On 3 8:59AM ; [facility] Work Phone: 1([phone]) 514-370608-15-2023 History general Narrative - Reported Includes: Medical History in patient's chart Description Last Updated No medical history or no significant his tory 05/23/2023 Last Documented On 3 8:59AM ; [facility] Not planning to have a baby in the next 12 months 05/23/2023 Last Documented On 3 8:59AM ; [facility] Work Phone: [phone]) [phone] History general Narrative - Reported Includes: Medical History in patient's chart Description Last Updated No medical history or no significant his tory 05/23/2023 Last Documented On 3 8:59AM ; [facility] Not planning to have a baby in the next 12 months 05/23/2023 Last Documented On 3 8:59AM ; [facility] Work Phone: 1([phone]) 499-814108-15-2023 Progress note* Progress note Date Encounter Last Documented by 05/23/2023 Medical New Patient Last esther duenas on 05/24/2023; 8:59 AM, 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 Reason For Visit Visit for: to establish care. Referred Here No prior encounters. History of Present Illness - Allergy list reviewed - Reviewed Medications - Medication list reviewed Patient is [facility] and for complaint of chronic abdominal [...] she was seeing GI at [facility] in [place]. Patient has not been there in the [...] 05/23/2023 09:10 am BP-Sitting R110/71 mmHg Pulse Rate-Csuzoax70 bpm Cuhosv54 in Xbweqj805 lbs Body Mass Index25.2 kg/m2 Body Surface Area1.8 m2 Oxygen Ilbssppbnf23 % Vital Signs: - Systolic blood pressure [...] try [facility] provider if they round in [place], if no Provider there will send to [...] Less than 40 years (0 points) [Pre-DM]. [facility]08-15-2023 Reason for referral (narrative)* Date Encounter Description Provider Reason for Referral 05/23/23 Medical New Patient Vanesa Bullock NATHALIE [facility] Work Phone: 1([phone]) 195-296908-15-2023 Reason for referral (narrative)* Date Encounter Description Provider Reason for Referral 05/07/24 Open Access - Established Shelly Mcguire External referral/Resources provided - Gave resources for housing/ provided contact info. ~ 05/23/23 Medical New Patient Vanesa Kobe hunter [facility] Work Phone: 1(758) 441-620208-15-2023 Instructions Includes: Instructions for all patient encounters Education and Decision Aids were provided during visit for: Discussed nutritional needs teach healthy choices including fruits and vegetables Last Documented On 3 9:14AM ; [facility] Patient education about a pr oper diet Last Documented On 3 9:14AM ; [facility] Discussed concerns about exe rcise : promote physical activity Last Documented On 3 9:14AM ; [facility] Work Phone: 1([phone]) 552-487003-27-2023 Evaluation note* Encounter Date Diagnosis Assessment Notes [...] no improvement in 5 to 7 days. [facility] 09-01-2019 History general Narrative - Reported* Type Description Date Surgical History cholecystectomy 06/2019 Hospitalization History childbirth x2 [facility] Evaluation noteNo assessment [facility]: Assessments for all patient encounters Findings Encounter Date Generalized anxiety disorder BH Established Marga ent with Maira Munson [facility] 05/07/2024 Last Documented On 4 10:55AM ; [facility] Mild recurrent major depression BH Estab lished Patient with Maira Munson [facility] 05/07/2024 Last Documented On 4 10:55AM ; [facility] Visit for: screening for disorder BH Est ablished Patient with Maira Munson NURSING TECH 05/07/2024 Last Documented On 4 10:55AM ; [facility] [Body mass index [BMI] 27.0- 27.9, adult] assessment of body mass index Open Access - Established with Shelly Mei CNP 05/07/2024 Last Documented On 4 9:39AM ; [facility] Panic disorder without agoraphobia BH Es tablished Patient with Maira Munson NURSING TECH 04/23/2024 Last Documented On 4 7:39PM ; [facility] Visit for: screening for depression BH E stablished Patient with Maira Munson NURSING TECH 04/23/2024 Last Documented On 4 7:39PM ; [facility] Visit for: screening for disorder BH Est ablished Patient with Maira Munson NURSING TECH 04/23/2024 Last Documented On 4 7:39PM ; [facility] [Z68.27 - Body mass index [B NH] 27.0-27.9, adult] assessment of body mass index Open Access - Established with Vanesa Bullock MANUFACTURING EXECUTIVE 04/23/2024 Last Documented On 4 8:19AM ; [facility] Assessment of BMI Percentile = 5% to < 85% for age Z68.52 Open Access - Established with Vanesa Bullock MANUFACTURING EXECUTIVE 04/23/2024 Last Documented On 4 8:19AM ; [facility] Generalized anxiety disorder Open Access - Established with Vanesa Bullock MANUFACTURING EXECUTIVE 04/23/2024 Last Documented On 4 8:19AM ; [facility] Lumbar sprain Open Access - Established with A cora Bullock MANUFACTURING EXECUTIVE 04/23/2024 Last Documented On 4 8:19AM ; [facility] Thoracic sprain Open Access - Established with A cora Bullock MANUFACTURING EXECUTIVE 04/23/2024 Last Documented On 4 8:19AM ; [facility] [Z68.26 - Body mass index [B NH] 26.0-26.9, adult] assessment of body mass index Open Access - Established with Vanesa Bullock CNP 02/14/2024 Last Documented On 4 4:26PM ; [facility] Lower back sprain Open Access - Established with Vanesa Bullock MANUFACTURING EXECUTIVE 02/14/2024 Last Documented On 4 4:26PM ; [facility] Muscle spasm of back Open Access - Established w ith Vanesa Bullock MANUFACTURING EXECUTIVE 02/14/2024 Last Documented On 4 4:26PM ; [facility] Screening for HIV Open Access - Established with Vanesa Bullock MANUFACTURING EXECUTIVE 02/14/2024 Last Documented On 4 4:26PM ; [facility] Visit for: screening for dig estive system disorders Open Access - Established with Vanesa Bullock MANUFACTURING EXECUTIVE 02/14/2024 Last Documented On 4 4:26PM ; [facility] Generalized anxiety disorder BH Establis hed Patient with Radha Fan LISWS 12/18/2023 Last Documented On 4 4:35PM ; [facility] Mild recurrent major depress ion per patient reported history BH Established Patient with Radha Short LISWS 12/18/2023 Last Documented On 4 4:35PM ; [facility] [Z68.26 - Body mass index [B NH] 26.0-26.9, adult] assessment of body mass index Medical Established Patient with Vanesa Bullock MANUFACTURING EXECUTIVE 12/18/2023 Last Documented On 4 12:19PM ; [facility] Acute gastritis without hemorrhage Medic al Established Patient with Vanesa Bullock [facility] 12/18/2023 Last Documented On 4 12:19PM ; [facility] Esophageal reflux without esophagitis Me dical Established Patient with Vanesa Bullock [facility] 12/18/2023 Last Documented On 4 12:19PM ; [facility] Generalized anxiety disorder Medical Est ablished Patient with Vanesa Bullock [facility] 12/18/2023 Last Documented On 4 12:19PM ; [facility] [Z68.25 - Body mass index [B NH] 25.0-25.9, adult] assessment of body mass index Medical New Patient with Vanesa Bullock MANUFACTURING EXECUTIVE 05/23/2023 Last Documented On 3 8:59AM ; [facility] Chronic gastritis Medical New Patient with Brendan Bullock [facility] 05/23/2023 Last Documented On 3 8:59AM ; [facility] Diabetes Risk Test Score was one score 05/23/2023 Medical New Patient with Vanesa Bullock [facility] 05/23/2023 Last Documented On 3 8:59AM ; [facility] Work Phone: Evaluation note* Diagnosis Encounter for routine checking of intrauterine contraceptive device (IUD) Breakthrough bleeding with IUD [facility] Diagnosis Vaginal dryness Postmenopausal atrophic vaginitis documented [facility] this [facility] Includes: Assessments for all patient encounters Findings Encounter Date [Acute vaginitis] vaginitis Medical Esta blished Patient with Shelly Mei MANUFACTURING EXECUTIVE 04/14/2025 Last Documented On 5 12:19PM ; [facility] [Body mass index [BMI] 26.0- 26.9, adult] assessment of body mass index Medical Established Patient with Shelly Hamida MANUFACTURING EXECUTIVE 04/14/2025 Last Documented On 5 12:19PM ; [facility] Diabetes Risk Test Score was two score 04/14/2025 Medical Established Patient with Shelly Hamida MANUFACTURING EXECUTIVE 04/14/2025 Last Documented On 5 12:19PM ; [facility] Generalized anxiety disorder Established Marga ent with Maira Munson NURSING TECH 09/12/2024 Last Documented On 4 9:15AM ; [facility] Mild recurrent major depression Estab lished Patient with Maira Munson NURSING TECH 09/12/2024 Last Documented On 4 9:15AM ; [facility] Visit for: screening for disorder Est ablished Patient with Maira Munson NURSING TECH 09/12/2024 Last Documented On 4 9:15AM ; [facility] [Body mass index [BMI] 27.0- 27.9, adult] assessment of body mass index Open Access - Established with Shelly Mei MANUFACTURING EXECUTIVE 09/12/2024 Last Documented On 4 3:50PM ; [facility] Acute sinusitis Open Access - Established with Cammie Mei MANUFACTURING EXECUTIVE 09/12/2024 Last Documented On 4 3:50PM ; [facility] Generalized anxiety disorder Established Marga ent with Maira Munson NURSING TECH 05/07/2024 Last Documented On 4 10:55AM ; [facility] Mild recurrent major depression Estab lished Patient with Maira Munson NURSING TECH 05/07/2024 Last Documented On 4 10:55AM ; [facility] Visit for: screening for disorder BH Est ablished Patient with Maira Munson NURSING TECH 05/07/2024 Last Documented On 4 10:55AM ; [facility] [Body mass index [BMI] 27.0- 27.9, adult] assessment of body mass index Open Access - Established with Shelly Mei [facility] 05/07/2024 Last Documented On 4 1:57PM ; [facility] Panic disorder without agoraphobia BH Es tablished Patient with Maira Munson [facility] 04/23/2024 Last Documented On 4 7:39PM ; [facility] Visit for: screening for depression BH E stablished Patient with Maira Munson [facility] 04/23/2024 Last Documented On 4 7:39PM ; [facility] Visit for: screening for disorder BH Est ablished Patient with Maira Munson [facility] 04/23/2024 Last Documented On 4 7:39PM ; [facility] [Z68.27 - Body mass index [B NH] 27.0-27.9, adult] assessment of body mass index Open Access - Established with Vanesa Bullock [facility] 04/23/2024 Last Documented On 4 8:19AM ; [facility] Assessment of BMI Percentile = 5% to < 85% for age Z68.52 Open Access - Established with Vanesa Bullock [facility] 04/23/2024 Last Documented On 4 8:19AM ; [facility] Generalized anxiety disorder Open Access - Established with Vanesa Bullock [facility] 04/23/2024 Last Documented On 4 8:19AM ; [facility] Lumbar sprain Open Access - Established with A cora Bullock [facility] 04/23/2024 Last Documented On 4 8:19AM ; [facility] Thoracic sprain Open Access - Established with A cora Bullock [facility] 04/23/2024 Last Documented On 4 8:19AM ; [facility] [Z68.26 - Body mass index [B NH] 26.0-26.9, adult] assessment of body mass index Open Access - Established with Vanesa Kobe [facility] 02/14/2024 Last Documented On 4 4:26PM ; [facility] Lower back sprain Open Access - Established with Vanesa Kobe [facility] 02/14/2024 Last Documented On 4 4:26PM ; [facility] Muscle spasm of back Open Access - Established w ith Vanesa Kobe [facility] 02/14/2024 Last Documented On 4 4:26PM ; [facility] Screening for HIV Open Access - Established with Vanesa Kobe [facility] 02/14/2024 Last Documented On 4 4:26PM ; [facility] Visit for: screening for dig estive system disorders Open Access - Established with Vanesacharlie Bullock [facility] 02/14/2024 Last Documented On 4 4:26PM ; [facility] Generalized anxiety disorder BH Establis hed Patient with Radha Short 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 12/18/2023 Last Documented On 4 4:35PM ; [facility] Mild recurrent major depress ion per patient reported history Established Patient with Radha Short 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 12/18/2023 Last Documented On 4 4:35PM ; [facility] [Z68.26 - Body mass index [B NH] 26.0-26.9, adult] assessment of body mass index Medical Established Patient with Vanesa Bullock [facility] 12/18/2023 Last Documented On 4 12:19PM ; [facility] Acute gastritis without hemorrhage Medic al Established Patient with Vanesa Bullock [facility] 12/18/2023 Last Documented On 4 12:19PM ; [facility] Esophageal reflux without esophagitis Me dical Established Patient with Vanesa Bullock [facility] 12/18/2023 Last Documented On 4 12:19PM ; [facility] Generalized anxiety disorder Medical Est ablished Patient with Vanesa Bullock [facility] 12/18/2023 Last Documented On 4 12:19PM ; [facility] [Z68.25 - Body mass index [B NH] 25.0-25.9, adult] assessment of body mass index Medical New Patient with Vanesa Bullock [facility] 05/23/2023 Last Documented On 3 8:59AM ; [facility] Chronic gastritis Medical New Patient with Brendan Bullock MANUFACTURING EXECUTIVE 05/23/2023 Last Documented On 3 8:59AM ; [facility] Diabetes Risk Test Score was one score 05/23/2023 Medical New Patient with Vanesa Bullock MANUFACTURING EXECUTIVE 05/23/2023 Last Documented On 3 8:59AM ; [facility] Work Phone: Evaluation note* Diagnosis Yeast infection- Primary Vaginal dryness Postmenopausal atrophic vaginitis documented in this encounter [facility] - Reported Includes: Medical History in patient's chart Description Last Updated No Safety Measures 09/13/2024 Last Documented On 4 12:14PM ; [facility] No previous hospitalizations 02/14/2024 Last Documented On 4 4:26PM ; [facility] No medical history or no significant his tory 05/23/2023 Last Documented On 3 8:59AM ; [facility] Not planning to have a baby in the next 12 months 05/23/2023 Last Documented On 3 8:59AM ; [facility] Work Phone: History general Narrative - Reported Includes: Medical History in patient's chart Description Last Updated No Previous hospitalizations or recent E R visits 04/14/2025 Last Documented On 5 12:19PM ; [facility] No Safety Measures 09/13/2024 Last Documented On 4 9:15AM ; [facility] No previous hospitalizations 02/14/2024 Last Documented On 4 4:26PM ; [facility] No medical history or no significant his tory 05/23/2023 Last Documented On 3 8:59AM ; [facility] Not planning to have a baby in the next 12 months 05/23/2023 Last Documented On 3 8:59AM ; [facility] Work Phone: History of Present illness Narrative History of Present Illness not supported for this document type No History of Present Illness [facility] Work Phone: Instructions Includes: Instructions for all [...] finding in-person and telehealth providers for therapy. ~[facility] encouraged patient to continue to follow-up with addressing physical health concerns Last Documented On 4 4:35PM ; [facility] Discussed nutritional needs teach healthy choices including fruits and vegetables Last Documented On 4 2:55PM ; [facility] Patient education about a pr oper diet Last Documented On 4 2:55PM ; [facility] Discussed concerns about exe rcise : promote physical activity Last Documented On 4 2:55PM ; [facility] Discussed nutritional needs teach healthy choices including fruits and vegetables Last Documented On 3 9:14AM ; [facility] Patient education about a pr oper diet Last Documented On 3 9:14AM ; [facility] Discussed concerns about exe rcise : promote physical activity Last Documented On 3 9:14AM ; [facility] Work Phone: Instructions Includes: Instructions for all patient encounters Education and Decision Aids were provided during visit for: [facility] offered active and suppo rtive listening, normalized emotions and feelings, processed current stressors and explored coping and stress reducing skills. ~P discussed coping skills to manage increased anxiety including mindfulnes, grounding and breathing techniques. ~[facility] discussed options for finding in-person and telehealth providers for therapy. ~[facility] encouraged patient to continue to follow-up with addressing physical health concerns Last Documented On 4 4:35PM ; [facility] Discussed nutritional needs teach healthy choices including fruits and vegetables Last Documented On 4 2:55PM ; [facility] Patient education about a pr oper diet Last Documented On 4 2:55PM ; [facility] Discussed concerns about exe rcise : promote physical activity Last Documented On 4 2:55PM ; [facility] Discussed nutritional needs teach healthy choices including fruits and vegetables Last Documented On 3 9:14AM ; [facility] Patient education about a pr oper diet Last Documented On 3 9:14AM ; [facility] Discussed concerns about exe rcise : promote physical activity Last Documented On 3 9:14AM ; [facility] Work Phone: Instructions Includes: Instructions for all patient encounters Education and Decision Aids were provided during visit for: ~*P offered active and sup portive listening, normalized emotions and feelings, and processed ~current stressors. ~*Utilize healthy coping skills and positive supports in patient's life. ~ Last Documented On 4 7:38PM ; [facility] Discussed nutritional needs teach healthy choices including fruits and vegetables Last Documented On 4 11:13AM ; [facility] Patient education about a pr oper diet Last Documented On 4 11:13AM ; [facility] Discussed concerns about exe rcise : promote physical activity Last Documented On 4 11:13AM ; [facility] Discussed nutritional needs teach healthy choices including fruits and vegetables Last Documented On 4 8:48AM ; [facility] Patient education about a pr oper diet Last Documented On 4 8:48AM ; [facility] Discussed concerns about exe rcise : promote physical activity Last Documented On 4 8:48AM ; [facility] BHP offered active and suppo rtive listening, normalized emotions and feelings, processed current stressors and explored coping and stress reducing skills. ~P discussed coping skills to manage increased anxiety including mindfulnes, grounding and breathing techniques. ~P discussed options for finding in-person and telehealth providers for therapy. ~[facility] encouraged patient to continue to follow-up with addressing physical health concerns Last Documented On 4 4:35PM ; [facility] Discussed nutritional needs teach healthy choices including fruits and vegetables Last Documented On 4 2:55PM ; [facility] Patient education about a pr oper diet Last Documented On 4 2:55PM ; [facility] Discussed concerns about exe rcise : promote physical activity Last Documented On 4 2:55PM ; [facility] Discussed nutritional needs teach healthy choices including fruits and vegetables Last Documented On 3 9:14AM ; [facility] Patient education about a pr oper diet Last Documented On 3 9:14AM ; [facility] Discussed concerns about exe rcise : promote physical activity Last Documented On 3 9:14AM ; [facility] Work Phone: Instructions Includes: Instructions for all patient encounters Education and Decision Aids were provided during visit for: ~*P offered active and sup portive listening, normalized emotions and feelings, and processed ~current stressors. ~*Utilize healthy coping skills and positive supports in patient's life. ~ Last Documented On 4 7:38PM ; [facility] Discussed nutritional needs teach healthy choices including fruits and vegetables Last Documented On 4 11:13AM ; [facility] Patient education about a pr oper diet Last Documented On 4 11:13AM ; [facility] Discussed concerns about exe rcise : promote physical activity Last Documented On 4 11:13AM ; [facility] Discussed nutritional needs teach healthy choices including fruits and vegetables Last Documented On 4 8:48AM ; [facility] Patient education about a pr oper diet Last Documented On 4 8:48AM ; [facility] Discussed concerns about exe rcise : promote physical activity Last Documented On 4 8:48AM ; [facility] BHP offered active and suppo rtive listening, normalized emotions and feelings, processed current stressors and explored coping and stress reducing skills. ~P discussed coping skills to manage increased anxiety including mindfulnes, grounding and breathing techniques. ~P discussed options for finding in-person and telehealth providers for therapy. ~[facility] encouraged patient to continue to follow-up with addressing physical health concerns Last Documented On 4 4:35PM ; [facility] Discussed nutritional needs teach healthy choices including fruits and vegetables Last Documented On 4 2:55PM ; [facility] Patient education about a pr oper diet Last Documented On 4 2:55PM ; [facility] Discussed concerns about exe rcise : promote physical activity Last Documented On 4 2:55PM ; [facility] Discussed nutritional needs teach healthy choices including fruits and vegetables Last Documented On 3 9:14AM ; [facility] Patient education about a pr oper diet Last Documented On 3 9:14AM ; [facility] Discussed concerns about exe rcise : promote physical activity Last Documented On 3 9:14AM ; [facility] Work Phone: Instructions Includes: Instructions for all patient encounters Education and Decision Aids were provided during visit for: ~*[facility] offered active and sup portive listening, normalized emotions and feelings, and processed ~current stressors Last Documented On 4 10:55AM ; [facility] Discussed nutritional needs teach healthy choices including fruits and vegetables Last Documented On 4 8:41AM ; [facility] Patient education about a pr oper diet Last Documented On 4 8:41AM ; [facility] Discussed concerns about exe rcise : promote physical activity Last Documented On 4 8:41AM ; [facility] Not requesting contraception Last Documented On 4 8:41AM ; [facility] ~*[facility] offered active and sup portive listening, normalized emotions and feelings, and processed ~current stressors. ~*Utilize healthy coping skills and positive supports in patient's life. ~ Last Documented On 4 7:38PM ; [facility] Discussed nutritional needs teach healthy choices including fruits and vegetables Last Documented On 4 11:13AM ; [facility] Patient education about a pr oper diet Last Documented On 4 11:13AM ; [facility] Discussed concerns about exe rcise : promote physical activity Last Documented On 4 11:13AM ; [facility] Discussed nutritional needs teach healthy choices including fruits and vegetables Last Documented On 4 8:48AM ; [facility] Patient education about a pr oper diet Last Documented On 4 8:48AM ; [facility] Discussed concerns about exe rcise : promote physical activity Last Documented On 4 8:48AM ; [facility] offered active and suppo rtive listening, normalized emotions and feelings, processed current stressors and explored coping and stress reducing skills. ~[facility] discussed coping skills to manage increased anxiety including mindfulnes, grounding and breathing techniques. ~[facility] discussed options for finding in-person and telehealth providers for therapy. ~[facility] encouraged patient to continue to follow-up with addressing physical health concerns Last Documented On 4 4:35PM ; [facility] Discussed nutritional needs teach healthy choices including fruits and vegetables Last Documented On 4 2:55PM ; [facility] Patient education about a pr oper diet Last Documented On 4 2:55PM ; [facility] Discussed concerns about exe rcise : promote physical activity Last Documented On 4 2:55PM ; [facility] Discussed nutritional needs teach healthy choices including fruits and vegetables Last Documented On 3 9:14AM ; [facility] Patient education about a pr oper diet Last Documented On 3 9:14AM ; [facility] Discussed concerns about exe rcise : promote physical activity Last Documented On 3 9:14AM ; [facility] Work Phone: Instructions Includes: Instructions for all patient encounters Education and Decision Aids were provided during visit for: Discussed nutritional needs teach healthy choices including fruits and vegetables Last Documented On 4 3:32PM ; [facility] Patient education about a pr oper diet Last Documented On 4 3:32PM ; [facility] Discussed concerns about exe rcise : promote physical activity ~ ~Increase fluids and rest Last Documented On 4 3:50PM ; [facility] Not requesting contraception Last Documented On 4 3:32PM ; [facility] ~*[facility] offered active and sup portive listening, normalized emotions and feelings, and processed ~current stressors Last Documented On 4 10:55AM ; [facility] Discussed nutritional needs teach healthy choices including fruits and vegetables Last Documented On 4 8:41AM ; [facility] Patient education about a pr oper diet Last Documented On 4 8:41AM ; [facility] Discussed concerns about exe rcise : promote physical activity ~ ~Will start hydroxyzine for anxiety ~ ~Will refill ibuprofen and cyclobenzaprine for back pain ~ ~Due to cardiac symptoms will do cardiac testing ~ ~ ~Has a hisotry of GERD will restart pantoprazole ~ ~Follow up with PCP in 4 weeks Last Documented On 4 1:57PM ; [facility] Not requesting contraception Last Documented On 4 8:41AM ; [facility] ~*[facility] offered active and sup portive listening, normalized emotions and feelings, and processed ~current stressors. ~*Utilize healthy coping skills and positive supports in patient's life. ~ Last Documented On 4 7:38PM ; [facility] Discussed nutritional needs teach healthy choices including fruits and vegetables Last Documented On 4 11:13AM ; [facility] Patient education about a pr oper diet Last Documented On 4 11:13AM ; [facility] Discussed concerns about exe rcise : promote physical activity Last Documented On 4 11:13AM ; [facility] Discussed nutritional needs teach healthy choices including fruits and vegetables Last Documented On 4 8:48AM ; [facility] Patient education about a pr oper diet Last Documented On 4 8:48AM ; [facility] Discussed concerns about exe rcise : promote physical activity Last Documented On 4 8:48AM ; [facility] offered active and suppo rtive listening, normalized emotions and feelings, processed current stressors and explored coping and stress reducing skills. ~[facility] discussed coping skills to manage increased anxiety including mindfulnes, grounding and breathing techniques. ~[facility] discussed options for finding in-person and telehealth providers for therapy. ~[facility] encouraged patient to continue to follow-up with addressing physical health concerns Last Documented On 4 4:35PM ; [facility] Discussed nutritional needs teach healthy choices including fruits and vegetables Last Documented On 4 2:55PM ; [facility] Patient education about a pr oper diet Last Documented On 4 2:55PM ; [facility] Discussed concerns about exe rcise : promote physical activity Last Documented On 4 2:55PM ; [facility] Discussed nutritional needs teach healthy choices including fruits and vegetables Last Documented On 3 9:14AM ; [facility] Patient education about a pr oper diet Last Documented On 3 9:14AM ; [facility] Discussed concerns about exe rcise : promote physical activity Last Documented On 3 9:14AM ; [facility] Work Phone: Instructions Includes: Instructions for all patient encounters Education and Decision Aids were provided during visit for: ~*[facility] offered active and sup portive listening, normalized emotions and feelings, and processed ~current stressors. ~*Educated patient on the benefit of counseling and provided patient with a list of resources Last Documented On 4 12:14PM ; [facility] Discussed nutritional needs teach healthy choices including fruits and vegetables Last Documented On 4 3:32PM ; [facility] Patient education about a pr oper diet Last Documented On 4 3:32PM ; [facility] Discussed concerns about exe rcise : promote physical activity ~ ~Increase fluids and rest Last Documented On 4 3:50PM ; [facility] Not requesting contraception Last Documented On 4 3:32PM ; [facility] ~*[facility] offered active and sup portive listening, normalized emotions and feelings, and processed ~current stressors Last Documented On 4 10:55AM ; [facility] Discussed nutritional needs teach healthy choices including fruits and vegetables Last Documented On 4 8:41AM ; [facility] Patient education about a pr oper diet Last Documented On 4 8:41AM ; [facility] Discussed concerns about exe rcise : promote physical activity ~ ~Will start hydroxyzine for anxiety ~ ~Will refill ibuprofen and cyclobenzaprine for back pain ~ ~Due to cardiac symptoms will do cardiac testing ~ ~ ~Has a hisotry of GERD will restart pantoprazole ~ ~Follow up with PCP in 4 weeks Last Documented On 4 1:57PM ; [facility] Not requesting contraception Last Documented On 4 8:41AM ; [facility] ~*P offered active and sup portive listening, normalized emotions and feelings, and processed ~current stressors. ~*Utilize healthy coping skills and positive supports in patient's life. ~ Last Documented On 4 7:38PM ; [facility] Discussed nutritional needs teach healthy choices including fruits and vegetables Last Documented On 4 11:13AM ; [facility] Patient education about a pr oper diet Last Documented On 4 11:13AM ; [facility] Discussed concerns about exe rcise : promote physical activity Last Documented On 4 11:13AM ; [facility] Discussed nutritional needs teach healthy choices including fruits and vegetables Last Documented On 4 8:48AM ; [facility] Patient education about a pr oper diet Last Documented On 4 8:48AM ; [facility] Discussed concerns about exe rcise : promote physical activity Last Documented On 4 8:48AM ; [facility] BHP offered active and suppo rtive [...] concerns Last Documented On 4 4:35PM ; [facility] Discussed nutritional needs teach healthy choices including fruits and vegetables Last Documented On 4 2:55PM ; [facility] Patient education about a pr oper diet Last Documented On 4 2:55PM ; [facility] Discussed concerns about exe rcise : promote physical activity Last Documented On 4 2:55PM ; [facility] Discussed nutritional needs teach healthy choices including fruits and vegetables Last Documented On 3 9:14AM ; [facility] Patient education about a pr oper diet Last Documented On 3 9:14AM ; [facility] Discussed concerns about exe rcise : promote physical activity Last Documented On 3 9:14AM ; [facility] Work Phone: Instructions Includes: Instructions for all patient encounters Education and Decision Aids were provided during visit for: ~*P offered active and sup portive listening, normalized emotions and feelings, and processed ~current stressors. ~*Educated patient on the benefit of counseling and provided patient with a list of resources Last Documented On 4 12:14PM ; [facility] Discussed nutritional needs teach healthy choices including fruits and vegetables Last Documented On 4 3:32PM ; [facility] Patient education about a pr oper diet Last Documented On 4 3:32PM ; [facility] Discussed concerns about exe rcise : promote physical activity ~ ~Increase fluids and rest Last Documented On 4 3:50PM ; [facility] Not requesting contraception Last Documented On 4 3:32PM ; [facility] ~*P offered active and sup portive listening, normalized emotions and feelings, and processed ~current stressors Last Documented On 4 10:55AM ; [facility] Discussed nutritional needs teach healthy choices including fruits and vegetables Last Documented On 4 8:41AM ; [facility] Patient education about a pr oper diet Last Documented On 4 8:41AM ; [facility] Discussed concerns about exe rcise : promote physical activity ~ ~Will start hydroxyzine for anxiety ~ ~Will refill ibuprofen and cyclobenzaprine for back pain ~ ~Due to cardiac symptoms will do cardiac testing ~ ~ ~Has a hisotry of GERD will restart pantoprazole ~ ~Follow up with PCP in 4 weeks Last Documented On 4 1:57PM ; [facility] Not requesting contraception Last Documented On 4 8:41AM ; [facility] ~*[facility] offered active and sup portive listening, normalized emotions and feelings, and processed ~current stressors. ~*Utilize healthy coping skills and positive supports in patient's life. ~ Last Documented On 4 7:38PM ; [facility] Discussed nutritional needs teach healthy choices including fruits and vegetables Last Documented On 4 11:13AM ; [facility] Patient education about a pr oper diet Last Documented On 4 11:13AM ; [facility] Discussed concerns about exe rcise : promote physical activity Last Documented On 4 11:13AM ; [facility] Discussed nutritional needs teach healthy choices including fruits and vegetables Last Documented On 4 8:48AM ; [facility] Patient education about a pr oper diet Last Documented On 4 8:48AM ; [facility] Discussed concerns about exe rcise : promote physical activity Last Documented On 4 8:48AM ; [facility] offered active and suppo rtive listening, normalized emotions and feelings, processed current stressors and explored coping and stress reducing skills. ~[facility] discussed coping skills to manage increased anxiety including mindfulnes, grounding and breathing techniques. ~[facility] discussed options for finding in-person and telehealth providers for therapy. ~[facility] encouraged patient to continue to follow-up with addressing physical health concerns Last Documented On 4 4:35PM ; [facility] Discussed nutritional needs teach healthy choices including fruits and vegetables Last Documented On 4 2:55PM ; [facility] Patient education about a pr oper diet Last Documented On 4 2:55PM ; [facility] Discussed concerns about exe rcise : promote physical activity Last Documented On 4 2:55PM ; [facility] Discussed nutritional needs teach healthy choices including fruits and vegetables Last Documented On 3 9:14AM ; [facility] Patient education about a pr oper diet Last Documented On 3 9:14AM ; [facility] Discussed concerns about exe rcise : promote physical activity Last Documented On 3 9:14AM ; [facility] Work Phone: Instructions Includes: Instructions for all patient encounters Education and Decision Aids were provided during visit for: ~*P offered active and sup portive listening, normalized emotions and feelings, and processed ~current stressors. ~*Discussed healthy coping skills and positive supports in patient's life Last Documented On 5 3:32PM ; [facility] Discussed nutritional needs teach healthy choices including fruits and vegetables Last Documented On 5 8:57AM ; [facility] Patient education about a pr oper diet Last Documented On 5 8:57AM ; [facility] Discussed concerns about exe rcise : promote physical activity ~ ~Follow up next week for exam if symptoms still present after treatment Last Documented On 5 12:18PM ; [facility] Referred Patient to a Diabet es Self-Management Program Last Documented On 5 9:20AM ; [facility] ~*[facility] offered active and sup portive listening, normalized emotions and feelings, and processed ~current stressors. ~*Educated patient on the benefit of counseling and provided patient with a list of resources Last Documented On 4 12:14PM ; [facility] Discussed nutritional needs teach healthy choices including fruits and vegetables Last Documented On 4 3:32PM ; [facility] Patient education about a pr oper diet Last Documented On 4 3:32PM ; [facility] Discussed concerns about exe rcise : promote physical activity ~ ~Increase fluids and rest Last Documented On 4 3:50PM ; [facility] Not requesting contraception Last Documented On 4 3:32PM ; [facility] ~*[facility] offered active and sup portive listening, normalized emotions and feelings, and processed ~current stressors Last Documented On 4 10:55AM ; [facility] Discussed nutritional needs teach healthy choices including fruits and vegetables Last Documented On 4 8:41AM ; [facility] Patient education about a pr oper diet Last Documented On 4 8:41AM ; [facility] Discussed concerns about exe rcise : promote physical activity ~ ~Will start hydroxyzine for anxiety ~ ~Will refill ibuprofen and cyclobenzaprine for back pain ~ ~Due to cardiac symptoms will do cardiac testing ~ ~ ~Has a hisotry of GERD will restart pantoprazole ~ ~Follow up with PCP in 4 weeks Last Documented On 4 1:57PM ; [facility] Not requesting contraception Last Documented On 4 8:41AM ; [facility] ~*P offered active and sup portive listening, normalized emotions and feelings, and processed ~current stressors. ~*Utilize healthy coping skills and positive supports in patient's life. ~ Last Documented On 4 7:38PM ; [facility] Discussed nutritional needs teach healthy choices including fruits and vegetables Last Documented On 4 11:13AM ; [facility] Patient education about a pr oper diet Last Documented On 4 11:13AM ; [facility] Discussed concerns about exe rcise : promote physical activity Last Documented On 4 11:13AM ; [facility] Discussed nutritional needs teach healthy choices including fruits and vegetables Last Documented On 4 8:48AM ; [facility] Patient education about a pr oper diet Last Documented On 4 8:48AM ; [facility] Discussed concerns about exe rcise : promote physical activity Last Documented On 4 8:48AM ; [facility] offered active and suppo rtive [...] concerns Last Documented On 4 4:35PM ; [facility] Discussed nutritional needs teach healthy choices including fruits and vegetables Last Documented On 4 2:55PM ; [facility] Patient education about a pr oper diet Last Documented On 4 2:55PM ; [facility] Discussed concerns about exe rcise : promote physical activity Last Documented On 4 2:55PM ; [facility] Discussed nutritional needs teach healthy choices including fruits and vegetables Last Documented On 3 9:14AM ; [facility] Patient education about a pr oper diet Last Documented On 3 9:14AM ; [facility] Discussed concerns about exe rcise : promote physical activity Last Documented On 3 9:14AM ; [facility] Work Phone: Instructions Includes: Instructions for all patient encounters Education and Decision Aids were provided during visit for: ~*P offered active and sup portive listening, normalized emotions and feelings, and processed ~current stressors. ~*Discussed healthy coping skills and positive supports in patient's life Last Documented On 5 3:32PM ; [facility] Discussed nutritional needs teach healthy choices including fruits and vegetables Last Documented On 5 8:57AM ; [facility] Patient education about a pr oper diet Last Documented On 5 8:57AM ; [facility] Discussed concerns about exe rcise : promote physical activity ~ ~Follow up next week for exam if symptoms still present after treatment Last Documented On 5 12:18PM ; [facility] Referred Patient to a Diabet es Self-Management Program Last Documented On 5 9:20AM ; [facility] ~*[facility] offered active and sup portive listening, normalized emotions and feelings, and processed ~current stressors. ~*Educated patient on the benefit of counseling and provided patient with a list of resources Last Documented On 4 12:14PM ; [facility] Discussed nutritional needs teach healthy choices including fruits and vegetables Last Documented On 4 3:32PM ; [facility] Patient education about a pr oper diet Last Documented On 4 3:32PM ; [facility] Discussed concerns about exe rcise : promote physical activity ~ ~Increase fluids and rest Last Documented On 4 3:50PM ; [facility] Not requesting contraception Last Documented On 4 3:32PM ; [facility] ~*[facility] offered active and sup portive listening, normalized emotions and feelings, and processed ~current stressors Last Documented On 4 10:55AM ; [facility] Discussed nutritional needs teach healthy choices including fruits and vegetables Last Documented On 4 8:41AM ; [facility] Patient education about a pr oper diet Last Documented On 4 8:41AM ; [facility] Discussed concerns about exe rcise : promote physical activity ~ ~Will start hydroxyzine for anxiety ~ ~Will refill ibuprofen and cyclobenzaprine for back pain ~ ~Due to cardiac symptoms will do cardiac testing ~ ~ ~Has a hisotry of GERD will restart pantoprazole ~ ~Follow up with PCP in 4 weeks Last Documented On 4 1:57PM ; [facility] Not requesting contraception Last Documented On 4 8:41AM ; [facility] ~*P offered active and sup portive listening, normalized emotions and feelings, and processed ~current stressors. ~*Utilize healthy coping skills and positive supports in patient's life. ~ Last Documented On 4 7:38PM ; [facility] Discussed nutritional needs teach healthy choices including fruits and vegetables Last Documented On 4 11:13AM ; [facility] Patient education about a pr oper diet Last Documented On 4 11:13AM ; [facility] Discussed concerns about exe rcise : promote physical activity Last Documented On 4 11:13AM ; [facility] Discussed nutritional needs teach healthy choices including fruits and vegetables Last Documented On 4 8:48AM ; [facility] Patient education about a pr oper diet Last Documented On 4 8:48AM ; [facility] Discussed concerns about exe rcise : promote physical activity Last Documented On 4 8:48AM ; [facility] offered active and suppo rtive listening, normalized emotions and feelings, processed current stressors and explored coping and stress reducing skills. ~P discussed coping skills to manage increased anxiety including mindfulnes, grounding and breathing techniques. ~P discussed options for finding in-person and telehealth providers for therapy. ~[facility] encouraged patient to continue to follow-up with addressing physical health concerns Last Documented On 4 4:35PM ; [facility] Discussed nutritional needs teach healthy choices including fruits and vegetables Last Documented On 4 2:55PM ; [facility] Patient education about a pr oper diet Last Documented On 4 2:55PM ; [facility] Discussed concerns about exe rcise : promote physical activity Last Documented On 4 2:55PM ; [facility] Discussed nutritional needs teach healthy choices including fruits and vegetables Last Documented On 3 9:14AM ; [facility] Patient education about a pr oper diet Last Documented On 3 9:14AM ; [facility] Discussed concerns about exe rcise : promote physical activity Last Documented On 3 9:14AM ; [facility] Work Phone: Patient problem outcome Narrative Includes: Evaluations & Outcomes for active Goals [facility]: Review of systems Narrative - Reported Review of Systems not supported for this document type No [facility] Work [facility]: Chief Complaint and Reason for Visit Chief Complaint Abdominal Pain, Weig ht Loss, Diarrhea, Rectal Blee Chief Complaint M79.644 Advance Directives Includes: Current Advance Directives No Advance Directives Recorded Advance Directive Response Recorded Date/ Time Advance Directives No April 05 2:01pm Advance Directive Response Recorded Date/ Time Advance Directives No April 05 1:59pm Summary Purpose Family History Description Last Updated No significant medical history 3 Last Documented On 3 8:59AM ; [facility] No Family History Records Found Physical [...] FOR VISIT (unrecogniz ed section and content) Reason Comments Contraception IUD placement Reason Comments vaginal dryness Reason Comments Vaginal Dryness Care Teams (unrecognized sec tion and content) Team Status: Active Member Role Status Dates PHYSICIAN NO FAMILY Primary Care Provider Active Team Status: Inactive Member Role Status Dates PHYSICIAN NO FAMILY Primary Care Provider Active MURIEL Rothman Attending Provider Active Gas Regulator Repairer Helper Relationship Specialty Start Date End Date Arcelia Mcbride DO [address] [facility] [place] [address] PCP - [facility] 04/08/24 Gas Regulator Repairer Helper Relationship Specialty Start Date End Date Arcelia Mcbride, DO [address] [place] [address] PCP [facility] 04/08/24 Gas Regulator Repairer Helper Relationship Specialty Start Date End Date Lotus Mcbridey, DO [address] [place] [address] PCP [facility] 04/08/24 Gas Regulator Repairer Helper Relationship Specialty Start Date End Date Lotus Mcbridey, DO [address] [place] [address] PCP [facility] 04/08/24 Gas Regulator Repairer Helper Relationship Specialty Start Date End Date Arcelia Mcbride, DO [address] [place] [address] PCP [facility] 04/08/24 INFORMATION SOURCE (unrecogn ized section and content) DATE CREATED AUTHOR 02/15/2023 [facility] DATE CREATED AUTHOR AUTHOR'S ORGANIZ ATION 10/16/2023 [facility] DATE CREATED AUTHOR AUTHOR'S ORGANIZ ATION 05/05/2024 [facility] DATE CREATED AUTHOR AUTHOR'S ORGANIZ ATION 04/25/2025 [facility] dical Specialists EPIC FOR RECORDS PERTAINING TO PATIENTS [...] BE BASED ON THE PRIMARY CLINICAL RECORDS. [employer] provides no warranty or guarantee of the accuracy or completeness of information in this document.
--- OUTSIDE RECORDS SUMMARY | 2025-07-20 12:42 | XMS_ITS | Encounter Summary ---
Author Organization [facility] Address [address] [place] [address] Care Team Providers Care Ingredient Handler Name Role Phone Karl Mcbride DO Unavailable Encounter Details Date Type Department Care Team (Late st Contact Info) Description 04/10/2025 Abstract [facility] [address] [place] [id number] Karl Mcbride DO [address], [id number] Social History Tobacco Use Types Packs/Day Years Used Date Smoking Tobacco: Never Smokeless Tobacco: Never Alcohol Use Standard Drinks/Week Comments Never 0 (1 standard drink = 0.6 oz pur e alcohol) Comments No Sex and Gender Information Value Date Recorded Sex Assigned at Not on file Legal Sex Female 6:55 PM EDT Gender Identity Not on file Sexual Orientation Not on file documented as of this encounter Plan of Treatment Not on file documented as of this encounter Visit Diagnoses Not on filedocumented in this encounter Care Teams Ingredient Handler Relationship Specialty Start Date End Date Karl Mcbride DO [address], [facility] PCP - [facility] 04/08/24 documented as of this encounter
--- OUTSIDE RECORDS SUMMARY | 2025-07-20 12:42 | XMS_ITS | Clinical Summary ---
Author Organization [facility] Address [address] [place] [address] Care Team Providers Care Farm Mechanic Name Role Phone Karl Mcbride DO Unavailable Allergies No known active allergies Medications Levonorgestrel (Mirena, 52 MG,) 20 MCG/DAY intrauterine device 52 mg by Intrauterine route Daily Active metroNIDAZOLE (Metrogel) 0.75 % vaginal gelIndications:B V (bacterial vaginosis) Insert into the vagina Daily for 5 days 70 g 07/08/20 25 025 fluconazole (Diflucan) 150 MG tabletIndication s:Yeast infection Take 1 tablet (150 mg) by mouth 1 (one) time for 1 dose This is a 1 time dose, take single tablet by mouth. 1 tablet 1 07/08/20 25 025 Encounters Date Type Department Care Team Description 07/08/2025 Telephone [facility] [place] [address] Francesca Hebert MA 04/21/2025 3:50 PM [place] [address] Karl cMbride DO Yeast infection (Primary Dx); Vaginal dryness 04/21/2025 Bamboo flowsheet [facility] [place] [address] Karl Mcbride DO 04/21/2025 Travel from Last 3 Months Social History Tobacco Use Types Packs/Day Years Used Date Smoking Tobacco: Never Smokeless Tobacco: Never Tobacco Cessation:Counseling Given: Not Answered Alcohol Use Standard Drinks/Week Comments Never 0 (1 standard drink = 0.6 oz pur e alcohol) Comments No Sex and Gender Information Value Date Recorded Sex Assigned at Not on file Legal Sex Female 6:55 PM EDT Gender Identity Not on file Sexual Orientation Not on file Last Filed Vital Signs Vital Sign Reading Time Taken Comments Blood Pressure 112/80 04/21/2025 3:52 PM EDT Pulse - - Temperature - - Respiratory Rate - - Oxygen Saturation - - Inhaled Oxygen Concentration - - Weight 78.1 kg (172 lb 4 oz) 04/21/2025 3:52 PM EDT Height 170.2 cm (5' 7 ) 04/21/2025 3:52 PM EDT Body Mass Index 26.98 04/21/2025 3:52 PM EDT Plan of Treatment Health Maintenance Due Date Last Done Comments Influenza Vaccine (#1) 2025 Cervical Cancer Screening 05/14/2029 HPV/Cotest 05/14/2029 Pap Smear 05/14/2029 05/14/2024, 02/08/2023 Procedures Procedure Name Priority Date/Time Associated Diagnosis Comments PAP SMEAR Routine 05/14/2024 12:00 AM EDT from Last 3 Months or Most Recently Relevant to Health Maintenance Results * Pap Smear (05/14/2024 12:00 AM EDT) Swab Cervical swab / Unknown [facility] ORDERABLES Final Re sult EXTERNAL LAB from Last 3 Months or Most Recently Relevant to Health Maintenance Insurance [employer] Care Teams Farm Mechanic Relationship Specialty Start Date End Date Karl Mcbride DO [address] [place] [address] PCP - [facility] 04/08/24
--- OUTSIDE RECORDS SUMMARY | 2025-07-20 12:42 | XMS_ITS | Clinical Summary ---
Author Organization [facility] Address [id number] [address] [place] [address] Care Team Providers Care Dry Cleaner Presser Name Role Phone Services, [facility] Primary Care Provider Allergies No known active allergies Medications potassium chloride (KLOR-CON M) 20 MEQ CR tablet Take 1 tablet (20 mEq total) by mouth 2 (two) times a day. 10 tablet 0 Active Additional Information Patient not taking.Reported on 04/22/2021 Active Problems No known active problems Family History Relation Name Status Comments Father Alive Mother Alive Social History Tobacco Use Types Packs/Day Years Used Date Smoking Tobacco: Never Smokeless Tobacco: Never Alcohol Use Standard Drinks/Week Comments Yes 0 (1 standard drink = 0.6 oz pur e alcohol) social Childcare Answer Date Recorded Childcare Unknown 03/20/2019 Employment Answer Date Recorded Employment Unknown 03/20/2019 Hunger Screening Answer Date Recorded Within the past 12 months we worried whether our food would run out before we got money to buy more. Never True 05/04/2024 Within the past 12 months th e food we bought just didn't last and we didn't have money to get more. Never True 05/04/2024 Purpose - Life Answer Date Recorded Purpose and direction in life Unknown Comments No Sex and Gender Information Value Date Recorded Sex Assigned at Not on file Legal Sex Female 11:42 AM EDT Gender Identity Not on file Sexual Orientation Not on file Last Filed Vital Signs Vital Sign Reading Time Taken Comments Blood Pressure 128/99 05/04/2024 11:26 AM EDT Pulse 85 05/04/2024 11:30 AM EDT Temperature 36.7 C (98 F) 05/04/2024 10:03 AM EDT Respiratory Rate 14 05/04/2024 11:30 AM EDT Oxygen Saturation 100% 05/04/2024 11:30 AM EDT Inhaled Oxygen Concentration - - Weight 80.1 kg (176 lb 8 oz) 05/04/2024 10:03 AM EDT Height 170.2 cm (5' 7 ) 05/04/2024 10:03 AM EDT Body Mass Index 27.64 05/04/2024 10:03 AM EDT Plan of Treatment Health Maintenance Due Date Last Done Comments DTaP,Tdap and Td Vaccines (5 - Tdap) 2001 03/20/2000, 06/28/1994, 1990, Additional history exists Depression Screening 2002 Pap Smear 2011 Adult BMI Screening 05/04/2025 05/04/2024 Tobacco Screening 05/04/2025 05/04/2024 Influenza Vaccine 06/09/2025 Medical Devices Not on file Insurance [employer] [facility] Care Teams Dry Cleaner Presser Relationship Specialty Start Date End Date Services, [place] [id number] [facility] [place] [place] PCP - General Family [facility] 03/18/24
--- OUTSIDE RECORDS SUMMARY | 2025-07-20 12:42 | XMS_ITS | Patient Health Record ---
Author Organization [facility] Address [address] [place] [address] Support Name Relationship Address Phone OSEI WASHINGTON Guarantor Unknown Reason For Referral No Information Plan Of Treatment No Information Insurance Providers Payer Name Payer Address Payer Phone Subscriber Number Group Number Insured Name Patient Relationship to Insured Coverage Start Date Coverage End Date Medicaid [employer] [place] [address] [place] [address] OSEI WASHINGTON Self - patient is the insured
--- OUTSIDE RECORDS SUMMARY | 2025-07-20 12:42 | XMS_ITS | Encounter Summary ---
Author Organization [facility] Address [address] [place] [address] Care Team Providers Care Cell Tuber Hand Name Role Phone Karl Mcbride DO Unavailable Encounter Details Date Type Department Care Team (Late st Contact Info) Description 03/20/2025 Abstract [facility] [address] [place] [address] Francesca Hebert MA Social History Tobacco Use Types Packs/Day Years [...] on filedocumented in this encounter Care Teams Cell Tuber Hand Relationship Specialty Start Date End Date Karl Mcbride DO [address] [place], [place] [phone] PCP - [facility] 04/08/24 documented as of this encounter
--- OUTSIDE RECORDS SUMMARY | 2025-07-20 12:42 | XMS_ITS | Encounter Summary ---
Author Organization [facility] Address [address] [place] [address] Care Team Providers Care Weaver [employer] Name Role Phone ReedLotus lyonsy DO Unavailable Encounter Details Date Type Department Care Team (Late st Contact Info) Description 07/29/2024 Clinisync Result Encounter [facility] External Department Unsolicited Arcelia Mcbride, [address] [place], [place] [id number] Social History Tobacco Use Types Packs/Day Years [...] on file documented as of this encounter Procedures Procedure Name Priority Date/Time Associated Diagnosis Comments US PELVIS TRANSVAGINAL 07/29/2024 7:16 AM EDT documented in this encounter Results * US PELVIS TRANSVAGINAL (07/29/2024 7:16 AM EDT) Anatomical Region Laterality Modality Other 07/29/2024 7:16 AM EDT Narrative 07/29/2024 7:18 AM EDT The [address] [address] Ultrasound Report Signed Patient: MARIOLA EVANS MR#: [id number] : 1990 Acct:[id number] Age/Sex: 34 / F ADM Date: 07/25/24 Loc: [facility] Attending Dr: Arcelia Mcbride D.O. Ordering Physician: Arcelia Mcbride D.O. Date of Service: 07/25/24 Procedure(s): US pelvis transvaginal Accession Number(s): [id number] cc: Arcelia Mcbride D.O.; Physician,Non-Staff Helio The [address] [address] Patient Name: MARIOLA EVANS MRN: [id number] date: 1990 Sex: F Assigned Patient Location: [facility] Current Patient Location: Accession/Order Number: [id number] Exam Date: 07/25/2024 08:12 Report Date: 07/29/2024 07:16 At the request of: ARCELIA MCBRIDE Procedure: US pelvis transvaginal EXAMINATION: US pelvis transvaginal HISTORY: BLEEDING WITH MIRENA COMPARISON: No relevant comparison available. FINDINGS: Transvaginal images The uterus is normal in size, contour and echotexture measuring 7.9 x 4.0 x 5.6 cm. Linear hyperechogenicity within the endometrial cavity with acoustic shadowing, positioned IUD The endometrium measures 2 mm, thin The right ovary is normal measuring 2.7 x 1.8 x 2.6 cm. Normal color Doppler flow The left ovary is normal measuring 3.8 x 1.7 x 2.1 cm. Normal color Doppler flow No free fluid US/US pelvis transvaginal IMPRESSION: IUD in normal position Thin endometrium Electronically authenticated by: KAYLYN ESTRADA Date: 07/29/2024 07:16 Dictated By: Kaylyn Estrada M.D. Signed By: 07/29/24717 DD/ 5 TD/TT: Lifestyle Block Farmer: Procedure Note Radiology, Radiologist, - 07/29/[address] [address] Ultrasound Report Signed Patient: MARIOLA EVANS LMR#: [id number] : 1990Acct:[id number] Age/Sex: 34 / FADM Date: 07/25/24 Loc: [facility] Attending Dr: Arcelia Mcbride D.O. Ordering Physician: Arcelia Mcbride D.O. Date of Service: 07/25/24 Procedure(s): US pelvis transvaginal Accession Number(s): [id number] cc: Arcelia Mcbride D.O.; Physician,Non-Staff Helio [address] [id number] Patient Name: MARIOLA EVANS MRN: [id number] date: 1990 Sex: F Assigned Patient Location: [facility] Current Patient Location: Accession/Order Number: [id number] Exam Date: 07/25/2024 08:12 Report Date: 07/29/2024 07:16 At the request of: ARCELIA MCBRIDE Procedure: US pelvis transvaginal EXAMINATION: US pelvis transvaginal HISTORY: BLEEDING WITH MIRENA COMPARISON: No relevant comparison available. FINDINGS: Transvaginal images The uterus is normal in size, contour and echotexture measuring 7.9 x 4.0x 5.6 cm. Linear hyperechogenicity within the endometrial cavity with acoustic shadowing, positioned IUD The endometrium measures 2 mm, thin The right ovary is normal measuring 2.7 x 1.8 x 2.6 cm. Normal colorDoppler flow The left ovary is normal measuring 3.8 x 1.7 x 2.1 cm. Normal colorDoppler flow No free fluid US/US pelvis transvaginal IMPRESSION: IUD in normal position Thin endometrium Electronically authenticated by: KAYLYN ESTRADA Date: 07/29/2024 07:16 Dictated By: Kaylyn Estrada M.D. Signed By:07/29/24717 DD/ 5 TD/TT: Lifestyle Block Farmer: Arcelia Mcbride DO [facility] Final Result documented in this encounter Visit Diagnoses Not on filedocumented in this encounter Care Teams [employer] Relationship Specialty Start Date End Date Arcelia Mcbride DO [facility] [address] [place] [phone] PCP - [facility] 04/08/24 documented as of this encounter
--- OUTSIDE RECORDS SUMMARY | 2025-07-20 12:42 | XMS_ITS | Clinical Summary ---
Author Organization [facility] Address [address] [place] [address], [address] [place] [address] Care Team Providers Care Mattress Spring Encaser Name Role Phone Unavailable Primary Care Provider Unavailabl e Social History Tobacco Use Types Packs/Day Years Used Date Smoking Tobacco: Never Assessed Comments Unknown Sex and Gender Information Value Date Recorded Sex Assigned at Not on file Legal Sex Female 12:07 PM EDT Gender Identity Not on file Sexual Orientation Not on file Plan of Treatment Not on file
--- OUTSIDE RECORDS SUMMARY | 2025-07-20 12:42 | XMS_ITS | Encounter Summary ---
Author Organization [facility] Address [address] [place] [address] Care Team Providers Care Bullet Swaging Machine Operator Name Role Phone Karl Mcbride DO Unavailable Encounter Details Date Type Department Care Team (Late st Contact Info) Description 07/08/2025 Telephone [facility] [address] [place] [phone] Francesca Hebert MA Social History Tobacco Use [...] on file documented as of this encounter Miscellaneous Notes * Telephone Encounter - Francesca Hebert MA - 07/08/2025 10:06 AM EDT Pt c/o possible bv infections. Pt requesting Metrogel and diflucan. Pharmacy Confirmed, meds sent. PVU. documented in this encounter Plan of Treatment Not on file documented as of this encounter Visit Diagnoses Diagnosis Yeast infection BV (bacterial vaginosis) Unspecified vaginitis and vulvovaginitis documented in this encounter Care Teams Bullet Swaging Machine Operator Relationship Specialty Start Date End Date Karl Mcbride DO [address] [place], [place] [phone] PCP - [facility] 04/08/24 documented as of this encounter
== END 2025-07-20 13:53 | disposition home or self-care (01) ==
PROVIDERS: Emergency Provider Emergency Medicine
DX: R10.10 Upper abdominal pain, unspecified (principal); Z90.49 Acquired absence of other specified parts of digestive tract
CPT/HCPCS: 36415; 74177; 80048; 80076; 81001; 82150; 83690; 84703; 85025; 93005; 99285; Q9967